=== PATIENT | male | born 1955 | race Caucasian/White ===

== ENCOUNTER → 2016-10-31 | Outpatient (CLI) | payer MEDICARE | END | disposition home or self-care (01) | LOC: PMGWOUND 13:35 | PROVIDERS: ATTEND Emergency Medicine Undersea and Hyperbaric Medicine | DX: T87.89 Other complications of amputation stump (principal); L97.524 Non-pressure chronic ulcer of other part of left foot with necrosis of bone; L97.514 Non-pressure chronic ulcer of other part of right foot with necrosis of bone; L97.421 Non-pressure chronic ulcer of left heel and midfoot limited to breakdown of skin; E11.621 Type 2 diabetes mellitus with foot ulcer; F17.200 Nicotine dependence, unspecified, uncomplicated; Z86.73 Personal history of transient ischemic attack (TIA), and cerebral infarction without residual deficits; Z89.021 Acquired absence of right finger(s); Z89.421 Acquired absence of other right toe(s); Y83.5 Amputation of limb(s) as the cause of abnormal reaction of the patient, or of later complication, without mention of misadventure at the time of the procedure | CPT/HCPCS: 99215 ==

== ENCOUNTER 2016-11-01 09:07 | Inpatient (IN) | payer MEDICARE, OTHER ==
[~2016-11-01] VITALS: Ht 172.7 cm; Wt 58.1 kg
[2016-11-01] MEDS ORDERED: IV NORMAL SALINE 1000ML BAG 1,000 ML IV ONE (10:30)
[2016-11-01 11:00] LABS: BASO # 0.1 x10^3/uL (0.0-0.2); BASO % 1 % (0-3); EOS % 4 % (0-3); HEMATOCRIT 28.3 % (39.0-53.0); HEMOGLOBIN 9.3 g/dL (13.0-17.5); LYMPH % 10 % (24-48); MEAN CORPUSCULAR HEMOGLOBIN 29 pg (25-35); MEAN CORPUSCULAR HGB CONC 33 g/dL (31-37); MEAN CORPUSCULAR VOLUME 89 fL (79-100); MONO % 6 % (0-9); NEUT % 79 % (31-73); PLATELET COUNT 284 x10^3/uL (140-400); RED BLOOD COUNT 3.19 x10^6/uL (4.30-5.70); RED CELL DISTRIBUTION WIDTH 15.8 % (11.5-14.5); WHITE BLOOD COUNT 10.1 x10^3/uL (4.0-11.0)
[2016-11-01 11:13] LABS: CALCIUM 8.8 mg/dL (8.5-10.1); GFR 11.9; POTASSIUM 4.6 mmol/L (3.5-5.1)
[2016-11-01] MEDS ORDERED: fentaNYL PF VIAL 100 MCG/2 ML VIAL IV ONE ×2 (11:15→13:30)
[2016-11-01 11:28] LABS: ALBUMIN 2.9 g/dL (3.4-5.0); ALBUMIN/GLOBULIN RATIO 0.7 (1.0-1.7); TOTAL BILIRUBIN 0.2 mg/dL (0.2-1.0); TOTAL PROTEIN 7.2 g/dL (6.4-8.2)
--- NOTE | 2016-11-01 13:15 | PHYS DOC ---
Past Medical History Past Medical History: Diabetes-Type II, Hypertension, Renal Failure, Stroke, Other Additional Past Medical Histor: CREST SYNDROME Past Surgical History: Other Additional Past Surgical Histo: LEFT FOOT, RIGHT HAND-FINGER AMP Alcohol Use: Rarely Drug Use: Marijuana Adult General Chief Complaint Chief Complaint: WOUND CHECK HPI HPI Patient is a 61 year old M who presents with wound dehiscence to the right foot after having his toes amputated. Patient was sent in by the water treatment specialist for further evaluation and management and possible infection further wound dehiscence. The water treatment specialist Dr. Ely would like the patient admitted and possible hyperbarics to help with the care to the wound on the left foot. Patient states he had his toes amputated at and was recently discharged however did not appreciate the care that was provided at the facility therefore does not want go back to . Patient denies any fevers. Patient denies any chest pain or shortness of breath. Patient denies any abdominal pain nausea/vomiting/diarrhea. Patient has no other complaints. Review of Systems Review of Systems GEN: Denies fevers, chills, sweats HEENT: Denies blurred vision, sore throat CV: Denies chest pain RESP: Denies shortness of air, cough GI: Denies n/v/d NEURO: Denies confusion, dizziness MSK: Left foot pain Current Medications Current Medications Current Medications Medications (Trade) Dose Ordered Sig/Zoila Start Time Stop Time Status Last Admin Dose Admin Fentanyl Citrate (Fentanyl 2ml Vial) 50 mcg 1X ONCE 11/01/16 13:30 11/01/16 13:31 DC Sodium Chloride 1,000 ml @ 1,000 mls/hr 1X ONCE 11/01/16 10:30 11/01/16 11:38 DC 11/01/16 11:06 1,000 MLS/HR Vancomycin HCl (Vanco Per Pharmacy) 1 each PRN DAILY PRN 11/01/16 13:15 UNV Vancomycin HCl 1.5 gm/Sodium Chloride 500 ml @ 250 mls/hr 1X ONCE 11/01/16 13:30 11/01/16 15:29 11/01/16 13:37 250 MLS/HR Allergies Allergies Allergies Coded Allergies Type Severity Reaction Last Updated Verified morphine Allergy Mild itch 11/01/16 Yes Physical Exam Physical Exam GEN.: No apparent distress. Alert and oriented. HEENT: Head is normocephalic, atraumatic NECK: Supple. LUNGS: CTAB. HEART: RRR, S1, S2 present. Peripheral pulses intact ABDOMEN: Soft, nontender. Positive bowel sounds. EXTREMITIES: Without any cyanosis. Left foot has healing incision extending from the first metatarsal to the fifth metatarsal with all toes removed and the over the first metatarsal that has dehisced with purulent discharge NEUROLOGIC: Normal speech, normal tone PSYCHIATRIC: Normal affect, normal mood. SKIN: No ulcerations Current Patient Data Vital Signs Vital Signs Date Time Temp Pulse Resp B/P (MAP) Pulse Ox O2 Delivery O2 Flow Rate FiO2 11/01/16 11:29 76 20 163/78 (106) 97 Room Air 11/01/16 10:22 98.3 98.3 Lab Values Laboratory Tests Test 11/01/16 10:45 11/01/16 11:53 White Blood Count 10.1 x10^3/uL (4.0-11.0) Red Blood Count 3.19 x10^6/uL (4.30-5.70) L Hemoglobin 9.3 g/dL (13.0-17.5) L Hematocrit 28.3 % (39.0-53.0) L Mean Corpuscular Volume 89 fL (79-100) Mean Corpuscular Hemoglobin 29 pg (25-35) Mean Corpuscular Hemoglobin Concent 33 g/dL (31-37) Red Cell Distribution Width 15.8 % (11.5-14.5) H Platelet Count 284 x10^3/uL (140-400) Neutrophils (%) (Auto) 79 % (31-73) H Lymphocytes (%) (Auto) 10 % (24-48) L Monocytes (%) (Auto) 6 % (0-9) Eosinophils (%) (Auto) 4 % (0-3) H Basophils (%) (Auto) 1 % (0-3) Neutrophils # (Auto) 8.0 x10^3uL (1.8-7.7) H Lymphocytes # (Auto) 1.0 x10^3/uL (1.0-4.8) Monocytes # (Auto) 0.6 x10^3/uL (0.0-1.1) Eosinophils # (Auto) 0.4 x10^3/uL (0.0-0.7) Basophils # (Auto) 0.1 x10^3/uL (0.0-0.2) Sodium Level 137 mmol/L (136-145) Potassium Level 4.6 mmol/L (3.5-5.1) Chloride Level 101 mmol/L (98-107) Carbon Dioxide Level 24 mmol/L (21-32) Anion Gap 12 (6-14) Blood Urea Nitrogen 88 mg/dL (8-26) H Creatinine 5.0 mg/dL (0.7-1.3) H Estimated GFR (Cockcroft-Gault) 11.9 BUN/Creatinine Ratio 18 (6-20) Glucose Level 194 mg/dL (70-99) H Lactic Acid Level 0.8 mmol/L (0.4-2.0) 0.8 mmol/L (0.4-2.0) Calcium Level 8.8 mg/dL (8.5-10.1) Total Bilirubin 0.2 mg/dL (0.2-1.0) Aspartate Amino Transferase (AST) 17 U/L (15-37) Alanine Aminotransferase (ALT) 32 U/L (16-63) Alkaline Phosphatase 197 U/L (46-116) H Total Protein 7.2 g/dL (6.4-8.2) Albumin 2.9 g/dL (3.4-5.0) L Albumin/Globulin Ratio 0.7 (1.0-1.7) L Procalcitonin 0.33 ng/mL (0.00-0.10) H Laboratory Tests 11/01/16 10:45 Laboratory Tests 11/01/16 10:45 EKG EKG [] Radiology/Procedures Radiology/Procedures X-ray of the left foot shows no obvious bony involvement to suggest acute ostium myelitis however recommend MRI for further evaluation [] Course & Med Decision Making Course & Med Decision Making Pertinent Labs and Imaging studies reviewed. (See chart for details) ED course: Patient is seen and examined emergency room septic workup was ordered 1315: Updated patient on plan and lab work 1327: Discussed CC/HP/PMH with Dr. Carpenter and recommends admit [] [] Dragon Disclaimer Dragon Disclaimer This electronic medical record was generated, in whole or in part, using a voice recognition dictation system. Departure Departure Impression: Primary Impression: Wound dehiscence Disposition: ADMITTED INPATIENT Admitting Physician: Other (Reusch) Condition: STABLE Referrals: ERIKA GROSSMAN (PCP) PRABHA JACKSON DO Nov 01, 2016 13:15
[2016-11-01] MEDS ORDERED: VANCOMYCIN 1.5 GM in IV NORMAL SALINE 500ML BAG 500 ML IV ONE (13:30)
--- NOTE | 2016-11-01 13:35 | RAD ---
Exam performed: 3 views left foot. History: Possible osteomyelitis. Recent amputation. Date of service: 11/01/16. Comparison: None available 3 views left foot findings: There has been amputation of 1through 5 metatarsalS distal to the tarsometatarsal joint. There is mild soft tissue swelling. No bony erosions or periosteal reaction seen. There is mild soft tissue calcification between first and second metatarsals. Impression: Soft tissue swelling with some calcifications. No convincing evidence of osteomyelitis seen. If there is a strong clinical suspicion for 2 minus, evaluation with MRI of the left foot may be of additional benefit.
[2016-11-01] MEDS ORDERED: ONDANSETRON PF 4 MG/2 ML VIAL. IV PRN (13:45)
[2016-11-01] MEDS: ACETAMINOPHEN 325 MG TABLET. PO PRN ×2 (17:13→23:03)
[2016-11-01] MEDS: fentaNYL PF VIAL 100 MCG/2 ML VIAL IM PRN ×2 (17:16→23:04)
[2016-11-01 19:00] VITALS: BP 167/69
[2016-11-01] MEDS: VANCOMYCIN PER PHARMACY MC PRN (19:28)
[2016-11-01] MEDS ORDERED: DEXTROSE 50% 25 GM / 50ML DISP.SYRIN. IV PRN (19:45)
[2016-11-01] MEDS ORDERED: SENNOSIDES 8.6 MG TABLET PO PRN (20:15)
[2016-11-01] MEDS: HYDROmorphone 4 MG TABLET PO PRN (20:21)
[2016-11-01] MEDS: INSULIN ASPART 300 UNITS/3 ML INSULN.PEN SQ SCH (20:30)
--- NOTE | 2016-11-01 20:34 | HP ---
ADMIT DATE: 11/01/2016 ADDENDUM PHYSICAL EXAMINATION: EXTREMITIES: Show no edema. The right foot is wrapped in gauze. Two fingers on his left hand are missing. LABORATORY DATA: alkaline phosphatase at 197. IMAGING STUDIES: Foot x-ray shows soft tissue swelling with some calcifications. No convincing evidence of osteomyelitis seen. ASSESSMENT AND PLAN: Mr. Baker is a 61-year-old gentleman with CREST syndrome, renal failure, diabetes mellitus, who presents 6+ weeks after distal foot amputation with wound dehiscence. We will obtain ortho consult. He refuses to return to his orthopedic surgeon at . We will obtain MRI to evaluate for further osteomyelitis in his foot. Wound care consult will be obtained as well. For his diabetes, insulin sliding scale will be instituted. There are no medications listed on his home regimen for diabetes. May have to start that here. Hemoglobin A1c in pending. Blood pressure currently is poorly controlled as well. 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 Probably will need further adjustment down the road in his regimen. He does have significant renal insufficiency, known to him, although he cannot recall his most recent creatinine. Electrolytes are normal, giving rise to the suspicion that he is close to his baseline. Will obtain renal consult in AM. He is a current tobacco user, requesting nicotine patch. this has been ordered. Prophylaxis will be obtained with heparin b.i.d. We will hold a.m. dose in case interventions are indicated. ELVIS TOLENTINO MD DR: LEV/nts JOB#: [id number] / [id number]
--- NOTE | 2016-11-01 20:35 | HP ---
ADMIT DATE: 11/01/2016 CHIEF COMPLAINT: Wound dehiscence, left foot. HISTORY OF PRESENT ILLNESS: The patient is a 61-year-old cannabis smoker who presented from home with right foot wound dehiscence. He relates that in early September, he had undergone orthopedic distal foot amputation secondary to osteomyelitis. He had spent 6 weeks in a rehab and had come home about a week ago when suddenly his wound dehisced. He states he was not really ambulating secondary to previous partial foot amputation and has done nothing to prompt this occurrence. He blames it on his orthopedic surgeon at , does not want to go back there and is contemplating suing the physician. He denies any fevers or chills. Denies any other symptoms. He was actually seen by Dr. Ely in the wound clinic and referred to this hospital. PAST MEDICAL HISTORY: CREST syndrome, diabetes, hypertension, renal insufficiency, CVA. PAST SURGICAL HISTORY: He is status post left foot as well as right foot amputation, right hand finger amputation. FAMILY HISTORY: Autoimmune disease known in great aunt and no close relatives. SOCIAL HISTORY: Moved to be closer with his family here. Admits to daily cannabis use, quit smoking tobacco recently. Denies any alcohol. ALLERGIES: MORPHINE. HOME MEDICATIONS: Reconciled with MAR. REVIEW OF SYSTEMS: Positive as per HPI. Rest of organ system review is negative. PHYSICAL EXAMINATION: VITAL SIGNS: From today show a blood pressure of 161/74, heart rate of 79, respiratory rate at 19. GENERAL: This is an ill-kempt, ill appearing 61-year-old gentleman, awake, alert, in no acute distress. HEENT: Shows no scleral icterus. NECK: Supple without any lymphadenopathy. LUNGS: Fairly clear. HEART: Has regular rate and rhythm with a 3/6 systolic murmur. LUNGS: Clear. ABDOMEN: Has positive bowel sounds, soft, nontender. EXTREMITIES: Show no edema. ELVIS TOLENTINO MD DR: LEV/nts JOB#: [id number] / [id number]
[2016-11-01] MEDS ORDERED: ALBUTEROL SULFATE 2.5 MG/3 ML NEBU. NEB PRN (21:30)
[2016-11-01 23:00] VITALS: BP 147/65
[2016-11-01] MEDS: CARISOPRODOL 350 MG TABLET PO PRN (23:00)
[2016-11-01] MEDS: amLODIPine BESYLATE 10 MG TABLET PO SCH (23:01)
[2016-11-01] MEDS: PANTOPRAZOLE 40 MG TABLET.DR. PO SCH (23:02)
[2016-11-01] MEDS: ATORVASTATIN CALCIUM 10 MG TABLET. PO SCH ×2 (23:02→23:06)
[2016-11-01] MEDS: DICLOFENAC SODIUM 1% TOPICAL GEL 100GM TUBE. TP SCH (23:06)
[2016-11-02] MEDS: HYDROmorphone 4 MG TABLET PO PRN ×6 (00:56→20:17)
--- NOTE | 2016-11-02 02:38 | ACF ---
Admission Forms Criteria WOUND COMPLICATIONS Clinical Indications for Inpatient Care (Place 'X' for any and all applicable criteria): Ongoing inpatient care may be indicated for wound complications with ANY ONE of the following (1) (15): [ ]I. Infection with ANY ONE of the following(32)(33): [ ]a) Temperature greater than 38.5 C (101.3 F) [ ]b) Evidence of tissue necrosis [ ]c) Erythema diameter expanding around wound despite treatment [ ]d) Mental status changes [ ]e) Dehydration [ ]f) Bacteremia [ ]g) Hemodynamic instability [ ]h) Suspected necrotizing fasciitis [ ]i) Rapidly spreading lesions [ ]j) High-risk location (eg, perineum, sternum, orbit) [ ]k) High-risk coexisting clinical condition as indicated by ANY ONE of the following: [ ]i) Poorly controlled diabetes [ ]ii) Cirrhosis [ ]iii) Renal failure [ ]iv) Neutropenia [ ] v) Asplenia [ ]vi) Immunosuppression (eg, AIDS, chronic corticosteroid use) [ ]viii) Other high-risk medical comorbidities [X] II. Dehiscence requiring frequent monitoring or immediate treatment [ ] III. Hematoma with ANY ONE of the following: [ ]a) Hemodynamic instability or acute anemia due to rapid development of hematoma [ ]b) Neck hematoma causing airway compression [ ]c) Retroperitoneal hematoma [ ]d) Uncontrolled coagulopathy [ ]IV. Seroma with evidence of secondary infection and requirement for IV antibiotics [D](31) [ ]V. Pain that cannot be managed at lower level of care Extended stay beyond goal length of stay for primary condition may be needed until ALL of the following are present(1)(33)(34): [ ]a) Afebrile or fever resolving [ ]b) Hemodynamic stability [ ]c) Pain resolving [ ]d) Wound closed, continuity adequately restored, or wound manageable at lower level of care [ ]e) No drain needed or drain care manageable at lower level of care [ ]f) Wound hematoma or seroma resolving [ ]g) Antibiotics not needed or regimen manageable at lower level of care(38) [ ]h) Dressing care manageable at lower level of care [ ]i) Coagulopathy absent, resolved, or treatable at lower level of care [ ]j) Medical comorbidities resolved or treatable at lower level of care The original [facility] content created by Maria E Macedo has been revised. The portions of the content which have been revised are identified through the use of italic text or in bold, and Maria E Macedo has neither reviewed nor approved the modified material. All other unmodified content is copyright Maria E Macedo. Please see references footnoted in the original Maria E Macedo edition 2016 Admission Criteria Met?: Yes SAMANTHA PARKINSON Nov 02, 2016 02:38
[2016-11-02 03:00] VITALS: BP 165/66
[2016-11-02 05:13] LABS: BASO # 0.1 x10^3/uL (0.0-0.2); BASO % 1 % (0-3); EOS % 4 % (0-3); HEMATOCRIT 27.7 % (39.0-53.0); LYMPH # 1.2 x10^3/uL (1.0-4.8); LYMPH % 16 % (24-48); MEAN CORPUSCULAR HEMOGLOBIN 29 pg (25-35); MEAN CORPUSCULAR HGB CONC 33 g/dL (31-37); MEAN CORPUSCULAR VOLUME 89 fL (79-100); MONO % 10 % (0-9); NEUT % 70 % (31-73); PLATELET COUNT 257 x10^3/uL (140-400); RED BLOOD COUNT 3.12 x10^6/uL (4.30-5.70); RED CELL DISTRIBUTION WIDTH 16.1 % (11.5-14.5); WHITE BLOOD COUNT 7.3 x10^3/uL (4.0-11.0)
[2016-11-02 05:36] LABS: CALCIUM 8.2 mg/dL (8.5-10.1); CREATININE 5.1 mg/dL (0.7-1.3); GFR 11.6
[2016-11-02 07:00] VITALS: BP 147/66
[2016-11-02] MEDS: ASPIRIN ENTERIC COATED 81 MG TABLET.DR. PO SCH (08:00)
[2016-11-02] MEDS: INSULIN ASPART 300 UNITS/3 ML INSULN.PEN SQ SCH ×3 (08:00→18:09)
[2016-11-02] MEDS: CLOPIDOGREL BISULFATE 75 MG TABLET PO SCH (08:39)
[2016-11-02] MEDS: amLODIPine BESYLATE 10 MG TABLET PO SCH ×2 (08:39→20:16)
[2016-11-02] MEDS: PANTOPRAZOLE 40 MG TABLET.DR. PO SCH ×2 (08:39→16:08)
[2016-11-02] MEDS: SEVELAMER CARBONATE 800 MG TABLET. PO SCH ×3 (08:39→16:08)
[2016-11-02] MEDS: CARVEDILOL 3.125 MG TABLET. PO SCH ×2 (08:40→16:18)
[2016-11-02] MEDS: DICLOFENAC SODIUM 1% TOPICAL GEL 100GM TUBE. TP SCH ×2 (08:40→21:00)
--- NOTE | 2016-11-02 10:16 | HP ---
ADMIT DATE: 11/01/2016 CHIEF COMPLAINT: Wound dehiscence, left foot. HISTORY OF PRESENT ILLNESS: The patient is a 61-year-old cannabis smoker who presented from home with right foot wound dehiscence. He relates that in early September, he had undergone orthopedic distal foot amputation secondary to osteomyelitis. He had spent 6 weeks in a rehab and had come home about a week ago when suddenly his wound dehisced. He states he was not really ambulating secondary to previous partial foot amputation and has done nothing to prompt this occurrence. He blames it on his orthopedic surgeon at , does not want to go back there and is contemplating suing the physician. He denies any fevers or chills. Denies any other symptoms. He was actually seen by Dr. Ely in the wound clinic and referred to this hospital. PAST MEDICAL HISTORY: CREST syndrome, diabetes, hypertension, renal insufficiency, CVA. PAST SURGICAL HISTORY: He is status post left foot as well as right foot amputation, right hand finger amputation. FAMILY HISTORY: Autoimmune disease known in great aunt and no close relatives. SOCIAL HISTORY: Moved to be closer with his family here. Admits to daily cannabis use, quit smoking tobacco recently. Denies any alcohol. ALLERGIES: MORPHINE. HOME MEDICATIONS: Reconciled with MAR. REVIEW OF SYSTEMS: Positive as per HPI. Rest of organ system review is negative. PHYSICAL EXAMINATION: VITAL SIGNS: From today show a blood pressure of 161/74, heart rate of 79, respiratory rate at 19. GENERAL: This is an ill-kempt, ill appearing 61-year-old gentleman, awake, alert, in no acute distress. HEENT: Shows no scleral icterus. NECK: Supple without any lymphadenopathy. LUNGS: Fairly clear. HEART: Has regular rate and rhythm with a 3/6 systolic murmur. LUNGS: Clear. ABDOMEN: Has positive bowel sounds, soft, nontender. EXTREMITIES: Show no edema. ADDENDUM PHYSICAL EXAMINATION: EXTREMITIES: Show no edema. The right foot is wrapped in gauze. Two fingers on his left hand are missing. LABORATORY DATA: alkaline phosphatase at 197. IMAGING STUDIES: Foot x-ray shows soft tissue swelling with some calcifications. No convincing evidence of osteomyelitis seen. ASSESSMENT AND PLAN: Mr. Baker is a 61-year-old gentleman with CREST syndrome, renal failure, diabetes mellitus, who presents 6+ weeks after distal foot amputation with wound dehiscence. We will obtain ortho consult. He refuses to return to his orthopedic surgeon at . We will obtain MRI to evaluate for further osteomyelitis in his foot. Wound care consult will be obtained as well. For his diabetes, insulin sliding scale will be instituted. There are no medications listed on his home regimen for diabetes. May have to start that here. Blood pressure currently is poorly controlled as well. 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 Probably will need further adjustment down the road in his regimen. Prophylaxis will be obtained with heparin b.i.d. We will hold a.m. dose in case interventions are indicated. ELVIS TOLENTINO MD DR: LEV/nts JOB#: [id number] / [id number]
--- NOTE | 2016-11-02 10:19 | HP ---
ADMIT DATE: 11/01/2016 CHIEF COMPLAINT: Wound dehiscence, left foot. HISTORY OF PRESENT ILLNESS: The patient is a 61-year-old cannabis smoker who presented from home with right foot wound dehiscence. He relates that in early September, he had undergone orthopedic distal foot amputation secondary to osteomyelitis. He had spent 6 weeks in a rehab and had come home about a week ago when suddenly his wound dehisced. He states he was not really ambulating secondary to previous partial foot amputation and has done nothing to prompt this occurrence. He blames it on his orthopedic surgeon at , does not want to go back there and is contemplating suing the physician. He denies any fevers or chills. Denies any other symptoms. He was actually seen by Dr. Ely in the wound clinic and referred to this hospital. PAST MEDICAL HISTORY: CREST syndrome, diabetes, hypertension, renal insufficiency, CVA. PAST SURGICAL HISTORY: He is status post left foot as well as right foot amputation, right hand finger amputation. FAMILY HISTORY: Autoimmune disease known in great aunt and no close relatives. SOCIAL HISTORY: Moved to be closer with his family here. Admits to daily cannabis use, quit smoking tobacco recently. Denies any alcohol. ALLERGIES: MORPHINE. HOME MEDICATIONS: Reconciled with MAR. REVIEW OF SYSTEMS: Positive as per HPI. Rest of organ system review is negative. PHYSICAL EXAMINATION: VITAL SIGNS: From today show a blood pressure of 161/74, heart rate of 79, respiratory rate at 19. GENERAL: This is an ill-kempt, ill appearing 61-year-old gentleman, awake, alert, in no acute distress. HEENT: Shows no scleral icterus. NECK: Supple without any lymphadenopathy. LUNGS: Fairly clear. HEART: Has regular rate and rhythm with a 3/6 systolic murmur. LUNGS: Clear. ABDOMEN: Has positive bowel sounds, soft, nontender. EXTREMITIES: Show no edema. PHYSICAL EXAMINATION: EXTREMITIES: Show no edema. The right foot is wrapped in gauze. Two fingers on his left hand are missing. LABORATORY DATA: alkaline phosphatase at 197. IMAGING STUDIES: Foot x-ray shows soft tissue swelling with some calcifications. No convincing evidence of osteomyelitis seen. ASSESSMENT AND PLAN: Mr. Baker is a 61-year-old gentleman with CREST syndrome, renal failure, diabetes mellitus, who presents 6+ weeks after distal foot amputation with wound dehiscence. We will obtain ortho consult. He refuses to return to his orthopedic surgeon at . We will obtain MRI to evaluate for further osteomyelitis in his foot. Wound care consult will be obtained as well. For his diabetes, insulin sliding scale will be instituted. There are no medications listed on his home regimen for diabetes. May have to start that here. Blood pressure currently is poorly controlled as well. 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 Probably will need further adjustment down the road in his regimen. Prophylaxis will be obtained with heparin b.i.d. We will hold a.m. dose in case interventions are indicated. ELVIS TOLENTINO MD DR: LEV/nts JOB#: [id number] / [id number]
--- NOTE | 2016-11-02 10:37 | HP ---
ADMIT DATE: 11/01/2016 CHIEF COMPLAINT: Wound dehiscence, left foot. HISTORY OF PRESENT ILLNESS: The patient is a 61-year-old cannabis smoker who presented from home with right foot wound dehiscence. He relates that in early September, he had undergone orthopedic distal foot amputation secondary to osteomyelitis. He had spent 6 weeks in a rehab and had come home about a week ago when suddenly his wound dehisced. He states he was not really ambulating secondary to previous partial foot amputation and has done nothing to prompt this occurrence. He blames it on his orthopedic surgeon at , does not want to go back there and is contemplating suing the physician. He denies any fevers or chills. Denies any other symptoms. He was actually seen by Dr. Ely in the wound clinic and referred to this hospital. PAST MEDICAL HISTORY: CREST syndrome, diabetes, hypertension, renal insufficiency, CVA. PAST SURGICAL HISTORY: He is status post left foot as well as right foot amputation, right hand finger amputation. FAMILY HISTORY: Autoimmune disease known in great aunt and no close relatives. SOCIAL HISTORY: Moved to be closer with his family here. Admits to daily cannabis use, quit smoking tobacco recently. Denies any alcohol. ALLERGIES: MORPHINE. HOME MEDICATIONS: Reconciled with MAR. REVIEW OF SYSTEMS: Positive as per HPI. Rest of organ system review is negative. PHYSICAL EXAMINATION: VITAL SIGNS: From today show a blood pressure of 161/74, heart rate of 79, respiratory rate at 19. GENERAL: This is an ill-kempt, ill appearing 61-year-old gentleman, awake, alert, in no acute distress. HEENT: Shows no scleral icterus. NECK: Supple without any lymphadenopathy. LUNGS: Fairly clear. HEART: Has regular rate and rhythm with a 3/6 systolic murmur. LUNGS: Clear. ABDOMEN: Has positive bowel sounds, soft, nontender. EXTREMITIES: Show no edema. The right foot is wrapped in gauze. Two fingers on his left hand are missing. LABORATORY DATA: alkaline phosphatase at 197. IMAGING STUDIES: Foot x-ray shows soft tissue swelling with some calcifications. No convincing evidence of osteomyelitis seen. ASSESSMENT AND PLAN: Mr. Baker is a 61-year-old gentleman with CREST syndrome, renal failure, diabetes mellitus, who presents 6+ weeks after distal foot amputation with wound dehiscence. We will obtain ortho consult. He refuses to return to his orthopedic surgeon at . We will obtain MRI to evaluate for further osteomyelitis in his foot. Wound care consult will be obtained as well. For his diabetes, insulin sliding scale will be instituted. There are no medications listed on his home regimen for diabetes. May have to start that here. Blood pressure currently is poorly controlled as well. 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 Probably will need further adjustment down the road in his regimen. Prophylaxis will be obtained with heparin b.i.d. We will hold a.m. dose in case interventions are indicated. ELVIS TOLENTINO MD DR: UR/nts JOB#: [id number] / [id number]
[2016-11-02] MEDS: CARISOPRODOL 350 MG TABLET PO PRN ×2 (10:53→18:07)
[2016-11-02 11:00] VITALS: BP 158/77
--- NOTE | 2016-11-02 12:39 | PDOC ---
PROGRESS NOTES Chief Complaint Chief Complaint foot wound, s/p toe amputation w. wound dehiscence DM prior tobacco use CKD 5 anemia of CKD CREST syndrome, poor wound healing of extremities History of Present Illness History of Present Illness feels well, pain OK he multiple times referred to Dr. Davidson, and that he plans to initiate a lawsuit , that the sutures from surgery were removed too early. I discussed with him that 6 weeks is an inordinately long period of time to wait to remove suture. tobacco cessation was recent, and recidivism discussed. 'will consult renal for CKD 5 wound care following ID consult for wound, Ortho following, may need wound vac for a length of time. Risk of amputation remains high, and that had been discussed initially at [facility] Vitals Vitals Vital Signs Date Time Temp Pulse Resp B/P (MAP) Pulse Ox O2 Delivery O2 Flow Rate FiO2 11/02/16 11:00 98.1 83 18 158/77 (104) 95 Room Air 98.1 Physical Exam General: Alert, Oriented X3, Cooperative, No acute distress Heart: Regular rate, No murmurs Lungs: Clear, Wheezing Abdomen: Normal bowel sounds, Soft Extremities: No clubbing, No cyanosis Skin: No rashes, No breakdown Labs LABS Laboratory Tests Test 11/01/16 16:48 11/01/16 21:11 11/02/16 04:15 11/02/16 07:47 Glucose (Fingerstick) 83 mg/dL (70-99) 99 mg/dL (70-99) 96 mg/dL (70-99) White Blood Count 7.3 x10^3/uL (4.0-11.0) Red Blood Count 3.12 x10^6/uL (4.30-5.70) Hemoglobin 9.0 g/dL (13.0-17.5) Hematocrit 27.7 % (39.0-53.0) Mean Corpuscular Volume 89 fL (79-100) Mean Corpuscular Hemoglobin 29 pg (25-35) Mean Corpuscular Hemoglobin Concent 33 g/dL (31-37) Red Cell Distribution Width 16.1 % (11.5-14.5) Platelet Count 257 x10^3/uL (140-400) Neutrophils (%) (Auto) 70 % (31-73) Lymphocytes (%) (Auto) 16 % (24-48) Monocytes (%) (Auto) 10 % (0-9) Eosinophils (%) (Auto) 4 % (0-3) Basophils (%) (Auto) 1 % (0-3) Neutrophils # (Auto) 5.1 x10^3uL (1.8-7.7) Lymphocytes # (Auto) 1.2 x10^3/uL (1.0-4.8) Monocytes # (Auto) 0.7 x10^3/uL (0.0-1.1) Eosinophils # (Auto) 0.3 x10^3/uL (0.0-0.7) Basophils # (Auto) 0.1 x10^3/uL (0.0-0.2) Sodium Level 141 mmol/L (136-145) Potassium Level 5.0 mmol/L (3.5-5.1) Chloride Level 107 mmol/L (98-107) Carbon Dioxide Level 25 mmol/L (21-32) Anion Gap 9 (6-14) Blood Urea Nitrogen 78 mg/dL (8-26) Creatinine 5.1 mg/dL (0.7-1.3) Estimated GFR (Cockcroft-Gault) 11.6 Glucose Level 110 mg/dL (70-99) Calcium Level 8.2 mg/dL (8.5-10.1) Test 11/02/16 11:21 Glucose (Fingerstick) 185 mg/dL (70-99) Review of Systems Review of Systems no n.v.d sleeping hard, still having pain Assessment and Plan Assessmemt and Plan Problems Medical Problems: (1) Wound dehiscence Status: Acute Problems: Comment Review of Relevant I have reviewed the following items rula (where applicable) has been applied. Labs Laboratory Tests Test 11/01/16 10:45 11/01/16 11:53 11/01/16 16:48 11/01/16 21:11 White Blood Count 10.1 x10^3/uL (4.0-11.0) Red Blood Count 3.19 x10^6/uL (4.30-5.70) Hemoglobin 9.3 g/dL (13.0-17.5) Hematocrit 28.3 % (39.0-53.0) Mean Corpuscular Volume 89 fL (79-100) Mean Corpuscular Hemoglobin 29 pg (25-35) Mean Corpuscular Hemoglobin Concent 33 g/dL (31-37) Red Cell Distribution Width 15.8 % (11.5-14.5) Platelet Count 284 x10^3/uL (140-400) Neutrophils (%) (Auto) 79 % (31-73) Lymphocytes (%) (Auto) 10 % (24-48) Monocytes (%) (Auto) 6 % (0-9) Eosinophils (%) (Auto) 4 % (0-3) Basophils (%) (Auto) 1 % (0-3) Neutrophils # (Auto) 8.0 x10^3uL (1.8-7.7) Lymphocytes # (Auto) 1.0 x10^3/uL (1.0-4.8) Monocytes # (Auto) 0.6 x10^3/uL (0.0-1.1) Eosinophils # (Auto) 0.4 x10^3/uL (0.0-0.7) Basophils # (Auto) 0.1 x10^3/uL (0.0-0.2) Sodium Level 137 mmol/L (136-145) Potassium Level 4.6 mmol/L (3.5-5.1) Chloride Level 101 mmol/L (98-107) Carbon Dioxide Level 24 mmol/L (21-32) Anion Gap 12 (6-14) Blood Urea Nitrogen 88 mg/dL (8-26) Creatinine 5.0 mg/dL (0.7-1.3) Estimated GFR (Cockcroft-Gault) 11.9 BUN/Creatinine Ratio 18 (6-20) Glucose Level 194 mg/dL (70-99) Lactic Acid Level 0.8 mmol/L (0.4-2.0) 0.8 mmol/L (0.4-2.0) Calcium Level 8.8 mg/dL (8.5-10.1) Total Bilirubin 0.2 mg/dL (0.2-1.0) Aspartate Amino Transf (AST/SGOT) 17 U/L (15-37) Alanine Aminotransferase (ALT/SGPT) 32 U/L (16-63) Alkaline Phosphatase 197 U/L (46-116) Total Protein 7.2 g/dL (6.4-8.2) Albumin 2.9 g/dL (3.4-5.0) Albumin/Globulin Ratio 0.7 (1.0-1.7) Procalcitonin 0.33 ng/mL (0.00-0.10) Glucose (Fingerstick) 83 mg/dL (70-99) 99 mg/dL (70-99) Test 11/02/16 04:15 11/02/16 07:47 11/02/16 11:21 White Blood Count 7.3 x10^3/uL (4.0-11.0) Red Blood Count 3.12 x10^6/uL (4.30-5.70) Hemoglobin 9.0 g/dL (13.0-17.5) Hematocrit 27.7 % (39.0-53.0) Mean Corpuscular Volume 89 fL (79-100) Mean Corpuscular Hemoglobin 29 pg (25-35) Mean Corpuscular Hemoglobin Concent 33 g/dL (31-37) Red Cell Distribution Width 16.1 % (11.5-14.5) Platelet Count 257 x10^3/uL (140-400) Neutrophils (%) (Auto) 70 % (31-73) Lymphocytes (%) (Auto) 16 % (24-48) Monocytes (%) (Auto) 10 % (0-9) Eosinophils (%) (Auto) 4 % (0-3) Basophils (%) (Auto) 1 % (0-3) Neutrophils # (Auto) 5.1 x10^3uL (1.8-7.7) Lymphocytes # (Auto) 1.2 x10^3/uL (1.0-4.8) Monocytes # (Auto) 0.7 x10^3/uL (0.0-1.1) Eosinophils # (Auto) 0.3 x10^3/uL (0.0-0.7) Basophils # (Auto) 0.1 x10^3/uL (0.0-0.2) Sodium Level 141 mmol/L (136-145) Potassium Level 5.0 mmol/L (3.5-5.1) Chloride Level 107 mmol/L (98-107) Carbon Dioxide Level 25 mmol/L (21-32) Anion Gap 9 (6-14) Blood Urea Nitrogen 78 mg/dL (8-26) Creatinine 5.1 mg/dL (0.7-1.3) Estimated GFR (Cockcroft-Gault) 11.6 Glucose Level 110 mg/dL (70-99) Calcium Level 8.2 mg/dL (8.5-10.1) Glucose (Fingerstick) 96 mg/dL (70-99) 185 mg/dL (70-99) Laboratory Tests Test 11/01/16 16:48 11/01/16 21:11 11/02/16 04:15 11/02/16 07:47 Glucose (Fingerstick) 83 mg/dL (70-99) 99 mg/dL (70-99) 96 mg/dL (70-99) White Blood Count 7.3 x10^3/uL (4.0-11.0) Red Blood Count 3.12 x10^6/uL (4.30-5.70) Hemoglobin 9.0 g/dL (13.0-17.5) Hematocrit 27.7 % (39.0-53.0) Mean Corpuscular Volume 89 fL (79-100) Mean Corpuscular Hemoglobin 29 pg (25-35) Mean Corpuscular Hemoglobin Concent 33 g/dL (31-37) Red Cell Distribution Width 16.1 % (11.5-14.5) Platelet Count 257 x10^3/uL (140-400) Neutrophils (%) (Auto) 70 % (31-73) Lymphocytes (%) (Auto) 16 % (24-48) Monocytes (%) (Auto) 10 % (0-9) Eosinophils (%) (Auto) 4 % (0-3) Basophils (%) (Auto) 1 % (0-3) Neutrophils # (Auto) 5.1 x10^3uL (1.8-7.7) Lymphocytes # (Auto) 1.2 x10^3/uL (1.0-4.8) Monocytes # (Auto) 0.7 x10^3/uL (0.0-1.1) Eosinophils # (Auto) 0.3 x10^3/uL (0.0-0.7) Basophils # (Auto) 0.1 x10^3/uL (0.0-0.2) Sodium Level 141 mmol/L (136-145) Potassium Level 5.0 mmol/L (3.5-5.1) Chloride Level 107 mmol/L (98-107) Carbon Dioxide Level 25 mmol/L (21-32) Anion Gap 9 (6-14) Blood Urea Nitrogen 78 mg/dL (8-26) Creatinine 5.1 mg/dL (0.7-1.3) Estimated GFR (Cockcroft-Gault) 11.6 Glucose Level 110 mg/dL (70-99) Calcium Level 8.2 mg/dL (8.5-10.1) Test 11/02/16 11:21 Glucose (Fingerstick) 185 mg/dL (70-99) Microbiology 11/01/16 Blood Culture - Preliminary, Resulted NO GROWTH AFTER 1 DAY Medications Current Medications Sodium Chloride 1,000 ml @ 1,000 mls/hr 1X ONCE IV Last administered on 11:06; Start 11/01/16 at 10:30; Stop 11/01/16 at 11:38; Status DC Fentanyl Citrate (Fentanyl 2ml Vial) 50 mcg 1X ONCE IV Last administered on 11:08; Start 11/01/16 at 11:15; Stop 11/01/16 at 11:16; Status DC Vancomycin HCl (Vanco Per Pharmacy) 1 each PRN DAILY PRN MC SEE COMMENTS Last administered on 11/01/16 19:28; Start 11/01/16 at 13:15 Vancomycin HCl 1.5 gm/Sodium Chloride 500 ml @ 250 mls/hr 1X ONCE IV Last administered on 11/01/16 13:37; Start 11/01/16 at 13:30; Stop 11/01/16 at 15:29 ; Status DC Fentanyl Citrate (Fentanyl 2ml Vial) 50 mcg 1X ONCE IV Last administered on 13:40; Start 11/01/16 at 13:30; Stop 11/01/16 at 13:31; Status DC Ondansetron HCl (Zofran) 4 mg PRN Q8HRS PRN IV NAUSEA/VOMITING; Start 11/01/16 at 13:45; Stop 11/02/16 at 13:44 Acetaminophen (Tylenol) 650 mg PRN Q4HRS PRN PO FEVER Last administered on 11/01 23:03; Start 11/01/16 at 13:45; Stop 11/02/16 at 13:44 Fentanyl Citrate (Fentanyl 2ml Vial) 50 mcg PRN Q4HRS PRN IM PAIN Last administered on 11/01/16 23:04; Start 11/01/16 at 13:45 Vancomycin HCl 1 each 1X ONCE MC ; Start 11/03/16 at 05:00; Stop 11/03/16 at 05 :01 Insulin Aspart (NovoLOG) 0-7 UNITS TIDWMEALS SQ Last administered on 11/02/16 12:13; Start 11/01/16 at 20:30 Dextrose (Dextrose 50%-Water Syringe) 12.5 gm PRN Q15MIN PRN IV SEE COMMENTS; Start 11/01/16 at 19:45 Hydromorphone HCl (Dilaudid) 4 mg PRN Q4HRS PRN PO PAIN Last administered on 12:09; Start 11/01/16 at 20:15 Pantoprazole Sodium (Protonix) 40 mg BIDWMEALS PO Last administered on 08:39; Start 11/01/16 at 21:00 Sennosides (Senna) 8.6 mg PRN QHS PRN PO CONSTIPATION; Start 11/01/16 at 20:15 Sevelamer Carbonate (Renvela) 800 mg TIDWMEALS PO Last administered on 12:09; Start 11/02/16 at 08:00 Albuterol Sulfate (Ventolin Neb Soln) 2.5 mg PRN Q6HRS PRN NEB SHORTNESS OF BREATH; Start 11/01/16 at 21:30 Amlodipine Besylate (Norvasc) 10 mg BID PO Last administered on 11/02/16 08:39 ; Start 11/01/16 at 22:00 Aspirin (Ecotrin) 81 mg DAILYWBKFT PO ; Start 11/02/16 at 08:00 Atorvastatin Calcium (Lipitor) 10 mg Q48H PO ; Start 11/01/16 at 21:00; Stop at 02:25; Status DC Carisoprodol (Soma) 350 mg TID PRN PRN PO MUSCLE SPASMS Last administered on 10:53; Start 11/01/16 at 21:30 Carvedilol (Coreg) 3.125 mg BIDWMEALS PO Last administered on 11/02/16 08:40; Start 11/02/16 at 08:00 Clopidogrel Bisulfate (Plavix) 75 mg DAILYWBKFT PO Last administered on 08:39; Start 11/02/16 at 08:00 Diclofenac Sodium (Voltaren) 1 richard BID TP Last administered on 11/02/16 08:40 ; Start 11/01/16 at 22:00 Atorvastatin Calcium (Lipitor) 10 mg Q48H PO ; Start 11/02/16 at 21:00 Vitals/I & O Vital Sign - Last 24 Hours 11/01/16 11/01/16 11/01/16 11/01/16 13:29 13:40 17:16 19:00 Temp 97.9 97.9 Pulse 79 89 Resp 19 20 20 20 B/P (MAP) 161/74 (103) 167/69 (101) Pulse Ox 98 98 98 O2 Delivery Room Air Room Air Room Air Room Air 11/01/16 11/01/16 11/01/16 11/01/16 20:15 23:00 23:01 23:04 Temp 97.7 97.7 Pulse 78 89 Resp 20 20 B/P (MAP) 147/65 (92) 167/69 Pulse Ox 96 98 O2 Delivery Room Air Room Air Room Air 11/01/16 11/02/16 11/02/16 11/02/16 23:35 03:00 07:00 08:00 Temp 97.5 97.5 97.5 97.5 Pulse 76 80 Resp 20 20 16 B/P (MAP) 165/66 (99) 147/66 (93) Pulse Ox 98 96 95 O2 Delivery Room Air Room Air Room Air Room Air 11/02/16 11/02/16 11/02/16 11/02/16 08:39 08:40 09:15 11:00 Temp 98.1 98.1 Pulse 80 80 83 Resp 18 B/P (MAP) 147/66 147/66 158/77 (104) Pulse Ox 96 95 O2 Delivery Room Air Room Air Intake and Output 11/02/16 11/02/16 11/03/16 15:00 23:00 07:00 Output Total 225 ml Balance -225 ml LES PALMA MD Nov 02, 2016 12:39
[2016-11-02] MEDS: VANCOMYCIN PER PHARMACY MC PRN (13:22)
[2016-11-02 15:00] VITALS: BP 153/69
--- NOTE | 2016-11-02 15:31 | PDOC2 ---
CONSULT Date of Consult Date of Consult DATE: 11/02/16 TIME: 15:26 Reason for Consult Reason for Consult: ^ed Creat/ CKD IV/ V Referring Physician Referring Physician: Dr Carpenter Identification/Chief Complaint Chief Complaint Wound dehiscence Problems: Source Source: Chart review, Patient History of Present Illness Reason for Visit: as dictated Current Problem List Problem List Problems Medical Problems: (1) Wound dehiscence Status: Acute Current Medications Current Medications Current Medications Sodium Chloride 1,000 ml @ 1,000 mls/hr 1X ONCE IV Last administered on 11:06; Start 11/01/16 at 10:30; Stop 11/01/16 at 11:38; Status DC Fentanyl Citrate (Fentanyl 2ml Vial) 50 mcg 1X ONCE IV Last administered on 11:08; Start 11/01/16 at 11:15; Stop 11/01/16 at 11:16; Status DC Vancomycin HCl (Vanco Per Pharmacy) 1 each PRN DAILY PRN MC SEE COMMENTS Last administered on 11/02/16 13:22; Start 11/01/16 at 13:15 Vancomycin HCl 1.5 gm/Sodium Chloride 500 ml @ 250 mls/hr 1X ONCE IV Last administered on 11/01/16 13:37; Start 11/01/16 at 13:30; Stop 11/01/16 at 15:29 ; Status DC Fentanyl Citrate (Fentanyl 2ml Vial) 50 mcg 1X ONCE IV Last administered on 13:40; Start 11/01/16 at 13:30; Stop 11/01/16 at 13:31; Status DC Ondansetron HCl (Zofran) 4 mg PRN Q8HRS PRN IV NAUSEA/VOMITING; Start 11/01/16 at 13:45; Stop 11/02/16 at 13:44; Status DC Acetaminophen (Tylenol) 650 mg PRN Q4HRS PRN PO FEVER Last administered on 11/01 23:03; Start 11/01/16 at 13:45; Stop 11/02/16 at 13:44; Status DC Fentanyl Citrate (Fentanyl 2ml Vial) 50 mcg PRN Q4HRS PRN IM PAIN Last administered on 11/01/16 23:04; Start 11/01/16 at 13:45 Vancomycin HCl 1 each 1X ONCE MC ; Start 11/03/16 at 05:00; Stop 11/03/16 at 05 :01 Insulin Aspart (NovoLOG) 0-7 UNITS TIDWMEALS SQ Last administered on 11/02/16 12:13; Start 11/01/16 at 20:30 Dextrose (Dextrose 50%-Water Syringe) 12.5 gm PRN Q15MIN PRN IV SEE COMMENTS; Start 11/01/16 at 19:45 Hydromorphone HCl (Dilaudid) 4 mg PRN Q4HRS PRN PO PAIN Last administered on 12:09; Start 11/01/16 at 20:15 Pantoprazole Sodium (Protonix) 40 mg BIDWMEALS PO Last administered on 08:39; Start 11/01/16 at 21:00 Sennosides (Senna) 8.6 mg PRN QHS PRN PO CONSTIPATION; Start 11/01/16 at 20:15 Sevelamer Carbonate (Renvela) 800 mg TIDWMEALS PO Last administered on 12:09; Start 11/02/16 at 08:00 Albuterol Sulfate (Ventolin Neb Soln) 2.5 mg PRN Q6HRS PRN NEB SHORTNESS OF BREATH; Start 11/01/16 at 21:30 Amlodipine Besylate (Norvasc) 10 mg BID PO Last administered on 11/02/16 08:39 ; Start 11/01/16 at 22:00 Aspirin (Ecotrin) 81 mg DAILYWBKFT PO ; Start 11/02/16 at 08:00 Atorvastatin Calcium (Lipitor) 10 mg Q48H PO ; Start 11/01/16 at 21:00; Stop at 02:25; Status DC Carisoprodol (Soma) 350 mg TID PRN PRN PO MUSCLE SPASMS Last administered on 10:53; Start 11/01/16 at 21:30 Carvedilol (Coreg) 3.125 mg BIDWMEALS PO Last administered on 11/02/16 08:40; Start 11/02/16 at 08:00 Clopidogrel Bisulfate (Plavix) 75 mg DAILYWBKFT PO Last administered on 08:39; Start 11/02/16 at 08:00 Diclofenac Sodium (Voltaren) 1 richard BID TP Last administered on 11/02/16t 08:40 ; Start 11/01/16 at 22:00 Atorvastatin Calcium (Lipitor) 10 mg Q48H PO ; Start 11/02/16 at 21:00 Multivitamins (Thera M Plus) 1 tab DAILY PO ; Start 11/02/16 at 14:00 Ascorbic Acid (Vitamin C) 500 mg BID PO ; Start 11/02/16 at 14:00 Allergies Allergies: Coded Allergies: morphine (Verified Allergy, Mild, itch, 11/01/16) ROS Review of System GEN: no Fevers no Chills EYES: no new Visual Complaints ENT: no EN Drainage no Hearing deficiets CVS: no Orthopnea no CP RESP: no SOB no DIAZ GI: min Nausea no Vomiting Occ anorexia : no Dysuria no Urgency HEME: no easy bruising no Palp Ly Nodes NEURO no Focal Weakness no Sz PSYCH: no Suicidal Ideation no Depression SKIN: + (facial Telengectasias) no Rashes per se ENDO: no Polyuria or Polydipsia no Hot/Cold Intolerance MU SK: no Arthraigia no Myalgia Physical Exam Physical Exam General Appearance: Awake Alert Oriented x In no Distress Eyes: VIsion Unchanged Conjunctiva Normal EN: No EN Drainage Mucous Memb. moist Neck: no JVD no JVP Supple no Thyromegaly CVS: S1 S2 soft Murmur No Gallop No Rub + Edema left foot area Resp: no Rales no Rhonchi no Acc. Muscle use GI: BAS +ve NO Bruit Non Tender Non Distended : no CVA tenderness; no Suprapubic Tenderness SKIN: +ve facial telengectasias Breast Exam deferred Mu.Sk: Adequate ROM min Muscle Atrophy Heme: Unable to palpate Obvious LAD no palp Splenomegaly NEURO: Good Strength and Tone Cranial Nerves II - XII grossly intact Psych: not Depressed no Active hallucination Vital Signs Vital Signs Date Time Temp Pulse Resp B/P (MAP) Pulse Ox O2 Delivery O2 Flow Rate FiO2 11/02/16 11:00 98.1 83 18 158/77 (104) 95 Room Air 98.1 Assessment & Plan CKD IV/V - Pt claims baseline GFR at [facility] is 13-15cc/min - he follows with Dr Marvin Carrasco and they have an understanding about starting HD if needed. He does not have Uremic s/s that he has described to me currently. Current FLuid and E-lyte status does not necessitate emergent need for Dialysis. Will re- evaluate for Dialysis in am DFU - defer to ID and Ortho Anemia: may need Epogen started; Transfuse as needed. HypoALbuminemia - check for proteinuria - ? CREST affecting it? HTN: Better this am; Current BP meds reviewed. See orders for changes. Discussed Plan of Care and prognosis etc. at length with family. Labs Labs Laboratory Tests Test 11/01/16 10:45 11/01/16 11:53 11/01/16 16:48 11/01/16 21:11 White Blood Count 10.1 x10^3/uL (4.0-11.0) Red Blood Count 3.19 x10^6/uL (4.30-5.70) Hemoglobin 9.3 g/dL (13.0-17.5) Hematocrit 28.3 % (39.0-53.0) Mean Corpuscular Volume 89 fL (79-100) Mean Corpuscular Hemoglobin 29 pg (25-35) Mean Corpuscular Hemoglobin Concent 33 g/dL (31-37) Red Cell Distribution Width 15.8 % (11.5-14.5) Platelet Count 284 x10^3/uL (140-400) Neutrophils (%) (Auto) 79 % (31-73) Lymphocytes (%) (Auto) 10 % (24-48) Monocytes (%) (Auto) 6 % (0-9) Eosinophils (%) (Auto) 4 % (0-3) Basophils (%) (Auto) 1 % (0-3) Neutrophils # (Auto) 8.0 x10^3uL (1.8-7.7) Lymphocytes # (Auto) 1.0 x10^3/uL (1.0-4.8) Monocytes # (Auto) 0.6 x10^3/uL (0.0-1.1) Eosinophils # (Auto) 0.4 x10^3/uL (0.0-0.7) Basophils # (Auto) 0.1 x10^3/uL (0.0-0.2) Sodium Level 137 mmol/L (136-145) Potassium Level 4.6 mmol/L (3.5-5.1) Chloride Level 101 mmol/L (98-107) Carbon Dioxide Level 24 mmol/L (21-32) Anion Gap 12 (6-14) Blood Urea Nitrogen 88 mg/dL (8-26) Creatinine 5.0 mg/dL (0.7-1.3) Estimated GFR (Cockcroft-Gault) 11.9 BUN/Creatinine Ratio 18 (6-20) Glucose Level 194 mg/dL (70-99) Lactic Acid Level 0.8 mmol/L (0.4-2.0) 0.8 mmol/L (0.4-2.0) Calcium Level 8.8 mg/dL (8.5-10.1) Total Bilirubin 0.2 mg/dL (0.2-1.0) Aspartate Amino Transf (AST/SGOT) 17 U/L (15-37) Alanine Aminotransferase (ALT/SGPT) 32 U/L (16-63) Alkaline Phosphatase 197 U/L (46-116) Total Protein 7.2 g/dL (6.4-8.2) Albumin 2.9 g/dL (3.4-5.0) Albumin/Globulin Ratio 0.7 (1.0-1.7) Procalcitonin 0.33 ng/mL (0.00-0.10) Glucose (Fingerstick) 83 mg/dL (70-99) 99 mg/dL (70-99) Test 11/02/16 04:15 11/02/16 07:47 11/02/16 11:21 White Blood Count 7.3 x10^3/uL (4.0-11.0) Red Blood Count 3.12 x10^6/uL (4.30-5.70) Hemoglobin 9.0 g/dL (13.0-17.5) Hematocrit 27.7 % (39.0-53.0) Mean Corpuscular Volume 89 fL (79-100) Mean Corpuscular Hemoglobin 29 pg (25-35) Mean Corpuscular Hemoglobin Concent 33 g/dL (31-37) Red Cell Distribution Width 16.1 % (11.5-14.5) Platelet Count 257 x10^3/uL (140-400) Neutrophils (%) (Auto) 70 % (31-73) Lymphocytes (%) (Auto) 16 % (24-48) Monocytes (%) (Auto) 10 % (0-9) Eosinophils (%) (Auto) 4 % (0-3) Basophils (%) (Auto) 1 % (0-3) Neutrophils # (Auto) 5.1 x10^3uL (1.8-7.7) Lymphocytes # (Auto) 1.2 x10^3/uL (1.0-4.8) Monocytes # (Auto) 0.7 x10^3/uL (0.0-1.1) Eosinophils # (Auto) 0.3 x10^3/uL (0.0-0.7) Basophils # (Auto) 0.1 x10^3/uL (0.0-0.2) Sodium Level 141 mmol/L (136-145) Potassium Level 5.0 mmol/L (3.5-5.1) Chloride Level 107 mmol/L (98-107) Carbon Dioxide Level 25 mmol/L (21-32) Anion Gap 9 (6-14) Blood Urea Nitrogen 78 mg/dL (8-26) Creatinine 5.1 mg/dL (0.7-1.3) Estimated GFR (Cockcroft-Gault) 11.6 Glucose Level 110 mg/dL (70-99) Calcium Level 8.2 mg/dL (8.5-10.1) Glucose (Fingerstick) 96 mg/dL (70-99) 185 mg/dL (70-99) Laboratory Tests Test 11/01/16 16:48 11/01/16 21:11 11/02/16 04:15 11/02/16 07:47 Glucose (Fingerstick) 83 mg/dL (70-99) 99 mg/dL (70-99) 96 mg/dL (70-99) White Blood Count 7.3 x10^3/uL (4.0-11.0) Red Blood Count 3.12 x10^6/uL (4.30-5.70) Hemoglobin 9.0 g/dL (13.0-17.5) Hematocrit 27.7 % (39.0-53.0) Mean Corpuscular Volume 89 fL (79-100) Mean Corpuscular Hemoglobin 29 pg (25-35) Mean Corpuscular Hemoglobin Concent 33 g/dL (31-37) Red Cell Distribution Width 16.1 % (11.5-14.5) Platelet Count 257 x10^3/uL (140-400) Neutrophils (%) (Auto) 70 % (31-73) Lymphocytes (%) (Auto) 16 % (24-48) Monocytes (%) (Auto) 10 % (0-9) Eosinophils (%) (Auto) 4 % (0-3) Basophils (%) (Auto) 1 % (0-3) Neutrophils # (Auto) 5.1 x10^3uL (1.8-7.7) Lymphocytes # (Auto) 1.2 x10^3/uL (1.0-4.8) Monocytes # (Auto) 0.7 x10^3/uL (0.0-1.1) Eosinophils # (Auto) 0.3 x10^3/uL (0.0-0.7) Basophils # (Auto) 0.1 x10^3/uL (0.0-0.2) Sodium Level 141 mmol/L (136-145) Potassium Level 5.0 mmol/L (3.5-5.1) Chloride Level 107 mmol/L (98-107) Carbon Dioxide Level 25 mmol/L (21-32) Anion Gap 9 (6-14) Blood Urea Nitrogen 78 mg/dL (8-26) Creatinine 5.1 mg/dL (0.7-1.3) Estimated GFR (Cockcroft-Gault) 11.6 Glucose Level 110 mg/dL (70-99) Calcium Level 8.2 mg/dL (8.5-10.1) Test 11/02/16 11:21 Glucose (Fingerstick) 185 mg/dL (70-99) JANNET DOW MD Nov 02, 2016 15:31
[2016-11-02 15:39] LABS: BILIRUBIN,URINE NEGATIVE (NEG); GLUCOSE,URINE 100 mg/dL (NEG); NITRITE,URINE NEGATIVE (NEG); PH,URINE 6.5; PROTEIN,URINE 100 mg/dL (NEG-TRACE); UROBILINOGEN,URINE 0.2 mg/dL (0.2 mg/dL)
[2016-11-02 15:50] LABS: BACTERIA,URINE 0 /HPF (0-FEW); RBC,URINE 0 /HPF (0-2); WBC,URINE OCC /HPF (0-4)
[2016-11-02 16:02] LABS: BARBITURATES NEG (NEG); BENZODIAZEPINES NEG (NEG); CANNABINOIDS NEG (NEG); COCAINE NEG (NEG); METHADONE NEG (NEG); OPIATES POS (NEG); PHENCYCLIDINE NEG (NEG)
[2016-11-02] MEDS: ASCORBIC ACID 500 MG TABLET PO SCH ×2 (16:08→20:16)
[2016-11-02] MEDS: MULTIVITAMIN with MINERAL TABLET. PO SCH (16:08)
[2016-11-02 19:00] VITALS: BP 173/75
[2016-11-02] MEDS: ATORVASTATIN CALCIUM 10 MG TABLET. PO SCH (20:16)
--- NOTE | 2016-11-02 22:47 | CONS ---
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 He moved from [place] and has received most of his care at [facility]; however, he was unhappy with the management of his left foot wound and presented here for further evaluation. He follows with Dr. Wong at [facility]. 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 He was seen by Dr. Wong about 2-3 weeks ago and they have opted not to start dialysis until he developed significant signs and symptoms of the same which I agree with. In the setting, he presented here and was noted to have a BUN of 88, creatinine of 5 by CEG method at 12 mL per minute. He is also noted to be hypoalbuminemic. We were asked to see him for renal insufficiency. He did have a sonogram about 6 months ago. He has no difficulty urinating. His appetite is good. Denies any fevers, chills, etc. at this time. PAST MEDICAL AND SURGICAL HISTORY: Significant for: 1. Longstanding diabetes. 2. History of CVA. 3. Hyperlipidemia. 4. Hypertension. 5. Constipation due to narcotic use. 6. CKD, stage 5. 7. History of pneumonia in the past. 8. Cholecystectomy. 9. Recent amputation. 10. CREST syndrome. 11. Tobaccoism as well as chronic marijuana use. 12. Amputation of his right foot and right finger. FAMILY HISTORY: Negative for known kidney problems that he admits to at this time. Autoimmune disease was noted on his great aunt. He does not have much close relatives otherwise. SOCIAL HISTORY: He moved to [place] to be closer to his family. Admits to daily cannabis use. He quit smoking recently. Denies alcohol use. For rest of details, please see electronic records. JANNET DOW MD DR: STAR/may JOB#: [id number] / [id number]
[2016-11-02 23:00] VITALS: BP 148/64
[2016-11-03] MEDS: HYDROmorphone 4 MG TABLET PO PRN ×6 (00:15→23:12)
[2016-11-03] MEDS: CARISOPRODOL 350 MG TABLET PO PRN ×4 (00:17→23:12)
--- NOTE | 2016-11-03 00:35 | CONS ---
DATE OF CONSULTATION: 11/02/2016 CHIEF COMPLAINT: Right foot wound. HISTORY OF PRESENT ILLNESS: The patient is a 61-year-old male with CREST syndrome and has severe Raynaud syndrome symptoms that has resulted in loss of several of his digits, most recently had undergone a transmetatarsal amputation at [facility] with . In early September, he states that he was about 6 weeks in a rehabilitation hospital following that surgery and was home about a week later when his wound came apart. He was protecting the foot as the left foot as instructed and went back to initially and states that they wanted to perform an amputation of his leg. He refused and came here for further evaluation and treatment and was initially referred to the [facility] by Dr. Ely, his family care physician. PAST MEDICAL HISTORY: Significant for CREST syndrome, diabetes that is controlled on a low dose of Glyburide, hypertension, renal insufficiency and a history of previous stroke. PAST SURGICAL HISTORY: Significant for the transmetatarsal amputation on the left, previous amputation of his toes on the right and amputation of his index finger and couple of other fingers on the right hand. FAMILY HISTORY: Significant for autoimmune disease. 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 Denies alcohol use. Does smoke cannabis and was a previous tobacco smoker, but quit fairly recently. ALLERGIES: LISTS AN ALLERGY TO MORPHINE. MEDICATIONS: List is reviewed. REVIEW OF SYSTEMS: Indicates that his symptoms are most severe in terms of the Raynauds and colder weather as expected, diabetes remains well-controlled. He also has some small areas with difficult healing on his right foot. PHYSICAL EXAMINATION: A pleasant, cooperative 61-year-old male, alert and oriented, no acute distress, pleasant, calm and cooperative. Excellent historian. Examination reveals a transmetatarsal amputation of his left foot with wound dehiscence and necrotic tissue present. He has previous amputations that are generally well-healed on the contralateral right foot with some small healing pressure areas has previous finger amputations as well. Good range of motion, alignment and stability of bilateral ankles, wrists, elbows, knees. X-rays of the left foot show soft swelling with some calcifications, no sign of osteomyelitis currently. IMPRESSION: 1. Status post left transmetatarsal amputation of his foot elsewhere with wound dehiscence. 2. Calcinosis, Raynaud phenomenon, esophageal dysmotility, sclerodactyly, and telangiectasia syndrome with severe Raynaud's. TREATMENT PLAN: He had a discussion with him that I am certain his foot is going to need debridement and wound care, possibly a wound VAC. I am concerned with the breakdown of his foot with the otherwise reasonable adherence to the postoperative regimen aside from his smoking history. I told him that I am somewhat concerned by and want some further vascular evaluation and transcutaneous oxygen measurements levels to determine his ability to actually heal the area. While I certainly do not want to constrain him to another level of amputation, I think it would be reasonable to consult Vascular Surgery to see if there are any other interventions that can be undergone to improve his healing capability or at least assess the ability of the wound to heal at its present location if further debridement is undergone. To that end, I have ordered MRI of his foot, transcutaneous oxygen measurement study and vascular consultation currently to direct his further treatment. PREETI PRADHAN MD DR: NAVEEN/may JOB#: [id number] / [id number] ANTOINE Fong MD
[2016-11-03 03:00] VITALS: BP 159/76
[2016-11-03] MEDS ORDERED: VANCOMYCIN RANDOM LEVEL. MC ONE (05:00)
[2016-11-03 06:39] LABS: BASO % 1 % (0-3); EOS % 5 % (0-3); HEMATOCRIT 26.8 % (39.0-53.0); HEMOGLOBIN 9.3 g/dL (13.0-17.5); LYMPH # 1.4 x10^3/uL (1.0-4.8); LYMPH % 16 % (24-48); MEAN CORPUSCULAR HEMOGLOBIN 30 pg (25-35); MEAN CORPUSCULAR HGB CONC 35 g/dL (31-37); MEAN CORPUSCULAR VOLUME 86 fL (79-100); MONO % 8 % (0-9); NEUT % 71 % (31-73); PLATELET COUNT 275 x10^3/uL (140-400); RED BLOOD COUNT 3.12 x10^6/uL (4.30-5.70); RED CELL DISTRIBUTION WIDTH 16.1 % (11.5-14.5); WHITE BLOOD COUNT 8.5 x10^3/uL (4.0-11.0)
[2016-11-03 06:47] LABS: ALBUMIN 2.7 g/dL (3.4-5.0); ALBUMIN/GLOBULIN RATIO 0.7 (1.0-1.7); CALCIUM 8.3 mg/dL (8.5-10.1); CREATININE 5.1 mg/dL (0.7-1.3); GFR 11.6; TOTAL BILIRUBIN 0.2 mg/dL (0.2-1.0); TOTAL PROTEIN 6.4 g/dL (6.4-8.2)
[2016-11-03] MEDS: VANCOMYCIN PER PHARMACY MC PRN (06:59)
[2016-11-03 07:00] VITALS: BP 160/80
[2016-11-03] MEDS: INSULIN ASPART 300 UNITS/3 ML INSULN.PEN SQ SCH ×3 (08:00→17:00)
[2016-11-03] MEDS: CARVEDILOL 3.125 MG TABLET. PO SCH ×2 (08:43→17:35)
[2016-11-03] MEDS: DICLOFENAC SODIUM 1% TOPICAL GEL 100GM TUBE. TP SCH ×2 (08:43→21:34)
[2016-11-03] MEDS: ASCORBIC ACID 500 MG TABLET PO SCH ×2 (08:44→21:32)
[2016-11-03] MEDS: ASPIRIN ENTERIC COATED 81 MG TABLET.DR. PO SCH (08:44)
[2016-11-03] MEDS: CLOPIDOGREL BISULFATE 75 MG TABLET PO SCH (08:44)
[2016-11-03] MEDS: PANTOPRAZOLE 40 MG TABLET.DR. PO SCH ×2 (08:44→17:34)
[2016-11-03] MEDS: SEVELAMER CARBONATE 800 MG TABLET. PO SCH ×3 (08:44→17:34)
[2016-11-03] MEDS: MULTIVITAMIN with MINERAL TABLET. PO SCH (08:44)
[2016-11-03] MEDS: amLODIPine BESYLATE 10 MG TABLET PO SCH ×2 (08:44→21:31)
[2016-11-03] MEDS: fentaNYL PF VIAL 100 MCG/2 ML VIAL IM PRN (08:53)
[2016-11-03] MEDS ORDERED: VANCOMYCIN 1 GM in IV NORMAL SALINE 250ML 250 ML IV SCH (09:00)
--- NOTE | 2016-11-03 09:16 | PDOC2 ---
CONSULT Date of Consult Date of Consult DATE: 11/03/16 TIME: 08:45 Reason for Consult Reason for Consult: Left TMA wound dehiscence, vascular evaluation Referring Physician Referring Physician: Dr. Palmer Identification/Chief Complaint Chief Complaint Left TMA wound dehiscence Source Source: Chart review, Patient History of Present Illness Reason for Visit: This is a pleasant 61 year old male with diabetes, CREST, Raynaud, HTN, renal insufficiency, tobaccoism who presented with left foot transmetatarsal amputation wound dehiscence. A left foot TMA was performed at [facility] [place] in early September. The patient states that the sutures were recently removed and subsequently the wound dehisced. He presented to the wound care center for evaluation and possible HBO and was then admitted to the hospital for further management. Arterial US performed demonstrated monophasic flow throughout the SFA, popliteal, AT and PT. The patient does complain of some "sharp pains and tingling". 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 Past Medical History Cardiovascular: HTN CENTRAL NERVOUS SYSTEM: Other (CREST, Raynaud) Renal/: Chronic renal insuff Endocrine: Diabetes Past Surgical History Past Surgical History multiple finger amputations, bilateral foot amputations Social History Quit Drugs: Marijuana Current Problem List Problem List Problems Medical Problems: (1) Wound dehiscence Status: Acute Current Medications Current Medications Current Medications Sodium Chloride 1,000 ml @ 1,000 mls/hr 1X ONCE IV Last administered on 11:06; Start 11/01/16 at 10:30; Stop 11/01/16 at 11:38; Status DC Fentanyl Citrate (Fentanyl 2ml Vial) 50 mcg 1X ONCE IV Last administered on 11:08; Start 11/01/16 at 11:15; Stop 11/01/16 at 11:16; Status DC Vancomycin HCl (Vanco Per Pharmacy) 1 each PRN DAILY PRN MC SEE COMMENTS Last administered on 11/03/16 06:59; Start 11/01/16 at 13:15 Vancomycin HCl 1.5 gm/Sodium Chloride 500 ml @ 250 mls/hr 1X ONCE IV Last administered on 11/01/16 13:37; Start 11/01/16 at 13:30; Stop 11/01/16 at 15:29 ; Status DC Fentanyl Citrate (Fentanyl 2ml Vial) 50 mcg 1X ONCE IV Last administered on 13:40; Start 11/01/16 at 13:30; Stop 11/01/16 at 13:31; Status DC Ondansetron HCl (Zofran) 4 mg PRN Q8HRS PRN IV NAUSEA/VOMITING; Start 11/01/16 at 13:45; Stop 11/02/16 at 13:44; Status DC Acetaminophen (Tylenol) 650 mg PRN Q4HRS PRN PO FEVER Last administered on 11/01 23:03; Start 11/01/16 at 13:45; Stop 11/02/16 at 13:44; Status DC Fentanyl Citrate (Fentanyl 2ml Vial) 50 mcg PRN Q4HRS PRN IM PAIN Last administered on 11/01/16 23:04; Start 11/01/16 at 13:45 Vancomycin HCl 1 each 1X ONCE MC Last administered on 11/03/16 06:03; Start 11/03/16 at 05:00; Stop 11/03/16 at 05:01; Status DC Insulin Aspart (NovoLOG) 0-7 UNITS TIDWMEALS SQ Last administered on 11/02/16 18:09; Start 11/01/16 at 20:30 Dextrose (Dextrose 50%-Water Syringe) 12.5 gm PRN Q15MIN PRN IV SEE COMMENTS; Start 11/01/16 at 19:45 Hydromorphone HCl (Dilaudid) 4 mg PRN Q4HRS PRN PO PAIN Last administered on 06:03; Start 11/01/16 at 20:15 Pantoprazole Sodium (Protonix) 40 mg BIDWMEALS PO Last administered on 16:08; Start 11/01/16 at 21:00 Sennosides (Senna) 8.6 mg PRN QHS PRN PO CONSTIPATION; Start 11/01/16 at 20:15 Sevelamer Carbonate (Renvela) 800 mg TIDWMEALS PO Last administered on 16:08; Start 11/02/16 at 08:00 Albuterol Sulfate (Ventolin Neb Soln) 2.5 mg PRN Q6HRS PRN NEB SHORTNESS OF BREATH; Start 11/01/16 at 21:30 Amlodipine Besylate (Norvasc) 10 mg BID PO Last administered on 11/02/16 20:16 ; Start 11/01/16 at 22:00 Aspirin (Ecotrin) 81 mg DAILYWBKFT PO ; Start 11/02/16 at 08:00 Atorvastatin Calcium (Lipitor) 10 mg Q48H PO ; Start 11/01/16 at 21:00; Stop at 02:25; Status DC Carisoprodol (Soma) 350 mg TID PRN PRN PO MUSCLE SPASMS Last administered on 00:17; Start 11/01/16 at 21:30 Carvedilol (Coreg) 3.125 mg BIDWMEALS PO Last administered on 11/02/16 16:18; Start 11/02/16 at 08:00 Clopidogrel Bisulfate (Plavix) 75 mg DAILYWBKFT PO Last administered on 08:39; Start 11/02/16 at 08:00 Diclofenac Sodium (Voltaren) 1 richard BID TP Last administered on 11/02/16 08:40 ; Start 11/01/16 at 22:00 Atorvastatin Calcium (Lipitor) 10 mg Q48H PO Last administered on 11/02/16 20: 16; Start 11/02/16 at 21:00 Multivitamins (Thera M Plus) 1 tab DAILY PO Last administered on 11/02/16 16: 08; Start 11/02/16 at 14:00 Ascorbic Acid (Vitamin C) 500 mg BID PO Last administered on 11/02/16 20:16; Start 11/02/16 at 14:00 Vancomycin HCl 1 gm/Sodium Chloride 250 ml @ 250 mls/hr Q48H IV ; Start at 09:00 Vancomycin HCl 1 each 1X ONCE MC ; Start 11/05/16 at 08:30; Stop 11/05/16 at 08: 31 Allergies Allergies: Coded Allergies: morphine (Verified Allergy, Mild, itch, 11/01/16) ROS Review of System GEN: Denies fever or weight loss HEENT: No visual disturbances CV: Denies chest pain RESP: No shortness of breath or cough GI: No nausea, vomiting : No dysuria or hematuria M/S: No myalgias NEURO: No headache Physical Exam General: Alert, Oriented X3 Heart: Regular rate, Other (murmur, bilateral carotid bruit) Abdomen: Normal bowel sounds, Soft, No tenderness, Other (thin) Extremities: Other (2+ radial, 2+ femoral, palpable left popliteal, unable to appreciate pedal pulses) Skin: Other (mulitple healed amputations fingers, right foot, left foot with amputation site dehiscence with necrosis and malodorous ) Vitals VITALS Vital Signs Date Time Temp Pulse Resp B/P (MAP) Pulse Ox O2 Delivery O2 Flow Rate FiO2 11/03/16 07:00 97.9 80 20 160/80 (106) 100 Room Air 97.9 Labs Labs Laboratory Tests Test 11/01/16 10:45 11/01/16 11:53 11/01/16 16:48 11/01/16 21:11 White Blood Count 10.1 x10^3/uL (4.0-11.0) Red Blood Count 3.19 x10^6/uL (4.30-5.70) Hemoglobin 9.3 g/dL (13.0-17.5) Hematocrit 28.3 % (39.0-53.0) Mean Corpuscular Volume 89 fL (79-100) Mean Corpuscular Hemoglobin 29 pg (25-35) Mean Corpuscular Hemoglobin Concent 33 g/dL (31-37) Red Cell Distribution Width 15.8 % (11.5-14.5) Platelet Count 284 x10^3/uL (140-400) Neutrophils (%) (Auto) 79 % (31-73) Lymphocytes (%) (Auto) 10 % (24-48) Monocytes (%) (Auto) 6 % (0-9) Eosinophils (%) (Auto) 4 % (0-3) Basophils (%) (Auto) 1 % (0-3) Neutrophils # (Auto) 8.0 x10^3uL (1.8-7.7) Lymphocytes # (Auto) 1.0 x10^3/uL (1.0-4.8) Monocytes # (Auto) 0.6 x10^3/uL (0.0-1.1) Eosinophils # (Auto) 0.4 x10^3/uL (0.0-0.7) Basophils # (Auto) 0.1 x10^3/uL (0.0-0.2) Sodium Level 137 mmol/L (136-145) Potassium Level 4.6 mmol/L (3.5-5.1) Chloride Level 101 mmol/L (98-107) Carbon Dioxide Level 24 mmol/L (21-32) Anion Gap 12 (6-14) Blood Urea Nitrogen 88 mg/dL (8-26) Creatinine 5.0 mg/dL (0.7-1.3) Estimated GFR (Cockcroft-Gault) 11.9 BUN/Creatinine Ratio 18 (6-20) Glucose Level 194 mg/dL (70-99) Lactic Acid Level 0.8 mmol/L (0.4-2.0) 0.8 mmol/L (0.4-2.0) Calcium Level 8.8 mg/dL (8.5-10.1) Total Bilirubin 0.2 mg/dL (0.2-1.0) Aspartate Amino Transf (AST/SGOT) 17 U/L (15-37) Alanine Aminotransferase (ALT/SGPT) 32 U/L (16-63) Alkaline Phosphatase 197 U/L (46-116) Total Protein 7.2 g/dL (6.4-8.2) Albumin 2.9 g/dL (3.4-5.0) Albumin/Globulin Ratio 0.7 (1.0-1.7) Procalcitonin 0.33 ng/mL (0.00-0.10) Glucose (Fingerstick) 83 mg/dL (70-99) 99 mg/dL (70-99) Test 11/02/16 04:15 11/02/16 07:47 11/02/16 11:21 11/02/16 15:05 White Blood Count 7.3 x10^3/uL (4.0-11.0) Red Blood Count 3.12 x10^6/uL (4.30-5.70) Hemoglobin 9.0 g/dL (13.0-17.5) Hematocrit 27.7 % (39.0-53.0) Mean Corpuscular Volume 89 fL (79-100) Mean Corpuscular Hemoglobin 29 pg (25-35) Mean Corpuscular Hemoglobin Concent 33 g/dL (31-37) Red Cell Distribution Width 16.1 % (11.5-14.5) Platelet Count 257 x10^3/uL (140-400) Neutrophils (%) (Auto) 70 % (31-73) Lymphocytes (%) (Auto) 16 % (24-48) Monocytes (%) (Auto) 10 % (0-9) Eosinophils (%) (Auto) 4 % (0-3) Basophils (%) (Auto) 1 % (0-3) Neutrophils # (Auto) 5.1 x10^3uL (1.8-7.7) Lymphocytes # (Auto) 1.2 x10^3/uL (1.0-4.8) Monocytes # (Auto) 0.7 x10^3/uL (0.0-1.1) Eosinophils # (Auto) 0.3 x10^3/uL (0.0-0.7) Basophils # (Auto) 0.1 x10^3/uL (0.0-0.2) Sodium Level 141 mmol/L (136-145) Potassium Level 5.0 mmol/L (3.5-5.1) Chloride Level 107 mmol/L (98-107) Carbon Dioxide Level 25 mmol/L (21-32) Anion Gap 9 (6-14) Blood Urea Nitrogen 78 mg/dL (8-26) Creatinine 5.1 mg/dL (0.7-1.3) Estimated GFR (Cockcroft-Gault) 11.6 Glucose Level 110 mg/dL (70-99) Calcium Level 8.2 mg/dL (8.5-10.1) Glucose (Fingerstick) 96 mg/dL (70-99) 185 mg/dL (70-99) Urine Collection Type Unknown Urine Color Yellow Urine Clarity Clear Urine pH 6.5 Urine Specific [place] 1.015 Urine Protein 100 mg/dL (NEG-TRACE) Urine Glucose (UA) 100 mg/dL (NEG) Urine Ketones (Stick) Negative mg/dL (NEG) Urine Blood Negative (NEG) Urine Nitrite Negative (NEG) Urine Bilirubin Negative (NEG) Urine Urobilinogen Dipstick 0.2 mg/dL (0.2 mg/dL) Urine Leukocyte Esterase Negative (NEG) Urine RBC 0 /HPF (0-2) Urine WBC Occ /HPF (0-4) Urine Bacteria 0 /HPF (0-FEW) Urine Opiates Screen Pos (NEG) Urine Methadone Screen Neg (NEG) Urine Barbiturates Neg (NEG) Urine Phencyclidine Screen Neg (NEG) Urine Amphetamine/Methamphetamine Neg (NEG) Urine Benzodiazepines Screen Neg (NEG) Urine Cocaine Screen Neg (NEG) Urine Cannabinoids Screen Neg (NEG) Urine Ethyl Alcohol Neg (NEG) Test 11/02/16 16:29 11/02/16 21:05 11/03/16 05:54 11/03/16 07:39 Glucose (Fingerstick) 162 mg/dL (70-99) 136 mg/dL (70-99) 126 mg/dL (70-99) White Blood Count 8.5 x10^3/uL (4.0-11.0) Red Blood Count 3.12 x10^6/uL (4.30-5.70) Hemoglobin 9.3 g/dL (13.0-17.5) Hematocrit 26.8 % (39.0-53.0) Mean Corpuscular Volume 86 fL (79-100) Mean Corpuscular Hemoglobin 30 pg (25-35) Mean Corpuscular Hemoglobin Concent 35 g/dL (31-37) Red Cell Distribution Width 16.1 % (11.5-14.5) Platelet Count 275 x10^3/uL (140-400) Neutrophils (%) (Auto) 71 % (31-73) Lymphocytes (%) (Auto) 16 % (24-48) Monocytes (%) (Auto) 8 % (0-9) Eosinophils (%) (Auto) 5 % (0-3) Basophils (%) (Auto) 1 % (0-3) Neutrophils # (Auto) 6.1 x10^3uL (1.8-7.7) Lymphocytes # (Auto) 1.4 x10^3/uL (1.0-4.8) Monocytes # (Auto) 0.7 x10^3/uL (0.0-1.1) Eosinophils # (Auto) 0.4 x10^3/uL (0.0-0.7) Basophils # (Auto) 0.0 x10^3/uL (0.0-0.2) Sodium Level 141 mmol/L (136-145) Potassium Level 5.0 mmol/L (3.5-5.1) Chloride Level 105 mmol/L (98-107) Carbon Dioxide Level 23 mmol/L (21-32) Anion Gap 13 (6-14) Blood Urea Nitrogen 76 mg/dL (8-26) Creatinine 5.1 mg/dL (0.7-1.3) Estimated GFR (Cockcroft-Gault) 11.6 BUN/Creatinine Ratio 15 (6-20) Glucose Level 156 mg/dL (70-99) Calcium Level 8.3 mg/dL (8.5-10.1) Total Bilirubin 0.2 mg/dL (0.2-1.0) Aspartate Amino Transf (AST/SGOT) 24 U/L (15-37) Alanine Aminotransferase (ALT/SGPT) 44 U/L (16-63) Alkaline Phosphatase 174 U/L (46-116) Total Protein 6.4 g/dL (6.4-8.2) Albumin 2.7 g/dL (3.4-5.0) Albumin/Globulin Ratio 0.7 (1.0-1.7) Random Vancomycin Level 14.6 mcg/mL Laboratory Tests Test 11/02/16 11:21 11/02/16 15:05 11/02/16 16:29 11/02/16 21:05 Glucose (Fingerstick) 185 mg/dL (70-99) 162 mg/dL (70-99) 136 mg/dL (70-99) Urine Collection Type Unknown Urine Color Yellow Urine Clarity Clear Urine pH 6.5 Urine Specific [place] 1.015 Urine Protein 100 mg/dL (NEG-TRACE) Urine Glucose (UA) 100 mg/dL (NEG) Urine Ketones (Stick) Negative mg/dL (NEG) Urine Blood Negative (NEG) Urine Nitrite Negative (NEG) Urine Bilirubin Negative (NEG) Urine Urobilinogen Dipstick 0.2 mg/dL (0.2 mg/dL) Urine Leukocyte Esterase Negative (NEG) Urine RBC 0 /HPF (0-2) Urine WBC Occ /HPF (0-4) Urine Bacteria 0 /HPF (0-FEW) Urine Opiates Screen Pos (NEG) Urine Methadone Screen Neg (NEG) Urine Barbiturates Neg (NEG) Urine Phencyclidine Screen Neg (NEG) Urine Amphetamine/Methamphetamine Neg (NEG) Urine Benzodiazepines Screen Neg (NEG) Urine Cocaine Screen Neg (NEG) Urine Cannabinoids Screen Neg (NEG) Urine Ethyl Alcohol Neg (NEG) Test 11/03/16 05:54 11/03/16 07:39 White Blood Count 8.5 x10^3/uL (4.0-11.0) Red Blood Count 3.12 x10^6/uL (4.30-5.70) Hemoglobin 9.3 g/dL (13.0-17.5) Hematocrit 26.8 % (39.0-53.0) Mean Corpuscular Volume 86 fL (79-100) Mean Corpuscular Hemoglobin 30 pg (25-35) Mean Corpuscular Hemoglobin Concent 35 g/dL (31-37) Red Cell Distribution Width 16.1 % (11.5-14.5) Platelet Count 275 x10^3/uL (140-400) Neutrophils (%) (Auto) 71 % (31-73) Lymphocytes (%) (Auto) 16 % (24-48) Monocytes (%) (Auto) 8 % (0-9) Eosinophils (%) (Auto) 5 % (0-3) Basophils (%) (Auto) 1 % (0-3) Neutrophils # (Auto) 6.1 x10^3uL (1.8-7.7) Lymphocytes # (Auto) 1.4 x10^3/uL (1.0-4.8) Monocytes # (Auto) 0.7 x10^3/uL (0.0-1.1) Eosinophils # (Auto) 0.4 x10^3/uL (0.0-0.7) Basophils # (Auto) 0.0 x10^3/uL (0.0-0.2) Sodium Level 141 mmol/L (136-145) Potassium Level 5.0 mmol/L (3.5-5.1) Chloride Level 105 mmol/L (98-107) Carbon Dioxide Level 23 mmol/L (21-32) Anion Gap 13 (6-14) Blood Urea Nitrogen 76 mg/dL (8-26) Creatinine 5.1 mg/dL (0.7-1.3) Estimated GFR (Cockcroft-Gault) 11.6 BUN/Creatinine Ratio 15 (6-20) Glucose Level 156 mg/dL (70-99) Calcium Level 8.3 mg/dL (8.5-10.1) Total Bilirubin 0.2 mg/dL (0.2-1.0) Aspartate Amino Transf (AST/SGOT) 24 U/L (15-37) Alanine Aminotransferase (ALT/SGPT) 44 U/L (16-63) Alkaline Phosphatase 174 U/L (46-116) Total Protein 6.4 g/dL (6.4-8.2) Albumin 2.7 g/dL (3.4-5.0) Albumin/Globulin Ratio 0.7 (1.0-1.7) Random Vancomycin Level 14.6 mcg/mL Glucose (Fingerstick) 126 mg/dL (70-99) Assessment/Plan Assessment/Plan Impression: Left TMA wound dehiscence, non-healing Diabetes Renal Insufficiency HTN Recommendations: Arterial US as well as physical exam suggests decreased arterial flow to left foot. Recommend further evaluation with Arteriogram prior to additional debridement or amputation. This is complicated by his renal insufficiency. Discussed with Dr. Araujo will contact IR and Renal regarding CO2 angio with limited dye. Continue local wound care. Continue Abx, ID has been consulted, wound cultures ordered AELX BRAND APRN Nov 03, 2016 09:16
--- NOTE | 2016-11-03 09:48 | PDOC ---
SUBJECTIVE ROS CKD V Doing OK Overall CVS: no Orthopnea, no CP RESP: no SOB, no DIAZ GI: no Nausea, no Vomiting : n Dysuria, loi Urgency OBJECTIVE Vital Signs Vital Signs Date Time Temp Pulse Resp B/P (MAP) Pulse Ox O2 Delivery O2 Flow Rate FiO2 11/03/16 08:53 20 100 Room Air 11/03/16 08:44 80 160/80 11/03/16 07:00 97.9 97.9 I & 0 noted PHYSICAL EXAM Physical Exam General Appearance: Awake Alert Oriented x In no Distress Eyes: VIsion Unchanged Conjunctiva Normal EN: No EN Drainage Mucous Memb. moist Neck: no JVD no JVP Supple no Thyromegaly CVS: S1 S2 soft Murmur No Gallop No Rub + Edema left foot area Resp: no Rales no Rhonchi no Acc. Muscle use GI: BAS +ve NO Bruit Non Tender Non Distended : no CVA tenderness; no Suprapubic Tenderness SKIN: +ve facial telengectasias Breast Exam deferred Mu.Sk: Adequate ROM min Muscle Atrophy Heme: Unable to palpate Obvious LAD no palp Splenomegaly NEURO: Good Strength and Tone Cranial Nerves II - XII grossly intact Psych: not Depressed no Active hallucination Assessment & Plan CKD IV/V - Pt claims baseline GFR at [facility] is 10-15cc/min - he follows with Dr Marvin Carrasco 3m and they have an understanding about starting HD if needed. He does not have Uremic s/s that he has described to me currently. Current FLuid and E-lyte status does not necessitate emergent need for Dialysis. Will re- evaluate for Dialysis in am DFU - defer to ID and Ortho - now needs ANGio as D/w Vasc Surgery. Plans are for CO2 angio with min IVC but he may need some IVC so IVF and NAC will be ordered. I had an long dw pt re his advancd CKD and Proximity to HD (which he does not want). He understands risk of MENDEZ. I explained that I cannot 100% assure him that the above measures will prevent any Mendez but CAN is often transient. He may need to do HD only if Uremic s/s ensue. He would like "plenty of IVF" and so I have used 100cc/hr insted of ~ 60 cc/hr based on 1cc/kg/hr Anemia: may need Epogen started; Transfuse as needed. Hypoalbuminemia - check for proteinuria - ? CREST affecting it? Proteinuria on UA - Ratio Pending HTN + CKD : Current BP meds reviewed. See orders for changes. Presumed poorly controlled DM - await A1c Discussed Plan of Care and prognosis etc. at length with pt, Dr Zaragoza and [facility] NURSE GENERAL DUTY COMMENT/RELEVANT DATA Meds Current Medications Medications (Trade) Dose Ordered Sig/Zoila Start Time Stop Time Status Last Admin Dose Admin Acetaminophen (Tylenol) 650 mg PRN Q4HRS PRN 11/01/16 13:45 11/02/16 13:44 DC 11/01/16 23:03 650 MG Albuterol Sulfate (Ventolin Neb Soln) 2.5 mg PRN Q6HRS PRN 11/01/16 21:30 Amlodipine Besylate (Norvasc) 10 mg BID 11/01/16 22:00 11/03/16 08:44 10 MG Ascorbic Acid (Vitamin C) 500 mg BID 11/02/16 14:00 11/03/16 08:44 500 MG Aspirin (Ecotrin) 81 mg DAILYWBKFT 11/02/16 08:00 11/03/16 08:44 81 MG Atorvastatin Calcium (Lipitor) 10 mg Q48H 11/02/16 21:00 11/02/16 20:16 10 MG Carisoprodol (Soma) 350 mg TID PRN PRN 11/01/16 21:30 11/03/16 08:44 350 MG Carvedilol (Coreg) 3.125 mg BIDWMEALS 11/02/16 08:00 11/03/16 08:43 3.125 MG Clopidogrel Bisulfate (Plavix) 75 mg DAILYWBKFT 11/02/16 08:00 11/03/16 08:44 75 MG Dextrose (Dextrose 50%-Water Syringe) 12.5 gm PRN Q15MIN PRN 11/01/16 19:45 Diclofenac Sodium (Voltaren) 1 richard BID 11/01/16 22:00 11/03/16 08:43 1 RICHARD Fentanyl Citrate (Fentanyl 2ml Vial) 50 mcg PRN Q4HRS PRN 11/01/16 13:45 11/03/16 08:53 50 MCG Hydromorphone HCl (Dilaudid) 4 mg PRN Q4HRS PRN 11/01/16 20:15 11/03/16 06:03 4 MG Insulin Aspart (NovoLOG) 0-7 UNITS TIDWMEALS 11/01/16 20:30 11/02/16 18:09 3 UNITS Multivitamins (Thera M Plus) 1 tab DAILY 11/02/16 14:00 11/03/16 08:44 1 TAB Ondansetron HCl (Zofran) 4 mg PRN Q8HRS PRN 11/01/16 13:45 11/02/16 13:44 DC Pantoprazole Sodium (Protonix) 40 mg BIDWMEALS 11/01/16 21:00 11/03/16 08:44 40 MG Sennosides (Senna) 8.6 mg PRN QHS PRN 11/01/16 20:15 Sevelamer Carbonate (Renvela) 800 mg TIDWMEALS 11/02/16 08:00 11/03/16 08:44 800 MG Sodium Chloride 1,000 ml @ 1,000 mls/hr 1X ONCE 11/01/16 10:30 11/01/16 11:38 DC 11/01/16 11:06 1,000 MLS/HR Vancomycin HCl 1 each 1X ONCE 11/05/16 08:30 11/05/16 08:31 Vancomycin HCl (Vanco Per Pharmacy) 1 each PRN DAILY PRN 11/01/16 13:15 11/03/16 06:59 1 EACH Vancomycin HCl 1.5 gm/Sodium Chloride 500 ml @ 250 mls/hr 1X ONCE 11/01/16 13:30 11/01/16 15:29 DC 11/01/16 13:37 250 MLS/HR Vancomycin HCl 1 gm/Sodium Chloride 250 ml @ 250 mls/hr Q48H 11/03/16 09:00 Lab Laboratory Tests Test 11/02/16 11:21 11/02/16 15:05 11/02/16 16:29 11/02/16 21:05 Glucose (Fingerstick) 185 mg/dL (70-99) 162 mg/dL (70-99) 136 mg/dL (70-99) Urine Collection Type Unknown Urine Color Yellow Urine Clarity Clear Urine pH 6.5 Urine Specific Corona 1.015 Urine Protein 100 mg/dL (NEG-TRACE) Urine Glucose (UA) 100 mg/dL (NEG) Urine Ketones (Stick) Negative mg/dL (NEG) Urine Blood Negative (NEG) Urine Nitrite Negative (NEG) Urine Bilirubin Negative (NEG) Urine Urobilinogen Dipstick 0.2 mg/dL (0.2 mg/dL) Urine Leukocyte Esterase Negative (NEG) Urine RBC 0 /HPF (0-2) Urine WBC Occ /HPF (0-4) Urine Bacteria 0 /HPF (0-FEW) Urine Opiates Screen Pos (NEG) Urine Methadone Screen Neg (NEG) Urine Barbiturates Neg (NEG) Urine Phencyclidine Screen Neg (NEG) Urine Amphetamine/Methamphetamine Neg (NEG) Urine Benzodiazepines Screen Neg (NEG) Urine Cocaine Screen Neg (NEG) Urine Cannabinoids Screen Neg (NEG) Urine Ethyl Alcohol Neg (NEG) Test 11/03/16 05:54 11/03/16 07:39 White Blood Count 8.5 x10^3/uL (4.0-11.0) Red Blood Count 3.12 x10^6/uL (4.30-5.70) Hemoglobin 9.3 g/dL (13.0-17.5) Hematocrit 26.8 % (39.0-53.0) Mean Corpuscular Volume 86 fL (79-100) Mean Corpuscular Hemoglobin 30 pg (25-35) Mean Corpuscular Hemoglobin Concent 35 g/dL (31-37) Red Cell Distribution Width 16.1 % (11.5-14.5) Platelet Count 275 x10^3/uL (140-400) Neutrophils (%) (Auto) 71 % (31-73) Lymphocytes (%) (Auto) 16 % (24-48) Monocytes (%) (Auto) 8 % (0-9) Eosinophils (%) (Auto) 5 % (0-3) Basophils (%) (Auto) 1 % (0-3) Neutrophils # (Auto) 6.1 x10^3uL (1.8-7.7) Lymphocytes # (Auto) 1.4 x10^3/uL (1.0-4.8) Monocytes # (Auto) 0.7 x10^3/uL (0.0-1.1) Eosinophils # (Auto) 0.4 x10^3/uL (0.0-0.7) Basophils # (Auto) 0.0 x10^3/uL (0.0-0.2) Sodium Level 141 mmol/L (136-145) Potassium Level 5.0 mmol/L (3.5-5.1) Chloride Level 105 mmol/L (98-107) Carbon Dioxide Level 23 mmol/L (21-32) Anion Gap 13 (6-14) Blood Urea Nitrogen 76 mg/dL (8-26) Creatinine 5.1 mg/dL (0.7-1.3) Estimated GFR (Cockcroft-Gault) 11.6 BUN/Creatinine Ratio 15 (6-20) Glucose Level 156 mg/dL (70-99) Calcium Level 8.3 mg/dL (8.5-10.1) Total Bilirubin 0.2 mg/dL (0.2-1.0) Aspartate Amino Transf (AST/SGOT) 24 U/L (15-37) Alanine Aminotransferase (ALT/SGPT) 44 U/L (16-63) Alkaline Phosphatase 174 U/L (46-116) Total Protein 6.4 g/dL (6.4-8.2) Albumin 2.7 g/dL (3.4-5.0) Albumin/Globulin Ratio 0.7 (1.0-1.7) Random Vancomycin Level 14.6 mcg/mL Glucose (Fingerstick) 126 mg/dL (70-99) JANNET DOW MD Nov 03, 2016 09:48
--- NOTE | 2016-11-03 10:17 | PDOC ---
Infectious Disease Note ROS ROS Vital Sign Vital Signs Vital Signs Date Time Temp Pulse Resp B/P (MAP) Pulse Ox O2 Delivery O2 Flow Rate FiO2 11/03/16 08:53 20 100 Room Air 11/03/16 08:44 80 160/80 11/03/16 07:00 97.9 97.9 Labs Lab Laboratory Tests Test 11/02/16 11:21 11/02/16 15:05 11/02/16 16:29 11/02/16 21:05 Glucose (Fingerstick) 185 mg/dL (70-99) 162 mg/dL (70-99) 136 mg/dL (70-99) Urine Collection Type Unknown Urine Color Yellow Urine Clarity Clear Urine pH 6.5 Urine Specific Crenshaw 1.015 Urine Protein 100 mg/dL (NEG-TRACE) Urine Glucose (UA) 100 mg/dL (NEG) Urine Ketones (Stick) Negative mg/dL (NEG) Urine Blood Negative (NEG) Urine Nitrite Negative (NEG) Urine Bilirubin Negative (NEG) Urine Urobilinogen Dipstick 0.2 mg/dL (0.2 mg/dL) Urine Leukocyte Esterase Negative (NEG) Urine RBC 0 /HPF (0-2) Urine WBC Occ /HPF (0-4) Urine Bacteria 0 /HPF (0-FEW) Urine Opiates Screen Pos (NEG) Urine Methadone Screen Neg (NEG) Urine Barbiturates Neg (NEG) Urine Phencyclidine Screen Neg (NEG) Urine Amphetamine/Methamphetamine Neg (NEG) Urine Benzodiazepines Screen Neg (NEG) Urine Cocaine Screen Neg (NEG) Urine Cannabinoids Screen Neg (NEG) Urine Ethyl Alcohol Neg (NEG) Test 11/03/16 05:54 11/03/16 07:39 White Blood Count 8.5 x10^3/uL (4.0-11.0) Red Blood Count 3.12 x10^6/uL (4.30-5.70) Hemoglobin 9.3 g/dL (13.0-17.5) Hematocrit 26.8 % (39.0-53.0) Mean Corpuscular Volume 86 fL (79-100) Mean Corpuscular Hemoglobin 30 pg (25-35) Mean Corpuscular Hemoglobin Concent 35 g/dL (31-37) Red Cell Distribution Width 16.1 % (11.5-14.5) Platelet Count 275 x10^3/uL (140-400) Neutrophils (%) (Auto) 71 % (31-73) Lymphocytes (%) (Auto) 16 % (24-48) Monocytes (%) (Auto) 8 % (0-9) Eosinophils (%) (Auto) 5 % (0-3) Basophils (%) (Auto) 1 % (0-3) Neutrophils # (Auto) 6.1 x10^3uL (1.8-7.7) Lymphocytes # (Auto) 1.4 x10^3/uL (1.0-4.8) Monocytes # (Auto) 0.7 x10^3/uL (0.0-1.1) Eosinophils # (Auto) 0.4 x10^3/uL (0.0-0.7) Basophils # (Auto) 0.0 x10^3/uL (0.0-0.2) Sodium Level 141 mmol/L (136-145) Potassium Level 5.0 mmol/L (3.5-5.1) Chloride Level 105 mmol/L (98-107) Carbon Dioxide Level 23 mmol/L (21-32) Anion Gap 13 (6-14) Blood Urea Nitrogen 76 mg/dL (8-26) Creatinine 5.1 mg/dL (0.7-1.3) Estimated GFR (Cockcroft-Gault) 11.6 BUN/Creatinine Ratio 15 (6-20) Glucose Level 156 mg/dL (70-99) Calcium Level 8.3 mg/dL (8.5-10.1) Total Bilirubin 0.2 mg/dL (0.2-1.0) Aspartate Amino Transf (AST/SGOT) 24 U/L (15-37) Alanine Aminotransferase (ALT/SGPT) 44 U/L (16-63) Alkaline Phosphatase 174 U/L (46-116) Total Protein 6.4 g/dL (6.4-8.2) Albumin 2.7 g/dL (3.4-5.0) Albumin/Globulin Ratio 0.7 (1.0-1.7) Random Vancomycin Level 14.6 mcg/mL Glucose (Fingerstick) 126 mg/dL (70-99) Objective Assessment LEFT TMA wound dehiscence MENDEZ on CKD PAD DM Plan Plan of Care Has been on Augmentin for about 6 weeks and just finished it recently puts at risk for resistance. D/w [facility] micro has h/o Enterococcus/Peptostrep and Fusobacter 08/30. D/c Vanc with potential renal toxicity Dose Meropenem/Zyvox/Fluconazole Await further vascular studies and imaging F/u labs and cults D/w Dr. Person Thank you # [phone] ROMANA GARLAND MD Nov 03, 2016 10:17
--- NOTE | 2016-11-03 10:24 | RAD ---
Exam performed: Left lower maturity arterial Doppler History: Amputation of left toes, with wound dehiscence. Patient has iliac stents Date of service: 11/02/16. Comparison: None available Technique: Real-time grayscale, color-flow, duplex Doppler and spectral analysis of the left lower trinities arterial system is performed and images are obtained. Findings: There is diffuse atheromatous plaquing involving the left lower extremity. Doppler interrogation reveals biphasic and monophasic waveforms throughout the left lower extremity. Peak systolic velocity within the left common fem, mid superficial femoral artery oral artery measures 131.0 cm/s., Proximal superficial femoral artery 198.0 cm/s, proximal to mid superficial femoral artery 396.0 cm/s, distal superficial femoral artery 115.0 cm/s, popliteal artery 134.0 cm/s, proximal posterior tibial artery 132.0 cm/s, distal posterior tibial artery 89.0 cm/s, peroneal artery 17.0 cm/s, anterior tibial artery 22.0 cm/s. The dorsalis pedis artery could not be imaged due to presence of bandages. Incidental note is made of mildly prominent left groin lymph nodes Impression: Diffuse atheromatous plaquing involving the left lower extremity arteries. There is focally elevated peak systolic velocity in the mid superficial femoral artery with peak systolic velocity of 396 cm/s consistent with high-grade stenosis.
[2016-11-03 11:00] VITALS: BP 160/63
--- NOTE | 2016-11-03 12:27 | CONS ---
DATE OF CONSULTATION: 11/03/2016 PATIENT LOCATION: Room #440. REQUESTING PHYSICIAN: Dr. Corona. REASON FOR CONSULTATION: Wound dehiscence. HISTORY OF PRESENT ILLNESS: The patient is a 61-year-old gentleman with history of CREST syndrome and Raynaud's who moved from [place] to [place]. He has undergone a left transmetatarsal amputation by Dr. Davidson in early September. He states he was in rehabilitation and went home and had been taking Augmentin, which he just recently finished. He states that he took the Augmentin for approximately 6 weeks, but despite this, his wound began to open and drain. He has had increased pain in the area. He has had no fevers or chills. He has no shortness of air, cough or chest pain. No nausea, vomiting or diarrhea. No dysuria, frequency or urgency. He presented to wound care for evaluation for wound dehiscence and possible HBO, but then was admitted to [facility]. He was placed on vancomycin. I have been consulted. Currently, he is sitting in bed and is fairly comfortable. He has been placed on vancomycin. PAST MEDICAL HISTORY: Positive for longstanding diabetes, chronic kidney disease stage V, hyperlipidemia, hypertension, history of previous CVA, history of pneumonia and CREST syndrome. PAST SURGICAL HISTORY: Positive for the above-mentioned left TMA, cholecystectomy, amputation of part of his right foot right finger REVIEW OF SYSTEMS: Otherwise negative except for as mentioned above. ALLERGIES: Listed as MORPHINE. 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 Denies any alcohol, but he does smoke marijuana, has a previous history of tobacco abuse. FAMILY HISTORY: Positive for autoimmune disease as well. CURRENT MEDICATIONS: Include vancomycin, Norvasc, Ecotrin, Lipitor, Soma, Coreg, Plavix, Dilaudid, ____. Other meds are available and reviewed in the chart. PHYSICAL EXAMINATION: VITAL SIGNS: He is afebrile since his admission, temperature now is 97.9, pulse 80, respirations 20, blood pressure 160/80, satting 100% on room air. CONSTITUTIONAL: He is lying in bed. He is cooperative. He is in no acute distress. HEENT: Pupils are equal and reactive. Oral cavity and pharynx was clear. NECK: Supple, without JVD. LUNGS: Clear to auscultation bilaterally. HEART: S1, S2. ABDOMEN: Soft, nontender, nondistended with positive bowel sounds. EXTREMITIES: Without clubbing, cyanosis. His left foot is well bandaged, in reviewing the pictures, for which I did not un-bandage his foot as ortho and vascular are seen and pictures are available. He is in somewhat mild discomfort. The pictures do show that he has a wound dehiscence with some necrotic tissue along the area and there was a documented odor associated with it. SKIN: Otherwise, warm to touch without signs of rash. NEUROLOGIC: He is nonfocal, moves all extremities. PSYCHIATRIC: Affect is appropriate. LABORATORY DATA: White count 8.5, hemoglobin 9.3, platelets of 275 with differentials, neutrophils 71, lymphs are 16. Creatinine is 5.1, glucose 156. Normal liver function study tests. Urinalysis not consistent with urinary tract infection. Urine screen is positive for opiates. Cultures are pending. Foot x-ray, soft tissue swelling, calcifications, no evidence of osteomyelitis. IMPRESSION: 1. Left TMA wound dehiscence. 2. Acute kidney injury on chronic kidney disease. 3. Peripheral arterial disease. 4. Diabetes. RECOMMENDATIONS: He has been on Augmentin for 6 weeks, just finished recently, so it will put him at risk for potential resistant organisms. I did discuss with ____ microbiology this morning, he did have cultures on 08/30 that grew out a sensitive enterococcus as well as some peptostreptococcus and fusobacterium. Because of his renal failure, we will discontinue his vancomycin. Because of the resistance concern, we will dose of meropenem and Zyvox also add fluconazole given his diabetic status and being on antibiotics puts him at risk for yeast infections. Await further vascular studies as well as imaging. Followup on labs and cultures. This was discussed with Dr. Person. Thank you for allowing me to see and participate in the patient's care. If you have any questions, please do not hesitate to contact me. ROMANA GARLAND MD DR: CAMPOS/may JOB#: [id number] / [id number]
[2016-11-03] MEDS: LINEZOLID 600 MG TABLET PO SCH ×2 (12:43→21:32)
[2016-11-03] MEDS: MEROPENEM 1 GM in IV NORMAL SALINE 100ML 100 ML IV SCH (12:43)
[2016-11-03] MEDS: LACTOBACILLUS ACIDOPH & BULGAR 1 TABLET. PO SCH ×2 (12:43→17:35)
[2016-11-03] MEDS: FLUCONAZOLE 100 MG TABLET. PO SCH (12:43)
[2016-11-03] MEDS: IV NORMAL SALINE 1000ML BAG 1,000 ML IV SCH ×2 (12:44→23:15)
--- NOTE | 2016-11-03 13:03 | PDOC ---
PROGRESS NOTES Chief Complaint Chief Complaint foot wound, s/p toe amputation w. wound dehiscence DM tobacco use disorder CKD 5 anemia of CKD CREST syndrome, poor wound healing of extremities History of Present Illness History of Present Illness complained of pain all night, I increased his diluadid to his outpatient dose start neurontin, he reports taking that outpatient, cant remember the dose "1 pill 3 times a day, whatever it is" ID, vascular, wound, renal, ortho following Vitals Vitals Vital Signs Date Time Temp Pulse Resp B/P (MAP) Pulse Ox O2 Delivery O2 Flow Rate FiO2 11/03/16 11:00 97.8 83 18 160/63 (95) 99 Room Air 97.8 Physical Exam General: Alert, Oriented X3, No acute distress Heart: Regular rate, Other (murmur, bilateral carotid bruit) Lungs: Clear, Wheezing Abdomen: Normal bowel sounds, Soft, No tenderness, Other (thin) Extremities: Other (2+ radial, 2+ femoral, palpable left popliteal, unable to appreciate pedal pulses) Skin: Other (mulitple healed amputations fingers, right foot, left foot with amputation site dehiscence with necrosis and malodorous ) Labs LABS Laboratory Tests Test 11/02/16 15:05 11/02/16 16:29 11/02/16 21:05 11/03/16 05:54 Urine Collection Type Unknown Urine Color Yellow Urine Clarity Clear Urine pH 6.5 Urine Specific [place] 1.015 Urine Protein 100 mg/dL (NEG-TRACE) Urine Glucose (UA) 100 mg/dL (NEG) Urine Ketones (Stick) Negative mg/dL (NEG) Urine Blood Negative (NEG) Urine Nitrite Negative (NEG) Urine Bilirubin Negative (NEG) Urine Urobilinogen Dipstick 0.2 mg/dL (0.2 mg/dL) Urine Leukocyte Esterase Negative (NEG) Urine RBC 0 /HPF (0-2) Urine WBC Occ /HPF (0-4) Urine Bacteria 0 /HPF (0-FEW) Urine Opiates Screen Pos (NEG) Urine Methadone Screen Neg (NEG) Urine Barbiturates Neg (NEG) Urine Phencyclidine Screen Neg (NEG) Urine Amphetamine/Methamphetamine Neg (NEG) Urine Benzodiazepines Screen Neg (NEG) Urine Cocaine Screen Neg (NEG) Urine Cannabinoids Screen Neg (NEG) Urine Ethyl Alcohol Neg (NEG) Glucose (Fingerstick) 162 mg/dL (70-99) 136 mg/dL (70-99) White Blood Count 8.5 x10^3/uL (4.0-11.0) Red Blood Count 3.12 x10^6/uL (4.30-5.70) Hemoglobin 9.3 g/dL (13.0-17.5) Hematocrit 26.8 % (39.0-53.0) Mean Corpuscular Volume 86 fL (79-100) Mean Corpuscular Hemoglobin 30 pg (25-35) Mean Corpuscular Hemoglobin Concent 35 g/dL (31-37) Red Cell Distribution Width 16.1 % (11.5-14.5) Platelet Count 275 x10^3/uL (140-400) Neutrophils (%) (Auto) 71 % (31-73) Lymphocytes (%) (Auto) 16 % (24-48) Monocytes (%) (Auto) 8 % (0-9) Eosinophils (%) (Auto) 5 % (0-3) Basophils (%) (Auto) 1 % (0-3) Neutrophils # (Auto) 6.1 x10^3uL (1.8-7.7) Lymphocytes # (Auto) 1.4 x10^3/uL (1.0-4.8) Monocytes # (Auto) 0.7 x10^3/uL (0.0-1.1) Eosinophils # (Auto) 0.4 x10^3/uL (0.0-0.7) Basophils # (Auto) 0.0 x10^3/uL (0.0-0.2) Sodium Level 141 mmol/L (136-145) Potassium Level 5.0 mmol/L (3.5-5.1) Chloride Level 105 mmol/L (98-107) Carbon Dioxide Level 23 mmol/L (21-32) Anion Gap 13 (6-14) Blood Urea Nitrogen 76 mg/dL (8-26) Creatinine 5.1 mg/dL (0.7-1.3) Estimated GFR (Cockcroft-Gault) 11.6 BUN/Creatinine Ratio 15 (6-20) Glucose Level 156 mg/dL (70-99) Calcium Level 8.3 mg/dL (8.5-10.1) Total Bilirubin 0.2 mg/dL (0.2-1.0) Aspartate Amino Transf (AST/SGOT) 24 U/L (15-37) Alanine Aminotransferase (ALT/SGPT) 44 U/L (16-63) Alkaline Phosphatase 174 U/L (46-116) Total Protein 6.4 g/dL (6.4-8.2) Albumin 2.7 g/dL (3.4-5.0) Albumin/Globulin Ratio 0.7 (1.0-1.7) Random Vancomycin Level 14.6 mcg/mL Test 11/03/16 07:39 11/03/16 11:13 Glucose (Fingerstick) 126 mg/dL (70-99) 206 mg/dL (70-99) Review of Systems Review of Systems no n.vd. + pain Assessment and Plan Assessmemt and Plan Problems Medical Problems: (1) Wound dehiscence Status: Acute Problems: Comment Review of Relevant I have reviewed the following items rula (where applicable) has been applied. Labs Laboratory Tests Test 11/01/16 16:48 11/01/16 21:11 11/02/16 04:15 11/02/16 07:47 Glucose (Fingerstick) 83 mg/dL (70-99) 99 mg/dL (70-99) 96 mg/dL (70-99) White Blood Count 7.3 x10^3/uL (4.0-11.0) Red Blood Count 3.12 x10^6/uL (4.30-5.70) Hemoglobin 9.0 g/dL (13.0-17.5) Hematocrit 27.7 % (39.0-53.0) Mean Corpuscular Volume 89 fL (79-100) Mean Corpuscular Hemoglobin 29 pg (25-35) Mean Corpuscular Hemoglobin Concent 33 g/dL (31-37) Red Cell Distribution Width 16.1 % (11.5-14.5) Platelet Count 257 x10^3/uL (140-400) Neutrophils (%) (Auto) 70 % (31-73) Lymphocytes (%) (Auto) 16 % (24-48) Monocytes (%) (Auto) 10 % (0-9) Eosinophils (%) (Auto) 4 % (0-3) Basophils (%) (Auto) 1 % (0-3) Neutrophils # (Auto) 5.1 x10^3uL (1.8-7.7) Lymphocytes # (Auto) 1.2 x10^3/uL (1.0-4.8) Monocytes # (Auto) 0.7 x10^3/uL (0.0-1.1) Eosinophils # (Auto) 0.3 x10^3/uL (0.0-0.7) Basophils # (Auto) 0.1 x10^3/uL (0.0-0.2) Sodium Level 141 mmol/L (136-145) Potassium Level 5.0 mmol/L (3.5-5.1) Chloride Level 107 mmol/L (98-107) Carbon Dioxide Level 25 mmol/L (21-32) Anion Gap 9 (6-14) Blood Urea Nitrogen 78 mg/dL (8-26) Creatinine 5.1 mg/dL (0.7-1.3) Estimated GFR (Cockcroft-Gault) 11.6 Glucose Level 110 mg/dL (70-99) Calcium Level 8.2 mg/dL (8.5-10.1) Test 11/02/16 11:21 11/02/16 15:05 11/02/16 16:29 11/02/16 21:05 Glucose (Fingerstick) 185 mg/dL (70-99) 162 mg/dL (70-99) 136 mg/dL (70-99) Urine Collection Type Unknown Urine Color Yellow Urine Clarity Clear Urine pH 6.5 Urine Specific [place] 1.015 Urine Protein 100 mg/dL (NEG-TRACE) Urine Glucose (UA) 100 mg/dL (NEG) Urine Ketones (Stick) Negative mg/dL (NEG) Urine Blood Negative (NEG) Urine Nitrite Negative (NEG) Urine Bilirubin Negative (NEG) Urine Urobilinogen Dipstick 0.2 mg/dL (0.2 mg/dL) Urine Leukocyte Esterase Negative (NEG) Urine RBC 0 /HPF (0-2) Urine WBC Occ /HPF (0-4) Urine Bacteria 0 /HPF (0-FEW) Urine Opiates Screen Pos (NEG) Urine Methadone Screen Neg (NEG) Urine Barbiturates Neg (NEG) Urine Phencyclidine Screen Neg (NEG) Urine Amphetamine/Methamphetamine Neg (NEG) Urine Benzodiazepines Screen Neg (NEG) Urine Cocaine Screen Neg (NEG) Urine Cannabinoids Screen Neg (NEG) Urine Ethyl Alcohol Neg (NEG) Test 11/03/16 05:54 11/03/16 07:39 11/03/16 11:13 White Blood Count 8.5 x10^3/uL (4.0-11.0) Red Blood Count 3.12 x10^6/uL (4.30-5.70) Hemoglobin 9.3 g/dL (13.0-17.5) Hematocrit 26.8 % (39.0-53.0) Mean Corpuscular Volume 86 fL (79-100) Mean Corpuscular Hemoglobin 30 pg (25-35) Mean Corpuscular Hemoglobin Concent 35 g/dL (31-37) Red Cell Distribution Width 16.1 % (11.5-14.5) Platelet Count 275 x10^3/uL (140-400) Neutrophils (%) (Auto) 71 % (31-73) Lymphocytes (%) (Auto) 16 % (24-48) Monocytes (%) (Auto) 8 % (0-9) Eosinophils (%) (Auto) 5 % (0-3) Basophils (%) (Auto) 1 % (0-3) Neutrophils # (Auto) 6.1 x10^3uL (1.8-7.7) Lymphocytes # (Auto) 1.4 x10^3/uL (1.0-4.8) Monocytes # (Auto) 0.7 x10^3/uL (0.0-1.1) Eosinophils # (Auto) 0.4 x10^3/uL (0.0-0.7) Basophils # (Auto) 0.0 x10^3/uL (0.0-0.2) Sodium Level 141 mmol/L (136-145) Potassium Level 5.0 mmol/L (3.5-5.1) Chloride Level 105 mmol/L (98-107) Carbon Dioxide Level 23 mmol/L (21-32) Anion Gap 13 (6-14) Blood Urea Nitrogen 76 mg/dL (8-26) Creatinine 5.1 mg/dL (0.7-1.3) Estimated GFR (Cockcroft-Gault) 11.6 BUN/Creatinine Ratio 15 (6-20) Glucose Level 156 mg/dL (70-99) Calcium Level 8.3 mg/dL (8.5-10.1) Total Bilirubin 0.2 mg/dL (0.2-1.0) Aspartate Amino Transf (AST/SGOT) 24 U/L (15-37) Alanine Aminotransferase (ALT/SGPT) 44 U/L (16-63) Alkaline Phosphatase 174 U/L (46-116) Total Protein 6.4 g/dL (6.4-8.2) Albumin 2.7 g/dL (3.4-5.0) Albumin/Globulin Ratio 0.7 (1.0-1.7) Random Vancomycin Level 14.6 mcg/mL Glucose (Fingerstick) 126 mg/dL (70-99) 206 mg/dL (70-99) Laboratory Tests Test 11/02/16 15:05 11/02/16 16:29 11/02/16 21:05 11/03/16 05:54 Urine Collection Type Unknown Urine Color Yellow Urine Clarity Clear Urine pH 6.5 Urine Specific [place] 1.015 Urine Protein 100 mg/dL (NEG-TRACE) Urine Glucose (UA) 100 mg/dL (NEG) Urine Ketones (Stick) Negative mg/dL (NEG) Urine Blood Negative (NEG) Urine Nitrite Negative (NEG) Urine Bilirubin Negative (NEG) Urine Urobilinogen Dipstick 0.2 mg/dL (0.2 mg/dL) Urine Leukocyte Esterase Negative (NEG) Urine RBC 0 /HPF (0-2) Urine WBC Occ /HPF (0-4) Urine Bacteria 0 /HPF (0-FEW) Urine Opiates Screen Pos (NEG) Urine Methadone Screen Neg (NEG) Urine Barbiturates Neg (NEG) Urine Phencyclidine Screen Neg (NEG) Urine Amphetamine/Methamphetamine Neg (NEG) Urine Benzodiazepines Screen Neg (NEG) Urine Cocaine Screen Neg (NEG) Urine Cannabinoids Screen Neg (NEG) Urine Ethyl Alcohol Neg (NEG) Glucose (Fingerstick) 162 mg/dL (70-99) 136 mg/dL (70-99) White Blood Count 8.5 x10^3/uL (4.0-11.0) Red Blood Count 3.12 x10^6/uL (4.30-5.70) Hemoglobin 9.3 g/dL (13.0-17.5) Hematocrit 26.8 % (39.0-53.0) Mean Corpuscular Volume 86 fL (79-100) Mean Corpuscular Hemoglobin 30 pg (25-35) Mean Corpuscular Hemoglobin Concent 35 g/dL (31-37) Red Cell Distribution Width 16.1 % (11.5-14.5) Platelet Count 275 x10^3/uL (140-400) Neutrophils (%) (Auto) 71 % (31-73) Lymphocytes (%) (Auto) 16 % (24-48) Monocytes (%) (Auto) 8 % (0-9) Eosinophils (%) (Auto) 5 % (0-3) Basophils (%) (Auto) 1 % (0-3) Neutrophils # (Auto) 6.1 x10^3uL (1.8-7.7) Lymphocytes # (Auto) 1.4 x10^3/uL (1.0-4.8) Monocytes # (Auto) 0.7 x10^3/uL (0.0-1.1) Eosinophils # (Auto) 0.4 x10^3/uL (0.0-0.7) Basophils # (Auto) 0.0 x10^3/uL (0.0-0.2) Sodium Level 141 mmol/L (136-145) Potassium Level 5.0 mmol/L (3.5-5.1) Chloride Level 105 mmol/L (98-107) Carbon Dioxide Level 23 mmol/L (21-32) Anion Gap 13 (6-14) Blood Urea Nitrogen 76 mg/dL (8-26) Creatinine 5.1 mg/dL (0.7-1.3) Estimated GFR (Cockcroft-Gault) 11.6 BUN/Creatinine Ratio 15 (6-20) Glucose Level 156 mg/dL (70-99) Calcium Level 8.3 mg/dL (8.5-10.1) Total Bilirubin 0.2 mg/dL (0.2-1.0) Aspartate Amino Transf (AST/SGOT) 24 U/L (15-37) Alanine Aminotransferase (ALT/SGPT) 44 U/L (16-63) Alkaline Phosphatase 174 U/L (46-116) Total Protein 6.4 g/dL (6.4-8.2) Albumin 2.7 g/dL (3.4-5.0) Albumin/Globulin Ratio 0.7 (1.0-1.7) Random Vancomycin Level 14.6 mcg/mL Test 11/03/16 07:39 11/03/16 11:13 Glucose (Fingerstick) 126 mg/dL (70-99) 206 mg/dL (70-99) Microbiology 11/01/16 Blood Culture - Preliminary, Resulted NO GROWTH AFTER 2 DAYS Medications Current Medications Sodium Chloride 1,000 ml @ 1,000 mls/hr 1X ONCE IV Last administered on 11:06; Start 11/01/16 at 10:30; Stop 11/01/16 at 11:38; Status DC Fentanyl Citrate (Fentanyl 2ml Vial) 50 mcg 1X ONCE IV Last administered on 11:08; Start 11/01/16 at 11:15; Stop 11/01/16 at 11:16; Status DC Vancomycin HCl (Vanco Per Pharmacy) 1 each PRN DAILY PRN MC SEE COMMENTS Last administered on 11/03/16 06:59; Start 11/01/16 at 13:15; Stop 11/03/16 at 10:10 ; Status DC Vancomycin HCl 1.5 gm/Sodium Chloride 500 ml @ 250 mls/hr 1X ONCE IV Last administered on 11/01/16 13:37; Start 11/01/16 at 13:30; Stop 11/01/16 at 15:29 ; Status DC Fentanyl Citrate (Fentanyl 2ml Vial) 50 mcg 1X ONCE IV Last administered on 13:40; Start 11/01/16 at 13:30; Stop 11/01/16 at 13:31; Status DC Ondansetron HCl (Zofran) 4 mg PRN Q8HRS PRN IV NAUSEA/VOMITING; Start 11/01/16 at 13:45; Stop 11/02/16 at 13:44; Status DC Acetaminophen (Tylenol) 650 mg PRN Q4HRS PRN PO FEVER Last administered on 11/01 23:03; Start 11/01/16 at 13:45; Stop 11/02/16 at 13:44; Status DC Fentanyl Citrate (Fentanyl 2ml Vial) 50 mcg PRN Q4HRS PRN IM PAIN Last administered on 11/03/16 08:53; Start 11/01/16 at 13:45 Vancomycin HCl 1 each 1X ONCE MC Last administered on 11/03/16 06:03; Start 11/03/16 at 05:00; Stop 11/03/16 at 10:10; Status DC Insulin Aspart (NovoLOG) 0-7 UNITS TIDWMEALS SQ Last administered on 11/03/16 12:49; Start 11/01/16 at 20:30 Dextrose (Dextrose 50%-Water Syringe) 12.5 gm PRN Q15MIN PRN IV SEE COMMENTS; Start 11/01/16 at 19:45 Hydromorphone HCl (Dilaudid) 4 mg PRN Q4HRS PRN PO PAIN Last administered on 10:11; Start 11/01/16 at 20:15; Stop 11/03/16 at 11:17; Status DC Pantoprazole Sodium (Protonix) 40 mg BIDWMEALS PO Last administered on 08:44; Start 11/01/16 at 21:00 Sennosides (Senna) 8.6 mg PRN QHS PRN PO CONSTIPATION; Start 11/01/16 at 20:15 Sevelamer Carbonate (Renvela) 800 mg TIDWMEALS PO Last administered on 12:43; Start 11/02/16 at 08:00 Albuterol Sulfate (Ventolin Neb Soln) 2.5 mg PRN Q6HRS PRN NEB SHORTNESS OF BREATH; Start 11/01/16 at 21:30 Amlodipine Besylate (Norvasc) 10 mg BID PO Last administered on 11/03/16 08:44 ; Start 11/01/16 at 22:00 Aspirin (Ecotrin) 81 mg DAILYWBKFT PO Last administered on 11/03/16 08:44; Start 11/02/16 at 08:00 Atorvastatin Calcium (Lipitor) 10 mg Q48H PO ; Start 11/01/16 at 21:00; Stop at 02:25; Status DC Carisoprodol (Soma) 350 mg TID PRN PRN PO MUSCLE SPASMS Last administered on 08:44; Start 11/01/16 at 21:30 Carvedilol (Coreg) 3.125 mg BIDWMEALS PO Last administered on 11/03/16 08:43; Start 11/02/16 at 08:00; Stop 11/03/16 at 10:22; Status DC Clopidogrel Bisulfate (Plavix) 75 mg DAILYWBKFT PO Last administered on 08:44; Start 11/02/16 at 08:00 Diclofenac Sodium (Voltaren) 1 richard BID TP Last administered on 11/03/16 08:43 ; Start 11/01/16 at 22:00 Atorvastatin Calcium (Lipitor) 10 mg Q48H PO Last administered on 11/02/16 20: 16; Start 11/02/16 at 21:00 Multivitamins (Thera M Plus) 1 tab DAILY PO Last administered on 11/03/16 08: 44; Start 11/02/16 at 14:00 Ascorbic Acid (Vitamin C) 500 mg BID PO Last administered on 11/03/16 08:44; Start 11/02/16 at 14:00 Vancomycin HCl 1 gm/Sodium Chloride 250 ml @ 250 mls/hr Q48H IV ; Start at 09:00; Stop 11/03/16 at 10:10; Status DC Vancomycin HCl 1 each 1X ONCE MC ; Start 11/05/16 at 08:30; Stop 11/05/16 at 08: 31 Linezolid (Zyvox) 600 mg BID PO Last administered on 11/03/16 12:43; Start at 10:00 Meropenem 1 gm/ Sodium Chloride 100 ml @ 200 mls/hr DAILY IV Last administered on 11/03/16 12:43; Start 11/03/16 at 10:00 Fluconazole (Diflucan) 100 mg DAILY PO Last administered on 11/03/16 12:43; Start 11/03/16 at 10:00 Lactobacillus Acidophilus (Bacid, Brittney-Bid) 1 tab TIDWMEALS PO Last administered on 11/03/16 12:43; Start 11/03/16 at 12:00 Carvedilol (Coreg) 6.25 mg BIDWMEALS PO ; Start 11/03/16 at 17:00 Sodium Chloride 1,000 ml @ 100 mls/hr Q10H IV Last administered on 11/03/16 12:44; Start 11/03/16 at 10:30 Acetylcysteine (Mucomyst 20% Oral Solution) 1,200 mg BID PO ; Start 11/03/16 at 21:00; Stop 11/05/16 at 20:59 Darbepoetin Rich (Aranesp) 60 mcg WEEKLYHS SQ ; Start 11/03/16 at 21:00 Hydromorphone HCl (Dilaudid) 8 mg PRN Q4HRS PRN PO PAIN; Start 11/03/16 at 11: 15 Gabapentin (Neurontin) 300 mg QHS PO ; Start 11/03/16 at 14:00 Vitals/I & O Vital Sign - Last 24 Hours 11/02/16 11/02/16 11/02/16 11/02/16 15:00 16:18 19:00 20:00 Temp 97.7 98.1 97.7 98.1 Pulse 68 68 77 Resp 18 20 B/P (MAP) 153/69 (97) 153/69 173/75 (107) Pulse Ox 97 97 O2 Delivery Room Air Room Air Room Air 11/02/16 11/02/16 11/03/16 11/03/16 20:16 23:00 03:00 07:00 Temp 97.5 97.9 97.9 97.5 97.9 97.9 Pulse 68 67 73 80 Resp 18 18 20 B/P (MAP) 174/75 148/64 (92) 159/76 (103) 160/80 (106) Pulse Ox 94 98 100 O2 Delivery Room Air Room Air Room Air 11/03/16 11/03/16 11/03/16 11/03/16 08:43 08:44 08:53 11:00 Temp 97.8 97.8 Pulse 80 80 83 Resp 20 18 B/P (MAP) 160/80 160/80 160/63 (95) Pulse Ox 100 99 O2 Delivery Room Air Room Air LES PALMA MD Nov 03, 2016 13:03
[2016-11-03] MEDS: GABAPENTIN 300 MG CAPSULE. PO SCH ×2 (14:00→21:31)
--- NOTE | 2016-11-03 14:00 | PDOC ---
ORTHO PROGRESS NOTES Subjective Patient doing okay today. Vascular visited with him today and awaiting new studies. Hold off on debridement for now. He has some kidney insufficiency, may prove difficult with needed testing. Vitals Vital Signs Date Time Temp Pulse Resp B/P (MAP) Pulse Ox O2 Delivery O2 Flow Rate FiO2 11/03/16 11:00 97.8 83 18 160/63 (95) 99 Room Air 97.8 Labs Laboratory Tests Test 11/01/16 16:48 11/01/16 21:11 11/02/16 04:15 11/02/16 07:47 Glucose (Fingerstick) 83 mg/dL (70-99) 99 mg/dL (70-99) 96 mg/dL (70-99) White Blood Count 7.3 x10^3/uL (4.0-11.0) Red Blood Count 3.12 x10^6/uL (4.30-5.70) Hemoglobin 9.0 g/dL (13.0-17.5) Hematocrit 27.7 % (39.0-53.0) Mean Corpuscular Volume 89 fL (79-100) Mean Corpuscular Hemoglobin 29 pg (25-35) Mean Corpuscular Hemoglobin Concent 33 g/dL (31-37) Red Cell Distribution Width 16.1 % (11.5-14.5) Platelet Count 257 x10^3/uL (140-400) Neutrophils (%) (Auto) 70 % (31-73) Lymphocytes (%) (Auto) 16 % (24-48) Monocytes (%) (Auto) 10 % (0-9) Eosinophils (%) (Auto) 4 % (0-3) Basophils (%) (Auto) 1 % (0-3) Neutrophils # (Auto) 5.1 x10^3uL (1.8-7.7) Lymphocytes # (Auto) 1.2 x10^3/uL (1.0-4.8) Monocytes # (Auto) 0.7 x10^3/uL (0.0-1.1) Eosinophils # (Auto) 0.3 x10^3/uL (0.0-0.7) Basophils # (Auto) 0.1 x10^3/uL (0.0-0.2) Sodium Level 141 mmol/L (136-145) Potassium Level 5.0 mmol/L (3.5-5.1) Chloride Level 107 mmol/L (98-107) Carbon Dioxide Level 25 mmol/L (21-32) Anion Gap 9 (6-14) Blood Urea Nitrogen 78 mg/dL (8-26) Creatinine 5.1 mg/dL (0.7-1.3) Estimated GFR (Cockcroft-Gault) 11.6 Glucose Level 110 mg/dL (70-99) Calcium Level 8.2 mg/dL (8.5-10.1) Test 11/02/16 11:21 11/02/16 15:05 11/02/16 16:29 11/02/16 21:05 Glucose (Fingerstick) 185 mg/dL (70-99) 162 mg/dL (70-99) 136 mg/dL (70-99) Urine Collection Type Unknown Urine Color Yellow Urine Clarity Clear Urine pH 6.5 Urine Specific [place] 1.015 Urine Protein 100 mg/dL (NEG-TRACE) Urine Glucose (UA) 100 mg/dL (NEG) Urine Ketones (Stick) Negative mg/dL (NEG) Urine Blood Negative (NEG) Urine Nitrite Negative (NEG) Urine Bilirubin Negative (NEG) Urine Urobilinogen Dipstick 0.2 mg/dL (0.2 mg/dL) Urine Leukocyte Esterase Negative (NEG) Urine RBC 0 /HPF (0-2) Urine WBC Occ /HPF (0-4) Urine Bacteria 0 /HPF (0-FEW) Urine Opiates Screen Pos (NEG) Urine Methadone Screen Neg (NEG) Urine Barbiturates Neg (NEG) Urine Phencyclidine Screen Neg (NEG) Urine Amphetamine/Methamphetamine Neg (NEG) Urine Benzodiazepines Screen Neg (NEG) Urine Cocaine Screen Neg (NEG) Urine Cannabinoids Screen Neg (NEG) Urine Ethyl Alcohol Neg (NEG) Test 11/03/16 05:54 11/03/16 07:39 11/03/16 11:13 White Blood Count 8.5 x10^3/uL (4.0-11.0) Red Blood Count 3.12 x10^6/uL (4.30-5.70) Hemoglobin 9.3 g/dL (13.0-17.5) Hematocrit 26.8 % (39.0-53.0) Mean Corpuscular Volume 86 fL (79-100) Mean Corpuscular Hemoglobin 30 pg (25-35) Mean Corpuscular Hemoglobin Concent 35 g/dL (31-37) Red Cell Distribution Width 16.1 % (11.5-14.5) Platelet Count 275 x10^3/uL (140-400) Neutrophils (%) (Auto) 71 % (31-73) Lymphocytes (%) (Auto) 16 % (24-48) Monocytes (%) (Auto) 8 % (0-9) Eosinophils (%) (Auto) 5 % (0-3) Basophils (%) (Auto) 1 % (0-3) Neutrophils # (Auto) 6.1 x10^3uL (1.8-7.7) Lymphocytes # (Auto) 1.4 x10^3/uL (1.0-4.8) Monocytes # (Auto) 0.7 x10^3/uL (0.0-1.1) Eosinophils # (Auto) 0.4 x10^3/uL (0.0-0.7) Basophils # (Auto) 0.0 x10^3/uL (0.0-0.2) Sodium Level 141 mmol/L (136-145) Potassium Level 5.0 mmol/L (3.5-5.1) Chloride Level 105 mmol/L (98-107) Carbon Dioxide Level 23 mmol/L (21-32) Anion Gap 13 (6-14) Blood Urea Nitrogen 76 mg/dL (8-26) Creatinine 5.1 mg/dL (0.7-1.3) Estimated GFR (Cockcroft-Gault) 11.6 BUN/Creatinine Ratio 15 (6-20) Glucose Level 156 mg/dL (70-99) Calcium Level 8.3 mg/dL (8.5-10.1) Total Bilirubin 0.2 mg/dL (0.2-1.0) Aspartate Amino Transf (AST/SGOT) 24 U/L (15-37) Alanine Aminotransferase (ALT/SGPT) 44 U/L (16-63) Alkaline Phosphatase 174 U/L (46-116) Total Protein 6.4 g/dL (6.4-8.2) Albumin 2.7 g/dL (3.4-5.0) Albumin/Globulin Ratio 0.7 (1.0-1.7) Random Vancomycin Level 14.6 mcg/mL Glucose (Fingerstick) 126 mg/dL (70-99) 206 mg/dL (70-99) Laboratory Tests Test 11/02/16 15:05 11/02/16 16:29 11/02/16 21:05 11/03/16 05:54 Urine Collection Type Unknown Urine Color Yellow Urine Clarity Clear Urine pH 6.5 Urine Specific [place] 1.015 Urine Protein 100 mg/dL (NEG-TRACE) Urine Glucose (UA) 100 mg/dL (NEG) Urine Ketones (Stick) Negative mg/dL (NEG) Urine Blood Negative (NEG) Urine Nitrite Negative (NEG) Urine Bilirubin Negative (NEG) Urine Urobilinogen Dipstick 0.2 mg/dL (0.2 mg/dL) Urine Leukocyte Esterase Negative (NEG) Urine RBC 0 /HPF (0-2) Urine WBC Occ /HPF (0-4) Urine Bacteria 0 /HPF (0-FEW) Urine Opiates Screen Pos (NEG) Urine Methadone Screen Neg (NEG) Urine Barbiturates Neg (NEG) Urine Phencyclidine Screen Neg (NEG) Urine Amphetamine/Methamphetamine Neg (NEG) Urine Benzodiazepines Screen Neg (NEG) Urine Cocaine Screen Neg (NEG) Urine Cannabinoids Screen Neg (NEG) Urine Ethyl Alcohol Neg (NEG) Glucose (Fingerstick) 162 mg/dL (70-99) 136 mg/dL (70-99) White Blood Count 8.5 x10^3/uL (4.0-11.0) Red Blood Count 3.12 x10^6/uL (4.30-5.70) Hemoglobin 9.3 g/dL (13.0-17.5) Hematocrit 26.8 % (39.0-53.0) Mean Corpuscular Volume 86 fL (79-100) Mean Corpuscular Hemoglobin 30 pg (25-35) Mean Corpuscular Hemoglobin Concent 35 g/dL (31-37) Red Cell Distribution Width 16.1 % (11.5-14.5) Platelet Count 275 x10^3/uL (140-400) Neutrophils (%) (Auto) 71 % (31-73) Lymphocytes (%) (Auto) 16 % (24-48) Monocytes (%) (Auto) 8 % (0-9) Eosinophils (%) (Auto) 5 % (0-3) Basophils (%) (Auto) 1 % (0-3) Neutrophils # (Auto) 6.1 x10^3uL (1.8-7.7) Lymphocytes # (Auto) 1.4 x10^3/uL (1.0-4.8) Monocytes # (Auto) 0.7 x10^3/uL (0.0-1.1) Eosinophils # (Auto) 0.4 x10^3/uL (0.0-0.7) Basophils # (Auto) 0.0 x10^3/uL (0.0-0.2) Sodium Level 141 mmol/L (136-145) Potassium Level 5.0 mmol/L (3.5-5.1) Chloride Level 105 mmol/L (98-107) Carbon Dioxide Level 23 mmol/L (21-32) Anion Gap 13 (6-14) Blood Urea Nitrogen 76 mg/dL (8-26) Creatinine 5.1 mg/dL (0.7-1.3) Estimated GFR (Cockcroft-Gault) 11.6 BUN/Creatinine Ratio 15 (6-20) Glucose Level 156 mg/dL (70-99) Calcium Level 8.3 mg/dL (8.5-10.1) Total Bilirubin 0.2 mg/dL (0.2-1.0) Aspartate Amino Transf (AST/SGOT) 24 U/L (15-37) Alanine Aminotransferase (ALT/SGPT) 44 U/L (16-63) Alkaline Phosphatase 174 U/L (46-116) Total Protein 6.4 g/dL (6.4-8.2) Albumin 2.7 g/dL (3.4-5.0) Albumin/Globulin Ratio 0.7 (1.0-1.7) Random Vancomycin Level 14.6 mcg/mL Test 11/03/16 07:39 11/03/16 11:13 Glucose (Fingerstick) 126 mg/dL (70-99) 206 mg/dL (70-99) Notes Patient is awake and alert sitting in the bed. Breathing unlabored, no acute distress. Wound covered with dressing. Diminished sensation. Skin warm and pink. Problems: (1) Wound dehiscence Assessment and Plan Await vascular recommendations after testing YVONNE CROCKETT APRN Nov 03, 2016 14:00
--- NOTE | 2016-11-03 14:24 | CARD ---
APPROVED REPORT EXAM: Two-dimensional and M-mode echocardiogram with Doppler and color Doppler. Other Information Quality : GoodHR: 85bpm Rhythm : NSR INDICATION Murmur RISK FACTORS Hypertension 2D DIMENSIONS RVDd2.6 (2.9-3.5cm)Left Atrium(2D)4.0 (1.6-4.0cm) IVSd1.6 (0.7-1.1cm)Aortic Root(2D)2.7 (2.0-3.7cm) LVDd4.4 (3.9-5.9cm)PWd1.4 (0.7-1.1cm) LVDs2.8 (2.5-4.0cm)FS (%) 37.8 % SV61.1 mlLVEF(%)68.0 (>50%) Aortic Valve AoV Peak Rome.328.2cm/sAoV VTI62.9cm AO Peak GR.43.1mmHgLVOT VTI 21.43cm AO Mean GR.22mmHg Mitral Valve MV E Fftooxvt597.9cm/sMV DECEL CHKV136ja MV A Qhlybdti289.6cm/sE/A Ratio0.8 MV A [id number] TDI Lateral E' P. V6.44cm/sMedial E' P. V6.24cm/s E/Lateral E'21.4E/Medial E'22.1 Pulmonary Vein S1 Kdhqwhhq09.9cm/sS2 Wotyivmr56.14cm/s D2 Wnbwpdtj59.1cm/sPVa [id number] LEFT VENTRICLE The left ventricle is normal size. There is moderate concentric left ventricular hypertrophy. In some view it seems to be asymetrical septal hypertrophy, cannot rule out subvalvular HOCM The left ventri cular systolic function is normal and the ejection fraction is within normal range. The Ejection Frac tion is 68%. There is normal LV segmental wall motion. Transmitral Doppler flow pattern is Grade I-ab normal relaxation pattern. RIGHT VENTRICLE The right ventricle is normal size. There is normal right ventricular wall thickness. The right ventr icular systolic function is normal. ATRIA The left atrium is mildly dilated. The right atrium size is normal. The interatrial septum is intact with no evidence for an atrial septal defect or patent foramen ovale as noted on 2-D or Doppler imagi ng. AORTIC VALVE The aortic valve is severely sclerotic. The aortic valve may be bicuspid There is moderate valvular a ortic stenosis. Calculated aortic valve area is 1.5 cm2 with maximum pressure gradient of 43 mmHg and mean pressure gradient of 22 mmHg. The dimensionless index is .34 consistent with moderate aortic va lve stenosis. MITRAL VALVE Mitral annular calcification is moderate. The mitral valve leaflets are mildly thickened. There is no evidence of mitral valve prolapse. There is no mitral valve stenosis. Doppler and Color Flow reveale d mild mitral regurgitation. TRICUSPID VALVE Doppler and Color Flow revealed no tricuspid valve regurgitation noted. Unable to determine pulmonary artery pressure at exam time. PULMONIC VALVE The pulmonary valve is not well visualized but appears to open adequately. Doppler and Color Flow rev ealed mild pulmonic valvular regurgitation. There is no pulmonic valvular stenosis by spectral Dopple r. GREAT VESSELS The aortic root is normal in size. The ascending aorta is normal in size. The pulmonary artery is nor mal. The IVC is normal in size and collapses >50% with inspiration. PERICARDIAL EFFUSION There is no evidence of significant pericardial effusion. Critical Notification Critical Value: No <Conclusion> There is moderate concentric left ventricular hypertrophy. In some view it seems to be asymetrical se ptal hypertrophy, cannot rule out subvalvular HOCM The left ventricular systolic function is normal and the ejection fraction is within normal range. The Ejection Fraction is 68%. Transmitral Doppler flow pattern is Grade I-abnormal relaxation pattern. The left atrium is mildly dilated. The right atrium size is normal. The aortic valve is severely sclerotic. The aortic valve may be bicuspid There is moderate valvular aortic stenosis. Calculated aortic valve area is 1.5 cm2 with maximum pressure gradient of 43 mmHg and mean pressure g radient of 22 mmHg. The dimensionless index is .34 consistent with moderate aortic valve stenosis. Mitral annular calcification is moderate. The mitral valve leaflets are mildly thickened. Doppler and Color Flow revealed mild mitral regurgitation. Doppler and Color Flow revealed no tricuspid valve regurgitation noted. Unable to determine pulmonary artery pressure at exam time. The pulmonary valve is not well visualized but appears to open adequately. Doppler and Color Flow revealed mild pulmonic valvular regurgitation. There is no pulmonic valvular stenosis by spectral Doppler. There is no evidence of significant pericardial effusion.
--- NOTE | 2016-11-03 14:41 | RAD ---
Examination: MRI of the left forefoot without contrast HISTORY: History of necrotic wound at the recent amputation site COMPARISON: None available TECHNIQUE: Multiplanar, multisequence MR imaging of the left forefoot was performed without contrast FINDINGS: The alignment of the tarsal bones grossly appears unremarkable. Transmetatarsal amputation of the distal metatarsals identified. There is intermediate T1 with corresponding high T2 signal identified in the soft tissue at the fracture site and in mid and distal portions of the first and second metatarsal and in the distal portion of the third, fourth, fifth metatarsals. No obvious cortical destructive changes identified. The distal attachment of the peroneus longus tendon grossly appears intact. The visualized Ligament is intact Mild increased T2 signal identified in the muscles of the mid foot. No focal fluid collection to suggest an abscess. There is mild increased T2 signal identified in the soft tissue of the amputation site IMPRESSION: 1. Transmetatarsal amputation of the first to the fifth distal metatarsals. There is mild T2 signal with corresponding intermediate T1 signal identified in the mid and distal portions of the first and second metatarsal and in the distal portion of the third, fourth, fifth metatarsals without cortical disruption most likely bone marrow reactive changes less likely osteomyelitis given no evidence of cortical disruption. If clinical suspicion for osteomyelitis persists, recommend triphasic bone scan. 2. Mild increased T2 signal identified in the soft tissue at the amputation site likely edema or soft tissue infection without abscess formation. 3. Mild increased T2 signal identified in the muscles of the midfoot and forefoot, edema or myositis. Electronically signed by: Basim Christine MD (11/03/2016 2:38 PM) [id number]
--- NOTE | 2016-11-03 14:50 | RAD ---
Exam performed: Carotid Doppler. Clinical indication: Bilateral carotid bruit Date of Service: 11/03/16. Comparison :None available. Technique: Real-time grayscale and Doppler evaluation of the carotid system was performed and images are obtained. Color flow and spectral analysis was observed. Findings: There is intimal thickening and diffuse calcified plaquing throughout both distal common carotid arteries and carotid bulbs extending into the internal carotid artery bilaterally. Doppler interrogation reveals normal waveforms and velocities as follows . Peak systolic velocity within the right common carotid artery measures 70.0 cm/sec whereas on the left measures 75.0 cm/sec . The peak systolic velocity within the right ICA measures 155.0 cm/sec whereas on the left measures 112.0 cm/sec. The ICA to CCA ratio on the right measures 2.2 whereas on the left measures 1.49. There is antegrade flow in both vertebral arteries. Impression: 1.Intimal thickening and diffuse calcified plaquing involving both carotid systems without any flow-limiting stenosis. The degree of stenosis on the right is estimated between 50 and 69%. Note: Stenosis calculations for CT, MR and conventional angiography are based upon determination of the distal ICA diameter in accordance with the NASCET methodology. Stenosis calculations for doppler studies are derived from validated velocity criteria which are known to correlate with NASCET methodology of determining stenosis.
[2016-11-03 16:20] LABS: UR PROTEIN RD 188.7 mg/dL (Not Estab.)
[2016-11-03 19:15] VITALS: BP 172/76
[2016-11-03] MEDS ORDERED: DARBEPOETIN ALFA 60 MCG/0.3 ML DISP.SYRIN. SQ SCH (21:00)
[2016-11-03] MEDS: ACETYLCYSTEINE 20% ORAL SOLN 600 MG/3 ML SYRINGE. PO SCH (21:29)
[2016-11-03 22:47] VITALS: BP 168/69
[2016-11-04] VITALS (13 sets, daily range): BP systolic 139–181; BP diastolic 64–81
[2016-11-04] MEDS: fentaNYL PF VIAL 100 MCG/2 ML VIAL IM PRN (01:38)
[2016-11-04] MEDS: HYDROmorphone 4 MG TABLET PO PRN ×4 (03:17→19:58)
[2016-11-04] MEDS: IV NORMAL SALINE 1000ML BAG 1,000 ML IV SCH ×2 (07:37→16:04)
[2016-11-04] MEDS: SEVELAMER CARBONATE 800 MG TABLET. PO SCH ×3 (07:39→15:57)
[2016-11-04] MEDS: LACTOBACILLUS ACIDOPH & BULGAR 1 TABLET. PO SCH ×3 (07:39→15:57)
--- NOTE | 2016-11-04 07:42 | PDOC ---
Provider Note Provider Note Tm 97.7, BP 169/70, HR 71, 95% on room air awake and alert bilateral palpable femoral pulses, no left foot pedal pulse left TMA wound is open with gangrenous tissue of the skin and subcutaneous tissue, small left heel ulcer Duplex of the left leg shows left SFA stenosis A/P 61 year old male with left leg peripheral artery disease and nonhealing left transmetatarsal amputation wound - recommend an angiogram with intervention if amenable to improve circulation to the left foot and help heal upcoming surgery - nephrology following for chronic renal insufficiency - medicating for limited contrast angiogram - ortho managing the left TMA wound - antibiotics per BÁRBARA DENG MD Nov 04, 2016 07:42
[2016-11-04] MEDS: PANTOPRAZOLE 40 MG TABLET.DR. PO SCH ×2 (08:00→15:58)
[2016-11-04] MEDS: INSULIN ASPART 300 UNITS/3 ML INSULN.PEN SQ SCH ×3 (08:00→17:00)
[2016-11-04] MEDS: ASCORBIC ACID 500 MG TABLET PO SCH ×2 (08:09→21:00)
[2016-11-04] MEDS: MULTIVITAMIN with MINERAL TABLET. PO SCH (08:09)
[2016-11-04] MEDS ORDERED: LIDOCAINE 1% / SOD BICARB 8.4% 20 ML VIAL. IJ ONE ×3 (08:16→11:00)
[2016-11-04] MEDS ORDERED: HEPARIN for ARTERIAL LINE 0 ML ONE (08:17)
[2016-11-04] MEDS ORDERED: IODIXANOL 320 MG/ML 100 ML VIAL. ONE (08:17)
[2016-11-04] MEDS: LINEZOLID 600 MG TABLET PO SCH ×2 (08:22→21:00)
[2016-11-04] MEDS: CLOPIDOGREL BISULFATE 75 MG TABLET PO SCH (08:23)
[2016-11-04] MEDS: amLODIPine BESYLATE 10 MG TABLET PO SCH ×2 (08:23→21:00)
[2016-11-04] MEDS: ASPIRIN ENTERIC COATED 81 MG TABLET.DR. PO SCH (08:23)
[2016-11-04] MEDS: CARVEDILOL 3.125 MG TABLET. PO SCH ×2 (08:23→15:58)
[2016-11-04] MEDS: CARISOPRODOL 350 MG TABLET PO PRN ×2 (08:23→17:35)
[2016-11-04] MEDS: FLUCONAZOLE 100 MG TABLET. PO SCH (08:24)
[2016-11-04] MEDS: ACETYLCYSTEINE 20% ORAL SOLN 600 MG/3 ML SYRINGE. PO SCH ×2 (08:28→21:00)
[2016-11-04] MEDS: MEROPENEM 1 GM in IV NORMAL SALINE 100ML 100 ML IV SCH (08:32)
[2016-11-04] MEDS: DICLOFENAC SODIUM 1% TOPICAL GEL 100GM TUBE. TP SCH ×2 (08:38→21:00)
[2016-11-04 09:10] LABS: PROTHROMBIN TIME PATIENT 12.9 SEC (11.7-14.0)
[2016-11-04] MEDS ORDERED: IODIXANOL 320MG/ML 50ML VIAL. ONE (09:57)
[2016-11-04] MEDS ORDERED: HEPARIN for ARTERIAL LINE 1,500 ML ONE (09:58)
[2016-11-04] MEDS ORDERED: MIDAZOLAM HCL/PF 2 MG/2 ML VIAL. ONE (10:29)
[2016-11-04] MEDS ORDERED: HEPARIN for IV BOLUS 10,000 UNIT/10 ML VIAL. ONE (10:29)
[2016-11-04] MEDS ORDERED: fentaNYL PF VIAL 100 MCG/2 ML VIAL IV ONE (11:00)
[2016-11-04] MEDS ORDERED: MIDAZOLAM HCL/PF 2 MG/2 ML VIAL. IV ONE (11:00)
[2016-11-04] MEDS ORDERED: CONTRAST GIVEN MC PRN (11:00)
[2016-11-04] MEDS ORDERED: IODIXANOL 320MG/ML 50ML VIAL. IART ONE (11:00)
--- NOTE | 2016-11-04 11:38 | PDOC ---
RENNY MCNALLY DO Nov 04, 2016 11:38
--- NOTE | 2016-11-04 11:44 | PDOC ---
PROGRESS NOTES Chief Complaint Chief Complaint Wound dehiscence - left foot s/p left TMA 6+ weeks ago PMH: CREST syndrome DM htn hld CKD stage V Anemia of chronic disease Recently quit tobacco use Hx CVA Hx right hand finger amputation Cholecystectomy hx pneumonia History of Present Illness History of Present Illness Pt laying in bed, waiting for arteriogram this am. ID, vascular, wound, renal, ortho following Vitals Vitals Vital Signs Date Time Temp Pulse Resp B/P (MAP) Pulse Ox O2 Delivery O2 Flow Rate FiO2 11/04/16 08:23 77 181/69 11/04/16 07:00 97.7 18 98 Room Air 97.7 Physical Exam General: Alert, Oriented X3, No acute distress Heart: Regular rate, Other (murmur, bilateral carotid bruit) Lungs: Clear, Wheezing Abdomen: Normal bowel sounds, Soft, No tenderness, Other (thin) Extremities: Other (2+ radial, 2+ femoral, palpable left popliteal, unable to appreciate pedal pulses) Skin: Other (mulitple healed amputations fingers, right foot, left foot with amputation site dehiscence with necrosis and malodorous ) Labs LABS Laboratory Tests Test 11/03/16 15:57 11/03/16 19:44 11/04/16 07:27 11/04/16 08:50 Glucose (Fingerstick) 148 mg/dL (70-99) 179 mg/dL (70-99) 105 mg/dL (70-99) Prothrombin Time 12.9 SEC (11.7-14.0) Prothromb Time International Ratio 1.0 (0.8-1.1) Review of Systems Review of Systems no fever + pain Assessment and Plan Assessmemt and Plan Problems Medical Problems: (1) Wound dehiscence Status: Acute Wound dehiscence - left foot, s/p left TMA 1. Continue pain management 2. recheck labs am 3. Arteriogram pending 4. Renal following patient, evaluating for need of HD 5. Ortho following, holding debridement for vascular studies 6. ID waiting for vascular and imaging results 7. Continue wound care 8. Appreciate subspecialty input Problems: Comment Review of Relevant I have reviewed the following items rula (where applicable) has been applied. Labs Laboratory Tests Test 11/02/16 15:05 11/02/16 16:29 11/02/16 21:05 11/03/16 05:54 Urine Collection Type Unknown Urine Color Yellow Urine Clarity Clear Urine pH 6.5 Urine Specific Violet 1.015 Urine Protein 188.7 mg/dL (Not Estab.) Urine Glucose (UA) 100 mg/dL (NEG) Urine Ketones (Stick) Negative mg/dL (NEG) Urine Blood Negative (NEG) Urine Nitrite Negative (NEG) Urine Bilirubin Negative (NEG) Urine Urobilinogen Dipstick 0.2 mg/dL (0.2 mg/dL) Urine Leukocyte Esterase Negative (NEG) Urine RBC 0 /HPF (0-2) Urine WBC Occ /HPF (0-4) Urine Bacteria 0 /HPF (0-FEW) Urine Creatinine 34.2 mg/dL (Not Estab.) Urine Protein/Creatinine Ratio 5518 mg/g creat (0-200) Urine Opiates Screen Pos (NEG) Urine Methadone Screen Neg (NEG) Urine Barbiturates Neg (NEG) Urine Phencyclidine Screen Neg (NEG) Urine Amphetamine/Methamphetamine Neg (NEG) Urine Benzodiazepines Screen Neg (NEG) Urine Cocaine Screen Neg (NEG) Urine Cannabinoids Screen Neg (NEG) Urine Ethyl Alcohol Neg (NEG) Glucose (Fingerstick) 162 mg/dL (70-99) 136 mg/dL (70-99) White Blood Count 8.5 x10^3/uL (4.0-11.0) Red Blood Count 3.12 x10^6/uL (4.30-5.70) Hemoglobin 9.3 g/dL (13.0-17.5) Hematocrit 26.8 % (39.0-53.0) Mean Corpuscular Volume 86 fL (79-100) Mean Corpuscular Hemoglobin 30 pg (25-35) Mean Corpuscular Hemoglobin Concent 35 g/dL (31-37) Red Cell Distribution Width 16.1 % (11.5-14.5) Platelet Count 275 x10^3/uL (140-400) Neutrophils (%) (Auto) 71 % (31-73) Lymphocytes (%) (Auto) 16 % (24-48) Monocytes (%) (Auto) 8 % (0-9) Eosinophils (%) (Auto) 5 % (0-3) Basophils (%) (Auto) 1 % (0-3) Neutrophils # (Auto) 6.1 x10^3uL (1.8-7.7) Lymphocytes # (Auto) 1.4 x10^3/uL (1.0-4.8) Monocytes # (Auto) 0.7 x10^3/uL (0.0-1.1) Eosinophils # (Auto) 0.4 x10^3/uL (0.0-0.7) Basophils # (Auto) 0.0 x10^3/uL (0.0-0.2) Sodium Level 141 mmol/L (136-145) Potassium Level 5.0 mmol/L (3.5-5.1) Chloride Level 105 mmol/L (98-107) Carbon Dioxide Level 23 mmol/L (21-32) Anion Gap 13 (6-14) Blood Urea Nitrogen 76 mg/dL (8-26) Creatinine 5.1 mg/dL (0.7-1.3) Estimated GFR (Cockcroft-Gault) 11.6 BUN/Creatinine Ratio 15 (6-20) Glucose Level 156 mg/dL (70-99) Hemoglobin A1c 4.7 % (4.8-5.6) Calcium Level 8.3 mg/dL (8.5-10.1) Total Bilirubin 0.2 mg/dL (0.2-1.0) Aspartate Amino Transf (AST/SGOT) 24 U/L (15-37) Alanine Aminotransferase (ALT/SGPT) 44 U/L (16-63) Alkaline Phosphatase 174 U/L (46-116) Total Protein 6.4 g/dL (6.4-8.2) Albumin 2.7 g/dL (3.4-5.0) Albumin/Globulin Ratio 0.7 (1.0-1.7) Random Vancomycin Level 14.6 mcg/mL Test 11/03/16 07:39 11/03/16 11:13 11/03/16 15:57 11/03/16 19:44 Glucose (Fingerstick) 126 mg/dL (70-99) 206 mg/dL (70-99) 148 mg/dL (70-99) 179 mg/dL (70-99) Test 11/04/16 07:27 11/04/16 08:50 Glucose (Fingerstick) 105 mg/dL (70-99) Prothrombin Time 12.9 SEC (11.7-14.0) Prothromb Time International Ratio 1.0 (0.8-1.1) Laboratory Tests Test 11/03/16 15:57 11/03/16 19:44 11/04/16 07:27 11/04/16 08:50 Glucose (Fingerstick) 148 mg/dL (70-99) 179 mg/dL (70-99) 105 mg/dL (70-99) Prothrombin Time 12.9 SEC (11.7-14.0) Prothromb Time International Ratio 1.0 (0.8-1.1) Microbiology 11/01/16 Blood Culture - Preliminary, Resulted NO GROWTH AFTER 2 DAYS Medications Current Medications Sodium Chloride 1,000 ml @ 1,000 mls/hr 1X ONCE IV Last administered on 11:06; Start 11/01/16 at 10:30; Stop 11/01/16 at 11:38; Status DC Fentanyl Citrate (Fentanyl 2ml Vial) 50 mcg 1X ONCE IV Last administered on 11:08; Start 11/01/16 at 11:15; Stop 11/01/16 at 11:16; Status DC Vancomycin HCl (Vanco Per Pharmacy) 1 each PRN DAILY PRN MC SEE COMMENTS Last administered on 11/03/16 06:59; Start 11/01/16 at 13:15; Stop 11/03/16 at 10:10 ; Status DC Vancomycin HCl 1.5 gm/Sodium Chloride 500 ml @ 250 mls/hr 1X ONCE IV Last administered on 11/01/16 13:37; Start 11/01/16 at 13:30; Stop 11/01/16 at 15:29 ; Status DC Fentanyl Citrate (Fentanyl 2ml Vial) 50 mcg 1X ONCE IV Last administered on 13:40; Start 11/01/16 at 13:30; Stop 11/01/16 at 13:31; Status DC Ondansetron HCl (Zofran) 4 mg PRN Q8HRS PRN IV NAUSEA/VOMITING; Start 11/01/16 at 13:45; Stop 11/02/16 at 13:44; Status DC Acetaminophen (Tylenol) 650 mg PRN Q4HRS PRN PO FEVER Last administered on 11/01 23:03; Start 11/01/16 at 13:45; Stop 11/02/16 at 13:44; Status DC Fentanyl Citrate (Fentanyl 2ml Vial) 50 mcg PRN Q4HRS PRN IM PAIN Last administered on 11/04/16 01:38; Start 11/01/16 at 13:45 Vancomycin HCl 1 each 1X ONCE MC Last administered on 11/03/16 06:03; Start 11/03/16 at 05:00; Stop 11/03/16 at 10:10; Status DC Insulin Aspart (NovoLOG) 0-7 UNITS TIDWMEALS SQ Last administered on 11/03/16 12:49; Start 11/01/16 at 20:30 Dextrose (Dextrose 50%-Water Syringe) 12.5 gm PRN Q15MIN PRN IV SEE COMMENTS; Start 11/01/16 at 19:45 Hydromorphone HCl (Dilaudid) 4 mg PRN Q4HRS PRN PO PAIN Last administered on 10:11; Start 11/01/16 at 20:15; Stop 11/03/16 at 11:17; Status DC Pantoprazole Sodium (Protonix) 40 mg BIDWMEALS PO Last administered on 17:34; Start 11/01/16 at 21:00 Sennosides (Senna) 8.6 mg PRN QHS PRN PO CONSTIPATION; Start 11/01/16 at 20:15 Sevelamer Carbonate (Renvela) 800 mg TIDWMEALS PO Last administered on 17:34; Start 11/02/16 at 08:00 Albuterol Sulfate (Ventolin Neb Soln) 2.5 mg PRN Q6HRS PRN NEB SHORTNESS OF BREATH; Start 11/01/16 at 21:30 Amlodipine Besylate (Norvasc) 10 mg BID PO Last administered on 11/04/16 08:23 ; Start 11/01/16 at 22:00 Aspirin (Ecotrin) 81 mg DAILYWBKFT PO Last administered on 11/04/16 08:23; Start 11/02/16 at 08:00 Atorvastatin Calcium (Lipitor) 10 mg Q48H PO ; Start 11/01/16 at 21:00; Stop at 02:25; Status DC Carisoprodol (Soma) 350 mg TID PRN PRN PO MUSCLE SPASMS Last administered on 08:23; Start 11/01/16 at 21:30 Carvedilol (Coreg) 3.125 mg BIDWMEALS PO Last administered on 11/03/16 08:43; Start 11/02/16 at 08:00; Stop 11/03/16 at 10:22; Status DC Clopidogrel Bisulfate (Plavix) 75 mg DAILYWBKFT PO Last administered on 08:23; Start 11/02/16 at 08:00 Diclofenac Sodium (Voltaren) 1 richard BID TP Last administered on 11/03/16 21:34 ; Start 11/01/16 at 22:00 Atorvastatin Calcium (Lipitor) 10 mg Q48H PO Last administered on 11/02/16 20: 16; Start 11/02/16 at 21:00 Multivitamins (Thera M Plus) 1 tab DAILY PO Last administered on 11/03/16 08: 44; Start 11/02/16 at 14:00 Ascorbic Acid (Vitamin C) 500 mg BID PO Last administered on 11/03/16 21:32; Start 11/02/16 at 14:00 Vancomycin HCl 1 gm/Sodium Chloride 250 ml @ 250 mls/hr Q48H IV ; Start at 09:00; Stop 11/03/16 at 10:10; Status DC Vancomycin HCl 1 each 1X ONCE MC ; Start 11/05/16 at 08:30; Stop 11/05/16 at 08: 30; Status DC Linezolid (Zyvox) 600 mg BID PO Last administered on 11/04/16 08:22; Start at 10:00 Meropenem 1 gm/ Sodium Chloride 100 ml @ 200 mls/hr DAILY IV Last administered on 11/04/16 08:32; Start 11/03/16 at 10:00 Fluconazole (Diflucan) 100 mg DAILY PO Last administered on 11/04/16 08:24; Start 11/03/16 at 10:00 Lactobacillus Acidophilus (Bacid, Brittney-Bid) 1 tab TIDWMEALS PO Last administered on 11/03/16 17:35; Start 11/03/16 at 12:00 Carvedilol (Coreg) 6.25 mg BIDWMEALS PO Last administered on 11/04/16 08:23; Start 11/03/16 at 17:00 Sodium Chloride 1,000 ml @ 100 mls/hr Q10H IV Last administered on 11/04/16 07 :37; Start 11/03/16 at 10:30 Acetylcysteine (Mucomyst 20% Oral Solution) 1,200 mg BID PO Last administered on 11/04/16 08:28; Start 11/03/16 at 21:00; Stop 11/05/16 at 20:59 Darbepoetin Rich (Aranesp) 60 mcg WEEKLYHS SQ Last administered on 11/03/16 21 :36; Start 11/03/16 at 21:00 Hydromorphone HCl (Dilaudid) 8 mg PRN Q4HRS PRN PO PAIN Last administered on 07:37; Start 11/03/16 at 11:15 Gabapentin (Neurontin) 300 mg QHS PO Last administered on 11/03/16 21:31; Start 11/03/16 at 14:00 Lidocaine/Sodium Bicarbonate (Buffered Lidocaine 1%) 20 ml STK-MED ONCE IJ ; Start 11/04/16 at 08:16; Stop 11/04/16 at 08:17; Status DC Heparin Sodium/ Sodium Chloride 0 ml @ As Directed STK-MED ONCE .ROUTE ; Start 11/04/16 at 08:17; Stop 11/04/16 at 08:18; Status DC Iodixanol (Visipaque 320) 100 ml STK-MED ONCE .ROUTE ; Start 11/04/16 at 08:17; Stop 11/04/16 at 08:18; Status DC Iodixanol (Visipaque 320) 50 ml STK-MED ONCE .ROUTE ; Start 11/04/16 at 09:57; Stop 11/04/16 at 09:58; Status DC Lidocaine/Sodium Bicarbonate (Buffered Lidocaine 1%) 20 ml STK-MED ONCE IJ ; Start 11/04/16 at 09:58; Stop 11/04/16 at 09:59; Status DC Heparin Sodium/ Sodium Chloride 1,500 ml @ As Directed STK-MED ONCE .ROUTE ; Start 11/04/16 at 09:58; Stop 11/04/16 at 09:59; Status DC Heparin Sodium (Porcine) (Heparin Sodium) 10,000 unit STK-MED ONCE .ROUTE ; Start 11/04/16 at 10:29; Stop 11/04/16 at 10:30; Status DC Midazolam HCl (Versed) 2 mg STK-MED ONCE .ROUTE ; Start 11/04/16 at 10:29; Stop 11/04/16 at 10:30; Status DC Heparin Sodium/ Sodium Chloride 1,000 unit 1X ONCE IART ; Start 11/04/16 at 11: 00; Stop 11/04/16 at 11:01; Status DC Lidocaine/Sodium Bicarbonate (Buffered Lidocaine 1%) 20 ml 1X ONCE IJ ; Start 11/04/16 at 11:00; Stop 11/04/16 at 11:01; Status DC Midazolam HCl (Versed) 2 mg 1X ONCE IV ; Start 11/04/16 at 11:00; Stop 11/04/16 at 11:01; Status DC Fentanyl Citrate (Fentanyl 2ml Vial) 100 mcg 1X ONCE IV ; Start 11/04/16 at 11: 00; Stop 11/04/16 at 11:01; Status DC Iodixanol (Visipaque 320) 50 ml 1X ONCE IART ; Start 11/04/16 at 11:00; Stop 11/04/16 at 11:01; Status DC Info (Do NOT chart on this entry -- for MONITORING) 1 each PRN DAILY PRN MC SEE COMMENTS; Start 11/04/16 at 11:00; Stop 11/06/16 at 10:59 Vitals/I & O Vital Sign - Last 24 Hours 11/03/16 11/03/16 11/03/16 11/03/16 17:35 19:15 20:00 21:31 Temp 97.9 97.9 Pulse 83 77 77 Resp 16 B/P (MAP) 160/63 172/76 (108) 172/76 Pulse Ox 97 O2 Delivery Room Air Room Air 11/03/16 11/04/16 11/04/16 11/04/16 22:47 01:38 02:08 03:00 Temp 98.0 97.7 98.0 97.7 Pulse 84 71 Resp 16 20 20 16 B/P (MAP) 168/69 (102) 169/77 (107) Pulse Ox 99 95 O2 Delivery Room Air Room Air Room Air Room Air 11/04/16 11/04/16 11/04/16 07:00 08:23 08:23 Temp 97.7 97.7 Pulse 77 77 77 Resp 18 B/P (MAP) 181/69 (106) 181/69 181/69 Pulse Ox 98 O2 Delivery Room Air TIM WEIR III, DO Nov 04, 2016 11:44
[2016-11-04] MEDS ORDERED: HEPARIN for IV BOLUS 10,000 UNIT/10 ML VIAL. IV ONE (12:15)
--- NOTE | 2016-11-04 13:21 | RAD ---
Procedure: Aortogram, left lower extremity diagnostic arteriogram, left common iliac artery stent placement. Clinical Indication: 61-year-old male with nonhealing left foot status post transmetatarsal amputation Sedation: Conscious sedation was administered for 118 minutes. The patient was monitored by a qualified independent observer throughout the time of sedation. Please refer to the medical record for exact doses of medications utilized to achieve moderate sedation. Antibiotics: None Exposure: Kerma-Area Product: 241 Gycm2 Contrast: Dilute Visipaque 320 contrast media was administered for small vessel angiography in conjunction with CO2 for large vessel angiography. Total volume of Visipaque is 19 cc. Sterility: All elements of maximal sterile barrier technique including the use of a cap, mask, sterile gown, sterile gloves, large sterile sheet, appropriate hand hygiene, and 2% chlorhexidine for cutaneous antisepsis (or acceptable alternative antiseptic per current guidelines) were followed for this procedure. Consent: The procedure was explained in its entirety to the patient or the patients designated players club representative by a member of the treatment team, including a discussion of the risks, benefits and commonly accepted alternatives to the procedure, as well as the expected consequences of no therapy whatsoever. Discussion of the risks included, but was not limited to, those that are most frequent and those that are rare but possibly severe or life-threatening, as well as the possibility of unforeseen complications. Technique: Following informed consent, the patient was prepped and draped in usual sterile fashion. Ultrasound interrogation of the right groin revealed patency of the right common femoral artery. 1% lidocaine was used to achieve local anesthesia. Under ultrasound guidance, a 21-gauge micropuncture needle was used to gain access to this vessel. A Hardcopy ultrasound image was recorded. A 5 Afghan flush catheter was then advanced into the aorta and CO2 aortography was performed. The catheter was then retracted to just above the aortic bifurcation and CO2 angiography of the pelvis was performed in multiple obliquities. The catheter was then advanced over a wire to the contralateral left external iliac artery and CO2 angiography of the left common femoral and high superficial femoral artery was performed. Dilute contrast angiography of the superficial femoral, popliteal, and runoff arteries was then performed from this location. Images of the runoff vessels were inadequate. Consequently, the catheter was advanced to the popliteal artery and dilute contrast angiography of the runoff vessels was performed. Results were then discussed with Dr. Araujo. The catheter was then removed and the 5 Afghan sheath was exchanged for a long 6 Afghan Ansell sheath which was advanced over the wire into the left common iliac artery. Dilute contrast angiography of the common iliac artery was performed confirming high-grade stenosis. An 8 mm x 40 mm self-expanding SMART stent was then deployed across the area of stenosis within the left common iliac artery, and this was postdilated with a 7 mm x 40 mm drug coated balloon, which was inflated to greater than full profile. The balloon was then removed and dilute contrast angiography was again performed demonstrating wide patency of the stent with no residual stenosis and brisk arterial flow. A final dilute contrast angiogram of the right groin was performed to assess for suitability of a closure device. The sheath was then exchanged for a minx closure device which was successfully utilized to obtain hemostasis. Findings: There is moderate diffuse atherosclerosis throughout the aorta with no significant stenoses. Celiac and superior mesenteric arteries appear symmetrically patent. There is a stent in the left renal artery, which appears to have significant recurrent in-stent stenosis. There is also increased moderate ostial stenosis of the right renal artery. There is also a stent in the right common iliac artery which appears widely patent. Within the left common iliac artery, there is suspicion on CO2 angiography of at least a moderate focal stenosis. This is confirmed to be a high-grade shelflike atherosclerotic stenosis with contrast angiography, and was subsequently resolved following 8 millimeter stent placement and drug coated balloon angioplasty. There is a stent in the left external iliac artery which is widely patent. Left common femoral artery is patent, with mild atherosclerotic disease. The profunda femoral artery is patent, with multiple areas of atherosclerotic stenosis. The left superficial femoral artery is also patent at its origin, though this artery demonstrates extensive multifocal atherosclerotic narrowing, with a high-grade en face stenosis approximately 1 cm from the vessel's origin, a second high-grade focal stenosis approximately 10 cm distal to the origin, and a third high-grade stenosis near Abel's canal. The entire left superficial femoral artery is notable for a diminutive overall diameter with multiple areas of atherosclerotic irregularity. No occlusions are identified however. There is in-line flow to the popliteal artery which also demonstrates moderate atherosclerotic disease with at least 2 areas of greater than 80% focal stenosis, the most severe of which is in the distal popliteal artery just above the origin of the anterior tibial artery. The anterior tibial artery occludes abruptly after its origin. The tibioperoneal trunk is notable for a high-grade proximal stenosis, and then provides flow into a patent posterior tibial artery which serves as a sole runoff vessel to the foot. This artery also demonstrates several areas of severe narrowing, however these areas of focal narrowing are generally long and smooth rather than focal and irregular as was noted in the larger vessels. The peroneal artery is seen sparingly, with subtotal proximal occlusion and distal occlusion as well. There is no discernible perfusion to the dorsalis pedis artery of the foot. Plantar arch is intact, perfused via the posterior tibial artery. There is also moderate multifocal atherosclerotic disease involving the right external iliac and common femoral arteries. Complications: No immediate Impression: 1. Patent but moderately diseased aorta. 2. High-grade recurrent left renal artery in-stent stenosis. 3. Moderate right renal ostial stenosis. 4. Patent pre-existing right common iliac artery stent. 5. High-grade left common iliac artery stenosis successfully treated with drug coated balloon angioplasty and stent placement. 6. Widely patent pre-existing left external iliac artery stent. 7. Patent left common femoral artery. 8. Extensive multifocal atherosclerotic disease involving the left superficial femoral and popliteal arteries, with at least 5 segments of high-grade stenoses. The SFA is diminutive throughout. 9. Distal tibial peroneal trunk short segment high-grade stenosis. 10. Single vessel runoff to the foot via the posterior tibial artery, with multiple areas of severe stenosis involving this vessel as well. Anterior tibial and peroneal arteries are occluded. 11. Healthy posterior tibial artery of the foot. 12. Absent dorsalis pedis artery of the foot.
--- NOTE | 2016-11-04 13:37 | PDOC ---
MODERATE SEDATION ASSESSMENT RISKS/ALTERNATIVES Risks/Alternatives Risks and alternatives of this type of sedation and procedure discussed with: RISK/ALTERNATIVES: Patient H & P ON CHART H & P H & P on chart and reviewed for co-morbid conditions and appropriate labs. H&P ON CHART: Yes STATUS PREG STATUS ASSESSED: Yes MEDS/ALLERGIES REVIEWED Meds/Allergies Reviewed Medications and Allergies including time and route of recently administered narcotics and sedatives. MEDS/ALLERGIES REVIEWED: Yes ASA RATING ASA RATING: II AIRWAY ASSESSMENT Airway Assessment Airway patency, oral function limitations, presence of caps, crowns, dentures, partials, and ability to extend neck assessed. AIRWAY ASSESSMENT: Yes MALLAMPATI SCORE MALLAMPATI SCORE: II PRE-SEDATION ASSESSMENT PRE-SEDATION ASSESSMENT: Yes ENA VALDEZ MD Nov 04, 2016 13:36
--- NOTE | 2016-11-04 13:38 | PDOC ---
BRIEF OPERATIVE NOTE Pre-Op Diagnosis PAD, critical limb ischemia Post-Op Diagnosis same Procedure Performed LLE arteriogram with CO2 and dilute visipaque Surgeon Delvis Anesthesia Type: Conscious Sedation Findings Extensive multifocal atherosclerosis. See dictation for specifics. Severe inflow stenosis of the left common iliac vein was successfully treated with stent and DCB angioplasty. Complications No immediate ENA VALDEZ MD Nov 04, 2016 13:38
--- NOTE | 2016-11-04 14:26 | PDOC ---
SUBJECTIVE ROS CKD V Just back from Angio today CVS: no Orthopnea, no CP RESP: no SOB, no DIAZ GI: no Nausea, no Vomiting : no Dysuria, no Urgency OBJECTIVE Vital Signs Vital Signs Date Time Temp Pulse Resp B/P (MAP) Pulse Ox O2 Delivery O2 Flow Rate FiO2 11/04/16 12:41 67 9 100 Nasal Cannula 2.0 11/04/16 08:23 181/69 11/04/16 07:00 97.7 97.7 PHYSICAL EXAM Physical Exam General Appearance: Awake Alert Oriented x In no Distress Eyes: VIsion Unchanged Conjunctiva Normal EN: No EN Drainage Mucous Memb. moist Neck: no JVD no JVP Supple no Thyromegaly CVS: S1 S2 soft Murmur No Gallop No Rub + Edema left foot area Resp: no Rales no Rhonchi no Acc. Muscle use GI: BAS +ve NO Bruit Non Tender Non Distended : no CVA tenderness; no Suprapubic Tenderness SKIN: +ve facial telengectasias Breast Exam deferred Mu.Sk: Adequate ROM min Muscle Atrophy Heme: Unable to palpate Obvious LAD no palp Splenomegaly NEURO: Good Strength and Tone Cranial Nerves II - XII grossly intact Psych: not Depressed no Active hallucination Assessment & Plan CKD IV/V - Pt claims baseline GFR at [facility] is 10-15cc/min - he follows with Dr Marvin Carrasco 3m and they have an understanding about starting HD if needed. He does not have Uremic s/s that he has described to me currently. Current FLuid and E-lyte status does not necessitate emergent need for Dialysis. Will re- evaluate for Dialysis in am DFU - now s/p ANGio with CO2 angio with min (20cc) IVC. ct IVF and NAC as ordered. Eliseo LINDSAY - as noted on Angio " High-grade recurrent left renal artery in-stent stenosis. Moderate right renal ostial stenosis" - long D/w Pt re role of Angioplasty/ PCI -- will D/w Dr Edmondson if Intervention is feasible Anemia: may need Epogen started; Transfuse as needed. Hypoalbuminemia - check for proteinuria - ? CREST affecting it? Proteinuria on UA - Ratio Pending HTN + CKD : Current BP meds reviewed. See orders for changes. Presumed poorly controlled DM - await A1c Discussed Plan of Care and prognosis etc. at length with pt, COMMENT/RELEVANT DATA Meds Current Medications Medications (Trade) Dose Ordered Sig/Zoila Start Time Stop Time Status Last Admin Dose Admin Acetaminophen (Tylenol) 650 mg PRN Q4HRS PRN 11/01/16 13:45 11/02/16 13:44 DC 11/01/16 23:03 650 MG Acetylcysteine (Mucomyst 20% Oral Solution) 1,200 mg BID 11/03/16 21:00 11/05/16 20:59 11/04/16 08:28 1,200 MG Albuterol Sulfate (Ventolin Neb Soln) 2.5 mg PRN Q6HRS PRN 11/01/16 21:30 Amlodipine Besylate (Norvasc) 10 mg BID 11/01/16 22:00 11/04/16 08:23 10 MG Ascorbic Acid (Vitamin C) 500 mg BID 11/02/16 14:00 11/03/16 21:32 500 MG Aspirin (Ecotrin) 81 mg DAILYWBKFT 11/02/16 08:00 11/04/16 08:23 81 MG Atorvastatin Calcium (Lipitor) 10 mg Q48H 11/02/16 21:00 11/02/16 20:16 10 MG Carisoprodol (Soma) 350 mg TID PRN PRN 11/01/16 21:30 11/04/16 08:23 350 MG Carvedilol (Coreg) 6.25 mg BIDWMEALS 11/03/16 17:00 11/04/16 08:23 6.25 MG Clopidogrel Bisulfate (Plavix) 75 mg DAILYWBKFT 11/02/16 08:00 11/04/16 08:23 75 MG Darbepoetin Rich (Aranesp) 60 mcg WEEKLYHS 11/03/16 21:00 11/03/16 21:36 60 MCG Dextrose (Dextrose 50%-Water Syringe) 12.5 gm PRN Q15MIN PRN 11/01/16 19:45 Diclofenac Sodium (Voltaren) 1 richard BID 11/01/16 22:00 11/03/16 21:34 1 RICHARD Fentanyl Citrate (Fentanyl 2ml Vial) 100 mcg 1X ONCE 11/04/16 11:00 11/04/16 11:01 DC 11/04/16 12:27 200 MCG Fluconazole (Diflucan) 100 mg DAILY 11/03/16 10:00 11/04/16 08:24 100 MG Gabapentin (Neurontin) 300 mg QHS 11/03/16 14:00 11/03/16 21:31 300 MG Heparin Sodium (Porcine) (Heparin Sodium) 5,000 unit 1X ONCE 11/04/16 12:15 11/04/16 12:21 DC 11/04/16 12:27 5,000 UNIT Heparin Sodium/ Sodium Chloride 1,000 unit 1X ONCE 11/04/16 11:00 11/04/16 11:01 DC 11/04/16 12:25 1,000 UNIT Hydromorphone HCl (Dilaudid) 8 mg PRN Q4HRS PRN 11/03/16 11:15 11/04/16 07:37 8 MG Info (Do NOT chart on this entry -- for MONITORING) 1 each PRN DAILY PRN 11/04/16 11:00 11/06/16 10:59 Insulin Aspart (NovoLOG) 0-7 UNITS TIDWMEALS 11/01/16 20:30 11/03/16 12:49 4 UNITS Iodixanol (Visipaque 320) 50 ml 1X ONCE 11/04/16 11:00 11/04/16 11:01 DC 11/04/16 12:24 19 ML Lactobacillus Acidophilus (Bacid, Brittney-Bid) 1 tab TIDWMEALS 11/03/16 12:00 11/03/16 17:35 1 TAB Lidocaine/Sodium Bicarbonate (Buffered Lidocaine 1%) 20 ml 1X ONCE 11/04/16 11:00 11/04/16 11:01 DC 11/04/16 12:25 3 ML Linezolid (Zyvox) 600 mg BID 11/03/16 10:00 11/04/16 08:22 600 MG Meropenem 1 gm/ Sodium Chloride 100 ml @ 200 mls/hr DAILY 11/03/16 10:00 11/04/16 08:32 200 MLS/HR Midazolam HCl (Versed) 2 mg 1X ONCE 11/04/16 11:00 11/04/16 11:01 DC 11/04/16 12:26 3.5 MG Multivitamins (Thera M Plus) 1 tab DAILY 11/02/16 14:00 11/03/16 08:44 1 TAB Ondansetron HCl (Zofran) 4 mg PRN Q8HRS PRN 11/01/16 13:45 11/02/16 13:44 DC Pantoprazole Sodium (Protonix) 40 mg BIDWMEALS 11/01/16 21:00 11/03/16 17:34 40 MG Sennosides (Senna) 8.6 mg PRN QHS PRN 11/01/16 20:15 Sevelamer Carbonate (Renvela) 800 mg TIDWMEALS 11/02/16 08:00 11/03/16 17:34 800 MG Sodium Chloride 1,000 ml @ 100 mls/hr Q10H 11/03/16 10:30 11/04/16 07:37 100 MLS/HR Vancomycin HCl 1 each 1X ONCE 11/05/16 08:30 11/05/16 08:30 DC Vancomycin HCl (Vanco Per Pharmacy) 1 each PRN DAILY PRN 11/01/16 13:15 11/03/16 10:10 DC 11/03/16 06:59 1 EACH Vancomycin HCl 1.5 gm/Sodium Chloride 500 ml @ 250 mls/hr 1X ONCE 11/01/16 13:30 11/01/16 15:29 DC 11/01/16 13:37 250 MLS/HR Vancomycin HCl 1 gm/Sodium Chloride 250 ml @ 250 mls/hr Q48H 11/03/16 09:00 11/03/16 10:10 DC Lab Laboratory Tests Test 11/03/16 15:57 11/03/16 19:44 11/04/16 07:27 11/04/16 08:50 Glucose (Fingerstick) 148 mg/dL (70-99) 179 mg/dL (70-99) 105 mg/dL (70-99) Prothrombin Time 12.9 SEC (11.7-14.0) Prothromb Time International Ratio 1.0 (0.8-1.1) Test 11/04/16 13:38 Glucose (Fingerstick) 109 mg/dL (70-99) Other There is a stent in the left renal artery, which appears to have significant recurrent in-stent stenosis. There is also increased moderate ostial stenosis of the right renal artery JANNET DOW MD Nov 04, 2016 14:26
--- NOTE | 2016-11-04 15:11 | PDOC ---
Infectious Disease Note Subjective Subjective pt is feeling good ROS ROS GEN: Denies fevers, chills, sweats HEENT: Denies blurred vision, sore throat CV: Denies chest pain RESP: Denies shortness of air, cough GI: Denies n/v/d NEURO: Denies confusion, dizziness MSK: Denies weakness, joint pain/swelling Vital Sign Vital Signs Vital Signs Date Time Temp Pulse Resp B/P (MAP) Pulse Ox O2 Delivery O2 Flow Rate FiO2 11/04/16 12:41 67 9 100 Nasal Cannula 2.0 11/04/16 08:23 181/69 11/04/16 07:00 97.7 97.7 Physical Exam PHYSICAL EXAM GENERAL: NAD, Alert HEENT: PERRL, OC/OP NECK: Supple, no JVD, no LN LUNGS: Clear HEART: S1S2, no gallop, no murmur ABD: Soft, NT, no organomegaly, no rebound EXT: No edema, no cyanosis,, TMA dressing not opened HARNESS BRUSHER: Alert, oriented x 3, no focal neurologic deficit SKIN: No rash IV: ok Labs Lab Laboratory Tests Test 11/03/16 15:57 11/03/16 19:44 11/04/16 07:27 11/04/16 08:50 Glucose (Fingerstick) 148 mg/dL (70-99) 179 mg/dL (70-99) 105 mg/dL (70-99) Prothrombin Time 12.9 SEC (11.7-14.0) Prothromb Time International Ratio 1.0 (0.8-1.1) Test 11/04/16 13:38 Glucose (Fingerstick) 109 mg/dL (70-99) Objective Assessment 1. Left TMA wound dehiscence. 2. Acute kidney injury on chronic kidney disease. 3. Peripheral arterial disease. 4. Diabetes. Plan Plan of Care cont Meropenem/Zyvox/Fluconazole bypass in works BREANNA DOW MD Nov 04, 2016 15:11
[2016-11-04] MEDS: ATORVASTATIN CALCIUM 10 MG TABLET. PO SCH (21:00)
[2016-11-04] MEDS: GABAPENTIN 300 MG CAPSULE. PO SCH (21:00)
[2016-11-05] MEDS: HYDROmorphone 4 MG TABLET PO PRN ×5 (00:08→19:54)
[2016-11-05] MEDS: CARISOPRODOL 350 MG TABLET PO PRN ×3 (00:55→23:17)
[2016-11-05] MEDS: IV NORMAL SALINE 1000ML BAG 1,000 ML IV SCH ×3 (02:30→15:56)
[2016-11-05 04:10] LABS: BASO # 0.1 x10^3/uL (0.0-0.2); BASO % 1 % (0-3); EOS % 5 % (0-3); HEMATOCRIT 29.6 % (39.0-53.0); LYMPH # 1.5 x10^3/uL (1.0-4.8); LYMPH % 16 % (24-48); MEAN CORPUSCULAR HEMOGLOBIN 29 pg (25-35); MEAN CORPUSCULAR HGB CONC 34 g/dL (31-37); MEAN CORPUSCULAR VOLUME 86 fL (79-100); MONO % 8 % (0-9); NEUT % 71 % (31-73); PLATELET COUNT 265 x10^3/uL (140-400); RED BLOOD COUNT 3.43 x10^6/uL (4.30-5.70); RED CELL DISTRIBUTION WIDTH 15.8 % (11.5-14.5); WHITE BLOOD COUNT 9.6 x10^3/uL (4.0-11.0)
[2016-11-05 04:26] LABS: CALCIUM 8.7 mg/dL (8.5-10.1); CREATININE 4.9 mg/dL (0.7-1.3); GFR 12.2; POTASSIUM 5.2 mmol/L (3.5-5.1)
[2016-11-05 07:00] VITALS: BP 178/79
[2016-11-05] MEDS: INSULIN ASPART 300 UNITS/3 ML INSULN.PEN SQ SCH ×3 (08:00→16:25)
--- NOTE | 2016-11-05 08:00 | RAD ---
Examination: Ultrasound bilateral lower extremity superficial vein mapping History: History of preop bypass vein mapping Comparison: None available Findings: Right lower extremity: Greater saphenous vein in the proximal thigh measures 3 mm, in the mid thigh measures 2 mm, distal thigh measures 1.7 mm, in the proximal calf 1.7 mm ,mid calf 1 mm and in the distal calf the greater saphenous vein measures 1.4 mm. The lesser saphenous vein proximally and the right measures 1.6 mm in the mid and distal calf the lesser saphenous vein cannot be identified. Left lower extremity: Greater saphenous vein in the proximal thigh measures 3.2 mm. Mid thigh 1.8 mm. Distal thigh 2.0 mm. In the proximal calf 1.9 mm. Mid calf 2.9 mm. Distal calf 1.6 mm. The lesser saphenous vein in the proximal mid calf measures 3 mm. Mid calf measures 1.6 mm. The distal calf measures 2.6 mm. Impression: Diameters of the greater and lesser saphenous veins as described above.
[2016-11-05] MEDS: LACTOBACILLUS ACIDOPH & BULGAR 1 TABLET. PO SCH ×3 (08:38→16:54)
[2016-11-05] MEDS: MULTIVITAMIN with MINERAL TABLET. PO SCH (08:39)
[2016-11-05] MEDS: LINEZOLID 600 MG TABLET PO SCH ×2 (08:39→19:56)
[2016-11-05] MEDS: CARVEDILOL 3.125 MG TABLET. PO SCH ×2 (08:39→16:54)
[2016-11-05] MEDS: SEVELAMER CARBONATE 800 MG TABLET. PO SCH ×3 (08:39→16:54)
[2016-11-05] MEDS: ASCORBIC ACID 500 MG TABLET PO SCH ×2 (08:39→19:56)
[2016-11-05] MEDS: CLOPIDOGREL BISULFATE 75 MG TABLET PO SCH (08:40)
[2016-11-05] MEDS: PANTOPRAZOLE 40 MG TABLET.DR. PO SCH ×2 (08:40→16:54)
[2016-11-05] MEDS: FLUCONAZOLE 100 MG TABLET. PO SCH (08:40)
[2016-11-05] MEDS: ASPIRIN ENTERIC COATED 81 MG TABLET.DR. PO SCH (08:40)
[2016-11-05] MEDS: amLODIPine BESYLATE 10 MG TABLET PO SCH ×2 (08:41→19:55)
[2016-11-05] MEDS: MEROPENEM 1 GM in IV NORMAL SALINE 100ML 100 ML IV SCH (08:41)
[2016-11-05] MEDS: DICLOFENAC SODIUM 1% TOPICAL GEL 100GM TUBE. TP SCH ×2 (08:42→19:56)
--- NOTE | 2016-11-05 09:21 | PDOC ---
PROGRESS NOTES Subjective Subjective Problems overnight: No change in terms of foot pain, tired from multiple tests yesterday Objective Vital Signs Vital Signs Date Time Temp Pulse Resp B/P (MAP) Pulse Ox O2 Delivery O2 Flow Rate FiO2 11/05/16 08:41 80 178/79 11/05/16 07:00 97.8 18 96 Room Air 97.8 11/04/16 12:41 2.0 Physical Exam Left foot with dehiscence of transmetatarsal amputation wound, absent distal pulses Labs Laboratory Tests Test 11/03/16 11:13 11/03/16 15:57 11/03/16 19:44 11/04/16 07:27 Glucose (Fingerstick) 206 mg/dL (70-99) 148 mg/dL (70-99) 179 mg/dL (70-99) 105 mg/dL (70-99) Test 11/04/16 08:50 11/04/16 13:38 11/04/16 17:37 11/04/16 20:20 Prothrombin Time 12.9 SEC (11.7-14.0) Prothromb Time International Ratio 1.0 (0.8-1.1) Glucose (Fingerstick) 109 mg/dL (70-99) 137 mg/dL (70-99) 158 mg/dL (70-99) Test 11/05/16 03:20 11/05/16 07:18 White Blood Count 9.6 x10^3/uL (4.0-11.0) Red Blood Count 3.43 x10^6/uL (4.30-5.70) Hemoglobin 10.0 g/dL (13.0-17.5) Hematocrit 29.6 % (39.0-53.0) Mean Corpuscular Volume 86 fL (79-100) Mean Corpuscular Hemoglobin 29 pg (25-35) Mean Corpuscular Hemoglobin Concent 34 g/dL (31-37) Red Cell Distribution Width 15.8 % (11.5-14.5) Platelet Count 265 x10^3/uL (140-400) Neutrophils (%) (Auto) 71 % (31-73) Lymphocytes (%) (Auto) 16 % (24-48) Monocytes (%) (Auto) 8 % (0-9) Eosinophils (%) (Auto) 5 % (0-3) Basophils (%) (Auto) 1 % (0-3) Neutrophils # (Auto) 6.8 x10^3uL (1.8-7.7) Lymphocytes # (Auto) 1.5 x10^3/uL (1.0-4.8) Monocytes # (Auto) 0.7 x10^3/uL (0.0-1.1) Eosinophils # (Auto) 0.5 x10^3/uL (0.0-0.7) Basophils # (Auto) 0.1 x10^3/uL (0.0-0.2) Sodium Level 142 mmol/L (136-145) Potassium Level 5.2 mmol/L (3.5-5.1) Chloride Level 108 mmol/L (98-107) Carbon Dioxide Level 22 mmol/L (21-32) Anion Gap 12 (6-14) Blood Urea Nitrogen 65 mg/dL (8-26) Creatinine 4.9 mg/dL (0.7-1.3) Estimated GFR (Cockcroft-Gault) 12.2 Glucose Level 130 mg/dL (70-99) Calcium Level 8.7 mg/dL (8.5-10.1) Glucose (Fingerstick) 127 mg/dL (70-99) Laboratory Tests Test 11/04/16 13:38 11/04/16 17:37 11/04/16 20:20 11/05/16 03:20 Glucose (Fingerstick) 109 mg/dL (70-99) 137 mg/dL (70-99) 158 mg/dL (70-99) White Blood Count 9.6 x10^3/uL (4.0-11.0) Red Blood Count 3.43 x10^6/uL (4.30-5.70) Hemoglobin 10.0 g/dL (13.0-17.5) Hematocrit 29.6 % (39.0-53.0) Mean Corpuscular Volume 86 fL (79-100) Mean Corpuscular Hemoglobin 29 pg (25-35) Mean Corpuscular Hemoglobin Concent 34 g/dL (31-37) Red Cell Distribution Width 15.8 % (11.5-14.5) Platelet Count 265 x10^3/uL (140-400) Neutrophils (%) (Auto) 71 % (31-73) Lymphocytes (%) (Auto) 16 % (24-48) Monocytes (%) (Auto) 8 % (0-9) Eosinophils (%) (Auto) 5 % (0-3) Basophils (%) (Auto) 1 % (0-3) Neutrophils # (Auto) 6.8 x10^3uL (1.8-7.7) Lymphocytes # (Auto) 1.5 x10^3/uL (1.0-4.8) Monocytes # (Auto) 0.7 x10^3/uL (0.0-1.1) Eosinophils # (Auto) 0.5 x10^3/uL (0.0-0.7) Basophils # (Auto) 0.1 x10^3/uL (0.0-0.2) Sodium Level 142 mmol/L (136-145) Potassium Level 5.2 mmol/L (3.5-5.1) Chloride Level 108 mmol/L (98-107) Carbon Dioxide Level 22 mmol/L (21-32) Anion Gap 12 (6-14) Blood Urea Nitrogen 65 mg/dL (8-26) Creatinine 4.9 mg/dL (0.7-1.3) Estimated GFR (Cockcroft-Gault) 12.2 Glucose Level 130 mg/dL (70-99) Calcium Level 8.7 mg/dL (8.5-10.1) Test 11/05/16 07:18 Glucose (Fingerstick) 127 mg/dL (70-99) Assessment Assessment POD# [], S/P [] Problems: Plan Plan of Care Vascular surgery plan for a bypass of superficial femoral artery and debridement of right foot to follow that procedure I discussed the plans with the patient who thinks that rationale make sense he is on antibiotics in the interim medical supportive care Apparently vascular surgery with bypass is planned for Monday Patient's questions were answered currently PREETI PRADHAN MD Nov 05, 2016 09:21
[2016-11-05] MEDS: ACETYLCYSTEINE 20% ORAL SOLN 600 MG/3 ML SYRINGE. PO SCH (09:25)
--- NOTE | 2016-11-05 10:01 | PDOC ---
PROGRESS NOTES Chief Complaint Chief Complaint Wound dehiscence - left foot s/p left TMA 6+ weeks ago PMH: CREST syndrome DM htn hld CKD stage V Anemia of chronic disease Recently quit tobacco use Hx CVA Hx right hand finger amputation Cholecystectomy hx pneumonia History of Present Illness History of Present Illness Pt sitting on side of bed, not in acute distress. Pt aware of his arteriogram results and that he will need a left femoral to posterior tibial artery bypass before moving forward with debridement. ID, vascular, wound, renal, ortho following Vitals Vitals Vital Signs Date Time Temp Pulse Resp B/P (MAP) Pulse Ox O2 Delivery O2 Flow Rate FiO2 11/05/16 08:41 80 178/79 11/05/16 07:00 97.8 18 96 Room Air 97.8 11/04/16 12:41 2.0 Physical Exam General: Alert, Oriented X3, No acute distress Heart: Regular rate, Other (murmur, bilateral carotid bruit) Lungs: Clear, Wheezing Abdomen: Normal bowel sounds, Soft, No tenderness, Other (thin) Extremities: Other (2+ radial, 2+ femoral, palpable left popliteal, unable to appreciate pedal pulses) Skin: Other (mulitple healed amputations fingers, right foot, left foot with amputation site dehiscence with necrosis and malodorous ) Labs LABS Laboratory Tests Test 11/04/16 13:38 11/04/16 17:37 11/04/16 20:20 11/05/16 03:20 Glucose (Fingerstick) 109 mg/dL (70-99) 137 mg/dL (70-99) 158 mg/dL (70-99) White Blood Count 9.6 x10^3/uL (4.0-11.0) Red Blood Count 3.43 x10^6/uL (4.30-5.70) Hemoglobin 10.0 g/dL (13.0-17.5) Hematocrit 29.6 % (39.0-53.0) Mean Corpuscular Volume 86 fL (79-100) Mean Corpuscular Hemoglobin 29 pg (25-35) Mean Corpuscular Hemoglobin Concent 34 g/dL (31-37) Red Cell Distribution Width 15.8 % (11.5-14.5) Platelet Count 265 x10^3/uL (140-400) Neutrophils (%) (Auto) 71 % (31-73) Lymphocytes (%) (Auto) 16 % (24-48) Monocytes (%) (Auto) 8 % (0-9) Eosinophils (%) (Auto) 5 % (0-3) Basophils (%) (Auto) 1 % (0-3) Neutrophils # (Auto) 6.8 x10^3uL (1.8-7.7) Lymphocytes # (Auto) 1.5 x10^3/uL (1.0-4.8) Monocytes # (Auto) 0.7 x10^3/uL (0.0-1.1) Eosinophils # (Auto) 0.5 x10^3/uL (0.0-0.7) Basophils # (Auto) 0.1 x10^3/uL (0.0-0.2) Sodium Level 142 mmol/L (136-145) Potassium Level 5.2 mmol/L (3.5-5.1) Chloride Level 108 mmol/L (98-107) Carbon Dioxide Level 22 mmol/L (21-32) Anion Gap 12 (6-14) Blood Urea Nitrogen 65 mg/dL (8-26) Creatinine 4.9 mg/dL (0.7-1.3) Estimated GFR (Cockcroft-Gault) 12.2 Glucose Level 130 mg/dL (70-99) Calcium Level 8.7 mg/dL (8.5-10.1) Test 11/05/16 07:18 Glucose (Fingerstick) 127 mg/dL (70-99) Review of Systems Review of Systems no fever no complaints of pain Assessment and Plan Assessmemt and Plan Problems Medical Problems: (1) Wound dehiscence Status: Acute Wound dehiscence - left foot, s/p left TMA 1. Continue pain management 2. recheck labs am 3. Arteriogram shows extensive SFA/tibial disease - candidate for left femoral to posterior tibial artery bypass 4. Dr. Araujo ordering vein mapping 5. Renal following patient, evaluating for need of HD 6. Ortho following, holding debridement for vascular studies 7. ID following: continue meropenem/zyvox/fluconazole, probiotic 8. Continue wound care 9. Appreciate subspecialty input Problems: Comment Review of Relevant I have reviewed the following items rula (where applicable) has been applied. Labs Laboratory Tests Test 11/03/16 11:13 11/03/16 15:57 8/31/17 19:44 11/04/16 07:27 Glucose (Fingerstick) 206 mg/dL (70-99) 148 mg/dL (70-99) 179 mg/dL (70-99) 105 mg/dL (70-99) Test 11/04/16 08:50 11/04/16 13:38 11/04/16 17:37 11/04/16 20:20 Prothrombin Time 12.9 SEC (11.7-14.0) Prothromb Time International Ratio 1.0 (0.8-1.1) Glucose (Fingerstick) 109 mg/dL (70-99) 137 mg/dL (70-99) 158 mg/dL (70-99) Test 11/05/16 03:20 11/05/16 07:18 White Blood Count 9.6 x10^3/uL (4.0-11.0) Red Blood Count 3.43 x10^6/uL (4.30-5.70) Hemoglobin 10.0 g/dL (13.0-17.5) Hematocrit 29.6 % (39.0-53.0) Mean Corpuscular Volume 86 fL (79-100) Mean Corpuscular Hemoglobin 29 pg (25-35) Mean Corpuscular Hemoglobin Concent 34 g/dL (31-37) Red Cell Distribution Width 15.8 % (11.5-14.5) Platelet Count 265 x10^3/uL (140-400) Neutrophils (%) (Auto) 71 % (31-73) Lymphocytes (%) (Auto) 16 % (24-48) Monocytes (%) (Auto) 8 % (0-9) Eosinophils (%) (Auto) 5 % (0-3) Basophils (%) (Auto) 1 % (0-3) Neutrophils # (Auto) 6.8 x10^3uL (1.8-7.7) Lymphocytes # (Auto) 1.5 x10^3/uL (1.0-4.8) Monocytes # (Auto) 0.7 x10^3/uL (0.0-1.1) Eosinophils # (Auto) 0.5 x10^3/uL (0.0-0.7) Basophils # (Auto) 0.1 x10^3/uL (0.0-0.2) Sodium Level 142 mmol/L (136-145) Potassium Level 5.2 mmol/L (3.5-5.1) Chloride Level 108 mmol/L (98-107) Carbon Dioxide Level 22 mmol/L (21-32) Anion Gap 12 (6-14) Blood Urea Nitrogen 65 mg/dL (8-26) Creatinine 4.9 mg/dL (0.7-1.3) Estimated GFR (Cockcroft-Gault) 12.2 Glucose Level 130 mg/dL (70-99) Calcium Level 8.7 mg/dL (8.5-10.1) Glucose (Fingerstick) 127 mg/dL (70-99) Laboratory Tests Test 11/04/16 13:38 11/04/16 17:37 11/04/16 20:20 11/05/16 03:20 Glucose (Fingerstick) 109 mg/dL (70-99) 137 mg/dL (70-99) 158 mg/dL (70-99) White Blood Count 9.6 x10^3/uL (4.0-11.0) Red Blood Count 3.43 x10^6/uL (4.30-5.70) Hemoglobin 10.0 g/dL (13.0-17.5) Hematocrit 29.6 % (39.0-53.0) Mean Corpuscular Volume 86 fL (79-100) Mean Corpuscular Hemoglobin 29 pg (25-35) Mean Corpuscular Hemoglobin Concent 34 g/dL (31-37) Red Cell Distribution Width 15.8 % (11.5-14.5) Platelet Count 265 x10^3/uL (140-400) Neutrophils (%) (Auto) 71 % (31-73) Lymphocytes (%) (Auto) 16 % (24-48) Monocytes (%) (Auto) 8 % (0-9) Eosinophils (%) (Auto) 5 % (0-3) Basophils (%) (Auto) 1 % (0-3) Neutrophils # (Auto) 6.8 x10^3uL (1.8-7.7) Lymphocytes # (Auto) 1.5 x10^3/uL (1.0-4.8) Monocytes # (Auto) 0.7 x10^3/uL (0.0-1.1) Eosinophils # (Auto) 0.5 x10^3/uL (0.0-0.7) Basophils # (Auto) 0.1 x10^3/uL (0.0-0.2) Sodium Level 142 mmol/L (136-145) Potassium Level 5.2 mmol/L (3.5-5.1) Chloride Level 108 mmol/L (98-107) Carbon Dioxide Level 22 mmol/L (21-32) Anion Gap 12 (6-14) Blood Urea Nitrogen 65 mg/dL (8-26) Creatinine 4.9 mg/dL (0.7-1.3) Estimated GFR (Cockcroft-Gault) 12.2 Glucose Level 130 mg/dL (70-99) Calcium Level 8.7 mg/dL (8.5-10.1) Test 11/05/16 07:18 Glucose (Fingerstick) 127 mg/dL (70-99) Microbiology 11/01/16 Blood Culture - Preliminary, Resulted NO GROWTH AFTER 3 DAYS 11/03/16 Gram Stain - Final, Complete Medications Current Medications Sodium Chloride 1,000 ml @ 1,000 mls/hr 1X ONCE IV Last administered on 11:06; Start 11/01/16 at 10:30; Stop 11/01/16 at 11:38; Status DC Fentanyl Citrate (Fentanyl 2ml Vial) 50 mcg 1X ONCE IV Last administered on 11:08; Start 11/01/16 at 11:15; Stop 11/01/16 at 11:16; Status DC Vancomycin HCl (Vanco Per Pharmacy) 1 each PRN DAILY PRN MC SEE COMMENTS Last administered on 11/03/16 06:59; Start 11/01/16 at 13:15; Stop 11/03/16 at 10:10 ; Status DC Vancomycin HCl 1.5 gm/Sodium Chloride 500 ml @ 250 mls/hr 1X ONCE IV Last administered on 11/01/16 13:37; Start 11/01/16 at 13:30; Stop 11/01/16 at 15:29 ; Status DC Fentanyl Citrate (Fentanyl 2ml Vial) 50 mcg 1X ONCE IV Last administered on 13:40; Start 11/01/16 at 13:30; Stop 11/01/16 at 13:31; Status DC Ondansetron HCl (Zofran) 4 mg PRN Q8HRS PRN IV NAUSEA/VOMITING; Start 11/01/16 at 13:45; Stop 11/02/16 at 13:44; Status DC Acetaminophen (Tylenol) 650 mg PRN Q4HRS PRN PO FEVER Last administered on 11/01 23:03; Start 11/01/16 at 13:45; Stop 11/02/16 at 13:44; Status DC Fentanyl Citrate (Fentanyl 2ml Vial) 50 mcg PRN Q4HRS PRN IM PAIN Last administered on 11/04/16 01:38; Start 11/01/16 at 13:45 Vancomycin HCl 1 each 1X ONCE MC Last administered on 11/03/16 06:03; Start 11/03/16 at 05:00; Stop 11/03/16 at 10:10; Status DC Insulin Aspart (NovoLOG) 0-7 UNITS TIDWMEALS SQ Last administered on 11/03/16 12:49; Start 11/01/16 at 20:30 Dextrose (Dextrose 50%-Water Syringe) 12.5 gm PRN Q15MIN PRN IV SEE COMMENTS; Start 11/01/16 at 19:45 Hydromorphone HCl (Dilaudid) 4 mg PRN Q4HRS PRN PO PAIN Last administered on 10:11; Start 11/01/16 at 20:15; Stop 11/03/16 at 11:17; Status DC Pantoprazole Sodium (Protonix) 40 mg BIDWMEALS PO Last administered on 08:40; Start 11/01/16 at 21:00 Sennosides (Senna) 8.6 mg PRN QHS PRN PO CONSTIPATION; Start 11/01/16 at 20:15 Sevelamer Carbonate (Renvela) 800 mg TIDWMEALS PO Last administered on 08:39; Start 11/02/16 at 08:00 Albuterol Sulfate (Ventolin Neb Soln) 2.5 mg PRN Q6HRS PRN NEB SHORTNESS OF BREATH; Start 11/01/16 at 21:30 Amlodipine Besylate (Norvasc) 10 mg BID PO Last administered on 11/05/16 08:41 ; Start 11/01/16 at 22:00 Aspirin (Ecotrin) 81 mg DAILYWBKFT PO Last administered on 11/05/16 08:40; Start 11/02/16 at 08:00 Atorvastatin Calcium (Lipitor) 10 mg Q48H PO ; Start 11/01/16 at 21:00; Stop at 02:25; Status DC Carisoprodol (Soma) 350 mg TID PRN PRN PO MUSCLE SPASMS Last administered on 00:55; Start 11/01/16 at 21:30 Carvedilol (Coreg) 3.125 mg BIDWMEALS PO Last administered on 11/03/16 08:43; Start 11/02/16 at 08:00; Stop 11/03/16 at 10:22; Status DC Clopidogrel Bisulfate (Plavix) 75 mg DAILYWBKFT PO Last administered on 08:40; Start 11/02/16 at 08:00 Diclofenac Sodium (Voltaren) 1 richard BID TP Last administered on 11/05/16 08:42; Start 11/01/16 at 22:00 Atorvastatin Calcium (Lipitor) 10 mg Q48H PO Last administered on 11/04/16 21: 00; Start 11/02/16 at 21:00 Multivitamins (Thera M Plus) 1 tab DAILY PO Last administered on 11/05/16 08:39 ; Start 11/02/16 at 14:00 Ascorbic Acid (Vitamin C) 500 mg BID PO Last administered on 11/05/16 08:39; Start 11/02/16 at 14:00 Vancomycin HCl 1 gm/Sodium Chloride 250 ml @ 250 mls/hr Q48H IV ; Start at 09:00; Stop 11/03/16 at 10:10; Status DC Vancomycin HCl 1 each 1X ONCE MC ; Start 11/05/16 at 08:30; Stop 11/05/16 at 08: 30; Status DC Linezolid (Zyvox) 600 mg BID PO Last administered on 11/05/16 08:39; Start at 10:00 Meropenem 1 gm/ Sodium Chloride 100 ml @ 200 mls/hr DAILY IV Last administered on 11/05/16 08:41; Start 11/03/16 at 10:00 Fluconazole (Diflucan) 100 mg DAILY PO Last administered on 11/05/16 08:40; Start 11/03/16 at 10:00 Lactobacillus Acidophilus (Bacid, Brittney-Bid) 1 tab TIDWMEALS PO Last administered on 11/05/16 08:38; Start 11/03/16 at 12:00 Carvedilol (Coreg) 6.25 mg BIDWMEALS PO Last administered on 11/05/16 08:39; Start 11/03/16 at 17:00 Sodium Chloride 1,000 ml @ 100 mls/hr Q10H IV Last administered on 11/04/16 16 :04; Start 11/03/16 at 10:30 Acetylcysteine (Mucomyst 20% Oral Solution) 1,200 mg BID PO Last administered on 11/05/16 09:25; Start 11/03/16 at 21:00; Stop 11/05/16 at 20:59 Darbepoetin Rich (Aranesp) 60 mcg WEEKLYHS SQ Last administered on 11/03/16 21 :36; Start 11/03/16 at 21:00 Hydromorphone HCl (Dilaudid) 8 mg PRN Q4HRS PRN PO PAIN Last administered on 05:45; Start 11/03/16 at 11:15 Gabapentin (Neurontin) 300 mg QHS PO Last administered on 11/04/16 21:00; Start 11/03/16 at 14:00 Lidocaine/Sodium Bicarbonate (Buffered Lidocaine 1%) 20 ml STK-MED ONCE IJ ; Start 11/04/16 at 08:16; Stop 11/04/16 at 08:17; Status DC Heparin Sodium/ Sodium Chloride 0 ml @ As Directed STK-MED ONCE .ROUTE ; Start 11/04/16 at 08:17; Stop 11/04/16 at 08:18; Status DC Iodixanol (Visipaque 320) 100 ml STK-MED ONCE .ROUTE ; Start 11/04/16 at 08:17; Stop 11/04/16 at 08:18; Status DC Iodixanol (Visipaque 320) 50 ml STK-MED ONCE .ROUTE ; Start 11/04/16 at 09:57; Stop 11/04/16 at 09:58; Status DC Lidocaine/Sodium Bicarbonate (Buffered Lidocaine 1%) 20 ml STK-MED ONCE IJ ; Start 11/04/16 at 09:58; Stop 11/04/16 at 09:59; Status DC Heparin Sodium/ Sodium Chloride 1,500 ml @ As Directed STK-MED ONCE .ROUTE ; Start 11/04/16 at 09:58; Stop 11/04/16 at 09:59; Status DC Heparin Sodium (Porcine) (Heparin Sodium) 10,000 unit STK-MED ONCE .ROUTE ; Start 11/04/16 at 10:29; Stop 11/04/16 at 10:30; Status DC Midazolam HCl (Versed) 2 mg STK-MED ONCE .ROUTE ; Start 11/04/16 at 10:29; Stop 11/04/16 at 10:30; Status DC Heparin Sodium/ Sodium Chloride 1,000 unit 1X ONCE IART Last administered on 12:25; Start 11/04/16 at 11:00; Stop 11/04/16 at 11:01; Status DC Lidocaine/Sodium Bicarbonate (Buffered Lidocaine 1%) 20 ml 1X ONCE IJ Last administered on 11/04/16 12:25; Start 11/04/16 at 11:00; Stop 11/04/16 at 11:01; Status DC Midazolam HCl (Versed) 2 mg 1X ONCE IV Last administered on 11/04/16 12:26; Start 11/04/16 at 11:00; Stop 11/04/16 at 11:01; Status DC Fentanyl Citrate (Fentanyl 2ml Vial) 100 mcg 1X ONCE IV Last administered on 12:27; Start 11/04/16 at 11:00; Stop 11/04/16 at 11:01; Status DC Iodixanol (Visipaque 320) 50 ml 1X ONCE IART Last administered on 11/04/16 12: 24; Start 11/04/16 at 11:00; Stop 11/04/16 at 11:01; Status DC Info (Do NOT chart on this entry -- for MONITORING) 1 each PRN DAILY PRN MC SEE COMMENTS; Start 11/04/16 at 11:00; Stop 11/06/16 at 10:59 Heparin Sodium (Porcine) (Heparin Sodium) 5,000 unit 1X ONCE IV Last administered on 11/04/16 12:27; Start 11/04/16 at 12:15; Stop 11/04/16 at 12:21; Status DC Vitals/I & O Vital Sign - Last 24 Hours 11/04/16 11/04/16 11/04/16 11/04/16 12:27 12:41 13:00 13:15 Temp 98.1 98.1 Pulse 67 70 59 Resp 14 9 18 18 B/P (MAP) 146/69 (94) 139/67 (91) Pulse Ox 100 100 95 99 O2 Delivery Nasal Cannula Nasal Cannula Room Air Room Air O2 Flow Rate 2.0 2.0 11/04/16 11/04/16 11/04/16 11/04/16 13:30 13:45 14:00 14:30 Pulse 59 64 98 78 Resp 18 18 18 18 B/P (MAP) 146/67 (93) 151/67 (95) 143/71 (95) 145/71 (95) Pulse Ox 98 97 98 98 O2 Delivery Room Air Room Air Room Air Room Air 11/04/16 11/04/16 11/04/16 11/04/16 15:00 15:58 16:00 19:00 Temp 97.9 96.6 97.9 96.6 Pulse 67 77 70 75 Resp 18 18 20 B/P (MAP) 157/70 (99) 157/70 168/64 (98) 165/78 (107) Pulse Ox 99 99 100 O2 Delivery Room Air Room Air Room Air 11/04/16 11/04/16 11/04/16 11/05/16 20:00 21:00 23:00 07:00 Temp 97.9 97.8 97.9 97.8 Pulse 75 76 80 Resp 20 18 B/P (MAP) 165/78 162/81 (108) 178/79 (112) Pulse Ox 100 96 O2 Delivery Room Air Room Air Room Air 11/05/16 11/05/16 08:39 08:41 Pulse 80 80 B/P (MAP) 178/79 178/79 TIM WEIR III, DO Nov 05, 2016 10:01
[2016-11-05 11:00] VITALS: BP 154/80
--- NOTE | 2016-11-05 11:46 | PDOC ---
Infectious Disease Note Subjective Subjective Feeling well No further difficulty voiding. pain controlled at the moment ROS ROS GEN: Denies fevers, chills, sweats CV: Denies chest pain RESP: Denies shortness of air, cough GI: Denies n/v/d Vital Sign Vital Signs Vital Signs Date Time Temp Pulse Resp B/P (MAP) Pulse Ox O2 Delivery O2 Flow Rate FiO2 11/05/16 08:41 80 178/79 11/05/16 07:00 97.8 18 96 Room Air 97.8 11/04/16 12:41 2.0 Physical Exam PHYSICAL EXAM GENERAL: Thin, relaxed appearance, NAD LUNGS: Clear HEART: S1 and S2 ABD: Soft, NT EXT: No edema, no cyanosis. 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 SKIN: No rash IV: ok Labs Lab Laboratory Tests Test 11/04/16 13:38 11/04/16 17:37 11/04/16 20:20 11/05/16 03:20 Glucose (Fingerstick) 109 mg/dL (70-99) 137 mg/dL (70-99) 158 mg/dL (70-99) White Blood Count 9.6 x10^3/uL (4.0-11.0) Red Blood Count 3.43 x10^6/uL (4.30-5.70) Hemoglobin 10.0 g/dL (13.0-17.5) Hematocrit 29.6 % (39.0-53.0) Mean Corpuscular Volume 86 fL (79-100) Mean Corpuscular Hemoglobin 29 pg (25-35) Mean Corpuscular Hemoglobin Concent 34 g/dL (31-37) Red Cell Distribution Width 15.8 % (11.5-14.5) Platelet Count 265 x10^3/uL (140-400) Neutrophils (%) (Auto) 71 % (31-73) Lymphocytes (%) (Auto) 16 % (24-48) Monocytes (%) (Auto) 8 % (0-9) Eosinophils (%) (Auto) 5 % (0-3) Basophils (%) (Auto) 1 % (0-3) Neutrophils # (Auto) 6.8 x10^3uL (1.8-7.7) Lymphocytes # (Auto) 1.5 x10^3/uL (1.0-4.8) Monocytes # (Auto) 0.7 x10^3/uL (0.0-1.1) Eosinophils # (Auto) 0.5 x10^3/uL (0.0-0.7) Basophils # (Auto) 0.1 x10^3/uL (0.0-0.2) Sodium Level 142 mmol/L (136-145) Potassium Level 5.2 mmol/L (3.5-5.1) Chloride Level 108 mmol/L (98-107) Carbon Dioxide Level 22 mmol/L (21-32) Anion Gap 12 (6-14) Blood Urea Nitrogen 65 mg/dL (8-26) Creatinine 4.9 mg/dL (0.7-1.3) Estimated GFR (Cockcroft-Gault) 12.2 Glucose Level 130 mg/dL (70-99) Calcium Level 8.7 mg/dL (8.5-10.1) Test 11/05/16 07:18 11/05/16 11:27 Glucose (Fingerstick) 127 mg/dL (70-99) 195 mg/dL (70-99) Micro Left foot GRAM STAIN Final WBCS NONE SEEN ORGANISMS NONE SEEN Blood cultures NGTD Objective Assessment Left TMA wound dehiscence. Acute kidney injury on chronic kidney disease. Peripheral arterial disease. Diabetes. Plan Plan of Care Zyxox, Meropenem and Fluconazole Probiotics vascular surgery with bypass planned for Monday Attending Co-Sign The patient was seen and interviewed as well as examined at the bedside. The chart was reviewed. The case was discussed. Agree with the plan of care. ELLA MA APRN Nov 05, 2016 11:46 BREANNA DOW MD Nov 05, 2016 13:41
[2016-11-05] MEDS: fentaNYL PF VIAL 100 MCG/2 ML VIAL IM PRN ×2 (14:20→21:27)
[2016-11-05 15:00] VITALS: BP 155/81
--- NOTE | 2016-11-05 15:31 | PDOC ---
Renal-Progress Notes Subjective Notes Notes NO NEW COMPLAINTS OTHER THAN LEFT FOOT PAIN History of Present Illness Hx of present illness NO CHANGES Vitals Vitals Vital Signs Date Time Temp Pulse Resp B/P (MAP) Pulse Ox O2 Delivery O2 Flow Rate FiO2 11/05/16 15:00 98.8 89 18 155/81 (105) 98 Room Air 98.8 11/04/16 12:41 2.0 Weight Weight [ ] I.O. Intake and Output Intake and Output 11/06/16 07:00 Output Total 600 ml Balance -600 ml Output Urine Total 600 ml Labs Labs Laboratory Tests Test 11/04/16 17:37 11/04/16 20:20 11/05/16 03:20 11/05/16 07:18 Glucose (Fingerstick) 137 mg/dL (70-99) 158 mg/dL (70-99) 127 mg/dL (70-99) White Blood Count 9.6 x10^3/uL (4.0-11.0) Red Blood Count 3.43 x10^6/uL (4.30-5.70) Hemoglobin 10.0 g/dL (13.0-17.5) Hematocrit 29.6 % (39.0-53.0) Mean Corpuscular Volume 86 fL (79-100) Mean Corpuscular Hemoglobin 29 pg (25-35) Mean Corpuscular Hemoglobin Concent 34 g/dL (31-37) Red Cell Distribution Width 15.8 % (11.5-14.5) Platelet Count 265 x10^3/uL (140-400) Neutrophils (%) (Auto) 71 % (31-73) Lymphocytes (%) (Auto) 16 % (24-48) Monocytes (%) (Auto) 8 % (0-9) Eosinophils (%) (Auto) 5 % (0-3) Basophils (%) (Auto) 1 % (0-3) Neutrophils # (Auto) 6.8 x10^3uL (1.8-7.7) Lymphocytes # (Auto) 1.5 x10^3/uL (1.0-4.8) Monocytes # (Auto) 0.7 x10^3/uL (0.0-1.1) Eosinophils # (Auto) 0.5 x10^3/uL (0.0-0.7) Basophils # (Auto) 0.1 x10^3/uL (0.0-0.2) Sodium Level 142 mmol/L (136-145) Potassium Level 5.2 mmol/L (3.5-5.1) Chloride Level 108 mmol/L (98-107) Carbon Dioxide Level 22 mmol/L (21-32) Anion Gap 12 (6-14) Blood Urea Nitrogen 65 mg/dL (8-26) Creatinine 4.9 mg/dL (0.7-1.3) Estimated GFR (Cockcroft-Gault) 12.2 Glucose Level 130 mg/dL (70-99) Calcium Level 8.7 mg/dL (8.5-10.1) Test 11/05/16 11:27 Glucose (Fingerstick) 195 mg/dL (70-99) Micro Micro Microbiology 11/01/16 Blood Culture - Preliminary, Resulted NO GROWTH AFTER 4 DAYS 11/03/16 Gram Stain - Final, Complete Review of Systems Constitutional: yes: malaise, weakness, alert, oriented Ears/Nose/Throat: Yes: no symptom reported Eyes: Yes: no symptom reported Pulmonary: Yes no symptom reported Cardiovascular: Yes no symptom reported Gastrointestional: Yes: constipation Genitourinary: Yes: no symptom reported Musculoskeletal: Yes: foot pain, joint pain, muscle pain, muscle stiffness Skin: Yes lesions Psychiatric/Neurological: Yes: no symptom reported Endocrine: Yes: no symptom reported Hematologic/Lymphatic: Yes: no symptom reported Physical Exam General Appearance: no apparent distress Skin: warm, dry, no edema Respiratory: bilateral CTA Heart: S1S2, RRR Abdomen: soft, bowel sounds present, no rebound, no hernias Genitourinary: bladder flat, no mass Extremities: pulses present, atrophy Neurology: alert, oriented, follow commands Assessment Assessment IMP PAD LEFT TMA WOUND BILATERAL LINDSAY WITH LEFT INTRA STENT STENOSIS HTN ANEMIA ESRD DM II MALNUTRITION PLAN OR FOR LEFT LE REVASCULARIZATION WILL ALSO CHECK WITH IR ABOUT CONSIDERING RA STENTS HAVE EXPLAINED TO PT THAT IT MOST LIKELY WOULD NOT IMPROVE HIS RENAL FUNCTION ALSO EXPLAINED THAT HE WOULD BE EXPOSED TO CONTRAST IN ANY CASE I EXPECT HE WILL NEED TO START DIALYSIS SOON WOULD NOT BE UNREASONABLE TO INITIATE DIALYSIS NOW BUT HE WANTS TO WAIT CONT WITH ARANESP AND ANTIBIOTICS START LOW FLOW IVF'S TO IMPROVE HIS LYTES AND CLEARANCE BEFORE THE PLANNED SURGERY CAITLIN CARRIZALES MD Nov 05, 2016 15:31
--- NOTE | 2016-11-05 17:23 | PDOC ---
SURGICAL PROGRESS NOTE Vital Signs Vital Signs Date Time Temp Pulse Resp B/P (MAP) Pulse Ox O2 Delivery O2 Flow Rate FiO2 11/05/16 16:54 89 155/81 11/05/16 15:00 98.8 18 98 Room Air 98.8 11/04/16 12:41 2.0 I&O Intake and Output 11/06/16 07:00 Intake Total 100 ml Output Total 600 ml Balance -500 ml IV Total 100 ml Output Urine Total 600 ml Labs Laboratory Tests Test 11/03/16 19:44 11/04/16 07:27 11/04/16 08:50 11/04/16 13:38 Glucose (Fingerstick) 179 mg/dL (70-99) 105 mg/dL (70-99) 109 mg/dL (70-99) Prothrombin Time 12.9 SEC (11.7-14.0) Prothromb Time International Ratio 1.0 (0.8-1.1) Test 11/04/16 17:37 11/04/16 20:20 11/05/16 03:20 11/05/16 07:18 Glucose (Fingerstick) 137 mg/dL (70-99) 158 mg/dL (70-99) 127 mg/dL (70-99) White Blood Count 9.6 x10^3/uL (4.0-11.0) Red Blood Count 3.43 x10^6/uL (4.30-5.70) Hemoglobin 10.0 g/dL (13.0-17.5) Hematocrit 29.6 % (39.0-53.0) Mean Corpuscular Volume 86 fL (79-100) Mean Corpuscular Hemoglobin 29 pg (25-35) Mean Corpuscular Hemoglobin Concent 34 g/dL (31-37) Red Cell Distribution Width 15.8 % (11.5-14.5) Platelet Count 265 x10^3/uL (140-400) Neutrophils (%) (Auto) 71 % (31-73) Lymphocytes (%) (Auto) 16 % (24-48) Monocytes (%) (Auto) 8 % (0-9) Eosinophils (%) (Auto) 5 % (0-3) Basophils (%) (Auto) 1 % (0-3) Neutrophils # (Auto) 6.8 x10^3uL (1.8-7.7) Lymphocytes # (Auto) 1.5 x10^3/uL (1.0-4.8) Monocytes # (Auto) 0.7 x10^3/uL (0.0-1.1) Eosinophils # (Auto) 0.5 x10^3/uL (0.0-0.7) Basophils # (Auto) 0.1 x10^3/uL (0.0-0.2) Sodium Level 142 mmol/L (136-145) Potassium Level 5.2 mmol/L (3.5-5.1) Chloride Level 108 mmol/L (98-107) Carbon Dioxide Level 22 mmol/L (21-32) Anion Gap 12 (6-14) Blood Urea Nitrogen 65 mg/dL (8-26) Creatinine 4.9 mg/dL (0.7-1.3) Estimated GFR (Cockcroft-Gault) 12.2 Glucose Level 130 mg/dL (70-99) Calcium Level 8.7 mg/dL (8.5-10.1) Test 11/05/16 11:27 11/05/16 16:14 Glucose (Fingerstick) 195 mg/dL (70-99) 91 mg/dL (70-99) Laboratory Tests Test 11/04/16 17:37 11/04/16 20:20 11/05/16 03:20 11/05/16 07:18 Glucose (Fingerstick) 137 mg/dL (70-99) 158 mg/dL (70-99) 127 mg/dL (70-99) White Blood Count 9.6 x10^3/uL (4.0-11.0) Red Blood Count 3.43 x10^6/uL (4.30-5.70) Hemoglobin 10.0 g/dL (13.0-17.5) Hematocrit 29.6 % (39.0-53.0) Mean Corpuscular Volume 86 fL (79-100) Mean Corpuscular Hemoglobin 29 pg (25-35) Mean Corpuscular Hemoglobin Concent 34 g/dL (31-37) Red Cell Distribution Width 15.8 % (11.5-14.5) Platelet Count 265 x10^3/uL (140-400) Neutrophils (%) (Auto) 71 % (31-73) Lymphocytes (%) (Auto) 16 % (24-48) Monocytes (%) (Auto) 8 % (0-9) Eosinophils (%) (Auto) 5 % (0-3) Basophils (%) (Auto) 1 % (0-3) Neutrophils # (Auto) 6.8 x10^3uL (1.8-7.7) Lymphocytes # (Auto) 1.5 x10^3/uL (1.0-4.8) Monocytes # (Auto) 0.7 x10^3/uL (0.0-1.1) Eosinophils # (Auto) 0.5 x10^3/uL (0.0-0.7) Basophils # (Auto) 0.1 x10^3/uL (0.0-0.2) Sodium Level 142 mmol/L (136-145) Potassium Level 5.2 mmol/L (3.5-5.1) Chloride Level 108 mmol/L (98-107) Carbon Dioxide Level 22 mmol/L (21-32) Anion Gap 12 (6-14) Blood Urea Nitrogen 65 mg/dL (8-26) Creatinine 4.9 mg/dL (0.7-1.3) Estimated GFR (Cockcroft-Gault) 12.2 Glucose Level 130 mg/dL (70-99) Calcium Level 8.7 mg/dL (8.5-10.1) Test 11/05/16 11:27 11/05/16 16:14 Glucose (Fingerstick) 195 mg/dL (70-99) 91 mg/dL (70-99) Problem List Problems Medical Problems: (1) Wound dehiscence Status: Acute Assessment/Plan pt had vein mapping done which suggests inadequate vein. On exam the great saphenous vein is easily visible below the knee and looks adequate. will attempt to bedside ultrasound exam on Monday and will also map the arm veins. He is scheduled for left fem-post tib bypass Tues with staged debridement of forefoot. Problems: TANGELA MERIDA II, MD Nov 05, 2016 17:23
[2016-11-05] MEDS: GABAPENTIN 300 MG CAPSULE. PO SCH (19:54)
[2016-11-05 19:59] VITALS: BP 160/69
[2016-11-05 23:24] VITALS: BP 164/93
[2016-11-06] MEDS: HYDROmorphone 4 MG TABLET PO PRN ×6 (00:03→20:34)
[2016-11-06 03:59] VITALS: BP 151/72
[2016-11-06] MEDS: IV NORMAL SALINE 1000ML BAG 1,000 ML IV SCH ×3 (04:13→20:38)
[2016-11-06 06:36] LABS: BASO # 0.1 x10^3/uL (0.0-0.2); BASO % 1 % (0-3); EOS % 6 % (0-3); HEMATOCRIT 28.3 % (39.0-53.0); HEMOGLOBIN 9.1 g/dL (13.0-17.5); LYMPH # 1.7 x10^3/uL (1.0-4.8); LYMPH % 15 % (24-48); MEAN CORPUSCULAR HEMOGLOBIN 29 pg (25-35); MEAN CORPUSCULAR HGB CONC 32 g/dL (31-37); MEAN CORPUSCULAR VOLUME 89 fL (79-100); MONO % 9 % (0-9); NEUT % 69 % (31-73); PLATELET COUNT 252 x10^3/uL (140-400); RED BLOOD COUNT 3.19 x10^6/uL (4.30-5.70); RED CELL DISTRIBUTION WIDTH 16.4 % (11.5-14.5)
[2016-11-06 06:52] LABS: CALCIUM 9.1 mg/dL (8.5-10.1); CREATININE 4.8 mg/dL (0.7-1.3); GFR 12.5
[2016-11-06 06:55] LABS: POTASSIUM 5.8 mmol/L (3.5-5.1)
[2016-11-06 07:00] VITALS: BP 167/78
[2016-11-06] MEDS: LACTOBACILLUS ACIDOPH & BULGAR 1 TABLET. PO SCH ×3 (08:00→16:40)
[2016-11-06] MEDS: INSULIN ASPART 300 UNITS/3 ML INSULN.PEN SQ SCH ×3 (08:00→16:32)
[2016-11-06] MEDS: PANTOPRAZOLE 40 MG TABLET.DR. PO SCH ×2 (08:24→16:37)
[2016-11-06] MEDS: LINEZOLID 600 MG TABLET PO SCH ×2 (08:24→20:32)
[2016-11-06] MEDS: MEROPENEM 1 GM in IV NORMAL SALINE 100ML 100 ML IV SCH (08:24)
[2016-11-06] MEDS: CARISOPRODOL 350 MG TABLET PO PRN ×2 (08:24→16:38)
[2016-11-06] MEDS: MULTIVITAMIN with MINERAL TABLET. PO SCH (08:24)
[2016-11-06] MEDS: CARVEDILOL 3.125 MG TABLET. PO SCH ×2 (08:25→16:39)
[2016-11-06] MEDS: ASPIRIN ENTERIC COATED 81 MG TABLET.DR. PO SCH (08:26)
[2016-11-06] MEDS: CLOPIDOGREL BISULFATE 75 MG TABLET PO SCH (08:26)
[2016-11-06] MEDS: FLUCONAZOLE 100 MG TABLET. PO SCH (08:26)
[2016-11-06] MEDS: SEVELAMER CARBONATE 800 MG TABLET. PO SCH ×3 (08:26→16:38)
[2016-11-06] MEDS: amLODIPine BESYLATE 10 MG TABLET PO SCH ×2 (08:26→20:33)
[2016-11-06] MEDS: ASCORBIC ACID 500 MG TABLET PO SCH ×2 (08:27→20:32)
[2016-11-06] MEDS: DICLOFENAC SODIUM 1% TOPICAL GEL 100GM TUBE. TP SCH ×2 (08:29→20:33)
--- NOTE | 2016-11-06 09:52 | RAD ---
Examination: Ultrasound bilateral upper extremity superficial venous system History: Preop bypass Comparison: None available Findings: Right upper extremity: Right cephalic vein in the , proximal upper arm measures 2.3 mm in diameter. Mid upper arm measures 2.4 mm in diameter, Distal upper arm measures 2.3 mm in diameter, proximal forearm 1.6 mm, mid forearm 2.2 mm, distal forearm 1.9 mm. The basilic vein, in the proximal upper arm measures 4.7 mm, mid upper arm measures 3.6 mm, distal upper arm measures 4.3 mm, proximal forearm measures 2.6 mm, mid forearm measures 1.3 mm. The basilic vein in the distal forearm is not identified. Left upper extremity: The cephalic vein in the proximal left upper arm measures 2 mm, mid upper arm 1.3 mm, distal upper arm 1.4 mm, proximal forearm 2.7 mm. The basilic vein in the proximal left upper arm measures 4.9 mm, mid upper arm measures 4.2 mm, distal upper arm measures 4.5 mm, proximal forearm measures 1.9 mm. The veins in the mid and distal forearm on the left could not be identified due to bandages. Impression: Cephalic and basilic vein measurements as described above.
--- NOTE | 2016-11-06 10:02 | PDOC ---
Infectious Disease Note Subjective Subjective Feeling well pain controlled at the moment + BM, little loose ROS ROS GEN: Denies fevers, chills, sweats CV: Denies chest pain RESP: Denies shortness of air, cough GI: Denies n/v/d Vital Sign Vital Signs Vital Signs Date Time Temp Pulse Resp B/P (MAP) Pulse Ox O2 Delivery O2 Flow Rate FiO2 11/06/16 08:26 78 167/78 11/06/16 07:00 98.1 18 96 Room Air 98.1 Physical Exam PHYSICAL EXAM GENERAL: Thin, relaxed appearance, NAD LUNGS: Clear HEART: S1 and S2 ABD: Soft, NT EXT: No edema, no cyanosis. Left foot bandaged [employer] WORK[employer]: Alert, oriented x 3 SKIN: No rash IV: ok Labs Lab Laboratory Tests Test 11/05/16 11:27 11/05/16 16:14 11/05/16 21:20 11/06/16 05:40 Glucose (Fingerstick) 195 mg/dL (70-99) 91 mg/dL (70-99) 128 mg/dL (70-99) White Blood Count 11.0 x10^3/uL (4.0-11.0) Red Blood Count 3.19 x10^6/uL (4.30-5.70) Hemoglobin 9.1 g/dL (13.0-17.5) Hematocrit 28.3 % (39.0-53.0) Mean Corpuscular Volume 89 fL (79-100) Mean Corpuscular Hemoglobin 29 pg (25-35) Mean Corpuscular Hemoglobin Concent 32 g/dL (31-37) Red Cell Distribution Width 16.4 % (11.5-14.5) Platelet Count 252 x10^3/uL (140-400) Neutrophils (%) (Auto) 69 % (31-73) Lymphocytes (%) (Auto) 15 % (24-48) Monocytes (%) (Auto) 9 % (0-9) Eosinophils (%) (Auto) 6 % (0-3) Basophils (%) (Auto) 1 % (0-3) Neutrophils # (Auto) 7.6 x10^3uL (1.8-7.7) Lymphocytes # (Auto) 1.7 x10^3/uL (1.0-4.8) Monocytes # (Auto) 1.0 x10^3/uL (0.0-1.1) Eosinophils # (Auto) 0.6 x10^3/uL (0.0-0.7) Basophils # (Auto) 0.1 x10^3/uL (0.0-0.2) Sodium Level 141 mmol/L (136-145) Potassium Level 5.8 mmol/L (3.5-5.1) Chloride Level 108 mmol/L (98-107) Carbon Dioxide Level 22 mmol/L (21-32) Anion Gap 11 (6-14) Blood Urea Nitrogen 68 mg/dL (8-26) Creatinine 4.8 mg/dL (0.7-1.3) Estimated GFR (Cockcroft-Gault) 12.5 Glucose Level 113 mg/dL (70-99) Calcium Level 9.1 mg/dL (8.5-10.1) Test 11/06/16 07:51 Glucose (Fingerstick) 113 mg/dL (70-99) Micro Left foot ANAEROBIC RES 1 PENDING AEROBIC RES 1 Preliminary Gram negative rods Heavy growth AEROBIC RES 2 Preliminary Gram negative rods Blood cultures NGTD Objective Assessment Left TMA wound dehiscence with GNR so far Acute kidney injury on chronic kidney disease. Peripheral arterial disease. Diabetes. Plan Plan of Care Zyxox, Meropenem and Fluconazole Probiotics vascular surgery with bypass and debridement of forefoot planned for Monday Attending Co-Sign The patient was seen and interviewed as well as examined at the bedside. The chart was reviewed. The case was discussed. Agree with the plan of care. ELLA MA APRN Nov 06, 2016 10:02 BREANNA DOW MD Nov 06, 2016 13:32
[2016-11-06 11:00] VITALS: BP 152/71
--- NOTE | 2016-11-06 14:18 | PDOC ---
PROGRESS NOTES Chief Complaint Chief Complaint Wound dehiscence - left foot s/p left TMA 6+ weeks ago PMH: CREST syndrome DM htn hld CKD stage V Anemia of chronic disease Recently quit tobacco use Hx CVA Hx right hand finger amputation Cholecystectomy hx pneumonia History of Present Illness History of Present Illness Pt laying in bed comfortably watching tv. BUN 68, Cr 4.8 today. Pt would like to hold off on starting HD as long as possible. ID, vascular, wound, renal, ortho following Vitals Vitals Vital Signs Date Time Temp Pulse Resp B/P (MAP) Pulse Ox O2 Delivery O2 Flow Rate FiO2 11/06/16 11:00 98.0 84 18 152/71 (98) 93 Room Air 98.0 Physical Exam General: Alert, Oriented X3, No acute distress Heart: Regular rate, Other (murmur, bilateral carotid bruit) Lungs: Clear, Wheezing Abdomen: Normal bowel sounds, Soft, No tenderness, Other (thin) Extremities: Other (2+ radial, 2+ femoral, palpable left popliteal, unable to appreciate pedal pulses) Skin: Other (mulitple healed amputations fingers, right foot, left foot with amputation site dehiscence with necrosis and malodorous ) Labs LABS Laboratory Tests Test 11/05/16 16:14 11/05/16 21:20 11/06/16 05:40 11/06/16 07:51 Glucose (Fingerstick) 91 mg/dL (70-99) 128 mg/dL (70-99) 113 mg/dL (70-99) White Blood Count 11.0 x10^3/uL (4.0-11.0) Red Blood Count 3.19 x10^6/uL (4.30-5.70) Hemoglobin 9.1 g/dL (13.0-17.5) Hematocrit 28.3 % (39.0-53.0) Mean Corpuscular Volume 89 fL (79-100) Mean Corpuscular Hemoglobin 29 pg (25-35) Mean Corpuscular Hemoglobin Concent 32 g/dL (31-37) Red Cell Distribution Width 16.4 % (11.5-14.5) Platelet Count 252 x10^3/uL (140-400) Neutrophils (%) (Auto) 69 % (31-73) Lymphocytes (%) (Auto) 15 % (24-48) Monocytes (%) (Auto) 9 % (0-9) Eosinophils (%) (Auto) 6 % (0-3) Basophils (%) (Auto) 1 % (0-3) Neutrophils # (Auto) 7.6 x10^3uL (1.8-7.7) Lymphocytes # (Auto) 1.7 x10^3/uL (1.0-4.8) Monocytes # (Auto) 1.0 x10^3/uL (0.0-1.1) Eosinophils # (Auto) 0.6 x10^3/uL (0.0-0.7) Basophils # (Auto) 0.1 x10^3/uL (0.0-0.2) Sodium Level 141 mmol/L (136-145) Potassium Level 5.8 mmol/L (3.5-5.1) Chloride Level 108 mmol/L (98-107) Carbon Dioxide Level 22 mmol/L (21-32) Anion Gap 11 (6-14) Blood Urea Nitrogen 68 mg/dL (8-26) Creatinine 4.8 mg/dL (0.7-1.3) Estimated GFR (Cockcroft-Gault) 12.5 Glucose Level 113 mg/dL (70-99) Calcium Level 9.1 mg/dL (8.5-10.1) Test 11/06/16 10:51 Glucose (Fingerstick) 177 mg/dL (70-99) Review of Systems Review of Systems weakness foot pain Assessment and Plan Assessmemt and Plan Problems Medical Problems: (1) Wound dehiscence Status: Acute Wound dehiscence with GNR- left foot, s/p TMA 1. Continue pain management 2. recheck labs am 3. Scheduled for left fem-post tib bypass Monday with staged debridement of forefoot 4. Per Dr. Gould: bedside u/s on Monday to evaluate great saphenous vein and arm veins, as vein mapping done suggested inadequate vein. 5. Renal following patient: continue aranesp and abx, low flow IVFs to improve electrolytes and clearance 6. Ortho following 7. ID following: continue meropenem/zyvox/fluconazole, probiotic 8. Continue wound care 9. Appreciate subspecialty input Problems: Comment Review of Relevant I have reviewed the following items rula (where applicable) has been applied. Labs Laboratory Tests Test 11/04/16 17:37 9/1/17 20:20 11/05/16 03:20 11/05/16 07:18 Glucose (Fingerstick) 137 mg/dL (70-99) 158 mg/dL (70-99) 127 mg/dL (70-99) White Blood Count 9.6 x10^3/uL (4.0-11.0) Red Blood Count 3.43 x10^6/uL (4.30-5.70) Hemoglobin 10.0 g/dL (13.0-17.5) Hematocrit 29.6 % (39.0-53.0) Mean Corpuscular Volume 86 fL (79-100) Mean Corpuscular Hemoglobin 29 pg (25-35) Mean Corpuscular Hemoglobin Concent 34 g/dL (31-37) Red Cell Distribution Width 15.8 % (11.5-14.5) Platelet Count 265 x10^3/uL (140-400) Neutrophils (%) (Auto) 71 % (31-73) Lymphocytes (%) (Auto) 16 % (24-48) Monocytes (%) (Auto) 8 % (0-9) Eosinophils (%) (Auto) 5 % (0-3) Basophils (%) (Auto) 1 % (0-3) Neutrophils # (Auto) 6.8 x10^3uL (1.8-7.7) Lymphocytes # (Auto) 1.5 x10^3/uL (1.0-4.8) Monocytes # (Auto) 0.7 x10^3/uL (0.0-1.1) Eosinophils # (Auto) 0.5 x10^3/uL (0.0-0.7) Basophils # (Auto) 0.1 x10^3/uL (0.0-0.2) Sodium Level 142 mmol/L (136-145) Potassium Level 5.2 mmol/L (3.5-5.1) Chloride Level 108 mmol/L (98-107) Carbon Dioxide Level 22 mmol/L (21-32) Anion Gap 12 (6-14) Blood Urea Nitrogen 65 mg/dL (8-26) Creatinine 4.9 mg/dL (0.7-1.3) Estimated GFR (Cockcroft-Gault) 12.2 Glucose Level 130 mg/dL (70-99) Calcium Level 8.7 mg/dL (8.5-10.1) Test 11/05/16 11:27 11/05/16 16:14 11/05/16 21:20 11/06/16 05:40 Glucose (Fingerstick) 195 mg/dL (70-99) 91 mg/dL (70-99) 128 mg/dL (70-99) White Blood Count 11.0 x10^3/uL (4.0-11.0) Red Blood Count 3.19 x10^6/uL (4.30-5.70) Hemoglobin 9.1 g/dL (13.0-17.5) Hematocrit 28.3 % (39.0-53.0) Mean Corpuscular Volume 89 fL (79-100) Mean Corpuscular Hemoglobin 29 pg (25-35) Mean Corpuscular Hemoglobin Concent 32 g/dL (31-37) Red Cell Distribution Width 16.4 % (11.5-14.5) Platelet Count 252 x10^3/uL (140-400) Neutrophils (%) (Auto) 69 % (31-73) Lymphocytes (%) (Auto) 15 % (24-48) Monocytes (%) (Auto) 9 % (0-9) Eosinophils (%) (Auto) 6 % (0-3) Basophils (%) (Auto) 1 % (0-3) Neutrophils # (Auto) 7.6 x10^3uL (1.8-7.7) Lymphocytes # (Auto) 1.7 x10^3/uL (1.0-4.8) Monocytes # (Auto) 1.0 x10^3/uL (0.0-1.1) Eosinophils # (Auto) 0.6 x10^3/uL (0.0-0.7) Basophils # (Auto) 0.1 x10^3/uL (0.0-0.2) Sodium Level 141 mmol/L (136-145) Potassium Level 5.8 mmol/L (3.5-5.1) Chloride Level 108 mmol/L (98-107) Carbon Dioxide Level 22 mmol/L (21-32) Anion Gap 11 (6-14) Blood Urea Nitrogen 68 mg/dL (8-26) Creatinine 4.8 mg/dL (0.7-1.3) Estimated GFR (Cockcroft-Gault) 12.5 Glucose Level 113 mg/dL (70-99) Calcium Level 9.1 mg/dL (8.5-10.1) Test 11/06/16 07:51 11/06/16 10:51 Glucose (Fingerstick) 113 mg/dL (70-99) 177 mg/dL (70-99) Laboratory Tests Test 11/05/16 16:14 11/05/16 21:20 11/06/16 05:40 11/06/16 07:51 Glucose (Fingerstick) 91 mg/dL (70-99) 128 mg/dL (70-99) 113 mg/dL (70-99) White Blood Count 11.0 x10^3/uL (4.0-11.0) Red Blood Count 3.19 x10^6/uL (4.30-5.70) Hemoglobin 9.1 g/dL (13.0-17.5) Hematocrit 28.3 % (39.0-53.0) Mean Corpuscular Volume 89 fL (79-100) Mean Corpuscular Hemoglobin 29 pg (25-35) Mean Corpuscular Hemoglobin Concent 32 g/dL (31-37) Red Cell Distribution Width 16.4 % (11.5-14.5) Platelet Count 252 x10^3/uL (140-400) Neutrophils (%) (Auto) 69 % (31-73) Lymphocytes (%) (Auto) 15 % (24-48) Monocytes (%) (Auto) 9 % (0-9) Eosinophils (%) (Auto) 6 % (0-3) Basophils (%) (Auto) 1 % (0-3) Neutrophils # (Auto) 7.6 x10^3uL (1.8-7.7) Lymphocytes # (Auto) 1.7 x10^3/uL (1.0-4.8) Monocytes # (Auto) 1.0 x10^3/uL (0.0-1.1) Eosinophils # (Auto) 0.6 x10^3/uL (0.0-0.7) Basophils # (Auto) 0.1 x10^3/uL (0.0-0.2) Sodium Level 141 mmol/L (136-145) Potassium Level 5.8 mmol/L (3.5-5.1) Chloride Level 108 mmol/L (98-107) Carbon Dioxide Level 22 mmol/L (21-32) Anion Gap 11 (6-14) Blood Urea Nitrogen 68 mg/dL (8-26) Creatinine 4.8 mg/dL (0.7-1.3) Estimated GFR (Cockcroft-Gault) 12.5 Glucose Level 113 mg/dL (70-99) Calcium Level 9.1 mg/dL (8.5-10.1) Test 11/06/16 10:51 Glucose (Fingerstick) 177 mg/dL (70-99) Microbiology 11/01/16 Blood Culture - Final, Complete NO GROWTH AFTER 5 DAYS 11/03/16 Gram Stain - Final, Complete Medications Current Medications Sodium Chloride 1,000 ml @ 1,000 mls/hr 1X ONCE IV Last administered on 11:06; Start 11/01/16 at 10:30; Stop 11/01/16 at 11:38; Status DC Fentanyl Citrate (Fentanyl 2ml Vial) 50 mcg 1X ONCE IV Last administered on 11:08; Start 11/01/16 at 11:15; Stop 11/01/16 at 11:16; Status DC Vancomycin HCl (Vanco Per Pharmacy) 1 each PRN DAILY PRN MC SEE COMMENTS Last administered on 11/03/16 06:59; Start 11/01/16 at 13:15; Stop 11/03/16 at 10:10 ; Status DC Vancomycin HCl 1.5 gm/Sodium Chloride 500 ml @ 250 mls/hr 1X ONCE IV Last administered on 11/01/16 13:37; Start 11/01/16 at 13:30; Stop 11/01/16 at 15:29 ; Status DC Fentanyl Citrate (Fentanyl 2ml Vial) 50 mcg 1X ONCE IV Last administered on 13:40; Start 11/01/16 at 13:30; Stop 11/01/16 at 13:31; Status DC Ondansetron HCl (Zofran) 4 mg PRN Q8HRS PRN IV NAUSEA/VOMITING; Start 11/01/16 at 13:45; Stop 11/02/16 at 13:44; Status DC Acetaminophen (Tylenol) 650 mg PRN Q4HRS PRN PO FEVER Last administered on 11/01 23:03; Start 11/01/16 at 13:45; Stop 11/02/16 at 13:44; Status DC Fentanyl Citrate (Fentanyl 2ml Vial) 50 mcg PRN Q4HRS PRN IM PAIN Last administered on 11/05/16 21:27; Start 11/01/16 at 13:45 Vancomycin HCl 1 each 1X ONCE MC Last administered on 11/03/16 06:03; Start 11/03/16 at 05:00; Stop 11/03/16 at 10:10; Status DC Insulin Aspart (NovoLOG) 0-7 UNITS TIDWMEALS SQ Last administered on 11/06/16 11:55; Start 11/01/16 at 20:30 Dextrose (Dextrose 50%-Water Syringe) 12.5 gm PRN Q15MIN PRN IV SEE COMMENTS; Start 11/01/16 at 19:45 Hydromorphone HCl (Dilaudid) 4 mg PRN Q4HRS PRN PO PAIN Last administered on 10:11; Start 11/01/16 at 20:15; Stop 11/03/16 at 11:17; Status DC Pantoprazole Sodium (Protonix) 40 mg BIDWMEALS PO Last administered on 08:24; Start 11/01/16 at 21:00 Sennosides (Senna) 8.6 mg PRN QHS PRN PO CONSTIPATION Last administered on 19:55; Start 11/01/16 at 20:15 Sevelamer Carbonate (Renvela) 800 mg TIDWMEALS PO Last administered on 11:48; Start 11/02/16 at 08:00 Albuterol Sulfate (Ventolin Neb Soln) 2.5 mg PRN Q6HRS PRN NEB SHORTNESS OF BREATH; Start 11/01/16 at 21:30 Amlodipine Besylate (Norvasc) 10 mg BID PO Last administered on 11/06/16 08:26 ; Start 11/01/16 at 22:00 Aspirin (Ecotrin) 81 mg DAILYWBKFT PO Last administered on 11/06/16 08:26; Start 11/02/16 at 08:00 Atorvastatin Calcium (Lipitor) 10 mg Q48H PO ; Start 11/01/16 at 21:00; Stop at 02:25; Status DC Carisoprodol (Soma) 350 mg TID PRN PRN PO MUSCLE SPASMS Last administered on 08:24; Start 11/01/16 at 21:30 Carvedilol (Coreg) 3.125 mg BIDWMEALS PO Last administered on 11/03/16 08:43; Start 11/02/16 at 08:00; Stop 11/03/16 at 10:22; Status DC Clopidogrel Bisulfate (Plavix) 75 mg DAILYWBKFT PO Last administered on 08:26; Start 11/02/16 at 08:00 Diclofenac Sodium (Voltaren) 1 richard BID TP Last administered on 11/06/16 08:29; Start 11/01/16 at 22:00 Atorvastatin Calcium (Lipitor) 10 mg Q48H PO Last administered on 11/04/16 21: 00; Start 11/02/16 at 21:00 Multivitamins (Thera M Plus) 1 tab DAILY PO Last administered on 11/06/16 08:24 ; Start 11/02/16 at 14:00 Ascorbic Acid (Vitamin C) 500 mg BID PO Last administered on 11/06/16 08:27; Start 11/02/16 at 14:00 Vancomycin HCl 1 gm/Sodium Chloride 250 ml @ 250 mls/hr Q48H IV ; Start at 09:00; Stop 11/03/16 at 10:10; Status DC Vancomycin HCl 1 each 1X ONCE MC ; Start 11/05/16 at 08:30; Stop 11/05/16 at 08: 30; Status DC Linezolid (Zyvox) 600 mg BID PO Last administered on 11/06/16 08:24; Start at 10:00 Meropenem 1 gm/ Sodium Chloride 100 ml @ 200 mls/hr DAILY IV Last administered on 11/06/16 08:24; Start 11/03/16 at 10:00 Fluconazole (Diflucan) 100 mg DAILY PO Last administered on 11/06/16 08:26; Start 11/03/16 at 10:00 Lactobacillus Acidophilus (Bacid, Brittney-Bid) 1 tab TIDWMEALS PO Last administered on 11/06/16 11:48; Start 11/03/16 at 12:00 Carvedilol (Coreg) 6.25 mg BIDWMEALS PO Last administered on 11/06/16 08:25; Start 11/03/16 at 17:00 Sodium Chloride 1,000 ml @ 100 mls/hr Q10H IV Last administered on 11/04/16 16 :04; Start 11/03/16 at 10:30; Stop 11/05/16 at 13:19; Status DC Acetylcysteine (Mucomyst 20% Oral Solution) 1,200 mg BID PO Last administered on 11/05/16 09:25; Start 11/03/16 at 21:00; Stop 11/05/16 at 20:59; Status DC Darbepoetin Rich (Aranesp) 60 mcg WEEKLYHS SQ Last administered on 11/03/16 21 :36; Start 11/03/16 at 21:00 Hydromorphone HCl (Dilaudid) 8 mg PRN Q4HRS PRN PO PAIN Last administered on 11:48; Start 11/03/16 at 11:15 Gabapentin (Neurontin) 300 mg QHS PO Last administered on 11/05/16 19:54; Start 11/03/16 at 14:00 Lidocaine/Sodium Bicarbonate (Buffered Lidocaine 1%) 20 ml STK-MED ONCE IJ ; Start 11/04/16 at 08:16; Stop 11/04/16 at 08:17; Status DC Heparin Sodium/ Sodium Chloride 0 ml @ As Directed STK-MED ONCE .ROUTE ; Start 11/04/16 at 08:17; Stop 11/04/16 at 08:18; Status DC Iodixanol (Visipaque 320) 100 ml STK-MED ONCE .ROUTE ; Start 11/04/16 at 08:17; Stop 11/04/16 at 08:18; Status DC Iodixanol (Visipaque 320) 50 ml STK-MED ONCE .ROUTE ; Start 11/04/16 at 09:57; Stop 11/04/16 at 09:58; Status DC Lidocaine/Sodium Bicarbonate (Buffered Lidocaine 1%) 20 ml STK-MED ONCE IJ ; Start 11/04/16 at 09:58; Stop 11/04/16 at 09:59; Status DC Heparin Sodium/ Sodium Chloride 1,500 ml @ As Directed STK-MED ONCE .ROUTE ; Start 11/04/16 at 09:58; Stop 11/04/16 at 09:59; Status DC Heparin Sodium (Porcine) (Heparin Sodium) 10,000 unit STK-MED ONCE .ROUTE ; Start 11/04/16 at 10:29; Stop 11/04/16 at 10:30; Status DC Midazolam HCl (Versed) 2 mg STK-MED ONCE .ROUTE ; Start 11/04/16 at 10:29; Stop 11/04/16 at 10:30; Status DC Heparin Sodium/ Sodium Chloride 1,000 unit 1X ONCE IART Last administered on 12:25; Start 11/04/16 at 11:00; Stop 11/04/16 at 11:01; Status DC Lidocaine/Sodium Bicarbonate (Buffered Lidocaine 1%) 20 ml 1X ONCE IJ Last administered on 11/04/16 12:25; Start 11/04/16 at 11:00; Stop 11/04/16 at 11:01; Status DC Midazolam HCl (Versed) 2 mg 1X ONCE IV Last administered on 11/04/16 12:26; Start 11/04/16 at 11:00; Stop 11/04/16 at 11:01; Status DC Fentanyl Citrate (Fentanyl 2ml Vial) 100 mcg 1X ONCE IV Last administered on 12:27; Start 11/04/16 at 11:00; Stop 11/04/16 at 11:01; Status DC Iodixanol (Visipaque 320) 50 ml 1X ONCE IART Last administered on 11/04/16 12: 24; Start 11/04/16 at 11:00; Stop 11/04/16 at 11:01; Status DC Info (Do NOT chart on this entry -- for MONITORING) 1 each PRN DAILY PRN MC SEE COMMENTS; Start 11/04/16 at 11:00; Stop 11/06/16 at 10:59; Status DC Heparin Sodium (Porcine) (Heparin Sodium) 5,000 unit 1X ONCE IV Last administered on 11/04/16 12:27; Start 11/04/16 at 12:15; Stop 11/04/16 at 12:21; Status DC Sodium Chloride 1,000 ml @ 75 mls/hr [id number] IV Last administered on 11/06/16t 04:13; Start 11/05/16 at 15:45 Vitals/I & O Vital Sign - Last 24 Hours 11/05/16 11/05/16 11/05/16 11/05/16 15:00 16:54 19:24 19:55 Temp 98.8 98.8 Pulse 89 89 81 Resp 18 B/P (MAP) 155/81 (105) 155/81 160/69 Pulse Ox 98 96 O2 Delivery Room Air Room Air 11/05/16 11/05/16 11/05/16 11/05/16 19:59 20:00 21:27 22:00 Temp 98.8 98.8 Pulse 81 Resp 20 16 16 B/P (MAP) 160/69 (99) Pulse Ox 95 O2 Delivery Room Air Room Air Room Air Room Air 11/05/16 11/06/16 11/06/16 11/06/16 23:24 03:59 07:00 08:25 Temp 99.5 97.1 98.1 99.5 97.1 98.1 Pulse 87 76 78 78 Resp 20 18 18 B/P (MAP) 164/93 (116) 151/72 (98) 167/78 (107) 167/78 Pulse Ox 95 96 96 O2 Delivery Room Air Room Air Room Air 11/06/16 11/06/16 08:26 11:00 Temp 98.0 98.0 Pulse 78 84 Resp 18 B/P (MAP) 167/78 152/71 (98) Pulse Ox 93 O2 Delivery Room Air TIM WEIR III DO Nov 06, 2016 14:18
--- NOTE | 2016-11-06 14:35 | PDOC ---
Renal-Progress Notes Subjective Notes Notes NO NEW COMPLAINTS History of Present Illness Hx of present illness STABLE Vitals Vitals Vital Signs Date Time Temp Pulse Resp B/P (MAP) Pulse Ox O2 Delivery O2 Flow Rate FiO2 11/06/16 11:00 98.0 84 18 152/71 (98) 93 Room Air 98.0 Weight Weight [ ] Labs Labs Laboratory Tests Test 11/05/16 16:14 11/05/16 21:20 11/06/16 05:40 11/06/16 07:51 Glucose (Fingerstick) 91 mg/dL (70-99) 128 mg/dL (70-99) 113 mg/dL (70-99) White Blood Count 11.0 x10^3/uL (4.0-11.0) Red Blood Count 3.19 x10^6/uL (4.30-5.70) Hemoglobin 9.1 g/dL (13.0-17.5) Hematocrit 28.3 % (39.0-53.0) Mean Corpuscular Volume 89 fL (79-100) Mean Corpuscular Hemoglobin 29 pg (25-35) Mean Corpuscular Hemoglobin Concent 32 g/dL (31-37) Red Cell Distribution Width 16.4 % (11.5-14.5) Platelet Count 252 x10^3/uL (140-400) Neutrophils (%) (Auto) 69 % (31-73) Lymphocytes (%) (Auto) 15 % (24-48) Monocytes (%) (Auto) 9 % (0-9) Eosinophils (%) (Auto) 6 % (0-3) Basophils (%) (Auto) 1 % (0-3) Neutrophils # (Auto) 7.6 x10^3uL (1.8-7.7) Lymphocytes # (Auto) 1.7 x10^3/uL (1.0-4.8) Monocytes # (Auto) 1.0 x10^3/uL (0.0-1.1) Eosinophils # (Auto) 0.6 x10^3/uL (0.0-0.7) Basophils # (Auto) 0.1 x10^3/uL (0.0-0.2) Sodium Level 141 mmol/L (136-145) Potassium Level 5.8 mmol/L (3.5-5.1) Chloride Level 108 mmol/L (98-107) Carbon Dioxide Level 22 mmol/L (21-32) Anion Gap 11 (6-14) Blood Urea Nitrogen 68 mg/dL (8-26) Creatinine 4.8 mg/dL (0.7-1.3) Estimated GFR (Cockcroft-Gault) 12.5 Glucose Level 113 mg/dL (70-99) Calcium Level 9.1 mg/dL (8.5-10.1) Test 11/06/16 10:51 Glucose (Fingerstick) 177 mg/dL (70-99) Micro Micro Microbiology 11/01/16 Blood Culture - Final, Complete NO GROWTH AFTER 5 DAYS 11/03/16 Gram Stain - Final, Complete Review of Systems Constitutional: yes: malaise, weakness, alert, oriented Ears/Nose/Throat: Yes: no symptom reported Eyes: Yes: no symptom reported Pulmonary: Yes no symptom reported Cardiovascular: Yes no symptom reported Gastrointestional: Yes: constipation Genitourinary: Yes: no symptom reported Musculoskeletal: Yes: foot pain, joint pain, muscle pain, muscle stiffness Skin: Yes lesions Psychiatric/Neurological: Yes: no symptom reported Endocrine: Yes: no symptom reported Hematologic/Lymphatic: Yes: no symptom reported Physical Exam General Appearance: no apparent distress Skin: warm, dry, no edema Respiratory: bilateral CTA Heart: S1S2, RRR Abdomen: soft, bowel sounds present, no rebound, no hernias Genitourinary: bladder flat, no mass Extremities: pulses present, atrophy Neurology: alert, oriented, follow commands Assessment Assessment IMP PAD LEFT TMA WOUND BILATERAL LINDSAY WITH LEFT INTRA STENT STENOSIS HTN ANEMIA ESRD DM II MALNUTRITION HYPERKALEMIA PLAN OR FOR LEFT LE REVASCULARIZATION WILL ALSO CHECK WITH IR ABOUT CONSIDERING RA STENTS HAVE EXPLAINED TO PT THAT IT MOST LIKELY WOULD NOT IMPROVE HIS RENAL FUNCTION ALSO EXPLAINED THAT HE WOULD BE EXPOSED TO CONTRAST IN ANY CASE I EXPECT HE WILL NEED TO START DIALYSIS SOON WOULD NOT BE UNREASONABLE TO INITIATE DIALYSIS NOW BUT HE WANTS TO WAIT CONT WITH ARANESP AND ANTIBIOTICS CONT IVF'S TO IMPROVE HIS LYTES AND CLEARANCE BEFORE THE PLANNED SURGERY TUMine ORAL KAYEXALATE CAITLIN RESTREPO MD Nov 06, 2016 14:35
[2016-11-06] MEDS ORDERED: SODIUM POLYSTYRENE SULFONATE 15 GM/60 ML ORAL.SUSP. PO ONE (14:45)
[2016-11-06 15:00] VITALS: BP 168/91
[2016-11-06 19:00] VITALS: BP 170/73
[2016-11-06] MEDS: fentaNYL PF VIAL 100 MCG/2 ML VIAL IM PRN ×2 (19:45→23:51)
[2016-11-06] MEDS: ATORVASTATIN CALCIUM 10 MG TABLET. PO SCH (20:32)
[2016-11-06] MEDS: GABAPENTIN 300 MG CAPSULE. PO SCH (20:32)
[2016-11-06 23:00] VITALS: BP 178/93
[2016-11-07] MEDS: CARISOPRODOL 350 MG TABLET PO PRN ×3 (00:30→17:50)
[2016-11-07] MEDS: HYDROmorphone 4 MG TABLET PO PRN ×7 (00:31→23:54)
[2016-11-07 03:10] VITALS: BP 161/70
[2016-11-07] MEDS: fentaNYL PF VIAL 100 MCG/2 ML VIAL IM PRN (06:37)
[2016-11-07 07:00] VITALS: BP 163/74
[2016-11-07] MEDS: INSULIN ASPART 300 UNITS/3 ML INSULN.PEN SQ SCH ×3 (08:00→18:00)
[2016-11-07] MEDS: MEROPENEM 1 GM in IV NORMAL SALINE 100ML 100 ML IV SCH (08:58)
[2016-11-07] MEDS: DICLOFENAC SODIUM 1% TOPICAL GEL 100GM TUBE. TP SCH ×2 (08:59→21:22)
[2016-11-07] MEDS: CARVEDILOL 3.125 MG TABLET. PO SCH ×2 (09:00→17:50)
[2016-11-07] MEDS: FLUCONAZOLE 100 MG TABLET. PO SCH (09:00)
[2016-11-07] MEDS: SEVELAMER CARBONATE 800 MG TABLET. PO SCH ×3 (09:00→17:49)
[2016-11-07] MEDS: LACTOBACILLUS ACIDOPH & BULGAR 1 TABLET. PO SCH ×3 (09:00→17:49)
[2016-11-07] MEDS: MULTIVITAMIN with MINERAL TABLET. PO SCH (09:00)
[2016-11-07] MEDS: ASPIRIN ENTERIC COATED 81 MG TABLET.DR. PO SCH (09:01)
[2016-11-07] MEDS: PANTOPRAZOLE 40 MG TABLET.DR. PO SCH ×2 (09:01→17:54)
[2016-11-07] MEDS: ASCORBIC ACID 500 MG TABLET PO SCH ×2 (09:01→21:19)
[2016-11-07] MEDS: amLODIPine BESYLATE 10 MG TABLET PO SCH ×2 (09:01→21:19)
[2016-11-07] MEDS: LINEZOLID 600 MG TABLET PO SCH ×2 (09:01→21:19)
[2016-11-07] MEDS: CLOPIDOGREL BISULFATE 75 MG TABLET PO SCH (09:01)
[2016-11-07 09:06] LABS: CALCIUM 8.7 mg/dL (8.5-10.1); GFR 11.9; POTASSIUM 5.1 mmol/L (3.5-5.1)
[2016-11-07 09:20] LABS: BASO # 0.1 x10^3/uL (0.0-0.2); BASO % 1 % (0-3); EOS % 6 % (0-3); HEMATOCRIT 27.6 % (39.0-53.0); LYMPH # 1.5 x10^3/uL (1.0-4.8); LYMPH % 14 % (24-48); MEAN CORPUSCULAR HEMOGLOBIN 29 pg (25-35); MEAN CORPUSCULAR HGB CONC 33 g/dL (31-37); MEAN CORPUSCULAR VOLUME 89 fL (79-100); MONO % 6 % (0-9); NEUT % 74 % (31-73); PLATELET COUNT 249 x10^3/uL (140-400); RED BLOOD COUNT 3.09 x10^6/uL (4.30-5.70); WHITE BLOOD COUNT 10.6 x10^3/uL (4.0-11.0)
--- NOTE | 2016-11-07 10:45 | PDOC ---
Infectious Disease Note Subjective Subjective Feeling well pain controlled at the moment + BM, little loose ROS ROS GEN: Denies fevers, chills, sweats HEENT: Denies blurred vision, sore throat CV: Denies chest pain RESP: Denies shortness of air, cough GI: Denies n/v/d NEURO: Denies confusion, dizziness MSK: Denies weakness, joint pain/swelling Vital Sign Vital Signs Vital Signs Date Time Temp Pulse Resp B/P (MAP) Pulse Ox O2 Delivery O2 Flow Rate FiO2 11/07/16 09:01 88 163/74 11/07/16 07:20 97 Room Air 11/07/16 07:00 98.9 18 98.9 Physical Exam PHYSICAL EXAM GENERAL: NAD, Alert HEENT: PERRL, OC/OP NECK: Supple, no JVD, no LN LUNGS: Clear HEART: S1S2, no gallop, no murmur ABD: Soft, NT, no organomegaly, no rebound EXT: No edema, no cyanosis [employer]: Alert, oriented x 3, no focal neurologic deficit SKIN: No rash IV: ok Labs Lab Laboratory Tests Test 11/06/16 10:51 11/06/16 16:00 11/06/16 20:36 11/07/16 07:38 Glucose (Fingerstick) 177 mg/dL (70-99) 149 mg/dL (70-99) 131 mg/dL (70-99) 118 mg/dL (70-99) Test 11/07/16 08:19 White Blood Count 10.6 x10^3/uL (4.0-11.0) Red Blood Count 3.09 x10^6/uL (4.30-5.70) Hemoglobin 9.0 g/dL (13.0-17.5) Hematocrit 27.6 % (39.0-53.0) Mean Corpuscular Volume 89 fL (79-100) Mean Corpuscular Hemoglobin 29 pg (25-35) Mean Corpuscular Hemoglobin Concent 33 g/dL (31-37) Red Cell Distribution Width 16.0 % (11.5-14.5) Platelet Count 249 x10^3/uL (140-400) Neutrophils (%) (Auto) 74 % (31-73) Lymphocytes (%) (Auto) 14 % (24-48) Monocytes (%) (Auto) 6 % (0-9) Eosinophils (%) (Auto) 6 % (0-3) Basophils (%) (Auto) 1 % (0-3) Neutrophils # (Auto) 7.8 x10^3uL (1.8-7.7) Lymphocytes # (Auto) 1.5 x10^3/uL (1.0-4.8) Monocytes # (Auto) 0.6 x10^3/uL (0.0-1.1) Eosinophils # (Auto) 0.6 x10^3/uL (0.0-0.7) Basophils # (Auto) 0.1 x10^3/uL (0.0-0.2) Sodium Level 143 mmol/L (136-145) Potassium Level 5.1 mmol/L (3.5-5.1) Chloride Level 108 mmol/L (98-107) Carbon Dioxide Level 22 mmol/L (21-32) Anion Gap 13 (6-14) Blood Urea Nitrogen 68 mg/dL (8-26) Creatinine 5.0 mg/dL (0.7-1.3) Estimated GFR (Cockcroft-Gault) 11.9 Glucose Level 122 mg/dL (70-99) Calcium Level 8.7 mg/dL (8.5-10.1) Objective Assessment 1. Left TMA wound dehiscence. 2. Acute kidney injury on chronic kidney disease. 3. Peripheral arterial disease. 4. Diabetes. Plan Plan of Care Zyxox, Meropenem and Fluconazole Probiotics vascular surgery with bypass and debridement of forefoot planned for BREANNA Leblanc MD Nov 07, 2016 10:45
[2016-11-07 11:00] VITALS: BP 151/79
--- NOTE | 2016-11-07 11:08 | PDOC ---
Renal-Progress Notes Vitals Vitals Vital Signs Date Time Temp Pulse Resp B/P (MAP) Pulse Ox O2 Delivery O2 Flow Rate FiO2 11/07/16 09:01 88 163/74 11/07/16 07:20 97 Room Air 11/07/16 07:00 98.9 18 98.9 Weight Weight [ ] Labs Labs Laboratory Tests Test 11/06/16 16:00 11/06/16 20:36 11/07/16 07:38 11/07/16 08:19 Glucose (Fingerstick) 149 mg/dL (70-99) 131 mg/dL (70-99) 118 mg/dL (70-99) White Blood Count 10.6 x10^3/uL (4.0-11.0) Red Blood Count 3.09 x10^6/uL (4.30-5.70) Hemoglobin 9.0 g/dL (13.0-17.5) Hematocrit 27.6 % (39.0-53.0) Mean Corpuscular Volume 89 fL (79-100) Mean Corpuscular Hemoglobin 29 pg (25-35) Mean Corpuscular Hemoglobin Concent 33 g/dL (31-37) Red Cell Distribution Width 16.0 % (11.5-14.5) Platelet Count 249 x10^3/uL (140-400) Neutrophils (%) (Auto) 74 % (31-73) Lymphocytes (%) (Auto) 14 % (24-48) Monocytes (%) (Auto) 6 % (0-9) Eosinophils (%) (Auto) 6 % (0-3) Basophils (%) (Auto) 1 % (0-3) Neutrophils # (Auto) 7.8 x10^3uL (1.8-7.7) Lymphocytes # (Auto) 1.5 x10^3/uL (1.0-4.8) Monocytes # (Auto) 0.6 x10^3/uL (0.0-1.1) Eosinophils # (Auto) 0.6 x10^3/uL (0.0-0.7) Basophils # (Auto) 0.1 x10^3/uL (0.0-0.2) Sodium Level 143 mmol/L (136-145) Potassium Level 5.1 mmol/L (3.5-5.1) Chloride Level 108 mmol/L (98-107) Carbon Dioxide Level 22 mmol/L (21-32) Anion Gap 13 (6-14) Blood Urea Nitrogen 68 mg/dL (8-26) Creatinine 5.0 mg/dL (0.7-1.3) Estimated GFR (Cockcroft-Gault) 11.9 Glucose Level 122 mg/dL (70-99) Calcium Level 8.7 mg/dL (8.5-10.1) Micro Micro Microbiology 11/01/16 Blood Culture - Final, Complete NO GROWTH AFTER 5 DAYS 11/03/16 Gram Stain - Final, Complete Review of Systems Constitutional: yes: malaise, weakness, alert, oriented Ears/Nose/Throat: Yes: no symptom reported Eyes: Yes: no symptom reported Pulmonary: Yes no symptom reported Cardiovascular: Yes no symptom reported Gastrointestional: Yes: constipation Genitourinary: Yes: no symptom reported Musculoskeletal: Yes: foot pain, joint pain, muscle pain, muscle stiffness Skin: Yes lesions Psychiatric/Neurological: Yes: no symptom reported Endocrine: Yes: no symptom reported Hematologic/Lymphatic: Yes: no symptom reported Physical Exam General Appearance: no apparent distress Skin: warm, dry, no edema Respiratory: bilateral CTA Heart: S1S2, RRR Abdomen: soft, bowel sounds present, no rebound, no hernias Genitourinary: bladder flat, no mass Extremities: pulses present, atrophy Neurology: alert, oriented, follow commands Assessment Assessment IMP PAD LEFT TMA WOUND BILATERAL LINDSAY WITH LEFT INTRA STENT STENOSIS HTN ANEMIA ESRD DM II MALNUTRITION HYPERKALEMIA-IMPROVED PLAN OR FOR LEFT LE REVASCULARIZATION WILL ALSO CHECK WITH IR ABOUT CONSIDERING RA STENTS HAVE EXPLAINED TO PT THAT IT MOST LIKELY WOULD NOT IMPROVE HIS RENAL FUNCTION ALSO EXPLAINED THAT HE WOULD BE EXPOSED TO CONTRAST IN ANY CASE I EXPECT HE WILL NEED TO START DIALYSIS SOON WOULD NOT BE UNREASONABLE TO INITIATE DIALYSIS NOW BUT HE WANTS TO WAIT CONT WITH ARANESP AND ANTIBIOTICS CONT IVF'S TO IMPROVE HIS LYTES AND CLEARANCE BEFORE THE PLANNED SURGERY TOMORROW CAITLIN RESTREPO MD Nov 07, 2016 11:08
--- NOTE | 2016-11-07 11:47 | PDOC ---
PROGRESS NOTES Chief Complaint Chief Complaint Wound dehiscence - left foot s/p left TMA 6+ weeks ago ASSESSMENT AND PLAN: 1. PVD: scheduled for left fem-post tib bypass Monday with staged debridement of forefoot. vein mapping done suggested inadequate vein; Dr Gould planning US today to evaluate greater saphenous vein and arm veins. 2. wound dehiscence/ infection: continue meropenem/zyvox/fluconazole, probiotic. wound care 3. Pain control: adequate on home PO dilaudid and IV/IM meds 4. CKD%: nephrology following. pt trying to hold off HD 5. Anemia: of ESRD. on EPO 6. 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 s/p R hand finger amputations 7. DM2: fairly well controlled; cont ISS 8. HTN, HLD: well controlled. cont home meds 9. Prophylaxis: ASA/plavix/SCDs History of Present Illness History of Present Illness had lg BM. no other c/o Vitals Vitals Vital Signs Date Time Temp Pulse Resp B/P (MAP) Pulse Ox O2 Delivery O2 Flow Rate FiO2 11/07/16 09:01 88 163/74 11/07/16 07:20 97 Room Air 11/07/16 07:00 98.9 18 98.9 Physical Exam General: Alert, Oriented X3, No acute distress Heart: Regular rate, Other (murmur, bilateral carotid bruit) Lungs: Clear, Wheezing Abdomen: Normal bowel sounds, Soft, No tenderness, Other (thin) Extremities: Other (bilat distal foot amputations, wrapped in gauze. Finger amput R) Skin: Other (left foot with amputation site dehiscence with necrosis and malodorous ) Labs LABS Laboratory Tests Test 11/06/16 16:00 11/06/16 20:36 11/07/16 07:38 11/07/16 08:19 Glucose (Fingerstick) 149 mg/dL (70-99) 131 mg/dL (70-99) 118 mg/dL (70-99) White Blood Count 10.6 x10^3/uL (4.0-11.0) Red Blood Count 3.09 x10^6/uL (4.30-5.70) Hemoglobin 9.0 g/dL (13.0-17.5) Hematocrit 27.6 % (39.0-53.0) Mean Corpuscular Volume 89 fL (79-100) Mean Corpuscular Hemoglobin 29 pg (25-35) Mean Corpuscular Hemoglobin Concent 33 g/dL (31-37) Red Cell Distribution Width 16.0 % (11.5-14.5) Platelet Count 249 x10^3/uL (140-400) Neutrophils (%) (Auto) 74 % (31-73) Lymphocytes (%) (Auto) 14 % (24-48) Monocytes (%) (Auto) 6 % (0-9) Eosinophils (%) (Auto) 6 % (0-3) Basophils (%) (Auto) 1 % (0-3) Neutrophils # (Auto) 7.8 x10^3uL (1.8-7.7) Lymphocytes # (Auto) 1.5 x10^3/uL (1.0-4.8) Monocytes # (Auto) 0.6 x10^3/uL (0.0-1.1) Eosinophils # (Auto) 0.6 x10^3/uL (0.0-0.7) Basophils # (Auto) 0.1 x10^3/uL (0.0-0.2) Sodium Level 143 mmol/L (136-145) Potassium Level 5.1 mmol/L (3.5-5.1) Chloride Level 108 mmol/L (98-107) Carbon Dioxide Level 22 mmol/L (21-32) Anion Gap 13 (6-14) Blood Urea Nitrogen 68 mg/dL (8-26) Creatinine 5.0 mg/dL (0.7-1.3) Estimated GFR (Cockcroft-Gault) 11.9 Glucose Level 122 mg/dL (70-99) Calcium Level 8.7 mg/dL (8.5-10.1) Test 11/07/16 11:03 Glucose (Fingerstick) 168 mg/dL (70-99) ELVIS TOLENTINO MD Nov 07, 2016 11:47
--- NOTE | 2016-11-07 14:56 | PDOC ---
SURGICAL PROGRESS NOTE Subjective pt complains of pain left foot Vital Signs Vital Signs Date Time Temp Pulse Resp B/P (MAP) Pulse Ox O2 Delivery O2 Flow Rate FiO2 11/07/16 11:00 98.3 85 18 151/79 (103) 99 Room Air 98.3 Labs Laboratory Tests Test 11/05/16 16:14 11/05/16 21:20 11/06/16 05:40 11/06/16 07:51 Glucose (Fingerstick) 91 mg/dL (70-99) 128 mg/dL (70-99) 113 mg/dL (70-99) White Blood Count 11.0 x10^3/uL (4.0-11.0) Red Blood Count 3.19 x10^6/uL (4.30-5.70) Hemoglobin 9.1 g/dL (13.0-17.5) Hematocrit 28.3 % (39.0-53.0) Mean Corpuscular Volume 89 fL (79-100) Mean Corpuscular Hemoglobin 29 pg (25-35) Mean Corpuscular Hemoglobin Concent 32 g/dL (31-37) Red Cell Distribution Width 16.4 % (11.5-14.5) Platelet Count 252 x10^3/uL (140-400) Neutrophils (%) (Auto) 69 % (31-73) Lymphocytes (%) (Auto) 15 % (24-48) Monocytes (%) (Auto) 9 % (0-9) Eosinophils (%) (Auto) 6 % (0-3) Basophils (%) (Auto) 1 % (0-3) Neutrophils # (Auto) 7.6 x10^3uL (1.8-7.7) Lymphocytes # (Auto) 1.7 x10^3/uL (1.0-4.8) Monocytes # (Auto) 1.0 x10^3/uL (0.0-1.1) Eosinophils # (Auto) 0.6 x10^3/uL (0.0-0.7) Basophils # (Auto) 0.1 x10^3/uL (0.0-0.2) Sodium Level 141 mmol/L (136-145) Potassium Level 5.8 mmol/L (3.5-5.1) Chloride Level 108 mmol/L (98-107) Carbon Dioxide Level 22 mmol/L (21-32) Anion Gap 11 (6-14) Blood Urea Nitrogen 68 mg/dL (8-26) Creatinine 4.8 mg/dL (0.7-1.3) Estimated GFR (Cockcroft-Gault) 12.5 Glucose Level 113 mg/dL (70-99) Calcium Level 9.1 mg/dL (8.5-10.1) Test 11/06/16 10:51 11/06/16 16:00 11/06/16 20:36 11/07/16 07:38 Glucose (Fingerstick) 177 mg/dL (70-99) 149 mg/dL (70-99) 131 mg/dL (70-99) 118 mg/dL (70-99) Test 11/07/16 08:19 11/07/16 11:03 White Blood Count 10.6 x10^3/uL (4.0-11.0) Red Blood Count 3.09 x10^6/uL (4.30-5.70) Hemoglobin 9.0 g/dL (13.0-17.5) Hematocrit 27.6 % (39.0-53.0) Mean Corpuscular Volume 89 fL (79-100) Mean Corpuscular Hemoglobin 29 pg (25-35) Mean Corpuscular Hemoglobin Concent 33 g/dL (31-37) Red Cell Distribution Width 16.0 % (11.5-14.5) Platelet Count 249 x10^3/uL (140-400) Neutrophils (%) (Auto) 74 % (31-73) Lymphocytes (%) (Auto) 14 % (24-48) Monocytes (%) (Auto) 6 % (0-9) Eosinophils (%) (Auto) 6 % (0-3) Basophils (%) (Auto) 1 % (0-3) Neutrophils # (Auto) 7.8 x10^3uL (1.8-7.7) Lymphocytes # (Auto) 1.5 x10^3/uL (1.0-4.8) Monocytes # (Auto) 0.6 x10^3/uL (0.0-1.1) Eosinophils # (Auto) 0.6 x10^3/uL (0.0-0.7) Basophils # (Auto) 0.1 x10^3/uL (0.0-0.2) Sodium Level 143 mmol/L (136-145) Potassium Level 5.1 mmol/L (3.5-5.1) Chloride Level 108 mmol/L (98-107) Carbon Dioxide Level 22 mmol/L (21-32) Anion Gap 13 (6-14) Blood Urea Nitrogen 68 mg/dL (8-26) Creatinine 5.0 mg/dL (0.7-1.3) Estimated GFR (Cockcroft-Gault) 11.9 Glucose Level 122 mg/dL (70-99) Calcium Level 8.7 mg/dL (8.5-10.1) Glucose (Fingerstick) 168 mg/dL (70-99) Laboratory Tests Test 11/06/16 16:00 11/06/16 20:36 11/07/16 07:38 11/07/16 08:19 Glucose (Fingerstick) 149 mg/dL (70-99) 131 mg/dL (70-99) 118 mg/dL (70-99) White Blood Count 10.6 x10^3/uL (4.0-11.0) Red Blood Count 3.09 x10^6/uL (4.30-5.70) Hemoglobin 9.0 g/dL (13.0-17.5) Hematocrit 27.6 % (39.0-53.0) Mean Corpuscular Volume 89 fL (79-100) Mean Corpuscular Hemoglobin 29 pg (25-35) Mean Corpuscular Hemoglobin Concent 33 g/dL (31-37) Red Cell Distribution Width 16.0 % (11.5-14.5) Platelet Count 249 x10^3/uL (140-400) Neutrophils (%) (Auto) 74 % (31-73) Lymphocytes (%) (Auto) 14 % (24-48) Monocytes (%) (Auto) 6 % (0-9) Eosinophils (%) (Auto) 6 % (0-3) Basophils (%) (Auto) 1 % (0-3) Neutrophils # (Auto) 7.8 x10^3uL (1.8-7.7) Lymphocytes # (Auto) 1.5 x10^3/uL (1.0-4.8) Monocytes # (Auto) 0.6 x10^3/uL (0.0-1.1) Eosinophils # (Auto) 0.6 x10^3/uL (0.0-0.7) Basophils # (Auto) 0.1 x10^3/uL (0.0-0.2) Sodium Level 143 mmol/L (136-145) Potassium Level 5.1 mmol/L (3.5-5.1) Chloride Level 108 mmol/L (98-107) Carbon Dioxide Level 22 mmol/L (21-32) Anion Gap 13 (6-14) Blood Urea Nitrogen 68 mg/dL (8-26) Creatinine 5.0 mg/dL (0.7-1.3) Estimated GFR (Cockcroft-Gault) 11.9 Glucose Level 122 mg/dL (70-99) Calcium Level 8.7 mg/dL (8.5-10.1) Test 11/07/16 11:03 Glucose (Fingerstick) 168 mg/dL (70-99) I have reviewed the following bilateral arm vein mapping completed. There is usable basilic vein in both arms. Problem List Problems Medical Problems: (1) Wound dehiscence Status: Acute Assessment/Plan Imp: 1. diffuse arterial insufficiency left leg with poor healing forefoot 2. inadequate saphenous vein by ultrasound 3. adequate bilateral basilic vein Plan: left fem-tib bypass tomorrow with likely composite graft vs cadaver vein. Will discuss with Dr Araujo. Problems: TANGELA MERIDA II, MD Nov 07, 2016 14:56
[2016-11-07 15:00] VITALS: BP 164/80
[2016-11-07 19:00] VITALS: BP 172/78
[2016-11-07] MEDS: GABAPENTIN 300 MG CAPSULE. PO SCH (21:19)
[2016-11-07] MEDS: IV NORMAL SALINE 1000ML BAG 1,000 ML IV SCH (21:23)
[2016-11-07 23:00] VITALS: BP 139/57
[2016-11-08] VITALS (10 sets, daily range): BP systolic 109–200; BP diastolic 71–120
[2016-11-08] MEDS: CARISOPRODOL 350 MG TABLET PO PRN ×2 (04:15→20:37)
[2016-11-08] MEDS: HYDROmorphone 4 MG TABLET PO PRN (04:15)
[2016-11-08 04:37] LABS: BASO # 0.1 x10^3/uL (0.0-0.2); BASO % 1 % (0-3); EOS % 6 % (0-3); HEMATOCRIT 27.3 % (39.0-53.0); HEMOGLOBIN 9.2 g/dL (13.0-17.5); LYMPH # 1.5 x10^3/uL (1.0-4.8); LYMPH % 17 % (24-48); MEAN CORPUSCULAR HEMOGLOBIN 29 pg (25-35); MEAN CORPUSCULAR HGB CONC 34 g/dL (31-37); MEAN CORPUSCULAR VOLUME 87 fL (79-100); MONO % 6 % (0-9); NEUT % 71 % (31-73); PLATELET COUNT 252 x10^3/uL (140-400); RED BLOOD COUNT 3.13 x10^6/uL (4.30-5.70); RED CELL DISTRIBUTION WIDTH 16.6 % (11.5-14.5); WHITE BLOOD COUNT 9.1 x10^3/uL (4.0-11.0)
[2016-11-08 04:50] LABS: CALCIUM 8.5 mg/dL (8.5-10.1); CREATININE 4.7 mg/dL (0.7-1.3); GFR 12.8; POTASSIUM 5.4 mmol/L (3.5-5.1)
[2016-11-08] MEDS ORDERED: HEPARIN SODIUM 5,000 UNIT in IV NORMAL SALINE 500ML BAG 500 ML IRR ONE ×2 (06:00→11:07)
[2016-11-08] MEDS ORDERED: IV RINGERS,LACTATED 1000ML 1,000 ML IV SCH (07:00)
[2016-11-08] MEDS ORDERED: HYDROmorphone 2 MG/ML VIAL IV PRN (07:00)
[2016-11-08] MEDS ORDERED: LIDOCAINE 1% 1 ML SYRINGE. ID PRN (07:00)
[2016-11-08] MEDS ORDERED: MORPHINE SULFATE 2 MG/ML DISP.SYRIN. IV PRN (07:00)
[2016-11-08] MEDS ORDERED: ONDANSETRON PF 4 MG/2 ML VIAL. IV PRN (07:00)
[2016-11-08] MEDS ORDERED: PROCHLORPERAZINE 10 MG/2 ML VIAL. IV PRN (07:00)
[2016-11-08] MEDS ORDERED: SURGICEL FIBRILLAR 1X2 EACH. ONE (07:01)
[2016-11-08] MEDS ORDERED: GELATIN MUCOSAL POWDER. ONE (07:02)
[2016-11-08] MEDS ORDERED: PAPAVERINE 60 MG/2 ML VIAL FOR OR ONLY. ONE (07:02)
[2016-11-08] MEDS ORDERED: THROMBIN TOPICAL 20,000 UNIT SPRAY.SYRN KIT TP ONE (07:02)
[2016-11-08] MEDS ORDERED: IOHEXOL 300 MG/ML 50 ML VIAL. ONE (07:02)
[2016-11-08] MEDS ORDERED: GELATIN SPONGE SIZE 100. ONE (07:03)
[2016-11-08] MEDS ORDERED: PROPOFOL 20 ML IV ONE (07:09)
[2016-11-08] MEDS ORDERED: FAMOTIDINE 20 MG/2 ML VIAL ONE (07:09)
[2016-11-08] MEDS ORDERED: DEXAMETHASONE SOD PHOS 20 MG/5 ML VIAL. ONE (07:10)
[2016-11-08] MEDS ORDERED: ONDANSETRON PF 4 MG/2 ML VIAL. ONE (07:10)
[2016-11-08] MEDS ORDERED: LIDOCAINE 2% PF Vial for OR 5 ML VIAL. ONE (07:10)
[2016-11-08] MEDS ORDERED: ROCURONIUM 100 MG/10 ML VIAL. ONE (07:11)
[2016-11-08] MEDS ORDERED: MIDAZOLAM HCL/PF 2 MG/2 ML VIAL. ONE (07:11)
[2016-11-08] MEDS ORDERED: fentaNYL PF VIAL 100 MCG/2 ML VIAL ONE ×3 (07:11→10:47)
--- NOTE | 2016-11-08 07:19 | PDOC ---
Provider Note Provider Note AF VSS awake and alert left leg severe PVD, left foot nonhealing recent transmetatarsal amputation with dehiscence of the incision and necrotic tissue vein mapping shows small left leg great saphenous vein, bilateral basilic veins are adequate in the upper arm K5.4, Cr 4.8, Hgb 9.2 A/P 61 year old male with left leg severe peripheral artery disease and nonhealing recent TMA - plan left femoral to posterior tibial artery bypass with possible great saphenous vein vs bilateral arm vein - ortho to revise the left TMA in the next few days when circulation improved - aspirin and plavix - chronic renal failure not yet on dialysis but likely to need it in the near future per nephrology BÁRBARA MCCAULEY MD Nov 08, 2016 07:19
[2016-11-08] MEDS ORDERED: ePHEDrine PF IN SALINE 50 MG/5 ML DISP.SYRIN IV ONE (07:44)
[2016-11-08] MEDS: LACTOBACILLUS ACIDOPH & BULGAR 1 TABLET. PO SCH ×3 (08:00→17:00)
[2016-11-08] MEDS: INSULIN ASPART 300 UNITS/3 ML INSULN.PEN SQ SCH ×3 (08:00→18:31)
[2016-11-08] MEDS: ASPIRIN ENTERIC COATED 81 MG TABLET.DR. PO SCH (08:00)
[2016-11-08] MEDS: CARVEDILOL 3.125 MG TABLET. PO SCH ×2 (08:00→18:47)
[2016-11-08] MEDS: CLOPIDOGREL BISULFATE 75 MG TABLET PO SCH (08:00)
[2016-11-08] MEDS: SEVELAMER CARBONATE 800 MG TABLET. PO SCH ×3 (08:00→17:00)
[2016-11-08] MEDS: PANTOPRAZOLE 40 MG TABLET.DR. PO SCH ×2 (08:00→18:48)
[2016-11-08] MEDS: MEROPENEM 1 GM in IV NORMAL SALINE 100ML 100 ML IV SCH (08:48)
[2016-11-08] MEDS: DICLOFENAC SODIUM 1% TOPICAL GEL 100GM TUBE. TP SCH ×2 (09:00→21:00)
[2016-11-08] MEDS: amLODIPine BESYLATE 10 MG TABLET PO SCH ×2 (09:00→20:38)
[2016-11-08] MEDS: ASCORBIC ACID 500 MG TABLET PO SCH ×2 (09:00→20:37)
[2016-11-08] MEDS: MULTIVITAMIN with MINERAL TABLET. PO SCH (09:00)
[2016-11-08] MEDS: LINEZOLID 600 MG TABLET PO SCH ×2 (09:00→20:37)
[2016-11-08] MEDS ORDERED: HEPARIN for IV BOLUS 10,000 UNIT/10 ML VIAL. ONE ×2 (10:26→19:02)
--- NOTE | 2016-11-08 11:46 | PDOC ---
PROGRESS NOTES Chief Complaint Chief Complaint Wound dehiscence - left foot s/p left TMA 6+ weeks ago ASSESSMENT AND PLAN: 1. PVD: L common femoral artery and profunda artery endarterectomy, L common femoral artery to posterior tibial artery bypass graft today 2. wound dehiscence/ infection: continue meropenem/zyvox/fluconazole, probiotic. wound care 3. Pain control: on home PO dilaudid and IV/IM meds; prob high tolerance for narcotics given chronic high use. 4. CKD5: nephrology following. pt trying to hold off HD, but unavoidable 5. Hyperkalemia: periop. eval for urgent HD ongoing. as per Dr Person 5. Anemia: of ESRD. on EPO 6. 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 s/p R hand finger amputations 7. DM2: fairly well controlled; cont ISS 8. HTN, HLD: well controlled. cont home meds 9. Prophylaxis: ASA/plavix/SCDs History of Present Illness History of Present Illness in pain in all extremities: UE harvest sites, LE bypasses. Vitals Vitals Vital Signs Date Time Temp Pulse Resp B/P (MAP) Pulse Ox O2 Delivery O2 Flow Rate FiO2 11/08/16 07:00 97.7 85 15 155/76 100 Room Air 2.0 97.7 Physical Exam General: Alert, Oriented X3, No acute distress Heart: Regular rate, Other (murmur, bilateral carotid bruit) Lungs: Clear, Wheezing Abdomen: Normal bowel sounds, Soft, No tenderness, Other (thin) Extremities: Other (bilat distal foot amputations, wrapped in gauze. Finger amput R) Skin: Other (left foot with amputation site dehiscence with necrosis and malodorous ) Labs LABS Laboratory Tests Test 11/07/16 16:14 11/07/16 21:04 11/08/16 03:57 Glucose (Fingerstick) 158 mg/dL (70-99) 175 mg/dL (70-99) White Blood Count 9.1 x10^3/uL (4.0-11.0) Red Blood Count 3.13 x10^6/uL (4.30-5.70) Hemoglobin 9.2 g/dL (13.0-17.5) Hematocrit 27.3 % (39.0-53.0) Mean Corpuscular Volume 87 fL (79-100) Mean Corpuscular Hemoglobin 29 pg (25-35) Mean Corpuscular Hemoglobin Concent 34 g/dL (31-37) Red Cell Distribution Width 16.6 % (11.5-14.5) Platelet Count 252 x10^3/uL (140-400) Neutrophils (%) (Auto) 71 % (31-73) Lymphocytes (%) (Auto) 17 % (24-48) Monocytes (%) (Auto) 6 % (0-9) Eosinophils (%) (Auto) 6 % (0-3) Basophils (%) (Auto) 1 % (0-3) Neutrophils # (Auto) 6.4 x10^3uL (1.8-7.7) Lymphocytes # (Auto) 1.5 x10^3/uL (1.0-4.8) Monocytes # (Auto) 0.5 x10^3/uL (0.0-1.1) Eosinophils # (Auto) 0.5 x10^3/uL (0.0-0.7) Basophils # (Auto) 0.1 x10^3/uL (0.0-0.2) Sodium Level 145 mmol/L (136-145) Potassium Level 5.4 mmol/L (3.5-5.1) Chloride Level 110 mmol/L (98-107) Carbon Dioxide Level 22 mmol/L (21-32) Anion Gap 13 (6-14) Blood Urea Nitrogen 70 mg/dL (8-26) Creatinine 4.7 mg/dL (0.7-1.3) Estimated GFR (Cockcroft-Gault) 12.8 Glucose Level 128 mg/dL (70-99) Calcium Level 8.5 mg/dL (8.5-10.1) ELVIS TOLENTINO MD Nov 08, 2016 11:46
[2016-11-08] MEDS ORDERED: SEVOFLURANE > 120 MINUTES. IH ONE (11:47)
[2016-11-08] MEDS ORDERED: NEOSTIGMINE METHYLSULFATE 5 MG/5 ML SYRINGE. ONE (11:52)
[2016-11-08] MEDS ORDERED: GLYCOPYRROLATE 1 MG/5 ML VIAL. ONE (11:52)
--- NOTE | 2016-11-08 12:34 | PDOC4 ---
OPERATIVE NOTE: OP NOTE dictated Pre-op: left leg severe peripheral artery disease with nonhealing recent transmetatarsal amputation with gangrene Post-op: same Operation: left common femoral and profunda artery endarterectomy, left common femoral to posterior tibial artery bypass with spliced vein (great saphenous vein + right arm basilic vein + left arm basilic vein) Surgeon: Dr. Araujo and Dr. Carlton Anesthesia: general Blood loss: 150ml Complications: none BÁRBARA ARAUJO MD Nov 08, 2016 12:34
--- NOTE | 2016-11-08 12:47 | PDOC ---
Infectious Disease Note Subjective Subjective post surgery in recovery ROS ROS no n/v/d/sob Vital Sign Vital Signs Vital Signs Date Time Temp Pulse Resp B/P (MAP) Pulse Ox O2 Delivery O2 Flow Rate FiO2 11/08/16 07:00 97.7 85 15 155/76 100 Room Air 2.0 97.7 Physical Exam PHYSICAL EXAM GENERAL: NAD, Alert HEENT: PERRL, OC/OP NECK: Supple, no JVD, no LN LUNGS: Clear HEART: S1S2, no gallop, no murmur ABD: Soft, NT, no organomegaly, no rebound EXT: No edema, no cyanosis,, post op dressing not opened STEWARD/STEWARDESS THIRD: Alert, oriented x 3, no focal neurologic deficit SKIN: No rash IV: ok Labs Lab Laboratory Tests Test 11/07/16 16:14 11/07/16 21:04 11/08/16 03:57 Glucose (Fingerstick) 158 mg/dL (70-99) 175 mg/dL (70-99) White Blood Count 9.1 x10^3/uL (4.0-11.0) Red Blood Count 3.13 x10^6/uL (4.30-5.70) Hemoglobin 9.2 g/dL (13.0-17.5) Hematocrit 27.3 % (39.0-53.0) Mean Corpuscular Volume 87 fL (79-100) Mean Corpuscular Hemoglobin 29 pg (25-35) Mean Corpuscular Hemoglobin Concent 34 g/dL (31-37) Red Cell Distribution Width 16.6 % (11.5-14.5) Platelet Count 252 x10^3/uL (140-400) Neutrophils (%) (Auto) 71 % (31-73) Lymphocytes (%) (Auto) 17 % (24-48) Monocytes (%) (Auto) 6 % (0-9) Eosinophils (%) (Auto) 6 % (0-3) Basophils (%) (Auto) 1 % (0-3) Neutrophils # (Auto) 6.4 x10^3uL (1.8-7.7) Lymphocytes # (Auto) 1.5 x10^3/uL (1.0-4.8) Monocytes # (Auto) 0.5 x10^3/uL (0.0-1.1) Eosinophils # (Auto) 0.5 x10^3/uL (0.0-0.7) Basophils # (Auto) 0.1 x10^3/uL (0.0-0.2) Sodium Level 145 mmol/L (136-145) Potassium Level 5.4 mmol/L (3.5-5.1) Chloride Level 110 mmol/L (98-107) Carbon Dioxide Level 22 mmol/L (21-32) Anion Gap 13 (6-14) Blood Urea Nitrogen 70 mg/dL (8-26) Creatinine 4.7 mg/dL (0.7-1.3) Estimated GFR (Cockcroft-Gault) 12.8 Glucose Level 128 mg/dL (70-99) Calcium Level 8.5 mg/dL (8.5-10.1) Objective Assessment 1. Left TMA wound dehiscence. 2. Acute kidney injury on chronic kidney disease. 3. Peripheral arterial disease. s/p leg bypass 4. Diabetes. Plan Plan of Care Zyxox, Meropenem and Fluconazole Probiotics BREANNA DOW MD Nov 08, 2016 12:47
[2016-11-08] MEDS: fentaNYL PF VIAL 100 MCG/2 ML VIAL IV PRN ×6 (13:09→19:35)
[2016-11-08 13:25] LABS: HEMOGLOBIN 8.3 g/dL (13.0-17.5); RED BLOOD COUNT 2.88 x10^6/uL (4.30-5.70); RED CELL DISTRIBUTION WIDTH 16.6 % (11.5-14.5)
[2016-11-08 13:30] LABS: CALCIUM 8.4 mg/dL (8.5-10.1); CREATININE 4.7 mg/dL (0.7-1.3); GFR 12.8
--- NOTE | 2016-11-08 13:33 | RAD ---
Portable chest, 11/08/2016: History: Check central line placement No previous chest radiographs are available at this time for comparison purposes. A right jugular central venous catheter extends to the level of the atriocaval junction. The heart size is normal. There is calcific plaquing of the aorta. Pulmonary markings are mildly prominent, probably due to fibrosis. There is mild pleural thickening over the apices compatible with scarring. No pulmonary consolidation is seen. There is no evidence of pleural fluid or pneumothorax. Surgical clips overlie the right axillary region. IMPRESSION: 1. The right jugular central venous catheter is in satisfactory position. 2. Mild pleural-parenchymal scarring.
[2016-11-08 13:40] LABS: POTASSIUM 6.3 mmol/L (3.5-5.1)
[2016-11-08] MEDS ORDERED: FUROSEMIDE 40 MG/4 ML VIAL. IVP PRN (14:30)
[2016-11-08] MEDS ORDERED: SODIUM BICARB ADULT 8.4% 50 MEQ/50 ML DISP.SYRIN. IV PRN (14:30)
[2016-11-08] MEDS ORDERED: SODIUM BICARB ADULT 8.4% 50 MEQ/50 ML DISP.SYRIN. ONE (14:32)
[2016-11-08] MEDS ORDERED: FUROSEMIDE 40 MG/4 ML VIAL. ONE (14:32)
--- NOTE | 2016-11-08 15:52 | OP ---
DATE OF SURGERY: 11/08/2016 SURGEON: Alexandra Araujo MD. BIOMEDICAL ENGINEERING TECHNICIAN: Denis Carlton MD. PREOPERATIVE DIAGNOSES: Left lower extremity severe peripheral arterial disease with nonhealing left transmetatarsal amputation and gangrene. POSTOPERATIVE DIAGNOSES: Left lower extremity severe peripheral arterial disease with nonhealing left transmetatarsal amputation and gangrene. OPERATIONS PERFORMED: 1. Left common femoral artery and profunda artery endarterectomy. 2. Left common femoral artery to posterior tibial artery bypass graft, with spliced vein using 1 piece of great saphenous vein, 1 piece of the right arm basilic vein and 1 piece of left arm basilic vein. 3. Right arm basilic vein harvest. 4. Left arm basilic vein harvest. ANESTHESIA USED: General anesthesia. BLOOD LOSS: 150 mL. INDICATIONS: Mr. Baker is a 61-year-old male with a recent left transmetatarsal amputation done at [facility], approximately a month ago. The incision has dehisced and there is gangrene of the wound. Orthopedic surgery here at [place] is evaluating this and consulted us because of nonpalpable pulses in his foot. An arteriogram of the left leg was performed, which showed severe stenosis, all throughout the superficial femoral artery, popliteal artery and trifurcation. He has one single vessel runoff to his foot, with a patent posterior tibial artery at the ankle level. With the significant wound in his foot, I recommended optimizing his circulation with a left common femoral to posterior tibial artery bypass graft. He also underwent iliac artery stenting during his arteriogram. Informed consent was obtained from the patient, including the risk of bleeding, infection, bypass graft failure, need for revision in the future, possible worsening of his foot wound, and need for surgical revision of this by Orthopedic Surgery in the near future. He has great saphenous vein in the leg, which is of small size vein mapping shows sufficient basilic veins in the upper arms, in his right and left arm. Therefore, vein harvest will likely need to be performed from both arms. DETAILS OF THE OPERATION: The patient was brought into the operating room and placed on table in supine position. He received general anesthesia and monitored throughout the case by the anesthesiologist. The left leg and groin were prepped and draped by normal sterile fashion circumferentially. Both the left and right arm were prepped and draped from the axilla down to the wrist by normal sterile fashion. Prior to starting the case, I used the ultrasound. I marked the basilic vein. They were widely patent in the upper arm. They became smaller in the forearm. I also marked the left great saphenous vein in the leg. I began by making a longitudinal incision through the left groin; dissected down to subcutaneous tissue with electrocautery. Crossing venous and lymphatic branches were clipped and divided and I continued dissection down to the common femoral artery. The common femoral artery was dissected up to the inguinal ligament. It was heavily calcified and firm, but did have a strong palpable pulse just under the inguinal ligament. The inguinal ligament was retracted superior with a retractor, and I dissected the common femoral artery out underneath the inguinal ligament until it was nice and soft. A vessel loop was placed around it. Medial and lateral branches were encircled with vessel loops. I continued dissection down to the profunda artery. The femoral artery was very calcified at this location. The profunda artery was dissected out and a vessel loop placed around it. It was soft, and the superficial femoral artery was dissected out, and it was very heavily calcified, and a vessel loop placed around it as well. We then explored the medial area of the wounds, dissected out the great saphenous vein at this location. The great saphenous vein was adequate size, approximately 4 mm in diameter at this location; therefore, it was dissected up to the saphenofemoral junction and down distally into the incision. A second incision along the medial thigh was made, and the subcutaneous tissue was dissected down with electrocautery, down to the great saphenous vein. It was dissected out throughout the medial thigh, down to just above the knee. It continued to be at least 3 mm throughout the thigh. I made a second incision on the medial upper calf; dissected down through subcutaneous tissue, this great saphenous vein, and it was very small at this location, only approximately 1-2 mm in diameter. I did not feel that this area would be sufficient great saphenous vein for bypass conduit for patency. Therefore, we opted to use the great saphenous vein from the groin, down to just above the knee. All venous side branches were ligated with 3-0 silk sutures, clips, and divided until it was fully mobilized. The distal end of the great saphenous vein at the knee was double clipped and the proximal end was clamped at the saphenofemoral junction. It was transected. The stump was oversewed with two layers of 5-0 Prolene suture. There was no bleeding after this was performed. The vein was irrigated with heparinized saline. We definitely needed more length of vein and therefore we started with the left arm basilic vein. A longitudinal incision was made on the medial arm over the marked basilic vein. The subcutaneous tissue was dissected down with electrocautery and crossing venous branches were clipped and divided. The basilic vein was dissected out. It was of very good size, approximately 5-6 mm in diameter. We dissected out proximally up to the axilla and then distally down to the antecubital location. It branched to the medial and lateral branch. The lateral branch was larger; therefore, was followed to the forearm; however, became very small in the mid forearm location. We felt that this would not be adequate, distal to this location. All side branches were ligated with silk sutures, clips, and divided. We had the basilic vein mobilized from the proximal location in the axilla region where it entered the deep vein. It was clamped at this location to preserve the deep vein patency, and divided. This stump was oversewed with two layers of 5-0 Prolene suture. The distal end of the basilic vein was double clipped and divided and we removed the vein. We still needed further length of vein for the bypass. Therefore, the right arm basilic vein was dissected out. A longitudinal incision was made along the medial length of the arm, over the marked vein. The subcutaneous tissue was dissected down with electrocautery and the basilic vein identified. The basilic vein was dissected from the proximal arm, down to the antecubital location. It did enter the deep vein at the mid upper arm, a little bit lower than the left arm. The basilic vein was dissected into the forearm and it continued to be good length until approximately the mid forearm, where it became very small. All side branches were ligated with 3-0 silk sutures, clips, and divided, and we fully mobilized the basilic vein from the deep connection. We clamped the basilic vein proximally, transected it, oversewed the stump with two layers of 5-0 Prolene suture, and double-clipped the distal end and removed the vein. The open wounds were packed with antibiotic-soaked sponges. The veins were soaked in heparinized saline. A medial ankle incision was made. The subcutaneous tissue was dissected down to the fascia, which was divided with electrocautery, and the posterior tibial vessels were exposed. The posterior tibial artery was very calcified at the mid incision; therefore, I continued my incision slightly more distal, and the posterior tibial artery really at the distal ankle was soft and patent. I dissected it out for a good length for a bypass and it was soft along the length of its course at this location. We then prepared the veins by irrigating them in the nonreversed fashion. They dilated up nicely. We then used the valvulotome, and for each segment of veins, we the cut the valves along the length of the veins, so that the veins could be used in the nonreversed fashion. We chose the largest vein, which was the basilic vein from the right arm to use at our proximal anastomosis. All three veins were kept in an antibiotic-soaked sponge. The patient was heparinized with 6000 units of heparin. After 3 minutes, the proximal common femoral artery, profunda artery and superficial femoral arteries were clamped. A longitudinal incision on the anterior surface of the common femoral artery was made, just at the profunda artery, extending into the superficial femoral and into the common femoral artery, slightly more proximally. We then performed an endarterectomy of the heavy calcified dense plaque within the femoral vessel. The plaque was elevated and transected, and then endarterectomy of the plaque, up to the proximal femoral clamp was performed, removing a dense cord of calcified plaque. I visualized the internal lumen and removed all pieces of calcification and plaque, until the vessel was widely patent with no further plaque within the artery. We then performed an endarterectomy of the profunda artery, removing a dense cord of plaque; however, distally it was very soft and there was very strong backbleeding. In the superficial femoral artery, there was plaque, but there was patency of this vessel. Therefore, we tacked down the posterior plaque with interrupted 7-0 Prolene sutures. The proximal end of the basilic vein in the nonreversed fashion was used. We spatulated the end of the basilic vein and an end-to-side anastomosis was created between the basilic vein and the open femoral artery with running 6-0 Prolene suture. After finishing this anastomosis, we restored blood flow. There was pulsatile blood flow to the end of the vein graft and it was clamped at the end. We explored the vein conduit. There were a few side branches which were clamped with a hemostat and 3-0 silk sutures were tied to ensure good hemostasis. The second piece of the great saphenous vein was used. The end was spatulated, so that there was spatulation of both the two ends to perform the anastomosis. An end-to-end anastomosis between the spatulated 2 veins was performed with running 7-0 Prolene suture. After finishing this anastomosis, blood flow was restored, and there was wide patency of the vein conduit, pulsatile blood flow through the end. There was a small amount of bleeding on one area which was oversewed with 7-0 Prolene suture. We explored the second segment of vein, oversewed any branches to ensure good hemostasis. The third piece of vein was then measured. We removed a small area of this vein that was smaller in diameter, and then in a nonreversed fashion, we spatulated each end, and end-to-end anastomosis between the two vein segments was performed with running 7-0 Prolene suture. After finishing this anastomosis, we removed the clamp. There was good pulsatile blood flow through the end of the graft and there was good hemostasis on the anastomosis. We explored the last segment of vein and made sure all side branches were ligated. We then used a Heriberto tunneler and tunneled from the medial calf incision up to the groin, pulled the vein through, ensuring that there was no twisting of the vein and it was widely patent with a good pulse. We then used a Heriberto tunneler, up the ankle, to pull the vein through the calf incision down to the ankle. There was good pulsatile blood flow through the end of the conduit. The posterior tibial artery was clamped proximally and distally and a longitudinal arteriotomy was made. The distal end was widely patent. The end of the vein conduit was spatulated and end-to-side anastomosis created between the vein and the open arteriotomy on the posterior tibial artery with running 7-0 Prolene suture. Prior to finishing, we backbled the vessel. There was good backbleeding and there was pulsatile inflow. We finished the anastomosis and restored blood flow. There was dopplerable signal in the distal posterior tibial artery, which was graft dependent. There was good hemostasis. All incision sites were irrigated with copious amounts of antibiotic solution. The arm incisions were closed with running 2-0 Vicryl suture and eli in the skin. The groin incision was closed with two layers of 2-0 Vicryl suture and eli in the skin level. The thigh and calf incisions were closed with running 2-0 Vicryl sutures and eli in the skin. The ankle incision was closed with running 2-0 Vicryl subcuticular suture and 3-0 nylon suture in the skin level. Sterile dressings were placed on all incision sites. The patient had a strong dopplerable signal in the distal posterior tibial location at the foot, at the end of the case. ALEXANDRA ARAUJO MD DR: BRENTON/may JOB#: [id number] / [id number]
[2016-11-08] MEDS: HYDROmorphone 2 MG/ML VIAL IV PRN ×2 (16:25→18:41)
[2016-11-08] MEDS: oxyCODONE/APAP 5/325 1 TAB TABLET PO PRN (17:18)
--- NOTE | 2016-11-08 17:55 | PDOC ---
SUBJECTIVE ROS MENDEZ/ CKD IV Pt went to OR for Michael Lower ext bypass and now in ICU for ^ed K CVS: no Orthopnea, no CP RESP: no SOB, no DIAZ GI: no Nausea, no Vomiting : no Dysuria, no Urgency OBJECTIVE Vital Signs Vital Signs Date Time Temp Pulse Resp B/P (MAP) Pulse Ox O2 Delivery O2 Flow Rate FiO2 11/08/16 16:57 94 Room Air 11/08/16 16:25 19 11/08/16 15:10 84 164/59 11/08/16 13:21 10.0 11/08/16 12:36 97.6 97.6 I & 0 Intake and Output 11/09/16 07:00 Intake Total 50 ml Output Total 900 ml Balance -850 ml IV Total 50 ml Output Urine Total 750 ml Estimated Blood Loss 150 ml PHYSICAL EXAM Physical Exam General Appearance: Awake Alert Oriented x 3 In min Distress - Pain Eyes: VIsion Unchanged Conjunctiva Normal EN: No EN Drainage Mucous Memb. moist Neck: no JVD no JVP Supple no Thyromegaly CVS: S1 S2 soft Murmur No Gallop No Rub + Edema left foot area Resp: no Rales no Rhonchi no Acc. Muscle use GI: BS +ve NO Bruit Non Tender Non Distended : no CVA tenderness; no Suprapubic Tenderness SKIN: +ve facial telangiectasias Breast Exam deferred Mu.Sk: Adequate ROM min Muscle Atrophy Heme: Unable to palpate Obvious LAD no palp Splenomegaly NEURO: Good Strength and Tone Cranial Nerves II - XII grossly intact Psych: not Depressed no Active hallucination Assessment & Plan CKD IV/V - SUspect progressed to ESRD ^ed K - (check CK) Failed temporizing measures - HD tonite: as below F 180 NR 2 Hrs 2 K 2.5 Ca 140 Na 35 HC03 Qb 350 + Qd 500+ Heparin 0 Units Uf 0 Kgs or to dry weight as tolerated May give 25-50 gms of 25% Albumin if needed to maintain Hemodynamic stability Treatment plan reviewed and discussed with pattern ruler DFU - now s/p michale Bypass for PVD Michael LINDSAY - as noted on Angio " High-grade recurrent left renal artery in-stent stenosis. Moderate right renal ostial stenosis" - long D/w Pt re role of Angioplasty/ PCI -- will D/w IR for possible intervention Anemia: (now some post-op) may need Epogen started; Transfuse as needed. Hypoalbuminemia - Nephrotic SYnd Proteinuria on UA - Ratio --> 5.5gms HTN + CKD : Current BP meds reviewed. See orders for changes. Discussed Plan of Care and prognosis etc. at length with pt, COMMENT/RELEVANT DATA Meds Current Medications Medications (Trade) Dose Ordered Sig/Zoila Start Time Stop Time Status Last Admin Dose Admin Acetaminophen (Tylenol) 650 mg PRN Q4HRS PRN 11/01/16 13:45 11/02/16 13:44 DC 11/01/16 23:03 650 MG Acetylcysteine (Mucomyst 20% Oral Solution) 1,200 mg BID 11/03/16 21:00 11/05/16 20:59 DC 11/05/16 09:25 1,200 MG Albuterol Sulfate (Ventolin Neb Soln) 2.5 mg PRN Q6HRS PRN 11/01/16 21:30 Amlodipine Besylate (Norvasc) 10 mg BID 11/01/16 22:00 11/07/16 21:19 10 MG Ascorbic Acid (Vitamin C) 500 mg BID 11/02/16 14:00 11/07/16 21:19 500 MG Aspirin (Ecotrin) 81 mg DAILYWBKFT 11/02/16 08:00 11/07/16 09:01 81 MG Atorvastatin Calcium (Lipitor) 10 mg Q48H 11/02/16 21:00 11/06/16 20:32 10 MG Carisoprodol (Soma) 350 mg TID PRN PRN 11/01/16 21:30 11/08/16 04:15 350 MG Carvedilol (Coreg) 6.25 mg BIDWMEALS 11/03/16 17:00 11/07/16 17:50 6.25 MG Cefazolin Sodium 1 gm/Sodium Chloride 500 ml @ 500 mls/hr 1X PERIOP ONCE 11/08/16 06:00 11/08/16 07:10 DC 11/08/16 09:00 Cefazolin Sodium/ Dextrose 50 ml @ 100 mls/hr 1X PREOP PRN 11/08/16 06:00 11/09/16 05:59 11/08/16 07:44 100 MLS/HR Cellulose 1 each STK-MED ONCE 11/08/16 07:01 11/08/16 07:02 DC 11/08/16 11:30 1 EACH Clopidogrel Bisulfate (Plavix) 75 mg DAILYWBKFT 11/02/16 08:00 11/07/16 09:01 75 MG Darbepoetin Rich (Aranesp) 60 mcg WEEKLYHS 11/03/16 21:00 11/03/16 21:36 60 MCG Dexamethasone Sodium Phosphate (Decadron) 20 mg STK-MED ONCE 11/08/16 07:10 11/08/16 07:11 DC Dextrose (Dextrose 50%-Water Syringe) 12.5 gm PRN Q15MIN PRN 11/01/16 19:45 Diclofenac Sodium (Voltaren) 1 richard BID 11/01/16 22:00 11/07/16 21:22 1 RICHARD Ephedrine Sulfate 50 mg STK-MED ONCE 11/08/16 07:44 11/08/16 07:45 DC Famotidine (Pepcid) 20 mg STK-MED ONCE 11/08/16 07:09 11/08/16 07:10 DC Fentanyl Citrate (Fentanyl 2ml Vial) 100 mcg STK-MED ONCE 11/08/16 10:47 11/08/16 10:48 DC Fluconazole (Diflucan) 100 mg DAILY 11/03/16 10:00 11/07/16 09:00 100 MG Furosemide (Lasix) 40 mg 1X PACU PRN 11/08/16 14:30 11/08/16 14:40 40 MG Gabapentin (Neurontin) 300 mg QHS 11/03/16 14:00 11/07/16 21:19 300 MG Gelatin (Gelfoam Size 100) 1 each STK-MED ONCE 11/08/16 07:03 11/08/16 07:04 DC Gelatin (Gelfoam Powder) 1 gm STK-MED ONCE 11/08/16 07:02 11/08/16 07:03 DC Glycopyrrolate (Robinul) 1 mg STK-MED ONCE 11/08/16 11:52 11/08/16 11:53 DC Heparin Sodium (Porcine) (Heparin Sodium) 10,000 unit STK-MED ONCE 11/08/16 10:26 11/08/16 10:27 DC Heparin Sodium (Porcine) 5000 unit/Sodium Chloride 505 ml @ 505 mls/hr 1X PERIOP ONCE 11/08/16 11:07 11/08/16 12:06 DC Heparin Sodium/ Sodium Chloride 1,000 unit 1X ONCE 11/04/16 11:00 11/04/16 11:01 DC 11/04/16 12:25 1,000 UNIT Hydromorphone HCl (Dilaudid) 1 mg Q1HR PRN 11/08/16 12:30 11/08/16 16:25 1 MG Info (Do NOT chart on this entry -- for MONITORING) 1 each PRN DAILY PRN 11/04/16 11:00 11/06/16 10:59 DC Insulin Aspart (NovoLOG) 0-7 UNITS TIDWMEALS 11/01/16 20:30 11/07/16 18:00 3 UNITS Iodixanol (Visipaque 320) 50 ml 1X ONCE 11/04/16 11:00 11/04/16 11:01 DC 11/04/16 12:24 19 ML Iohexol (Omnipaque 300 Mg/ml) 50 ml STK-MED ONCE 11/08/16 07:02 11/08/16 07:03 DC Lactobacillus Acidophilus (Bacid, Brittney-Bid) 1 tab TIDWMEALS 11/03/16 12:00 11/07/16 17:49 1 TAB Lidocaine HCl (Lidocaine Pf 2% Vial) 5 ml STK-MED ONCE 11/08/16 07:10 11/08/16 07:11 DC Lidocaine/Sodium Bicarbonate (Buffered Lidocaine 1%) 20 ml 1X ONCE 11/04/16 11:00 11/04/16 11:01 DC 11/04/16 12:25 3 ML Linezolid (Zyvox) 600 mg BID 11/03/16 10:00 11/07/16 21:19 600 MG Meropenem 1 gm/ Sodium Chloride 100 ml @ 200 mls/hr DAILY 11/03/16 10:00 11/08/16 08:48 200 MLS/HR Midazolam HCl (Versed) 2 mg STK-MED ONCE 11/08/16 07:11 11/08/16 07:12 DC Morphine Sulfate 1 mg PRN Q10MIN PRN 11/08/16 07:00 11/09/16 06:59 UNV Multivitamins (Thera M Plus) 1 tab DAILY 11/02/16 14:00 11/07/16 09:00 1 TAB Neostigmine Methylsulfate 5 mg STK-MED ONCE 11/08/16 11:52 11/08/16 11:53 DC Ondansetron HCl (Zofran) 4 mg STK-MED ONCE 11/08/16 07:10 11/08/16 07:11 DC Oxycodone/ Acetaminophen (Percocet 5/325) 2 tab PRN Q4HRS PRN 11/08/16 12:30 11/08/16 17:18 2 TAB Pantoprazole Sodium (Protonix) 40 mg BIDWMEALS 11/01/16 21:00 11/07/16 17:54 40 MG Papaverine HCl 60 mg STK-MED ONCE 11/08/16 07:02 11/08/16 07:03 DC Prochlorperazine Edisylate (Compazine) 5 mg PACU PRN PRN 11/08/16 07:00 11/09/16 06:59 Propofol 20 ml @ As Directed STK-MED ONCE 11/08/16 07:09 11/08/16 07:10 DC Ringer's Solution 1,000 ml @ 0 mls/hr Q0M 11/08/16 07:00 11/08/16 18:59 11/08/16 07:03 30 MLS/HR Rocuronium [place] (Zemuron) 100 mg STK-MED ONCE 11/08/16 07:11 11/08/16 07:12 DC Sennosides (Senna) 8.6 mg PRN QHS PRN 11/01/16 20:15 11/05/16 19:55 8.6 MG Sevelamer Carbonate (Renvela) 800 mg TIDWMEALS 11/02/16 08:00 11/07/16 17:49 800 MG Sevoflurane (Ultane) 90 ml STK-MED ONCE 11/08/16 11:47 11/08/16 11:48 DC Sodium Polystyrene Sulfonate (Kayexalate) 15 gm 1X ONCE 11/06/16 14:45 11/06/16 14:46 DC 11/06/16 16:30 15 GM Sodium Bicarbonate 100 meq 1X PACU PRN 11/08/16 14:30 11/08/16 14:50 100 MEQ Sodium Chloride 1,000 ml @ 100 mls/hr Q10H 11/08/16 12:30 Thrombin 20,000 unit STK-MED ONCE 11/08/16 07:02 11/08/16 07:03 DC Vancomycin HCl 1 each 1X ONCE 11/05/16 08:30 11/05/16 08:30 DC Vancomycin HCl (Vanco Per Pharmacy) 1 each PRN DAILY PRN 11/01/16 13:15 11/03/16 10:10 DC 11/03/16 06:59 1 EACH Vancomycin HCl 1.5 gm/Sodium Chloride 500 ml @ 250 mls/hr 1X ONCE 11/01/16 13:30 11/01/16 15:29 DC 11/01/16 13:37 250 MLS/HR Vancomycin HCl 1 gm/Sodium Chloride 250 ml @ 250 mls/hr Q48H 11/03/16 09:00 11/03/16 10:10 DC Lab Laboratory Tests Test 11/07/16 21:04 11/08/16 03:57 11/08/16 12:45 11/08/16 12:55 Glucose (Fingerstick) 175 mg/dL (70-99) 192 mg/dL (70-99) White Blood Count 9.1 x10^3/uL (4.0-11.0) 8.0 x10^3/uL (4.0-11.0) Red Blood Count 3.13 x10^6/uL (4.30-5.70) 2.88 x10^6/uL (4.30-5.70) Hemoglobin 9.2 g/dL (13.0-17.5) 8.3 g/dL (13.0-17.5) Hematocrit 27.3 % (39.0-53.0) 26.0 % (39.0-53.0) Mean Corpuscular Volume 87 fL (79-100) 90 fL (79-100) Mean Corpuscular Hemoglobin 29 pg (25-35) 29 pg (25-35) Mean Corpuscular Hemoglobin Concent 34 g/dL (31-37) 32 g/dL (31-37) Red Cell Distribution Width 16.6 % (11.5-14.5) 16.6 % (11.5-14.5) Platelet Count 252 x10^3/uL (140-400) 231 x10^3/uL (140-400) Neutrophils (%) (Auto) 71 % (31-73) Lymphocytes (%) (Auto) 17 % (24-48) Monocytes (%) (Auto) 6 % (0-9) Eosinophils (%) (Auto) 6 % (0-3) Basophils (%) (Auto) 1 % (0-3) Neutrophils # (Auto) 6.4 x10^3uL (1.8-7.7) Lymphocytes # (Auto) 1.5 x10^3/uL (1.0-4.8) Monocytes # (Auto) 0.5 x10^3/uL (0.0-1.1) Eosinophils # (Auto) 0.5 x10^3/uL (0.0-0.7) Basophils # (Auto) 0.1 x10^3/uL (0.0-0.2) Sodium Level 145 mmol/L (136-145) 143 mmol/L (136-145) Potassium Level 5.4 mmol/L (3.5-5.1) 6.3 mmol/L (3.5-5.1) Chloride Level 110 mmol/L (98-107) 111 mmol/L (98-107) Carbon Dioxide Level 22 mmol/L (21-32) 19 mmol/L (21-32) Anion Gap 13 (6-14) 13 (6-14) Blood Urea Nitrogen 70 mg/dL (8-26) 69 mg/dL (8-26) Creatinine 4.7 mg/dL (0.7-1.3) 4.7 mg/dL (0.7-1.3) Estimated GFR (Cockcroft-Gault) 12.8 12.8 Glucose Level 128 mg/dL (70-99) 199 mg/dL (70-99) Calcium Level 8.5 mg/dL (8.5-10.1) 8.4 mg/dL (8.5-10.1) Test 11/08/16 16:30 11/08/16 17:37 Sodium Level 145 mmol/L (136-145) Potassium Level 6.0 mmol/L (3.5-5.1) Chloride Level 110 mmol/L (98-107) Carbon Dioxide Level 22 mmol/L (21-32) Anion Gap 13 (6-14) Glucose (Fingerstick) 168 mg/dL (70-99) JANNET DOW MD Nov 08, 2016 17:55
[2016-11-08] MEDS ORDERED: NALOXONE 0.4 MG/ML VIAL. IV PRN (18:45)
[2016-11-08] MEDS: FLUCONAZOLE 100 MG TABLET. PO SCH (18:49)
[2016-11-08] MEDS: IV NORMAL SALINE 1000ML BAG 1,000 ML IV SCH ×2 (18:50→20:41)
[2016-11-08] MEDS ORDERED: LIDOCAINE 1% / SOD BICARB 8.4% 20 ML VIAL. IJ ONE ×2 (19:02→19:15)
[2016-11-08] MEDS: ATORVASTATIN CALCIUM 10 MG TABLET. PO SCH (20:37)
[2016-11-08] MEDS: GABAPENTIN 300 MG CAPSULE. PO SCH (20:37)
[2016-11-09] VITALS (30 sets, daily range): BP systolic 103–163; BP diastolic 53–96
[2016-11-09] MEDS: IV NORMAL SALINE 1000ML BAG 1,000 ML IV SCH ×2 (01:00→19:48)
[2016-11-09] MEDS: HYDROmorphone 2 MG/ML VIAL IV PRN (04:22)
[2016-11-09] MEDS: CARISOPRODOL 350 MG TABLET PO PRN ×2 (04:58→17:03)
[2016-11-09 05:48] LABS: BASO % 0 % (0-3); EOS % 2 % (0-3); LYMPH # 1.5 x10^3/uL (1.0-4.8); LYMPH % 16 % (24-48); MEAN CORPUSCULAR HEMOGLOBIN 30 pg (25-35); MEAN CORPUSCULAR HGB CONC 34 g/dL (31-37); MEAN CORPUSCULAR VOLUME 87 fL (79-100); MONO % 9 % (0-9); NEUT % 73 % (31-73); PLATELET COUNT 214 x10^3/uL (140-400); RED BLOOD COUNT 2.13 x10^6/uL (4.30-5.70); RED CELL DISTRIBUTION WIDTH 16.3 % (11.5-14.5); WHITE BLOOD COUNT 9.5 x10^3/uL (4.0-11.0)
[2016-11-09 05:53] LABS: CALCIUM 7.4 mg/dL (8.5-10.1); CREATININE 2.8 mg/dL (0.7-1.3); GFR 23.2; POTASSIUM 4.3 mmol/L (3.5-5.1)
[2016-11-09 06:00] LABS: HEMATOCRIT 18.5 % (39.0-53.0); HEMOGLOBIN 6.3 g/dL (13.0-17.5)
--- NOTE | 2016-11-09 06:48 | PDOC ---
Provider Note Provider Note AF BP 122/66, P 93, 100% on room air awake and alert left groin and thigh dressing dry with no hematoma, left calf dressing with bleeding on the gauze which was removed, the calf is soft with no hematoma under incision and no visual bleeding, ankle dressing dry, palpable graft and PT pulse in the foot arm dressings in place with TERRA wraps Hgb 6.3 (decreased from 8.3) A/P POD#1 left femoral to posterior tibial artery bypass with bilateral basilic veins and saphenous vein for nonhealing left TMA - aspirin and plavix daily - acute blood loss anemia - transfuse 2 units PRBC - keep on bedrest today until no further incisional bleeding - chronic renal failure - was given dialysis yesterday evening for hyperkalemia - ortho will proceed with the TMA revision when he is medically stable - post-op pain - 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
[2016-11-09] MEDS: INSULIN ASPART 300 UNITS/3 ML INSULN.PEN SQ SCH ×3 (08:00→17:00)
[2016-11-09] MEDS: LACTOBACILLUS ACIDOPH & BULGAR 1 TABLET. PO SCH ×3 (08:20→17:03)
[2016-11-09] MEDS: PANTOPRAZOLE 40 MG TABLET.DR. PO SCH ×2 (08:20→17:03)
[2016-11-09] MEDS: LINEZOLID 600 MG TABLET PO SCH (08:20)
[2016-11-09] MEDS: CLOPIDOGREL BISULFATE 75 MG TABLET PO SCH (08:20)
[2016-11-09] MEDS: SEVELAMER CARBONATE 800 MG TABLET. PO SCH ×3 (08:20→17:03)
[2016-11-09] MEDS: CARVEDILOL 3.125 MG TABLET. PO SCH ×2 (08:20→17:03)
[2016-11-09] MEDS: amLODIPine BESYLATE 10 MG TABLET PO SCH ×2 (08:20→20:34)
[2016-11-09] MEDS: MULTIVITAMIN with MINERAL TABLET. PO SCH (08:20)
[2016-11-09] MEDS: ASCORBIC ACID 500 MG TABLET PO SCH ×2 (08:21→20:34)
[2016-11-09] MEDS: ASPIRIN ENTERIC COATED 81 MG TABLET.DR. PO SCH (08:21)
[2016-11-09] MEDS: FLUCONAZOLE 100 MG TABLET. PO SCH (08:21)
[2016-11-09] MEDS: DICLOFENAC SODIUM 1% TOPICAL GEL 100GM TUBE. TP SCH ×2 (08:22→20:33)
[2016-11-09] MEDS: MEROPENEM 1 GM in IV NORMAL SALINE 100ML 100 ML IV SCH (08:22)
--- NOTE | 2016-11-09 08:22 | PDOC ---
Infectious Disease Note Subjective Subjective feeling good, has spasms in leg ROS ROS GEN: Denies fevers, chills, sweats HEENT: Denies blurred vision, sore throat CV: Denies chest pain RESP: Denies shortness of air, cough GI: Denies n/v/d NEURO: Denies confusion, dizziness Vital Sign Vital Signs Vital Signs Date Time Temp Pulse Resp B/P (MAP) Pulse Ox O2 Delivery O2 Flow Rate FiO2 11/09/16 07:22 Room Air 11/09/16 05:00 93 20 122/66 (84) 100 11/09/16 04:00 98.3 98.3 11/08/16 13:21 10.0 Physical Exam PHYSICAL EXAM GENERAL: NAD, Alert HEENT: PERRL, OC/OP NECK: Supple, no JVD, no LN LUNGS: Clear HEART: S1S2, no gallop, no murmur ABD: Soft, NT, no organomegaly, no rebound EXT: No edema, no cyanosis, leg dressing not opened HYDROTHERAPIST: Alert, oriented x 3, no focal neurologic deficit SKIN: No rash IV: ok Labs Lab Laboratory Tests Test 11/08/16 12:45 11/08/16 12:55 11/08/16 16:30 11/08/16 17:37 Glucose (Fingerstick) 192 mg/dL (70-99) 168 mg/dL (70-99) White Blood Count 8.0 x10^3/uL (4.0-11.0) Red Blood Count 2.88 x10^6/uL (4.30-5.70) Hemoglobin 8.3 g/dL (13.0-17.5) Hematocrit 26.0 % (39.0-53.0) Mean Corpuscular Volume 90 fL (79-100) Mean Corpuscular Hemoglobin 29 pg (25-35) Mean Corpuscular Hemoglobin Concent 32 g/dL (31-37) Red Cell Distribution Width 16.6 % (11.5-14.5) Platelet Count 231 x10^3/uL (140-400) Sodium Level 143 mmol/L (136-145) 145 mmol/L (136-145) Potassium Level 6.3 mmol/L (3.5-5.1) 6.0 mmol/L (3.5-5.1) Chloride Level 111 mmol/L (98-107) 110 mmol/L (98-107) Carbon Dioxide Level 19 mmol/L (21-32) 22 mmol/L (21-32) Anion Gap 13 (6-14) 13 (6-14) Blood Urea Nitrogen 69 mg/dL (8-26) Creatinine 4.7 mg/dL (0.7-1.3) Estimated GFR (Cockcroft-Gault) 12.8 Glucose Level 199 mg/dL (70-99) Calcium Level 8.4 mg/dL (8.5-10.1) Creatine Kinase 49 U/L (39-308) Test 11/08/16 21:03 11/09/16 05:00 Glucose (Fingerstick) 133 mg/dL (70-99) White Blood Count 9.5 x10^3/uL (4.0-11.0) Red Blood Count 2.13 x10^6/uL (4.30-5.70) Hemoglobin 6.3 g/dL (13.0-17.5) Hematocrit 18.5 % (39.0-53.0) Mean Corpuscular Volume 87 fL (79-100) Mean Corpuscular Hemoglobin 30 pg (25-35) Mean Corpuscular Hemoglobin Concent 34 g/dL (31-37) Red Cell Distribution Width 16.3 % (11.5-14.5) Platelet Count 214 x10^3/uL (140-400) Neutrophils (%) (Auto) 73 % (31-73) Lymphocytes (%) (Auto) 16 % (24-48) Monocytes (%) (Auto) 9 % (0-9) Eosinophils (%) (Auto) 2 % (0-3) Basophils (%) (Auto) 0 % (0-3) Neutrophils # (Auto) 6.9 x10^3uL (1.8-7.7) Lymphocytes # (Auto) 1.5 x10^3/uL (1.0-4.8) Monocytes # (Auto) 0.8 x10^3/uL (0.0-1.1) Eosinophils # (Auto) 0.2 x10^3/uL (0.0-0.7) Basophils # (Auto) 0.0 x10^3/uL (0.0-0.2) Sodium Level 140 mmol/L (136-145) Potassium Level 4.3 mmol/L (3.5-5.1) Chloride Level 105 mmol/L (98-107) Carbon Dioxide Level 25 mmol/L (21-32) Anion Gap 10 (6-14) Blood Urea Nitrogen 32 mg/dL (8-26) Creatinine 2.8 mg/dL (0.7-1.3) Estimated GFR (Cockcroft-Gault) 23.2 Glucose Level 131 mg/dL (70-99) Calcium Level 7.4 mg/dL (8.5-10.1) Objective Assessment 1. Left TMA wound dehiscence. 2. Acute kidney injury on chronic kidney disease. 3. Peripheral arterial disease. s/p leg bypass 4. Diabetes. Plan Plan of Care Meropenem and Fluconazole,, d/c zyvox Probiotics BREANNA DOW MD Nov 09, 2016 08:22
--- NOTE | 2016-11-09 08:22 | RAD ---
Procedure: Ultrasound-guided Temporary hemodialysis catheter placement 11/08/2016 Clinical Indication: Acute on chronic renal failure Sterility: All elements of maximal sterile barrier technique including the use of a cap, mask, sterile gown, sterile gloves, large sterile sheet, appropriate hand hygiene, and 2% chlorhexidine for cutaneous antisepsis (or acceptable alternative antiseptic per current guidelines) were followed for this procedure. Consent: The procedure was explained in its entirety to the patient or the patients designated sales representative womens health by a member of the treatment team, including a discussion of the risks, benefits and commonly accepted alternatives to the procedure, as well as the expected consequences of no therapy whatsoever. Discussion of the risks included, but was not limited to, those that are most frequent and those that are rare but possibly severe or life-threatening, as well as the possibility of unforeseen complications. Technique and Findings: Following informed consent, the patient was prepped and draped in the usual sterile fashion. Ultrasound interrogation of the left neck revealed patency and compressibility of the left internal jugular vein. A 21-gauge micropuncture needle was used to gain access to this vein after 1% Lidocaine was used to achieve local anesthesia. A hardcopy ultrasound image was recorded. The needle was exchanged over a wire for serial dilators followed by a 24 cm temporary hemodialysis catheter which was advanced centrally without resistance. The catheter flow rates were assessed manually and found to be excellent. Follow-up chest radiograph was obtained demonstrating catheter tip in the mid right atrium. The catheter was then flushed, packed with Heparin, capped, and sutured to the skin. No immediate complications were identified. Impression: Successful ultrasound-guided placement of a temporary hemodialysis catheter via a left internal jugular vein
[2016-11-09] MEDS ORDERED: CARISOPRODOL 350 MG TABLET PO PRN (09:00)
--- NOTE | 2016-11-09 09:00 | RAD ---
Indication catheter insertion. Assess for potential complication A single view of the chest was obtained and is compared to a study one day earlier. In the interval a temporary dialysis catheter has been inserted on the left. No complication is seen and specifically there is no evidence of pneumothorax. The heart and pulmonary vessels appear similar. Acute finding in the chest is not seen. Right IJ catheter is again noted. There is deformity involving the left humeral neck likely chronic. Clinical correlation advised. IMPRESSION: Left-sided dialysis catheter. No complication seen. No significant change in the appearance of the chest compared to yesterday's study
--- NOTE | 2016-11-09 09:00 | PDOC ---
PROGRESS NOTES Chief Complaint Chief Complaint Wound dehiscence - left foot s/p left TMA 6+ weeks ago ASSESSMENT AND PLAN: A/P POD#1 left femoral to posterior tibial artery bypass with bilateral basilic veins and saphenous vein for nonhealing left TMA (11/08/16) 1. PVD: L common femoral artery and profunda artery endarterectomy, L common femoral artery to posterior tibial artery bypass graft today 2. wound dehiscence/ infection: continue meropenem/zyvox/fluconazole, probiotic. wound care 3. Pain control: on home PO dilaudid and IV/IM meds; prob high tolerance for narcotics given chronic high use. 4. CKD5: nephrology following. pt trying to hold off HD, but unavoidable 5. Hyperkalemia: periop. eval for urgent HD ongoing. as per Dr Person 5. Anemia: of ESRD. on EPO 6. 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 s/p R hand finger amputations 7. DM2: fairly well controlled; cont ISS 8. HTN, HLD: well controlled. cont home meds 9. Prophylaxis: ASA/plavix/SCDs 10. Aucte post op pain now on [employer]PERATOR History of Present Illness History of Present Illness Seen in ICU POst op site looks good LAbs hgb 6 pus today from baseline 8-9 Complains of pain all over MUltiple calls post op, needed to strat IV FR[employer]CH EDGE OPERATOR dilaudid POD # 1 - opiod tolerant PLAN: ok to start Soma/flexeril prn Cont iV FR[employer] ED[employer] OPERATOR NArcan standby Keep tele while on FRENCH EDGE OPERATOR OK to t/.o ICU Plavix and ASA per vasc sx Abx per ID Transfuse 2 units pRBC (hgb 6 post op) CBC filiberto Dw [employer]AND [employer] OPERATOR FACING SAND Vitals Vitals Vital Signs Date Time Temp Pulse Resp B/P (MAP) Pulse Ox O2 Delivery O2 Flow Rate FiO2 11/09/16 08:20 94 112/61 11/09/16 07:22 Room Air 11/09/16 05:00 20 100 11/09/16 04:00 98.3 98.3 11/08/16 13:21 10.0 Physical Exam General: Alert, Oriented X3, No acute distress Heart: Regular rate, Other (murmur, bilateral carotid bruit) Lungs: Clear, Wheezing Abdomen: Normal bowel sounds, Soft, No tenderness, Other (thin) Extremities: Other (bilat distal foot amputations, wrapped in gauze. Finger amput R) Skin: Other (left foot with amputation site dehiscence with necrosis and malodorous ) Labs LABS Laboratory Tests Test 11/08/16 12:45 11/08/16 12:55 11/08/16 16:30 11/08/16 17:37 Glucose (Fingerstick) 192 mg/dL (70-99) 168 mg/dL (70-99) White Blood Count 8.0 x10^3/uL (4.0-11.0) Red Blood Count 2.88 x10^6/uL (4.30-5.70) Hemoglobin 8.3 g/dL (13.0-17.5) Hematocrit 26.0 % (39.0-53.0) Mean Corpuscular Volume 90 fL (79-100) Mean Corpuscular Hemoglobin 29 pg (25-35) Mean Corpuscular Hemoglobin Concent 32 g/dL (31-37) Red Cell Distribution Width 16.6 % (11.5-14.5) Platelet Count 231 x10^3/uL (140-400) Sodium Level 143 mmol/L (136-145) 145 mmol/L (136-145) Potassium Level 6.3 mmol/L (3.5-5.1) 6.0 mmol/L (3.5-5.1) Chloride Level 111 mmol/L (98-107) 110 mmol/L (98-107) Carbon Dioxide Level 19 mmol/L (21-32) 22 mmol/L (21-32) Anion Gap 13 (6-14) 13 (6-14) Blood Urea Nitrogen 69 mg/dL (8-26) Creatinine 4.7 mg/dL (0.7-1.3) Estimated GFR (Cockcroft-Gault) 12.8 Glucose Level 199 mg/dL (70-99) Calcium Level 8.4 mg/dL (8.5-10.1) Creatine Kinase 49 U/L (39-308) Test 11/08/16 21:03 11/09/16 05:00 Glucose (Fingerstick) 133 mg/dL (70-99) White Blood Count 9.5 x10^3/uL (4.0-11.0) Red Blood Count 2.13 x10^6/uL (4.30-5.70) Hemoglobin 6.3 g/dL (13.0-17.5) Hematocrit 18.5 % (39.0-53.0) Mean Corpuscular Volume 87 fL (79-100) Mean Corpuscular Hemoglobin 30 pg (25-35) Mean Corpuscular Hemoglobin Concent 34 g/dL (31-37) Red Cell Distribution Width 16.3 % (11.5-14.5) Platelet Count 214 x10^3/uL (140-400) Neutrophils (%) (Auto) 73 % (31-73) Lymphocytes (%) (Auto) 16 % (24-48) Monocytes (%) (Auto) 9 % (0-9) Eosinophils (%) (Auto) 2 % (0-3) Basophils (%) (Auto) 0 % (0-3) Neutrophils # (Auto) 6.9 x10^3uL (1.8-7.7) Lymphocytes # (Auto) 1.5 x10^3/uL (1.0-4.8) Monocytes # (Auto) 0.8 x10^3/uL (0.0-1.1) Eosinophils # (Auto) 0.2 x10^3/uL (0.0-0.7) Basophils # (Auto) 0.0 x10^3/uL (0.0-0.2) Sodium Level 140 mmol/L (136-145) Potassium Level 4.3 mmol/L (3.5-5.1) Chloride Level 105 mmol/L (98-107) Carbon Dioxide Level 25 mmol/L (21-32) Anion Gap 10 (6-14) Blood Urea Nitrogen 32 mg/dL (8-26) Creatinine 2.8 mg/dL (0.7-1.3) Estimated GFR (Cockcroft-Gault) 23.2 Glucose Level 131 mg/dL (70-99) Calcium Level 7.4 mg/dL (8.5-10.1) Review of Systems Review of Systems pain all over, over all feels miserable Assessment and Plan Assessmemt and Plan Problems Medical Problems: (1) Wound dehiscence Status: Acute Problems: Comment Review of Relevant I have reviewed the following items rula (where applicable) has been applied. Labs Laboratory Tests Test 11/07/16 11:03 11/07/16 16:14 11/07/16 21:04 11/08/16 03:57 Glucose (Fingerstick) 168 mg/dL (70-99) 158 mg/dL (70-99) 175 mg/dL (70-99) White Blood Count 9.1 x10^3/uL (4.0-11.0) Red Blood Count 3.13 x10^6/uL (4.30-5.70) Hemoglobin 9.2 g/dL (13.0-17.5) Hematocrit 27.3 % (39.0-53.0) Mean Corpuscular Volume 87 fL (79-100) Mean Corpuscular Hemoglobin 29 pg (25-35) Mean Corpuscular Hemoglobin Concent 34 g/dL (31-37) Red Cell Distribution Width 16.6 % (11.5-14.5) Platelet Count 252 x10^3/uL (140-400) Neutrophils (%) (Auto) 71 % (31-73) Lymphocytes (%) (Auto) 17 % (24-48) Monocytes (%) (Auto) 6 % (0-9) Eosinophils (%) (Auto) 6 % (0-3) Basophils (%) (Auto) 1 % (0-3) Neutrophils # (Auto) 6.4 x10^3uL (1.8-7.7) Lymphocytes # (Auto) 1.5 x10^3/uL (1.0-4.8) Monocytes # (Auto) 0.5 x10^3/uL (0.0-1.1) Eosinophils # (Auto) 0.5 x10^3/uL (0.0-0.7) Basophils # (Auto) 0.1 x10^3/uL (0.0-0.2) Sodium Level 145 mmol/L (136-145) Potassium Level 5.4 mmol/L (3.5-5.1) Chloride Level 110 mmol/L (98-107) Carbon Dioxide Level 22 mmol/L (21-32) Anion Gap 13 (6-14) Blood Urea Nitrogen 70 mg/dL (8-26) Creatinine 4.7 mg/dL (0.7-1.3) Estimated GFR (Cockcroft-Gault) 12.8 Glucose Level 128 mg/dL (70-99) Calcium Level 8.5 mg/dL (8.5-10.1) Test 11/08/16 12:45 11/08/16 12:55 11/08/16 16:30 11/08/16 17:37 Glucose (Fingerstick) 192 mg/dL (70-99) 168 mg/dL (70-99) White Blood Count 8.0 x10^3/uL (4.0-11.0) Red Blood Count 2.88 x10^6/uL (4.30-5.70) Hemoglobin 8.3 g/dL (13.0-17.5) Hematocrit 26.0 % (39.0-53.0) Mean Corpuscular Volume 90 fL (79-100) Mean Corpuscular Hemoglobin 29 pg (25-35) Mean Corpuscular Hemoglobin Concent 32 g/dL (31-37) Red Cell Distribution Width 16.6 % (11.5-14.5) Platelet Count 231 x10^3/uL (140-400) Sodium Level 143 mmol/L (136-145) 145 mmol/L (136-145) Potassium Level 6.3 mmol/L (3.5-5.1) 6.0 mmol/L (3.5-5.1) Chloride Level 111 mmol/L (98-107) 110 mmol/L (98-107) Carbon Dioxide Level 19 mmol/L (21-32) 22 mmol/L (21-32) Anion Gap 13 (6-14) 13 (6-14) Blood Urea Nitrogen 69 mg/dL (8-26) Creatinine 4.7 mg/dL (0.7-1.3) Estimated GFR (Cockcroft-Gault) 12.8 Glucose Level 199 mg/dL (70-99) Calcium Level 8.4 mg/dL (8.5-10.1) Creatine Kinase 49 U/L (39-308) Test 11/08/16 21:03 11/09/16 05:00 Glucose (Fingerstick) 133 mg/dL (70-99) White Blood Count 9.5 x10^3/uL (4.0-11.0) Red Blood Count 2.13 x10^6/uL (4.30-5.70) Hemoglobin 6.3 g/dL (13.0-17.5) Hematocrit 18.5 % (39.0-53.0) Mean Corpuscular Volume 87 fL (79-100) Mean Corpuscular Hemoglobin 30 pg (25-35) Mean Corpuscular Hemoglobin Concent 34 g/dL (31-37) Red Cell Distribution Width 16.3 % (11.5-14.5) Platelet Count 214 x10^3/uL (140-400) Neutrophils (%) (Auto) 73 % (31-73) Lymphocytes (%) (Auto) 16 % (24-48) Monocytes (%) (Auto) 9 % (0-9) Eosinophils (%) (Auto) 2 % (0-3) Basophils (%) (Auto) 0 % (0-3) Neutrophils # (Auto) 6.9 x10^3uL (1.8-7.7) Lymphocytes # (Auto) 1.5 x10^3/uL (1.0-4.8) Monocytes # (Auto) 0.8 x10^3/uL (0.0-1.1) Eosinophils # (Auto) 0.2 x10^3/uL (0.0-0.7) Basophils # (Auto) 0.0 x10^3/uL (0.0-0.2) Sodium Level 140 mmol/L (136-145) Potassium Level 4.3 mmol/L (3.5-5.1) Chloride Level 105 mmol/L (98-107) Carbon Dioxide Level 25 mmol/L (21-32) Anion Gap 10 (6-14) Blood Urea Nitrogen 32 mg/dL (8-26) Creatinine 2.8 mg/dL (0.7-1.3) Estimated GFR (Cockcroft-Gault) 23.2 Glucose Level 131 mg/dL (70-99) Calcium Level 7.4 mg/dL (8.5-10.1) Laboratory Tests Test 11/08/16 12:45 11/08/16 12:55 11/08/16 16:30 11/08/16 17:37 Glucose (Fingerstick) 192 mg/dL (70-99) 168 mg/dL (70-99) White Blood Count 8.0 x10^3/uL (4.0-11.0) Red Blood Count 2.88 x10^6/uL (4.30-5.70) Hemoglobin 8.3 g/dL (13.0-17.5) Hematocrit 26.0 % (39.0-53.0) Mean Corpuscular Volume 90 fL (79-100) Mean Corpuscular Hemoglobin 29 pg (25-35) Mean Corpuscular Hemoglobin Concent 32 g/dL (31-37) Red Cell Distribution Width 16.6 % (11.5-14.5) Platelet Count 231 x10^3/uL (140-400) Sodium Level 143 mmol/L (136-145) 145 mmol/L (136-145) Potassium Level 6.3 mmol/L (3.5-5.1) 6.0 mmol/L (3.5-5.1) Chloride Level 111 mmol/L (98-107) 110 mmol/L (98-107) Carbon Dioxide Level 19 mmol/L (21-32) 22 mmol/L (21-32) Anion Gap 13 (6-14) 13 (6-14) Blood Urea Nitrogen 69 mg/dL (8-26) Creatinine 4.7 mg/dL (0.7-1.3) Estimated GFR (Cockcroft-Gault) 12.8 Glucose Level 199 mg/dL (70-99) Calcium Level 8.4 mg/dL (8.5-10.1) Creatine Kinase 49 U/L (39-308) Test 11/08/16 21:03 11/09/16 05:00 Glucose (Fingerstick) 133 mg/dL (70-99) White Blood Count 9.5 x10^3/uL (4.0-11.0) Red Blood Count 2.13 x10^6/uL (4.30-5.70) Hemoglobin 6.3 g/dL (13.0-17.5) Hematocrit 18.5 % (39.0-53.0) Mean Corpuscular Volume 87 fL (79-100) Mean Corpuscular Hemoglobin 30 pg (25-35) Mean Corpuscular Hemoglobin Concent 34 g/dL (31-37) Red Cell Distribution Width 16.3 % (11.5-14.5) Platelet Count 214 x10^3/uL (140-400) Neutrophils (%) (Auto) 73 % (31-73) Lymphocytes (%) (Auto) 16 % (24-48) Monocytes (%) (Auto) 9 % (0-9) Eosinophils (%) (Auto) 2 % (0-3) Basophils (%) (Auto) 0 % (0-3) Neutrophils # (Auto) 6.9 x10^3uL (1.8-7.7) Lymphocytes # (Auto) 1.5 x10^3/uL (1.0-4.8) Monocytes # (Auto) 0.8 x10^3/uL (0.0-1.1) Eosinophils # (Auto) 0.2 x10^3/uL (0.0-0.7) Basophils # (Auto) 0.0 x10^3/uL (0.0-0.2) Sodium Level 140 mmol/L (136-145) Potassium Level 4.3 mmol/L (3.5-5.1) Chloride Level 105 mmol/L (98-107) Carbon Dioxide Level 25 mmol/L (21-32) Anion Gap 10 (6-14) Blood Urea Nitrogen 32 mg/dL (8-26) Creatinine 2.8 mg/dL (0.7-1.3) Estimated GFR (Cockcroft-Gault) 23.2 Glucose Level 131 mg/dL (70-99) Calcium Level 7.4 mg/dL (8.5-10.1) Microbiology 11/01/16 Blood Culture - Final, Complete NO GROWTH AFTER 5 DAYS 11/03/16 Gram Stain - Final, Complete Medications Current Medications Sodium Chloride 1,000 ml @ 1,000 mls/hr 1X ONCE IV Last administered on 11:06; Start 11/01/16 at 10:30; Stop 11/01/16 at 11:38; Status DC Fentanyl Citrate (Fentanyl 2ml Vial) 50 mcg 1X ONCE IV Last administered on 11:08; Start 11/01/16 at 11:15; Stop 11/01/16 at 11:16; Status DC Vancomycin HCl (Vanco Per Pharmacy) 1 each PRN DAILY PRN MC SEE COMMENTS Last administered on 11/03/16 06:59; Start 11/01/16 at 13:15; Stop 11/03/16 at 10:10 ; Status DC Vancomycin HCl 1.5 gm/Sodium Chloride 500 ml @ 250 mls/hr 1X ONCE IV Last administered on 11/01/16 13:37; Start 11/01/16 at 13:30; Stop 11/01/16 at 15:29 ; Status DC Fentanyl Citrate (Fentanyl 2ml Vial) 50 mcg 1X ONCE IV Last administered on 13:40; Start 11/01/16 at 13:30; Stop 11/01/16 at 13:31; Status DC Ondansetron HCl (Zofran) 4 mg PRN Q8HRS PRN IV NAUSEA/VOMITING; Start 11/01/16 at 13:45; Stop 11/02/16 at 13:44; Status DC Acetaminophen (Tylenol) 650 mg PRN Q4HRS PRN PO FEVER Last administered on 11/01 23:03; Start 11/01/16 at 13:45; Stop 11/02/16 at 13:44; Status DC Fentanyl Citrate (Fentanyl 2ml Vial) 50 mcg PRN Q4HRS PRN IM PAIN Last administered on 11/07/16 06:37; Start 11/01/16 at 13:45; Stop 11/07/16 at 14:40; Status DC Vancomycin HCl 1 each 1X ONCE MC Last administered on 11/03/16 06:03; Start 11/03/16 at 05:00; Stop 11/03/16 at 10:10; Status DC Insulin Aspart (NovoLOG) 0-7 UNITS TIDWMEALS SQ Last administered on 11/08/16 18:31; Start 11/01/16 at 20:30 Dextrose (Dextrose 50%-Water Syringe) 12.5 gm PRN Q15MIN PRN IV SEE COMMENTS; Start 11/01/16 at 19:45 Hydromorphone HCl (Dilaudid) 4 mg PRN Q4HRS PRN PO PAIN Last administered on 10:11; Start 11/01/16 at 20:15; Stop 11/03/16 at 11:17; Status DC Pantoprazole Sodium (Protonix) 40 mg BIDWMEALS PO Last administered on 08:20; Start 11/01/16 at 21:00 Sennosides (Senna) 8.6 mg PRN QHS PRN PO CONSTIPATION Last administered on 19:55; Start 11/01/16 at 20:15 Sevelamer Carbonate (Renvela) 800 mg TIDWMEALS PO Last administered on 08:20; Start 11/02/16 at 08:00 Albuterol Sulfate (Ventolin Neb Soln) 2.5 mg PRN Q6HRS PRN NEB SHORTNESS OF BREATH; Start 11/01/16 at 21:30 Amlodipine Besylate (Norvasc) 10 mg BID PO Last administered on 11/09/16 08:20 ; Start 11/01/16 at 22:00 Aspirin (Ecotrin) 81 mg [id number] PO Last administered on 11/09/16 08:21; Start 11/02/16 at 08:00 Atorvastatin Calcium (Lipitor) 10 mg Q48H PO ; Start 11/01/16 at 21:00; Stop at 02:25; Status DC Carisoprodol (Soma) 350 mg TID PRN PRN PO MUSCLE SPASMS Last administered on 04:58; Start 11/01/16 at 21:30 Carvedilol (Coreg) 3.125 mg BIDWMEALS PO Last administered on 11/03/16 08:43; Start 11/02/16 at 08:00; Stop 11/03/16 at 10:22; Status DC Clopidogrel Bisulfate (Plavix) 75 mg DAILYWBKFT PO Last administered on 08:20; Start 11/02/16 at 08:00 Diclofenac Sodium (Voltaren) 1 richard BID TP Last administered on 11/09/16 08:22; Start 11/01/16 at 22:00 Atorvastatin Calcium (Lipitor) 10 mg Q48H PO Last administered on 11/08/16 20: 37; Start 11/02/16 at 21:00 Multivitamins (Thera M Plus) 1 tab DAILY PO Last administered on 11/09/16 08:20 ; Start 11/02/16 at 14:00 Ascorbic Acid (Vitamin C) 500 mg BID PO Last administered on 11/09/16 08:21; Start 11/02/16 at 14:00 Vancomycin HCl 1 gm/Sodium Chloride 250 ml @ 250 mls/hr Q48H IV ; Start at 09:00; Stop 11/03/16 at 10:10; Status DC Vancomycin HCl 1 each 1X ONCE MC ; Start 11/05/16 at 08:30; Stop 11/05/16 at 08: 30; Status DC Linezolid (Zyvox) 600 mg BID PO Last administered on 11/09/16 08:20; Start at 10:00 Meropenem 1 gm/ Sodium Chloride 100 ml @ 200 mls/hr DAILY IV Last administered on 11/09/16 08:22; Start 11/03/16 at 10:00 Fluconazole (Diflucan) 100 mg DAILY PO Last administered on 11/09/16 08:21; Start 11/03/16 at 10:00 Lactobacillus Acidophilus (Bacid, Brittney-Bid) 1 tab TIDWMEALS PO Last administered on 11/09/16 08:20; Start 11/03/16 at 12:00 Carvedilol (Coreg) 6.25 mg BIDWMEALS PO Last administered on 11/09/16 08:20; Start 11/03/16 at 17:00 Sodium Chloride 1,000 ml @ 100 mls/hr Q10H IV Last administered on 11/04/16 16 :04; Start 11/03/16 at 10:30; Stop 11/05/16 at 13:19; Status DC Acetylcysteine (Mucomyst 20% Oral Solution) 1,200 mg BID PO Last administered on 11/05/16 09:25; Start 11/03/16 at 21:00; Stop 11/05/16 at 20:59; Status DC Darbepoetin Rich (Aranesp) 60 mcg WEEKLYHS SQ Last administered on 11/03/16 21 :36; Start 11/03/16 at 21:00 Hydromorphone HCl (Dilaudid) 8 mg PRN Q4HRS PRN PO PAIN Last administered on 12:39; Start 11/03/16 at 11:15; Stop 11/07/16 at 14:40; Status DC Gabapentin (Neurontin) 300 mg QHS PO Last administered on 11/08/16 20:37; Start 11/03/16 at 14:00 Lidocaine/Sodium Bicarbonate (Buffered Lidocaine 1%) 20 ml STK-MED ONCE IJ ; Start 11/04/16 at 08:16; Stop 11/04/16 at 08:17; Status DC Heparin Sodium/ Sodium Chloride 0 ml @ As Directed STK-MED ONCE .ROUTE ; Start 11/04/16 at 08:17; Stop 11/04/16 at 08:18; Status DC Iodixanol (Visipaque 320) 100 ml STK-MED ONCE .ROUTE ; Start 11/04/16 at 08:17; Stop 11/04/16 at 08:18; Status DC Iodixanol (Visipaque 320) 50 ml STK-MED ONCE .ROUTE ; Start 11/04/16 at 09:57; Stop 11/04/16 at 09:58; Status DC Lidocaine/Sodium Bicarbonate (Buffered Lidocaine 1%) 20 ml STK-MED ONCE IJ ; Start 11/04/16 at 09:58; Stop 11/04/16 at 09:59; Status DC Heparin Sodium/ Sodium Chloride 1,500 ml @ As Directed STK-MED ONCE .ROUTE ; Start 11/04/16 at 09:58; Stop 11/04/16 at 09:59; Status DC Heparin Sodium (Porcine) (Heparin Sodium) 10,000 unit STK-MED ONCE .ROUTE ; Start 11/04/16 at 10:29; Stop 11/04/16 at 10:30; Status DC Midazolam HCl (Versed) 2 mg STK-MED ONCE .ROUTE ; Start 11/04/16 at 10:29; Stop 11/04/16 at 10:30; Status DC Heparin Sodium/ Sodium Chloride 1,000 unit 1X ONCE IART Last administered on 12:25; Start 11/04/16 at 11:00; Stop 11/04/16 at 11:01; Status DC Lidocaine/Sodium Bicarbonate (Buffered Lidocaine 1%) 20 ml 1X ONCE IJ Last administered on 11/04/16 12:25; Start 11/04/16 at 11:00; Stop 11/04/16 at 11:01; Status DC Midazolam HCl (Versed) 2 mg 1X ONCE IV Last administered on 11/04/16 12:26; Start 11/04/16 at 11:00; Stop 11/04/16 at 11:01; Status DC Fentanyl Citrate (Fentanyl 2ml Vial) 100 mcg 1X ONCE IV Last administered on 12:27; Start 11/04/16 at 11:00; Stop 11/04/16 at 11:01; Status DC Iodixanol (Visipaque 320) 50 ml 1X ONCE IART Last administered on 11/04/16 12: 24; Start 11/04/16 at 11:00; Stop 11/04/16 at 11:01; Status DC Info (Do NOT chart on this entry -- for MONITORING) 1 each PRN DAILY PRN MC SEE COMMENTS; Start 11/04/16 at 11:00; Stop 11/06/16 at 10:59; Status DC Heparin Sodium (Porcine) (Heparin Sodium) 5,000 unit 1X ONCE IV Last administered on 11/04/16 12:27; Start 11/04/16 at 12:15; Stop 11/04/16 at 12:21; Status DC Sodium Chloride 1,000 ml @ 75 mls/hr [id number] IV Last administered on 11/07/16 21:23; Start 11/05/16 at 15:45; Stop 11/08/16 at 14:14; Status DC Sodium Polystyrene Sulfonate (Kayexalate) 15 gm 1X ONCE PO Last administered on 11/06/16 16:30; Start 11/06/16 at 14:45; Stop 11/06/16 at 14:46; Status DC Ondansetron HCl (Zofran) 4 mg PRN Q6HRS PRN IV NAUSEA/VOMITING; Start 11/08/16 at 07:00; Stop 11/09/16 at 06:59; Status DC Fentanyl Citrate (Fentanyl 2ml Vial) 25 mcg PRN Q5MIN PRN IV MILD PAIN Last administered on 11/08/16 13:25; Start 11/08/16 at 07:00; Stop 11/09/16 at 06:59; Status DC Fentanyl Citrate (Fentanyl 2ml Vial) 50 mcg PRN Q5MIN PRN IV MODERATE PAIN Last administered on 11/08/16 14:55; Start 11/08/16 at 07:00; Stop 11/09/16 at 06: 59; Status DC Morphine Sulfate 1 mg PRN Q10MIN PRN IV SEVERE PAIN; Start 11/08/16 at 07:00; Stop 11/09/16 at 06:59; Status UNV Ringer's Solution 1,000 ml @ 0 mls/hr Q0M IV Last administered on 11/08/16 07: 03; Start 11/08/16 at 07:00; Stop 11/08/16 at 18:59; Status DC Lidocaine HCl 2 ml PRN 1X PRN ID PRIOR TO IV START; Start 11/08/16 at 07:00; Stop 11/09/16 at 06:59; Status DC Hydromorphone HCl (Dilaudid) 0.5 mg PRN Q10MIN PRN IV SEV PAIN, Second choice; Start 11/08/16 at 07:00; Stop 11/09/16 at 06:59; Status DC Prochlorperazine Edisylate (Compazine) 5 mg PACU PRN PRN IV NAUSEA, MRX1; Start 11/08/16 at 07:00; Stop 11/09/16 at 06:59; Status DC Hydromorphone HCl (Dilaudid) 8 mg PRN Q3HRS PRN PO PAIN Last administered on 04:15; Start 11/07/16 at 14:45 Cellulose 1 each STK-MED ONCE .ROUTE Last administered on 11/08/16 11:30; Start 11/08/16 at 07:01; Stop 11/08/16 at 07:02; Status DC Iohexol (Omnipaque 300 Mg/ml) 50 ml STK-MED ONCE .ROUTE ; Start 11/08/16 at 07:02 ; Stop 11/08/16 at 07:03; Status DC Gelatin (Gelfoam Powder) 1 gm STK-MED ONCE .ROUTE ; Start 11/08/16 at 07:02; Stop 11/08/16 at 07:03; Status DC Papaverine HCl 60 mg STK-MED ONCE .ROUTE ; Start 11/08/16 at 07:02; Stop 11/08/16 at 07:03; Status DC Thrombin 20,000 unit STK-MED ONCE TP ; Start 11/08/16 at 07:02; Stop 11/08/16 at 07:03; Status DC Gelatin (Gelfoam Size 100) 1 each STK-MED ONCE .ROUTE ; Start 11/08/16 at 07:03 ; Stop 11/08/16 at 07:04; Status DC Cefazolin Sodium/ Dextrose 50 ml @ As Directed STK-MED ONCE IV ; Start 11/08/16 at 07:07; Stop 11/08/16 at 07:08; Status DC Cefazolin Sodium 1 gm/Sodium Chloride 500 ml @ 500 mls/hr 1X PERIOP ONCE IRR Last administered on 11/08/16 09:00; Start 11/08/16 at 06:00; Stop 11/08/16 at 07: 10; Status DC Heparin Sodium (Porcine) 5000 unit/Sodium Chloride 505 ml @ 505 mls/hr 1X PERIOP ONCE IRR Last administered on 11/08/16 09:01; Start 11/08/16 at 06:00; Stop 11/08/16 at 07:10; Status DC Famotidine (Pepcid) 20 mg STK-MED ONCE .ROUTE ; Start 11/08/16 at 07:09; Stop 11/08/16 at 07:10; Status DC Propofol 20 ml @ As Directed STK-MED ONCE IV ; Start 11/08/16 at 07:09; Stop 11/08 at 07:10; Status DC Ondansetron HCl (Zofran) 4 mg STK-MED ONCE .ROUTE ; Start 11/08/16 at 07:10; Stop 11/08/16 at 07:11; Status DC Dexamethasone Sodium Phosphate (Decadron) 20 mg STK-MED ONCE .ROUTE ; Start 11/08 at 07:10; Stop 11/08/16 at 07:11; Status DC Lidocaine HCl (Lidocaine Pf 2% Vial) 5 ml STK-MED ONCE .ROUTE ; Start 11/08/16 at 07:10; Stop 11/08/16 at 07:11; Status DC Fentanyl Citrate (Fentanyl 2ml Vial) 100 mcg STK-MED ONCE .ROUTE ; Start at 07:11; Stop 11/08/16 at 07:12; Status DC Midazolam HCl (Versed) 2 mg STK-MED ONCE .ROUTE ; Start 11/08/16 at 07:11; Stop 11/08/16 at 07:12; Status DC Rocuronium [place] (Zemuron) 100 mg STK-MED ONCE .ROUTE ; Start 11/08/16 at 07:11 ; Stop 11/08/16 at 07:12; Status DC Cefazolin Sodium/ Dextrose 50 ml @ 100 mls/hr 1X PREOP PRN IV Pre Op Dose Last administered on 11/08/16 07:44; Start 11/08/16 at 06:00; Stop 11/09/16 at 05: 59; Status DC Ephedrine Sulfate 50 mg STK-MED ONCE IV ; Start 11/08/16 at 07:44; Stop 11/08/16 at 07:45; Status DC Fentanyl Citrate (Fentanyl 2ml Vial) 100 mcg STK-MED ONCE .ROUTE ; Start at 08:55; Stop 11/08/16 at 08:56; Status DC Heparin Sodium (Porcine) (Heparin Sodium) 10,000 unit STK-MED ONCE .ROUTE ; Start 11/08/16 at 10:26; Stop 11/08/16 at 10:27; Status DC Fentanyl Citrate (Fentanyl 2ml Vial) 100 mcg STK-MED ONCE .ROUTE ; Start at 10:47; Stop 11/08/16 at 10:48; Status DC Heparin Sodium (Porcine) 5000 unit/Sodium Chloride 505 ml @ 505 mls/hr 1X PERIOP ONCE IRR ; Start 11/08/16 at 11:07; Stop 11/08/16 at 12:06; Status DC Sevoflurane (Ultane) 90 ml STK-MED ONCE IH ; Start 11/08/16 at 11:47; Stop at 11:48; Status DC Glycopyrrolate (Robinul) 1 mg STK-MED ONCE .ROUTE ; Start 11/08/16 at 11:52; Stop 11/08/16 at 11:53; Status DC Neostigmine Methylsulfate 5 mg STK-MED ONCE .ROUTE ; Start 11/08/16 at 11:52; Stop 11/08/16 at 11:53; Status DC Hydromorphone HCl (Dilaudid) 1 mg Q1HR PRN IV SEVERE PAIN Last administered on 11/09/16t 04:22; Start 11/08/16 at 12:30 Oxycodone/ Acetaminophen (Percocet 5/325) 1 tab PRN Q4HRS PRN PO PAIN; Start at 12:30 Oxycodone/ Acetaminophen (Percocet 5/325) 2 tab PRN Q4HRS PRN PO PAIN Last administered on 11/08/16t 17:18; Start 11/08/16 at 12:30 Sodium Chloride 1,000 ml @ 100 mls/hr Q10H IV Last administered on 11/09/16 01 :00; Start 11/08/16 at 12:30 Furosemide (Lasix) 40 mg STK-MED ONCE .ROUTE ; Start 11/08/16 at 14:32; Stop 11/08 at 14:33; Status DC Sodium Bicarbonate 50 meq STK-MED ONCE .ROUTE ; Start 11/08/16 at 14:32; Stop 11/08/16 at 14:33; Status DC Sodium Bicarbonate 100 meq 1X PACU PRN IV SEE COMMENTS Last administered on 11/08 14:50; Start 11/08/16 at 14:30 Furosemide (Lasix) 40 mg 1X PACU PRN IVP SEE COMMENTS Last administered on 14:40; Start 11/08/16 at 14:30 Naloxone HCl (Narcan) 0.4 mg PRN Q2MIN PRN IV SEE INSTRUCTIONS; Start 11/08/16 at 18:45 Sodium Chloride 1,000 ml @ 25 mls/hr Q24H IV Last administered on 11/08/16 20: 41; Start 11/08/16 at 19:00 Hydromorphone HCl 30 ml @ 0 mls/hr CONT PRN PRN IV PROTOCOL Last administered on 11/08/16 19:06; Start 11/08/16 at 18:45 Heparin Sodium (Porcine) (Heparin Sodium) 10,000 unit STK-MED ONCE .ROUTE ; Start 11/08/16 at 19:02; Stop 11/08/16 at 19:03; Status DC Lidocaine/Sodium Bicarbonate (Buffered Lidocaine 1%) 20 ml STK-MED ONCE IJ ; Start 11/08/16 at 19:02; Stop 11/08/16 at 19:03; Status DC Heparin Sodium/ Sodium Chloride 500 ml @ As Directed STK-MED ONCE .ROUTE ; Start 11/08/16 at 19:02; Stop 11/08/16 at 19:03; Status DC Lidocaine/Sodium Bicarbonate (Buffered Lidocaine 1%) 3 ml 1X ONCE IJ Last administered on 11/08/16 19:50; Start 11/08/16 at 19:15; Stop 11/08/16 at 19:16; Status DC Heparin Sodium (Porcine) (Heparin Sodium) 2,500 unit 1X ONCE INT CAT Last administered on 11/08/16 19:49; Start 11/08/16 at 19:15; Stop 11/08/16 at 19:16; Status DC Heparin Sodium/ Sodium Chloride 60 unit 1X ONCE IV Last administered on t 19:15; Start 11/08/16 at 19:15; Stop 11/08/16 at 19:16; Status DC Vitals/I & O Vital Sign - Last 24 Hours 11/08/16 11/08/16 11/08/16 11/08/16 12:36 12:36 12:51 13:06 Temp 97.6 97.6 Pulse 86 80 74 Resp 16 20 B/P (MAP) 152/54 151/62 162/54 Pulse Ox 100 100 100 O2 Delivery Mask Simple Mask Simple Mask Simple Mask O2 Flow Rate 10 10 10 10 11/08/16 11/08/16 11/08/16 11/08/16 13:09 13:21 13:36 13:51 Pulse 78 75 75 Resp 20 B/P (MAP) 152/64 159/53 162/59 Pulse Ox 100 100 95 95 O2 Delivery Simple Mask Simple Mask Room Air Room Air O2 Flow Rate 10.0 10.0 11/08/16 11/08/16 11/08/16 11/08/16 14:06 14:44 14:59 15:10 Pulse 84 78 78 84 Resp 18 18 20 16 B/P (MAP) 156/77 147/82 173/70 164/59 Pulse Ox 96 96 95 96 O2 Delivery Room Air Room Air Room Air Room Air 11/08/16 11/08/16 11/08/16 11/08/16 15:41 15:45 16:00 16:00 Temp 97.0 97.0 Pulse 82 82 Resp 16 16 16 B/P (MAP) 196/81 (119) 200/71 (114) O2 Delivery Room Air Room Air Room Air 11/08/16 11/08/16 11/08/16 11/08/16 16:25 16:57 17:00 18:00 Pulse 88 92 Resp 19 18 16 B/P (MAP) 177/76 (109) 190/76 (114) Pulse Ox 96 94 95 O2 Delivery Room Air Room Air Room Air Room Air 11/08/16 11/08/16 11/08/16 11/08/16 18:47 19:00 19:06 20:00 Temp 97.7 97.7 Pulse 88 88 Resp 16 18 16 B/P (MAP) 193/84 190/95 (126) 169/97 (121) Pulse Ox 100 100 100 O2 Delivery Room Air Room Air Room Air 11/08/16 11/08/16 11/08/16 11/08/16 20:00 20:38 21:00 22:00 Pulse 95 98 100 Resp 17 16 B/P (MAP) 178/98 152/120 (131) 109/75 (86) Pulse Ox 100 100 O2 Delivery Room Air Room Air Room Air 11/08/16 11/09/16 11/09/16 11/09/16 23:00 00:00 00:00 01:00 Temp 98.0 98.0 Pulse 104 88 90 Resp 18 15 16 B/P (MAP) 135/95 (108) 163/85 (111) Pulse Ox 100 100 100 O2 Delivery Room Air Room Air Room Air Room Air 11/09/16 11/09/16 11/09/16 11/09/16 02:00 03:00 04:00 04:00 Temp 98.3 98.3 Pulse 84 90 95 Resp 16 15 19 B/P (MAP) 162/75 (104) 162/70 (100) 126/53 (77) Pulse Ox 100 100 100 O2 Delivery Room Air Room Air Room Air Room Air 11/09/16 11/09/16 11/09/16 11/09/16 04:22 05:00 07:22 08:20 Pulse 93 94 Resp 20 B/P (MAP) 122/66 (84) 112/61 Pulse Ox 100 O2 Delivery Room Air Room Air Room Air 11/09/16 08:20 Pulse 94 B/P (MAP) 112/61 JOSE LEZAMA MD Nov 09, 2016 09:00
--- NOTE | 2016-11-09 10:16 | PDOC ---
SUBJECTIVE ROS MENDEZ/ CKD IV/ V Doing better overall but admits "i'm a mess" CVS: no Orthopnea, no CP RESP: no SOB, no DIAZ GI: no Nausea, no Vomiting : no Dysuria, no Urgency OBJECTIVE Vital Signs Vital Signs Date Time Temp Pulse Resp B/P (MAP) Pulse Ox O2 Delivery O2 Flow Rate FiO2 11/09/16 09:28 98.5 91 18 114/66 98.5 11/09/16 07:22 Room Air 11/09/16 05:00 100 11/08/16 13:21 10.0 I & 0 Intake and Output 11/10/16 07:00 Intake Total 300 ml Balance 300 ml Blood Product IV Normal Saline Flush 300 ml PHYSICAL EXAM Physical Exam General Appearance: Awake Alert Oriented x 3 In min Distress - Pain Eyes: VIsion Unchanged Conjunctiva Normal EN: No EN Drainage Mucous Memb. moist Neck: no JVD no JVP Supple no Thyromegaly CVS: S1 S2 soft Murmur No Gallop No Rub + Edema left foot area Resp: no Rales no Rhonchi no Acc. Muscle use GI: BS +ve NO Bruit Non Tender Non Distended : no CVA tenderness; no Suprapubic Tenderness SKIN: +ve facial telangiectasias Breast Exam deferred Mu.Sk: Adequate ROM min Muscle Atrophy Heme: Unable to palpate Obvious LAD no palp Splenomegaly NEURO: Good Strength and Tone Cranial Nerves II - XII grossly intact Psych: not Depressed no Active hallucination Assessment & Plan CKD IV/V - SUspect progressed to ESRD - UO OK so far. 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 Moderate right renal ostial stenosis" - long D/w Pt re role of Angioplasty/ PCI -- will D/w IR for possible intervention in am - pt willing to consider that as last option prior to contd HD Anemia: (now some post-op) Epogen started; Transfuse as needed. Hypoalbuminemia - Nephrotic SYnd as noted by ratio Proteinuria on UA - Ratio --> 5.5gms HTN + CKD : Current BP meds reviewed. See orders for changes. Discussed Plan of Care and prognosis etc. at length with pt, COMMENT/RELEVANT DATA Meds Current Medications Medications (Trade) Dose Ordered Sig/Zoila Start Time Stop Time Status Last Admin Dose Admin Acetaminophen (Tylenol) 650 mg PRN Q4HRS PRN 11/01/16 13:45 11/02/16 13:44 DC 11/01/16 23:03 650 MG Acetylcysteine (Mucomyst 20% Oral Solution) 1,200 mg BID 11/03/16 21:00 11/05/16 20:59 DC 11/05/16 09:25 1,200 MG Albuterol Sulfate (Ventolin Neb Soln) 2.5 mg PRN Q6HRS PRN 11/01/16 21:30 Amlodipine Besylate (Norvasc) 10 mg BID 11/01/16 22:00 11/09/16 08:20 10 MG Ascorbic Acid (Vitamin C) 500 mg BID 11/02/16 14:00 11/09/16 08:21 500 MG Aspirin (Ecotrin) 81 mg DAILYWBKFT 11/02/16 08:00 11/09/16 08:21 81 MG Atorvastatin Calcium (Lipitor) 10 mg Q48H 11/02/16 21:00 11/08/16 20:37 10 MG Carisoprodol (Soma) 350 mg TID PRN PRN 11/09/16 09:00 Carvedilol (Coreg) 6.25 mg BIDWMEALS 11/03/16 17:00 11/09/16 08:20 6.25 MG Cefazolin Sodium 1 gm/Sodium Chloride 500 ml @ 500 mls/hr 1X PERIOP ONCE 11/08/16 06:00 11/08/16 07:10 DC 11/08/16 09:00 Cefazolin Sodium/ Dextrose 50 ml @ 100 mls/hr 1X PREOP PRN 11/08/16 06:00 11/09/16 05:59 DC 11/08/16 07:44 100 MLS/HR Cellulose 1 each STK-MED ONCE 11/08/16 07:01 11/08/16 07:02 DC 11/08/16 11:30 1 EACH Clopidogrel Bisulfate (Plavix) 75 mg DAILYWBKFT 11/02/16 08:00 11/09/16 08:20 75 MG Cyclobenzaprine HCl (Flexeril) 10 mg PRN Q6HRS PRN 11/09/16 09:00 Darbepoetin Rich (Aranesp) 60 mcg WEEKLYHS 11/03/16 21:00 11/03/16 21:36 60 MCG Dexamethasone Sodium Phosphate (Decadron) 20 mg STK-MED ONCE 11/08/16 07:10 11/08/16 07:11 DC Dextrose (Dextrose 50%-Water Syringe) 12.5 gm PRN Q15MIN PRN 11/01/16 19:45 Diclofenac Sodium (Voltaren) 1 richard BID 11/01/16 22:00 11/09/16 08:22 1 RICHARD Ephedrine Sulfate 50 mg STK-MED ONCE 11/08/16 07:44 11/08/16 07:45 DC Famotidine (Pepcid) 20 mg STK-MED ONCE 11/08/16 07:09 11/08/16 07:10 DC Fentanyl Citrate (Fentanyl 2ml Vial) 100 mcg STK-MED ONCE 11/08/16 10:47 11/08/16 10:48 DC Fluconazole (Diflucan) 100 mg DAILY 11/03/16 10:00 11/09/16 08:21 100 MG Furosemide (Lasix) 40 mg 1X PACU PRN 11/08/16 14:30 11/08/16 14:40 40 MG Gabapentin (Neurontin) 300 mg QHS 11/03/16 14:00 11/08/16 20:37 300 MG Gelatin (Gelfoam Size 100) 1 each STK-MED ONCE 11/08/16 07:03 11/08/16 07:04 DC Gelatin (Gelfoam Powder) 1 gm STK-MED ONCE 11/08/16 07:02 11/08/16 07:03 DC Glycopyrrolate (Robinul) 1 mg STK-MED ONCE 11/08/16 11:52 11/08/16 11:53 DC Heparin Sodium (Porcine) (Heparin Sodium) 2,500 unit 1X ONCE 11/08/16 19:15 11/08/16 19:16 DC 11/08/16 19:49 2,800 UNIT Heparin Sodium (Porcine) 5000 unit/Sodium Chloride 505 ml @ 505 mls/hr 1X PERIOP ONCE 11/08/16 11:07 11/08/16 12:06 DC Heparin Sodium/ Sodium Chloride 60 unit 1X ONCE 11/08/16 19:15 11/08/16 19:16 DC 11/08/16 19:15 60 UNIT Hydromorphone HCl 30 ml @ 0 mls/hr CONT PRN PRN 11/08/16 18:45 11/08/16 19:06 0 MLS/HR Hydromorphone HCl (Dilaudid) 1 mg Q1HR PRN 11/08/16 12:30 11/09/16 04:22 1 MG Info (Do NOT chart on this entry -- for MONITORING) 1 each PRN DAILY PRN 11/04/16 11:00 11/06/16 10:59 DC Insulin Aspart (NovoLOG) 0-7 UNITS TIDWMEALS 11/01/16 20:30 11/08/16 18:31 3 UNITS Iodixanol (Visipaque 320) 50 ml 1X ONCE 11/04/16 11:00 11/04/16 11:01 DC 11/04/16 12:24 19 ML Iohexol (Omnipaque 300 Mg/ml) 50 ml STK-MED ONCE 11/08/16 07:02 11/08/16 07:03 DC Lactobacillus Acidophilus (Bacid, Brittney-Bid) 1 tab TIDWMEALS 11/03/16 12:00 11/09/16 08:20 1 TAB Lidocaine HCl (Lidocaine Pf 2% Vial) 5 ml STK-MED ONCE 11/08/16 07:10 11/08/16 07:11 DC Lidocaine/Sodium Bicarbonate (Buffered Lidocaine 1%) 3 ml 1X ONCE 11/08/16 19:15 11/08/16 19:16 DC 11/08/16 19:50 3 ML Linezolid (Zyvox) 600 mg BID 11/03/16 10:00 11/09/16 08:20 600 MG Meropenem 1 gm/ Sodium Chloride 100 ml @ 200 mls/hr DAILY 11/03/16 10:00 11/09/16 08:22 200 MLS/HR Midazolam HCl (Versed) 2 mg STK-MED ONCE 11/08/16 07:11 11/08/16 07:12 DC Morphine Sulfate 1 mg PRN Q10MIN PRN 11/08/16 07:00 11/09/16 06:59 UNV Multivitamins (Thera M Plus) 1 tab DAILY 11/02/16 14:00 11/09/16 08:20 1 TAB Naloxone HCl (Narcan) 0.4 mg PRN Q2MIN PRN 11/08/16 18:45 Neostigmine Methylsulfate 5 mg STK-MED ONCE 11/08/16 11:52 11/08/16 11:53 DC Ondansetron HCl (Zofran) 4 mg STK-MED ONCE 11/08/16 07:10 11/08/16 07:11 DC Oxycodone/ Acetaminophen (Percocet 5/325) 2 tab PRN Q4HRS PRN 11/08/16 12:30 11/08/16 17:18 2 TAB Pantoprazole Sodium (Protonix) 40 mg BIDWMEALS 11/01/16 21:00 11/09/16 08:20 40 MG Papaverine HCl 60 mg STK-MED ONCE 11/08/16 07:02 11/08/16 07:03 DC Prochlorperazine Edisylate (Compazine) 5 mg PACU PRN PRN 11/08/16 07:00 11/09/16 06:59 DC Propofol 20 ml @ As Directed STK-MED ONCE 11/08/16 07:09 11/08/16 07:10 DC Ringer's Solution 1,000 ml @ 0 mls/hr Q0M 11/08/16 07:00 11/08/16 18:59 DC 11/08/16 07:03 30 MLS/HR Rocuronium [place] (Zemuron) 100 mg STK-MED ONCE 11/08/16 07:11 11/08/16 07:12 DC Sennosides (Senna) 8.6 mg PRN QHS PRN 11/01/16 20:15 11/05/16 19:55 8.6 MG Sevelamer Carbonate (Renvela) 800 mg TIDWMEALS 11/02/16 08:00 11/09/16 08:20 800 MG Sevoflurane (Ultane) 90 ml STK-MED ONCE 11/08/16 11:47 11/08/16 11:48 DC Sodium Polystyrene Sulfonate (Kayexalate) 15 gm 1X ONCE 11/06/16 14:45 11/06/16 14:46 DC 11/06/16 16:30 15 GM Sodium Bicarbonate 100 meq 1X PACU PRN 11/08/16 14:30 11/08/16 14:50 100 MEQ Sodium Chloride 1,000 ml @ 25 mls/hr Q24H 11/08/16 19:00 11/08/16 20:41 25 MLS/HR Thrombin 20,000 unit STK-MED ONCE 11/08/16 07:02 11/08/16 07:03 DC Vancomycin HCl 1 each 1X ONCE 11/05/16 08:30 11/05/16 08:30 DC Vancomycin HCl (Vanco Per Pharmacy) 1 each PRN DAILY PRN 11/01/16 13:15 11/03/16 10:10 DC 11/03/16 06:59 1 EACH Vancomycin HCl 1.5 gm/Sodium Chloride 500 ml @ 250 mls/hr 1X ONCE 11/01/16 13:30 11/01/16 15:29 DC 11/01/16 13:37 250 MLS/HR Vancomycin HCl 1 gm/Sodium Chloride 250 ml @ 250 mls/hr Q48H 11/03/16 09:00 11/03/16 10:10 DC Lab Laboratory Tests Test 11/08/16 12:45 11/08/16 12:55 11/08/16 16:30 11/08/16 17:37 Glucose (Fingerstick) 192 mg/dL (70-99) 168 mg/dL (70-99) White Blood Count 8.0 x10^3/uL (4.0-11.0) Red Blood Count 2.88 x10^6/uL (4.30-5.70) Hemoglobin 8.3 g/dL (13.0-17.5) Hematocrit 26.0 % (39.0-53.0) Mean Corpuscular Volume 90 fL (79-100) Mean Corpuscular Hemoglobin 29 pg (25-35) Mean Corpuscular Hemoglobin Concent 32 g/dL (31-37) Red Cell Distribution Width 16.6 % (11.5-14.5) Platelet Count 231 x10^3/uL (140-400) Sodium Level 143 mmol/L (136-145) 145 mmol/L (136-145) Potassium Level 6.3 mmol/L (3.5-5.1) 6.0 mmol/L (3.5-5.1) Chloride Level 111 mmol/L (98-107) 110 mmol/L (98-107) Carbon Dioxide Level 19 mmol/L (21-32) 22 mmol/L (21-32) Anion Gap 13 (6-14) 13 (6-14) Blood Urea Nitrogen 69 mg/dL (8-26) Creatinine 4.7 mg/dL (0.7-1.3) Estimated GFR (Cockcroft-Gault) 12.8 Glucose Level 199 mg/dL (70-99) Calcium Level 8.4 mg/dL (8.5-10.1) Creatine Kinase 49 U/L (39-308) Test 11/08/16 21:03 11/09/16 05:00 Glucose (Fingerstick) 133 mg/dL (70-99) White Blood Count 9.5 x10^3/uL (4.0-11.0) Red Blood Count 2.13 x10^6/uL (4.30-5.70) Hemoglobin 6.3 g/dL (13.0-17.5) Hematocrit 18.5 % (39.0-53.0) Mean Corpuscular Volume 87 fL (79-100) Mean Corpuscular Hemoglobin 30 pg (25-35) Mean Corpuscular Hemoglobin Concent 34 g/dL (31-37) Red Cell Distribution Width 16.3 % (11.5-14.5) Platelet Count 214 x10^3/uL (140-400) Neutrophils (%) (Auto) 73 % (31-73) Lymphocytes (%) (Auto) 16 % (24-48) Monocytes (%) (Auto) 9 % (0-9) Eosinophils (%) (Auto) 2 % (0-3) Basophils (%) (Auto) 0 % (0-3) Neutrophils # (Auto) 6.9 x10^3uL (1.8-7.7) Lymphocytes # (Auto) 1.5 x10^3/uL (1.0-4.8) Monocytes # (Auto) 0.8 x10^3/uL (0.0-1.1) Eosinophils # (Auto) 0.2 x10^3/uL (0.0-0.7) Basophils # (Auto) 0.0 x10^3/uL (0.0-0.2) Sodium Level 140 mmol/L (136-145) Potassium Level 4.3 mmol/L (3.5-5.1) Chloride Level 105 mmol/L (98-107) Carbon Dioxide Level 25 mmol/L (21-32) Anion Gap 10 (6-14) Blood Urea Nitrogen 32 mg/dL (8-26) Creatinine 2.8 mg/dL (0.7-1.3) Estimated GFR (Cockcroft-Gault) 23.2 Glucose Level 131 mg/dL (70-99) Calcium Level 7.4 mg/dL (8.5-10.1) JANNET DOW MD Nov 09, 2016 10:16
[2016-11-09] MEDS: CYCLOBENZAPRINE 10 MG TABLET. PO PRN ×2 (12:22→19:46)
--- NOTE | 2016-11-09 15:28 | RAD ---
Indication anticipated renal artery stenting. Grayscale imaging was performed targeted to the kidneys. The right kidney measures 10 x 4.2 x 4.7 cm. There are several low-density masses associated with the right kidney compatible with cysts the largest measuring approximately 3 cm. There is increased echogenicity associated with the kidney compatible with medical renal disease. No hydronephrosis or definite solid mass is seen. The left kidney measures 9.6 x 5 x 5.9 cm. The left kidney too is echogenic again suggesting medical renal disease. There is a hypoechoic 3.3 cm mass associated with the left kidney compatible with a simple cyst. No hydronephrosis or solid mass is seen. Schaffer catheter is noted in the urinary bladder. The urinary bladder is largely collapsed and therefore poorly evaluated with ultrasound. IMPRESSION: Bilateral renal cysts. Morphologic findings seen associated with both kidneys suggesting medical renal disease
--- NOTE | 2016-11-09 16:03 | PDOC ---
PROGRESS NOTES Subjective Subjective Problems overnight: Follow-up from vascular bypass yesterday, underwent dialysis and currently undergoing transfusion Objective Vital Signs Vital Signs Date Time Temp Pulse Resp B/P (MAP) Pulse Ox O2 Delivery O2 Flow Rate FiO2 11/09/16 14:00 96 16 141/74 (96) 100 Room Air 11/09/16 13:30 98.4 98.4 11/08/16 13:21 10.0 Physical Exam Left foot wound necrosis unchanged Labs Laboratory Tests Test 11/07/16 16:14 11/07/16 21:04 11/08/16 03:57 11/08/16 12:45 Glucose (Fingerstick) 158 mg/dL (70-99) 175 mg/dL (70-99) 192 mg/dL (70-99) White Blood Count 9.1 x10^3/uL (4.0-11.0) Red Blood Count 3.13 x10^6/uL (4.30-5.70) Hemoglobin 9.2 g/dL (13.0-17.5) Hematocrit 27.3 % (39.0-53.0) Mean Corpuscular Volume 87 fL (79-100) Mean Corpuscular Hemoglobin 29 pg (25-35) Mean Corpuscular Hemoglobin Concent 34 g/dL (31-37) Red Cell Distribution Width 16.6 % (11.5-14.5) Platelet Count 252 x10^3/uL (140-400) Neutrophils (%) (Auto) 71 % (31-73) Lymphocytes (%) (Auto) 17 % (24-48) Monocytes (%) (Auto) 6 % (0-9) Eosinophils (%) (Auto) 6 % (0-3) Basophils (%) (Auto) 1 % (0-3) Neutrophils # (Auto) 6.4 x10^3uL (1.8-7.7) Lymphocytes # (Auto) 1.5 x10^3/uL (1.0-4.8) Monocytes # (Auto) 0.5 x10^3/uL (0.0-1.1) Eosinophils # (Auto) 0.5 x10^3/uL (0.0-0.7) Basophils # (Auto) 0.1 x10^3/uL (0.0-0.2) Sodium Level 145 mmol/L (136-145) Potassium Level 5.4 mmol/L (3.5-5.1) Chloride Level 110 mmol/L (98-107) Carbon Dioxide Level 22 mmol/L (21-32) Anion Gap 13 (6-14) Blood Urea Nitrogen 70 mg/dL (8-26) Creatinine 4.7 mg/dL (0.7-1.3) Estimated GFR (Cockcroft-Gault) 12.8 Glucose Level 128 mg/dL (70-99) Calcium Level 8.5 mg/dL (8.5-10.1) Test 11/08/16 12:55 11/08/16 16:30 11/08/16 17:37 11/08/16 21:03 White Blood Count 8.0 x10^3/uL (4.0-11.0) Red Blood Count 2.88 x10^6/uL (4.30-5.70) Hemoglobin 8.3 g/dL (13.0-17.5) Hematocrit 26.0 % (39.0-53.0) Mean Corpuscular Volume 90 fL (79-100) Mean Corpuscular Hemoglobin 29 pg (25-35) Mean Corpuscular Hemoglobin Concent 32 g/dL (31-37) Red Cell Distribution Width 16.6 % (11.5-14.5) Platelet Count 231 x10^3/uL (140-400) Sodium Level 143 mmol/L (136-145) 145 mmol/L (136-145) Potassium Level 6.3 mmol/L (3.5-5.1) 6.0 mmol/L (3.5-5.1) Chloride Level 111 mmol/L (98-107) 110 mmol/L (98-107) Carbon Dioxide Level 19 mmol/L (21-32) 22 mmol/L (21-32) Anion Gap 13 (6-14) 13 (6-14) Blood Urea Nitrogen 69 mg/dL (8-26) Creatinine 4.7 mg/dL (0.7-1.3) Estimated GFR (Cockcroft-Gault) 12.8 Glucose Level 199 mg/dL (70-99) Calcium Level 8.4 mg/dL (8.5-10.1) Creatine Kinase 49 U/L (39-308) Glucose (Fingerstick) 168 mg/dL (70-99) 133 mg/dL (70-99) Test 11/09/16 05:00 11/09/16 12:16 White Blood Count 9.5 x10^3/uL (4.0-11.0) Red Blood Count 2.13 x10^6/uL (4.30-5.70) Hemoglobin 6.3 g/dL (13.0-17.5) Hematocrit 18.5 % (39.0-53.0) Mean Corpuscular Volume 87 fL (79-100) Mean Corpuscular Hemoglobin 30 pg (25-35) Mean Corpuscular Hemoglobin Concent 34 g/dL (31-37) Red Cell Distribution Width 16.3 % (11.5-14.5) Platelet Count 214 x10^3/uL (140-400) Neutrophils (%) (Auto) 73 % (31-73) Lymphocytes (%) (Auto) 16 % (24-48) Monocytes (%) (Auto) 9 % (0-9) Eosinophils (%) (Auto) 2 % (0-3) Basophils (%) (Auto) 0 % (0-3) Neutrophils # (Auto) 6.9 x10^3uL (1.8-7.7) Lymphocytes # (Auto) 1.5 x10^3/uL (1.0-4.8) Monocytes # (Auto) 0.8 x10^3/uL (0.0-1.1) Eosinophils # (Auto) 0.2 x10^3/uL (0.0-0.7) Basophils # (Auto) 0.0 x10^3/uL (0.0-0.2) Sodium Level 140 mmol/L (136-145) Potassium Level 4.3 mmol/L (3.5-5.1) Chloride Level 105 mmol/L (98-107) Carbon Dioxide Level 25 mmol/L (21-32) Anion Gap 10 (6-14) Blood Urea Nitrogen 32 mg/dL (8-26) Creatinine 2.8 mg/dL (0.7-1.3) Estimated GFR (Cockcroft-Gault) 23.2 Glucose Level 131 mg/dL (70-99) Calcium Level 7.4 mg/dL (8.5-10.1) Glucose (Fingerstick) 151 mg/dL (70-99) Laboratory Tests Test 11/08/16 16:30 11/08/16 17:37 11/08/16 21:03 11/09/16 05:00 Sodium Level 145 mmol/L (136-145) 140 mmol/L (136-145) Potassium Level 6.0 mmol/L (3.5-5.1) 4.3 mmol/L (3.5-5.1) Chloride Level 110 mmol/L (98-107) 105 mmol/L (98-107) Carbon Dioxide Level 22 mmol/L (21-32) 25 mmol/L (21-32) Anion Gap 13 (6-14) 10 (6-14) Creatine Kinase 49 U/L (39-308) Glucose (Fingerstick) 168 mg/dL (70-99) 133 mg/dL (70-99) White Blood Count 9.5 x10^3/uL (4.0-11.0) Red Blood Count 2.13 x10^6/uL (4.30-5.70) Hemoglobin 6.3 g/dL (13.0-17.5) Hematocrit 18.5 % (39.0-53.0) Mean Corpuscular Volume 87 fL (79-100) Mean Corpuscular Hemoglobin 30 pg (25-35) Mean Corpuscular Hemoglobin Concent 34 g/dL (31-37) Red Cell Distribution Width 16.3 % (11.5-14.5) Platelet Count 214 x10^3/uL (140-400) Neutrophils (%) (Auto) 73 % (31-73) Lymphocytes (%) (Auto) 16 % (24-48) Monocytes (%) (Auto) 9 % (0-9) Eosinophils (%) (Auto) 2 % (0-3) Basophils (%) (Auto) 0 % (0-3) Neutrophils # (Auto) 6.9 x10^3uL (1.8-7.7) Lymphocytes # (Auto) 1.5 x10^3/uL (1.0-4.8) Monocytes # (Auto) 0.8 x10^3/uL (0.0-1.1) Eosinophils # (Auto) 0.2 x10^3/uL (0.0-0.7) Basophils # (Auto) 0.0 x10^3/uL (0.0-0.2) Blood Urea Nitrogen 32 mg/dL (8-26) Creatinine 2.8 mg/dL (0.7-1.3) Estimated GFR (Cockcroft-Gault) 23.2 Glucose Level 131 mg/dL (70-99) Calcium Level 7.4 mg/dL (8.5-10.1) Test 11/09/16 12:16 Glucose (Fingerstick) 151 mg/dL (70-99) Assessment Assessment POD# [], S/P [] Problems: Plan Plan of Care Plan debridement of left foot when medically stable currently scheduled for Monday morning Spoke with Dr. Araujo of vascular surgery yesterday about results of his bypass operation and recommendations for further treatment PREETI PRADHAN MD Nov 09, 2016 16:03
[2016-11-09 17:20] LABS: HEMATOCRIT 25.8 % (39.0-53.0); HEMOGLOBIN 8.8 g/dL (13.0-17.5); RED BLOOD COUNT 3.02 x10^6/uL (4.30-5.70); RED CELL DISTRIBUTION WIDTH 16.5 % (11.5-14.5); WHITE BLOOD COUNT 11.9 x10^3/uL (4.0-11.0)
[2016-11-09 17:28] LABS: INR 1.2 (0.8-1.1); PROTHROMBIN TIME PATIENT 14.5 SEC (11.7-14.0)
[2016-11-09 18:16] LABS: HEP B SURFACE ABDY Non Reactive (.)
[2016-11-09] MEDS: GABAPENTIN 300 MG CAPSULE. PO SCH (20:34)
[2016-11-09] MEDS: ALPRAZolam 0.25 MG TABLET PO PRN (21:41)
[2016-11-10] VITALS (24 sets, daily range): BP systolic 122–163; BP diastolic 55–90
[2016-11-10] MEDS: CARISOPRODOL 350 MG TABLET PO PRN (02:18)
[2016-11-10 06:25] LABS: BASO # 0.1 x10^3/uL (0.0-0.2); BASO % 1 % (0-3); EOS % 3 % (0-3); HEMATOCRIT 26.9 % (39.0-53.0); HEMOGLOBIN 9.1 g/dL (13.0-17.5); LYMPH # 1.8 x10^3/uL (1.0-4.8); LYMPH % 14 % (24-48); MEAN CORPUSCULAR HEMOGLOBIN 29 pg (25-35); MEAN CORPUSCULAR HGB CONC 34 g/dL (31-37); MEAN CORPUSCULAR VOLUME 86 fL (79-100); MONO % 10 % (0-9); NEUT % 73 % (31-73); PLATELET COUNT 196 x10^3/uL (140-400); RED BLOOD COUNT 3.13 x10^6/uL (4.30-5.70); RED CELL DISTRIBUTION WIDTH 16.6 % (11.5-14.5); WHITE BLOOD COUNT 13.1 x10^3/uL (4.0-11.0)
[2016-11-10 06:28] LABS: CALCIUM 8.1 mg/dL (8.5-10.1); CREATININE 3.8 mg/dL (0.7-1.3); GFR 16.3; POTASSIUM 4.8 mmol/L (3.5-5.1)
--- NOTE | 2016-11-10 06:40 | PDOC ---
Provider Note Provider Note AF VSS awake and alert left groin with bloody drainage from the incision, no hematoma in the groin, left thigh incisions dry, left calf incision with bleeding on the gauze which was removed, the calf is soft with no hematoma under incision, ankle incision intact and dry, palpable graft and PT pulse in the foot arm dressings removed and incisions intact, TMA with open necrotic incision Hgb 9.1 A/P POD#2 left femoral to posterior tibial artery bypass with bilateral basilic veins and saphenous vein for nonhealing left TMA - aspirin and plavix daily - acute blood loss anemia - transfuse 2 units PRBC yesterday, Hgb improved - keep on bedrest today until no further incisional bleeding - chronic renal failure- nephrology following, K 4.8 - ortho will proceed with the TMA revision on monday - post-op pain - currently on a dilaudid [employer]IN[employer] 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
[2016-11-10] MEDS: INSULIN ASPART 300 UNITS/3 ML INSULN.PEN SQ SCH ×3 (08:00→17:29)
--- NOTE | 2016-11-10 08:07 | PDOC ---
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 x 3, no focal neurologic deficit SKIN: No rash IV: ok Labs Lab Laboratory Tests Test 11/09/16 12:16 11/09/16 16:59 11/09/16 17:00 11/10/16 06:09 Glucose (Fingerstick) 151 mg/dL (70-99) 119 mg/dL (70-99) White Blood Count 11.9 x10^3/uL (4.0-11.0) 13.1 x10^3/uL (4.0-11.0) Red Blood Count 3.02 x10^6/uL (4.30-5.70) 3.13 x10^6/uL (4.30-5.70) Hemoglobin 8.8 g/dL (13.0-17.5) 9.1 g/dL (13.0-17.5) Hematocrit 25.8 % (39.0-53.0) 26.9 % (39.0-53.0) Mean Corpuscular Volume 86 fL (79-100) 86 fL (79-100) Mean Corpuscular Hemoglobin 29 pg (25-35) 29 pg (25-35) Mean Corpuscular Hemoglobin Concent 34 g/dL (31-37) 34 g/dL (31-37) Red Cell Distribution Width 16.5 % (11.5-14.5) 16.6 % (11.5-14.5) Platelet Count 185 x10^3/uL (140-400) 196 x10^3/uL (140-400) Prothrombin Time 14.5 SEC (11.7-14.0) Prothromb Time International Ratio 1.2 (0.8-1.1) Activated Partial Thromboplast Time 35 SEC (24-38) Neutrophils (%) (Auto) 73 % (31-73) Lymphocytes (%) (Auto) 14 % (24-48) Monocytes (%) (Auto) 10 % (0-9) Eosinophils (%) (Auto) 3 % (0-3) Basophils (%) (Auto) 1 % (0-3) Neutrophils # (Auto) 9.5 x10^3uL (1.8-7.7) Lymphocytes # (Auto) 1.8 x10^3/uL (1.0-4.8) Monocytes # (Auto) 1.3 x10^3/uL (0.0-1.1) Eosinophils # (Auto) 0.4 x10^3/uL (0.0-0.7) Basophils # (Auto) 0.1 x10^3/uL (0.0-0.2) Sodium Level 143 mmol/L (136-145) Potassium Level 4.8 mmol/L (3.5-5.1) Chloride Level 107 mmol/L (98-107) Carbon Dioxide Level 25 mmol/L (21-32) Anion Gap 11 (6-14) Blood Urea Nitrogen 51 mg/dL (8-26) Creatinine 3.8 mg/dL (0.7-1.3) Estimated GFR (Cockcroft-Gault) 16.3 Glucose Level 122 mg/dL (70-99) Calcium Level 8.1 mg/dL (8.5-10.1) Objective Assessment 1. Left TMA wound dehiscence. 2. Acute kidney injury on chronic kidney disease. 3. Peripheral arterial disease. s/p leg bypass 4. Diabetes. Plan Plan of Care Meropenem and Fluconazole,, Probiotics pt refused foot surgery BREANNA DOW MD Nov 10, 2016 08:07
[2016-11-10] MEDS: ALPRAZolam 0.25 MG TABLET PO PRN ×2 (08:54→15:08)
[2016-11-10] MEDS: SEVELAMER CARBONATE 800 MG TABLET. PO SCH ×3 (08:55→17:26)
[2016-11-10] MEDS: LACTOBACILLUS ACIDOPH & BULGAR 1 TABLET. PO SCH ×3 (08:55→17:26)
[2016-11-10] MEDS: CARVEDILOL 3.125 MG TABLET. PO SCH ×2 (08:55→17:26)
[2016-11-10] MEDS: ASPIRIN ENTERIC COATED 81 MG TABLET.DR. PO SCH (08:55)
[2016-11-10] MEDS: CLOPIDOGREL BISULFATE 75 MG TABLET PO SCH (08:55)
[2016-11-10] MEDS: CYCLOBENZAPRINE 10 MG TABLET. PO PRN ×2 (08:55→15:08)
[2016-11-10] MEDS: PANTOPRAZOLE 40 MG TABLET.DR. PO SCH ×2 (08:55→17:26)
[2016-11-10] MEDS ORDERED: IV NORMAL SALINE 1000ML BAG 1,000 ML IV PRN ×2 (09:06)
[2016-11-10] MEDS: ASCORBIC ACID 500 MG TABLET PO SCH ×2 (09:13→21:44)
[2016-11-10] MEDS: amLODIPine BESYLATE 10 MG TABLET PO SCH ×2 (09:13→21:43)
[2016-11-10] MEDS: FLUCONAZOLE 100 MG TABLET. PO SCH (09:13)
[2016-11-10] MEDS: MULTIVITAMIN with MINERAL TABLET. PO SCH (09:13)
[2016-11-10] MEDS: HYDROmorphone 4 MG TABLET PO PRN ×4 (09:13→17:48)
[2016-11-10] MEDS: MEROPENEM 1 GM in IV NORMAL SALINE 100ML 100 ML IV SCH (09:14)
[2016-11-10] MEDS: DICLOFENAC SODIUM 1% TOPICAL GEL 100GM TUBE. TP SCH ×2 (09:14→21:44)
[2016-11-10] MEDS ORDERED: DIALYSIS PATIENT. MC PRN (09:15)
--- NOTE | 2016-11-10 10:08 | PDOC ---
Dialysis Progress Note Dialysis Note Dialysis Note Seen on Hemodialysis, tolerating treatment Well for now Vitals on Hemodialysis: 161/71 105 afeb General Appearance: Awake: Alert Oriented x 3 Neck: No JVD or JVP Chest: CTA [place] Heart: S1 S2 Abdomen - Soft NTND Extremities - No Edema ESRD: Dialysis as below F 180 NR 3.0 Hrs 3 K 2.5 Ca 140 Na 35 HC03 Qb 350 + Qd 500+ Heparin 0 Units Uf 0 Kgs or to dry weight as tolerated May give 25-50 gms of 25% Albumin if needed to maintain Hemodynamic stability Treatment plan reviewed and discussed with custodial worker Vitals Vital Signs Vital Signs Date Time Temp Pulse Resp B/P (MAP) Pulse Ox O2 Delivery O2 Flow Rate FiO2 11/10/16 09:13 105 157/76 11/10/16 06:00 21 99 Room Air 11/10/16 04:00 96.9 96.9 11/08/16 13:21 10.0 Labs Last Labs Laboratory Tests Test 11/08/16 12:45 11/08/16 12:55 11/08/16 16:30 11/08/16 17:37 Glucose (Fingerstick) 192 mg/dL (70-99) 168 mg/dL (70-99) White Blood Count 8.0 x10^3/uL (4.0-11.0) Red Blood Count 2.88 x10^6/uL (4.30-5.70) Hemoglobin 8.3 g/dL (13.0-17.5) Hematocrit 26.0 % (39.0-53.0) Mean Corpuscular Volume 90 fL (79-100) Mean Corpuscular Hemoglobin 29 pg (25-35) Mean Corpuscular Hemoglobin Concent 32 g/dL (31-37) Red Cell Distribution Width 16.6 % (11.5-14.5) Platelet Count 231 x10^3/uL (140-400) Sodium Level 143 mmol/L (136-145) 145 mmol/L (136-145) Potassium Level 6.3 mmol/L (3.5-5.1) 6.0 mmol/L (3.5-5.1) Chloride Level 111 mmol/L (98-107) 110 mmol/L (98-107) Carbon Dioxide Level 19 mmol/L (21-32) 22 mmol/L (21-32) Anion Gap 13 (6-14) 13 (6-14) Blood Urea Nitrogen 69 mg/dL (8-26) Creatinine 4.7 mg/dL (0.7-1.3) Estimated GFR (Cockcroft-Gault) 12.8 Glucose Level 199 mg/dL (70-99) Calcium Level 8.4 mg/dL (8.5-10.1) Creatine Kinase 49 U/L (39-308) Test 11/08/16 21:03 11/09/16 05:00 11/09/16 12:16 11/09/16 16:59 Glucose (Fingerstick) 133 mg/dL (70-99) 151 mg/dL (70-99) 119 mg/dL (70-99) White Blood Count 9.5 x10^3/uL (4.0-11.0) Red Blood Count 2.13 x10^6/uL (4.30-5.70) Hemoglobin 6.3 g/dL (13.0-17.5) Hematocrit 18.5 % (39.0-53.0) Mean Corpuscular Volume 87 fL (79-100) Mean Corpuscular Hemoglobin 30 pg (25-35) Mean Corpuscular Hemoglobin Concent 34 g/dL (31-37) Red Cell Distribution Width 16.3 % (11.5-14.5) Platelet Count 214 x10^3/uL (140-400) Neutrophils (%) (Auto) 73 % (31-73) Lymphocytes (%) (Auto) 16 % (24-48) Monocytes (%) (Auto) 9 % (0-9) Eosinophils (%) (Auto) 2 % (0-3) Basophils (%) (Auto) 0 % (0-3) Neutrophils # (Auto) 6.9 x10^3uL (1.8-7.7) Lymphocytes # (Auto) 1.5 x10^3/uL (1.0-4.8) Monocytes # (Auto) 0.8 x10^3/uL (0.0-1.1) Eosinophils # (Auto) 0.2 x10^3/uL (0.0-0.7) Basophils # (Auto) 0.0 x10^3/uL (0.0-0.2) Sodium Level 140 mmol/L (136-145) Potassium Level 4.3 mmol/L (3.5-5.1) Chloride Level 105 mmol/L (98-107) Carbon Dioxide Level 25 mmol/L (21-32) Anion Gap 10 (6-14) Blood Urea Nitrogen 32 mg/dL (8-26) Creatinine 2.8 mg/dL (0.7-1.3) Estimated GFR (Cockcroft-Gault) 23.2 Glucose Level 131 mg/dL (70-99) Calcium Level 7.4 mg/dL (8.5-10.1) Test 11/09/16 17:00 11/10/16 06:09 White Blood Count 11.9 x10^3/uL (4.0-11.0) 13.1 x10^3/uL (4.0-11.0) Red Blood Count 3.02 x10^6/uL (4.30-5.70) 3.13 x10^6/uL (4.30-5.70) Hemoglobin 8.8 g/dL (13.0-17.5) 9.1 g/dL (13.0-17.5) Hematocrit 25.8 % (39.0-53.0) 26.9 % (39.0-53.0) Mean Corpuscular Volume 86 fL (79-100) 86 fL (79-100) Mean Corpuscular Hemoglobin 29 pg (25-35) 29 pg (25-35) Mean Corpuscular Hemoglobin Concent 34 g/dL (31-37) 34 g/dL (31-37) Red Cell Distribution Width 16.5 % (11.5-14.5) 16.6 % (11.5-14.5) Platelet Count 185 x10^3/uL (140-400) 196 x10^3/uL (140-400) Prothrombin Time 14.5 SEC (11.7-14.0) Prothromb Time International Ratio 1.2 (0.8-1.1) Activated Partial Thromboplast Time 35 SEC (24-38) Neutrophils (%) (Auto) 73 % (31-73) Lymphocytes (%) (Auto) 14 % (24-48) Monocytes (%) (Auto) 10 % (0-9) Eosinophils (%) (Auto) 3 % (0-3) Basophils (%) (Auto) 1 % (0-3) Neutrophils # (Auto) 9.5 x10^3uL (1.8-7.7) Lymphocytes # (Auto) 1.8 x10^3/uL (1.0-4.8) Monocytes # (Auto) 1.3 x10^3/uL (0.0-1.1) Eosinophils # (Auto) 0.4 x10^3/uL (0.0-0.7) Basophils # (Auto) 0.1 x10^3/uL (0.0-0.2) Sodium Level 143 mmol/L (136-145) Potassium Level 4.8 mmol/L (3.5-5.1) Chloride Level 107 mmol/L (98-107) Carbon Dioxide Level 25 mmol/L (21-32) Anion Gap 11 (6-14) Blood Urea Nitrogen 51 mg/dL (8-26) Creatinine 3.8 mg/dL (0.7-1.3) Estimated GFR (Cockcroft-Gault) 16.3 Glucose Level 122 mg/dL (70-99) Calcium Level 8.1 mg/dL (8.5-10.1) Laboratory Tests Test 11/09/16 12:16 11/09/16 16:59 11/09/16 17:00 11/10/16 06:09 Glucose (Fingerstick) 151 mg/dL (70-99) 119 mg/dL (70-99) White Blood Count 11.9 x10^3/uL (4.0-11.0) 13.1 x10^3/uL (4.0-11.0) Red Blood Count 3.02 x10^6/uL (4.30-5.70) 3.13 x10^6/uL (4.30-5.70) Hemoglobin 8.8 g/dL (13.0-17.5) 9.1 g/dL (13.0-17.5) Hematocrit 25.8 % (39.0-53.0) 26.9 % (39.0-53.0) Mean Corpuscular Volume 86 fL (79-100) 86 fL (79-100) Mean Corpuscular Hemoglobin 29 pg (25-35) 29 pg (25-35) Mean Corpuscular Hemoglobin Concent 34 g/dL (31-37) 34 g/dL (31-37) Red Cell Distribution Width 16.5 % (11.5-14.5) 16.6 % (11.5-14.5) Platelet Count 185 x10^3/uL (140-400) 196 x10^3/uL (140-400) Prothrombin Time 14.5 SEC (11.7-14.0) Prothromb Time International Ratio 1.2 (0.8-1.1) Activated Partial Thromboplast Time 35 SEC (24-38) Neutrophils (%) (Auto) 73 % (31-73) Lymphocytes (%) (Auto) 14 % (24-48) Monocytes (%) (Auto) 10 % (0-9) Eosinophils (%) (Auto) 3 % (0-3) Basophils (%) (Auto) 1 % (0-3) Neutrophils # (Auto) 9.5 x10^3uL (1.8-7.7) Lymphocytes # (Auto) 1.8 x10^3/uL (1.0-4.8) Monocytes # (Auto) 1.3 x10^3/uL (0.0-1.1) Eosinophils # (Auto) 0.4 x10^3/uL (0.0-0.7) Basophils # (Auto) 0.1 x10^3/uL (0.0-0.2) Sodium Level 143 mmol/L (136-145) Potassium Level 4.8 mmol/L (3.5-5.1) Chloride Level 107 mmol/L (98-107) Carbon Dioxide Level 25 mmol/L (21-32) Anion Gap 11 (6-14) Blood Urea Nitrogen 51 mg/dL (8-26) Creatinine 3.8 mg/dL (0.7-1.3) Estimated GFR (Cockcroft-Gault) 16.3 Glucose Level 122 mg/dL (70-99) Calcium Level 8.1 mg/dL (8.5-10.1) Assessment Assessment Problems Medical Problems: (1) Wound dehiscence Status: Acute Problems: Plan Plan of Care Problems Medical Problems: (1) Wound dehiscence Status: Acute JANNET DOW MD Nov 10, 2016 10:08
--- NOTE | 2016-11-10 10:55 | PDOC ---
PROGRESS NOTES Chief Complaint Chief Complaint Wound dehiscence - left foot s/p left TMA 6+ weeks ago ASSESSMENT AND PLAN: A/P POD#1 left femoral to posterior tibial artery bypass with bilateral basilic veins and saphenous vein for nonhealing left TMA (11/08/16) 1. PVD: L common femoral artery and profunda artery endarterectomy, L common femoral artery to posterior tibial artery bypass graft today 2. wound dehiscence/ infection: continue meropenem/zyvox/fluconazole, probiotic. wound care 3. Pain control: on home PO dilaudid and IV/IM meds; prob high tolerance for narcotics given chronic high use. 4. CKD5: nephrology following. pt trying to hold off HD, but unavoidable 5. Hyperkalemia: periop. eval for urgent HD ongoing. as per Dr Person 5. Anemia: of ESRD. on EPO 6. 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 s/p R hand finger amputations 7. DM2: fairly well controlled; cont ISS 8. HTN, HLD: well controlled. cont home meds 9. Prophylaxis: ASA/plavix/SCDs 10. 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 Finger amput R) Skin: Other (left foot with amputation site dehiscence with necrosis and malodorous ) Labs LABS Laboratory Tests Test 11/09/16 12:16 11/09/16 16:59 11/09/16 17:00 11/10/16 06:09 Glucose (Fingerstick) 151 mg/dL (70-99) 119 mg/dL (70-99) White Blood Count 11.9 x10^3/uL (4.0-11.0) 13.1 x10^3/uL (4.0-11.0) Red Blood Count 3.02 x10^6/uL (4.30-5.70) 3.13 x10^6/uL (4.30-5.70) Hemoglobin 8.8 g/dL (13.0-17.5) 9.1 g/dL (13.0-17.5) Hematocrit 25.8 % (39.0-53.0) 26.9 % (39.0-53.0) Mean Corpuscular Volume 86 fL (79-100) 86 fL (79-100) Mean Corpuscular Hemoglobin 29 pg (25-35) 29 pg (25-35) Mean Corpuscular Hemoglobin Concent 34 g/dL (31-37) 34 g/dL (31-37) Red Cell Distribution Width 16.5 % (11.5-14.5) 16.6 % (11.5-14.5) Platelet Count 185 x10^3/uL (140-400) 196 x10^3/uL (140-400) Prothrombin Time 14.5 SEC (11.7-14.0) Prothromb Time International Ratio 1.2 (0.8-1.1) Activated Partial Thromboplast Time 35 SEC (24-38) Neutrophils (%) (Auto) 73 % (31-73) Lymphocytes (%) (Auto) 14 % (24-48) Monocytes (%) (Auto) 10 % (0-9) Eosinophils (%) (Auto) 3 % (0-3) Basophils (%) (Auto) 1 % (0-3) Neutrophils # (Auto) 9.5 x10^3uL (1.8-7.7) Lymphocytes # (Auto) 1.8 x10^3/uL (1.0-4.8) Monocytes # (Auto) 1.3 x10^3/uL (0.0-1.1) Eosinophils # (Auto) 0.4 x10^3/uL (0.0-0.7) Basophils # (Auto) 0.1 x10^3/uL (0.0-0.2) Sodium Level 143 mmol/L (136-145) Potassium Level 4.8 mmol/L (3.5-5.1) Chloride Level 107 mmol/L (98-107) Carbon Dioxide Level 25 mmol/L (21-32) Anion Gap 11 (6-14) Blood Urea Nitrogen 51 mg/dL (8-26) Creatinine 3.8 mg/dL (0.7-1.3) Estimated GFR (Cockcroft-Gault) 16.3 Glucose Level 122 mg/dL (70-99) Calcium Level 8.1 mg/dL (8.5-10.1) Review of Systems Review of Systems pain all over Assessment and Plan Assessmemt and Plan Problems Medical Problems: (1) Wound dehiscence Status: Acute Problems: Comment Review of Relevant I have reviewed the following items rula (where applicable) has been applied. Labs Laboratory Tests Test 11/08/16 12:45 11/08/16 12:55 11/08/16 16:30 11/08/16 17:37 Glucose (Fingerstick) 192 mg/dL (70-99) 168 mg/dL (70-99) White Blood Count 8.0 x10^3/uL (4.0-11.0) Red Blood Count 2.88 x10^6/uL (4.30-5.70) Hemoglobin 8.3 g/dL (13.0-17.5) Hematocrit 26.0 % (39.0-53.0) Mean Corpuscular Volume 90 fL (79-100) Mean Corpuscular Hemoglobin 29 pg (25-35) Mean Corpuscular Hemoglobin Concent 32 g/dL (31-37) Red Cell Distribution Width 16.6 % (11.5-14.5) Platelet Count 231 x10^3/uL (140-400) Sodium Level 143 mmol/L (136-145) 145 mmol/L (136-145) Potassium Level 6.3 mmol/L (3.5-5.1) 6.0 mmol/L (3.5-5.1) Chloride Level 111 mmol/L (98-107) 110 mmol/L (98-107) Carbon Dioxide Level 19 mmol/L (21-32) 22 mmol/L (21-32) Anion Gap 13 (6-14) 13 (6-14) Blood Urea Nitrogen 69 mg/dL (8-26) Creatinine 4.7 mg/dL (0.7-1.3) Estimated GFR (Cockcroft-Gault) 12.8 Glucose Level 199 mg/dL (70-99) Calcium Level 8.4 mg/dL (8.5-10.1) Creatine Kinase 49 U/L (39-308) Test 11/08/16 21:03 11/09/16 05:00 11/09/16 12:16 11/09/16 16:59 Glucose (Fingerstick) 133 mg/dL (70-99) 151 mg/dL (70-99) 119 mg/dL (70-99) White Blood Count 9.5 x10^3/uL (4.0-11.0) Red Blood Count 2.13 x10^6/uL (4.30-5.70) Hemoglobin 6.3 g/dL (13.0-17.5) Hematocrit 18.5 % (39.0-53.0) Mean Corpuscular Volume 87 fL (79-100) Mean Corpuscular Hemoglobin 30 pg (25-35) Mean Corpuscular Hemoglobin Concent 34 g/dL (31-37) Red Cell Distribution Width 16.3 % (11.5-14.5) Platelet Count 214 x10^3/uL (140-400) Neutrophils (%) (Auto) 73 % (31-73) Lymphocytes (%) (Auto) 16 % (24-48) Monocytes (%) (Auto) 9 % (0-9) Eosinophils (%) (Auto) 2 % (0-3) Basophils (%) (Auto) 0 % (0-3) Neutrophils # (Auto) 6.9 x10^3uL (1.8-7.7) Lymphocytes # (Auto) 1.5 x10^3/uL (1.0-4.8) Monocytes # (Auto) 0.8 x10^3/uL (0.0-1.1) Eosinophils # (Auto) 0.2 x10^3/uL (0.0-0.7) Basophils # (Auto) 0.0 x10^3/uL (0.0-0.2) Sodium Level 140 mmol/L (136-145) Potassium Level 4.3 mmol/L (3.5-5.1) Chloride Level 105 mmol/L (98-107) Carbon Dioxide Level 25 mmol/L (21-32) Anion Gap 10 (6-14) Blood Urea Nitrogen 32 mg/dL (8-26) Creatinine 2.8 mg/dL (0.7-1.3) Estimated GFR (Cockcroft-Gault) 23.2 Glucose Level 131 mg/dL (70-99) Calcium Level 7.4 mg/dL (8.5-10.1) Test 11/09/16 17:00 11/10/16 06:09 White Blood Count 11.9 x10^3/uL (4.0-11.0) 13.1 x10^3/uL (4.0-11.0) Red Blood Count 3.02 x10^6/uL (4.30-5.70) 3.13 x10^6/uL (4.30-5.70) Hemoglobin 8.8 g/dL (13.0-17.5) 9.1 g/dL (13.0-17.5) Hematocrit 25.8 % (39.0-53.0) 26.9 % (39.0-53.0) Mean Corpuscular Volume 86 fL (79-100) 86 fL (79-100) Mean Corpuscular Hemoglobin 29 pg (25-35) 29 pg (25-35) Mean Corpuscular Hemoglobin Concent 34 g/dL (31-37) 34 g/dL (31-37) Red Cell Distribution Width 16.5 % (11.5-14.5) 16.6 % (11.5-14.5) Platelet Count 185 x10^3/uL (140-400) 196 x10^3/uL (140-400) Prothrombin Time 14.5 SEC (11.7-14.0) Prothromb Time International Ratio 1.2 (0.8-1.1) Activated Partial Thromboplast Time 35 SEC (24-38) Neutrophils (%) (Auto) 73 % (31-73) Lymphocytes (%) (Auto) 14 % (24-48) Monocytes (%) (Auto) 10 % (0-9) Eosinophils (%) (Auto) 3 % (0-3) Basophils (%) (Auto) 1 % (0-3) Neutrophils # (Auto) 9.5 x10^3uL (1.8-7.7) Lymphocytes # (Auto) 1.8 x10^3/uL (1.0-4.8) Monocytes # (Auto) 1.3 x10^3/uL (0.0-1.1) Eosinophils # (Auto) 0.4 x10^3/uL (0.0-0.7) Basophils # (Auto) 0.1 x10^3/uL (0.0-0.2) Sodium Level 143 mmol/L (136-145) Potassium Level 4.8 mmol/L (3.5-5.1) Chloride Level 107 mmol/L (98-107) Carbon Dioxide Level 25 mmol/L (21-32) Anion Gap 11 (6-14) Blood Urea Nitrogen 51 mg/dL (8-26) Creatinine 3.8 mg/dL (0.7-1.3) Estimated GFR (Cockcroft-Gault) 16.3 Glucose Level 122 mg/dL (70-99) Calcium Level 8.1 mg/dL (8.5-10.1) Laboratory Tests Test 11/09/16 12:16 11/09/16 16:59 11/09/16 17:00 11/10/16 06:09 Glucose (Fingerstick) 151 mg/dL (70-99) 119 mg/dL (70-99) White Blood Count 11.9 x10^3/uL (4.0-11.0) 13.1 x10^3/uL (4.0-11.0) Red Blood Count 3.02 x10^6/uL (4.30-5.70) 3.13 x10^6/uL (4.30-5.70) Hemoglobin 8.8 g/dL (13.0-17.5) 9.1 g/dL (13.0-17.5) Hematocrit 25.8 % (39.0-53.0) 26.9 % (39.0-53.0) Mean Corpuscular Volume 86 fL (79-100) 86 fL (79-100) Mean Corpuscular Hemoglobin 29 pg (25-35) 29 pg (25-35) Mean Corpuscular Hemoglobin Concent 34 g/dL (31-37) 34 g/dL (31-37) Red Cell Distribution Width 16.5 % (11.5-14.5) 16.6 % (11.5-14.5) Platelet Count 185 x10^3/uL (140-400) 196 x10^3/uL (140-400) Prothrombin Time 14.5 SEC (11.7-14.0) Prothromb Time International Ratio 1.2 (0.8-1.1) Activated Partial Thromboplast Time 35 SEC (24-38) Neutrophils (%) (Auto) 73 % (31-73) Lymphocytes (%) (Auto) 14 % (24-48) Monocytes (%) (Auto) 10 % (0-9) Eosinophils (%) (Auto) 3 % (0-3) Basophils (%) (Auto) 1 % (0-3) Neutrophils # (Auto) 9.5 x10^3uL (1.8-7.7) Lymphocytes # (Auto) 1.8 x10^3/uL (1.0-4.8) Monocytes # (Auto) 1.3 x10^3/uL (0.0-1.1) Eosinophils # (Auto) 0.4 x10^3/uL (0.0-0.7) Basophils # (Auto) 0.1 x10^3/uL (0.0-0.2) Sodium Level 143 mmol/L (136-145) Potassium Level 4.8 mmol/L (3.5-5.1) Chloride Level 107 mmol/L (98-107) Carbon Dioxide Level 25 mmol/L (21-32) Anion Gap 11 (6-14) Blood Urea Nitrogen 51 mg/dL (8-26) Creatinine 3.8 mg/dL (0.7-1.3) Estimated GFR (Cockcroft-Gault) 16.3 Glucose Level 122 mg/dL (70-99) Calcium Level 8.1 mg/dL (8.5-10.1) Microbiology 11/01/16 Blood Culture - Final, Complete NO GROWTH AFTER 5 DAYS 11/03/16 Gram Stain - Final, Complete Medications Current Medications Sodium Chloride 1,000 ml @ 1,000 mls/hr 1X ONCE IV Last administered on 11:06; Start 11/01/16 at 10:30; Stop 11/01/16 at 11:38; Status DC Fentanyl Citrate (Fentanyl 2ml Vial) 50 mcg 1X ONCE IV Last administered on 11:08; Start 11/01/16 at 11:15; Stop 11/01/16 at 11:16; Status DC Vancomycin HCl (Vanco Per Pharmacy) 1 each PRN DAILY PRN MC SEE COMMENTS Last administered on 11/03/16 06:59; Start 11/01/16 at 13:15; Stop 11/03/16 at 10:10 ; Status DC Vancomycin HCl 1.5 gm/Sodium Chloride 500 ml @ 250 mls/hr 1X ONCE IV Last administered on 11/01/16 13:37; Start 11/01/16 at 13:30; Stop 11/01/16 at 15:29 ; Status DC Fentanyl Citrate (Fentanyl 2ml Vial) 50 mcg 1X ONCE IV Last administered on 13:40; Start 11/01/16 at 13:30; Stop 11/01/16 at 13:31; Status DC Ondansetron HCl (Zofran) 4 mg PRN Q8HRS PRN IV NAUSEA/VOMITING; Start 11/01/16 at 13:45; Stop 11/02/16 at 13:44; Status DC Acetaminophen (Tylenol) 650 mg PRN Q4HRS PRN PO FEVER Last administered on 11/01 23:03; Start 11/01/16 at 13:45; Stop 11/02/16 at 13:44; Status DC Fentanyl Citrate (Fentanyl 2ml Vial) 50 mcg PRN Q4HRS PRN IM PAIN Last administered on 11/07/16 06:37; Start 11/01/16 at 13:45; Stop 11/07/16 at 14:40; Status DC Vancomycin HCl 1 each 1X ONCE MC Last administered on 11/03/16 06:03; Start 11/03/16 at 05:00; Stop 11/03/16 at 10:10; Status DC Insulin Aspart (NovoLOG) 0-7 UNITS TIDWMEALS SQ Last administered on 11/09/16 12:23; Start 11/01/16 at 20:30 Dextrose (Dextrose 50%-Water Syringe) 12.5 gm PRN Q15MIN PRN IV SEE COMMENTS; Start 11/01/16 at 19:45 Hydromorphone HCl (Dilaudid) 4 mg PRN Q4HRS PRN PO PAIN Last administered on 10:11; Start 11/01/16 at 20:15; Stop 11/03/16 at 11:17; Status DC Pantoprazole Sodium (Protonix) 40 mg BIDWMEALS PO Last administered on 08:55; Start 11/01/16 at 21:00 Sennosides (Senna) 8.6 mg PRN QHS PRN PO CONSTIPATION Last administered on 19:55; Start 11/01/16 at 20:15 Sevelamer Carbonate (Renvela) 800 mg TIDWMEALS PO Last administered on 08:55; Start 11/02/16 at 08:00 Albuterol Sulfate (Ventolin Neb Soln) 2.5 mg PRN Q6HRS PRN NEB SHORTNESS OF BREATH; Start 11/01/16 at 21:30 Amlodipine Besylate (Norvasc) 10 mg BID PO Last administered on 11/10/16 09:13 ; Start 11/01/16 at 22:00 Aspirin (Ecotrin) 81 mg [id number] PO Last administered on 11/10/16 08:55; Start 11/02/16 at 08:00 Atorvastatin Calcium (Lipitor) 10 mg Q48H PO ; Start 11/01/16 at 21:00; Stop at 02:25; Status DC Carisoprodol (Soma) 350 mg TID PRN PRN PO MUSCLE SPASMS Last administered on 02:18; Start 11/01/16 at 21:30 Carvedilol (Coreg) 3.125 mg BIDWMEALS PO Last administered on 11/03/16 08:43; Start 11/02/16 at 08:00; Stop 11/03/16 at 10:22; Status DC Clopidogrel Bisulfate (Plavix) 75 mg [id number] PO Last administered on 08:55; Start 11/02/16 at 08:00 Diclofenac Sodium (Voltaren) 1 richard BID TP Last administered on 11/10/16 09:14; Start 11/01/16 at 22:00 Atorvastatin Calcium (Lipitor) 10 mg Q48H PO Last administered on 11/08/16 20: 37; Start 11/02/16 at 21:00 Multivitamins (Thera M Plus) 1 tab DAILY PO Last administered on 11/10/16 09:13 ; Start 11/02/16 at 14:00 Ascorbic Acid (Vitamin C) 500 mg BID PO Last administered on 11/10/16 09:13; Start 11/02/16 at 14:00 Vancomycin HCl 1 gm/Sodium Chloride 250 ml @ 250 mls/hr Q48H IV ; Start at 09:00; Stop 11/03/16 at 10:10; Status DC Vancomycin HCl 1 each 1X ONCE MC ; Start 11/05/16 at 08:30; Stop 11/05/16 at 08: 30; Status DC Linezolid (Zyvox) 600 mg BID PO Last administered on 11/09/16 08:20; Start at 10:00; Stop 11/09/16 at 16:32; Status DC Meropenem 1 gm/ Sodium Chloride 100 ml @ 200 mls/hr DAILY IV Last administered on 11/10/16 09:14; Start 11/03/16 at 10:00 Fluconazole (Diflucan) 100 mg DAILY PO Last administered on 11/10/16 09:13; Start 11/03/16 at 10:00 Lactobacillus Acidophilus (Bacid, Brittney-Bid) 1 tab TIDWMEALS PO Last administered on 11/10/16 08:55; Start 11/03/16 at 12:00 Carvedilol (Coreg) 6.25 mg BIDWMEALS PO Last administered on 11/10/16 08:55; Start 11/03/16 at 17:00 Sodium Chloride 1,000 ml @ 100 mls/hr Q10H IV Last administered on 11/04/16 16 :04; Start 11/03/16 at 10:30; Stop 11/05/16 at 13:19; Status DC Acetylcysteine (Mucomyst 20% Oral Solution) 1,200 mg BID PO Last administered on 11/05/16 09:25; Start 11/03/16 at 21:00; Stop 11/05/16 at 20:59; Status DC Darbepoetin Rich (Aranesp) 60 mcg WEEKLYHS SQ Last administered on 11/03/16 21 :36; Start 11/03/16 at 21:00; Stop 11/09/16 at 10:17; Status DC Hydromorphone HCl (Dilaudid) 8 mg PRN Q4HRS PRN PO PAIN Last administered on 12:39; Start 11/03/16 at 11:15; Stop 11/07/16 at 14:40; Status DC Gabapentin (Neurontin) 300 mg QHS PO Last administered on 11/09/16 20:34; Start 11/03/16 at 14:00 Lidocaine/Sodium Bicarbonate (Buffered Lidocaine 1%) 20 ml STK-MED ONCE IJ ; Start 11/04/16 at 08:16; Stop 11/04/16 at 08:17; Status DC Heparin Sodium/ Sodium Chloride 0 ml @ As Directed STK-MED ONCE .ROUTE ; Start 11/04/16 at 08:17; Stop 11/04/16 at 08:18; Status DC Iodixanol (Visipaque 320) 100 ml STK-MED ONCE .ROUTE ; Start 11/04/16 at 08:17; Stop 11/04/16 at 08:18; Status DC Iodixanol (Visipaque 320) 50 ml STK-MED ONCE .ROUTE ; Start 11/04/16 at 09:57; Stop 11/04/16 at 09:58; Status DC Lidocaine/Sodium Bicarbonate (Buffered Lidocaine 1%) 20 ml STK-MED ONCE IJ ; Start 11/04/16 at 09:58; Stop 11/04/16 at 09:59; Status DC Heparin Sodium/ Sodium Chloride 1,500 ml @ As Directed STK-MED ONCE .ROUTE ; Start 11/04/16 at 09:58; Stop 11/04/16 at 09:59; Status DC Heparin Sodium (Porcine) (Heparin Sodium) 10,000 unit STK-MED ONCE .ROUTE ; Start 11/04/16 at 10:29; Stop 11/04/16 at 10:30; Status DC Midazolam HCl (Versed) 2 mg STK-MED ONCE .ROUTE ; Start 11/04/16 at 10:29; Stop 11/04/16 at 10:30; Status DC Heparin Sodium/ Sodium Chloride 1,000 unit 1X ONCE IART Last administered on 12:25; Start 11/04/16 at 11:00; Stop 11/04/16 at 11:01; Status DC Lidocaine/Sodium Bicarbonate (Buffered Lidocaine 1%) 20 ml 1X ONCE IJ Last administered on 11/04/16 12:25; Start 11/04/16 at 11:00; Stop 11/04/16 at 11:01; Status DC Midazolam HCl (Versed) 2 mg 1X ONCE IV Last administered on 11/04/16 12:26; Start 11/04/16 at 11:00; Stop 11/04/16 at 11:01; Status DC Fentanyl Citrate (Fentanyl 2ml Vial) 100 mcg 1X ONCE IV Last administered on 12:27; Start 11/04/16 at 11:00; Stop 11/04/16 at 11:01; Status DC Iodixanol (Visipaque 320) 50 ml 1X ONCE IART Last administered on 11/04/16 12: 24; Start 11/04/16 at 11:00; Stop 11/04/16 at 11:01; Status DC Info (Do NOT chart on this entry -- for MONITORING) 1 each PRN DAILY PRN MC SEE COMMENTS; Start 11/04/16 at 11:00; Stop 11/06/16 at 10:59; Status DC Heparin Sodium (Porcine) (Heparin Sodium) 5,000 unit 1X ONCE IV Last administered on 11/04/16 12:27; Start 11/04/16 at 12:15; Stop 11/04/16 at 12:21; Status DC Sodium Chloride 1,000 ml @ 75 mls/hr [id number] IV Last administered on 11/07/16 21:23; Start 11/05/16 at 15:45; Stop 11/08/16 at 14:14; Status DC Sodium Polystyrene Sulfonate (Kayexalate) 15 gm 1X ONCE PO Last administered on 11/06/16 16:30; Start 11/06/16 at 14:45; Stop 11/06/16 at 14:46; Status DC Ondansetron HCl (Zofran) 4 mg PRN Q6HRS PRN IV NAUSEA/VOMITING; Start 11/08/16 at 07:00; Stop 11/09/16 at 06:59; Status DC Fentanyl Citrate (Fentanyl 2ml Vial) 25 mcg PRN Q5MIN PRN IV MILD PAIN Last administered on 11/08/16 13:25; Start 11/08/16 at 07:00; Stop 11/09/16 at 06:59; Status DC Fentanyl Citrate (Fentanyl 2ml Vial) 50 mcg PRN Q5MIN PRN IV MODERATE PAIN Last administered on 11/08/16 14:55; Start 11/08/16 at 07:00; Stop 11/09/16 at 06: 59; Status DC Morphine Sulfate 1 mg PRN Q10MIN PRN IV SEVERE PAIN; Start 11/08/16 at 07:00; Stop 11/09/16 at 06:59; Status UNV Ringer's Solution 1,000 ml @ 0 mls/hr Q0M IV Last administered on 11/08/16 07: 03; Start 11/08/16 at 07:00; Stop 11/08/16 at 18:59; Status DC Lidocaine HCl 2 ml PRN 1X PRN ID PRIOR TO IV START; Start 11/08/16 at 07:00; Stop 11/09/16 at 06:59; Status DC Hydromorphone HCl (Dilaudid) 0.5 mg PRN Q10MIN PRN IV SEV PAIN, Second choice; Start 11/08/16 at 07:00; Stop 11/09/16 at 06:59; Status DC Prochlorperazine Edisylate (Compazine) 5 mg PACU PRN PRN IV NAUSEA, MRX1; Start 11/08/16 at 07:00; Stop 11/09/16 at 06:59; Status DC Hydromorphone HCl (Dilaudid) 8 mg PRN Q3HRS PRN PO PAIN Last administered on 09:13; Start 11/07/16 at 14:45 Cellulose 1 each STK-MED ONCE .ROUTE Last administered on 11/08/16 11:30; Start 11/08/16 at 07:01; Stop 11/08/16 at 07:02; Status DC Iohexol (Omnipaque 300 Mg/ml) 50 ml STK-MED ONCE .ROUTE ; Start 11/08/16 at 07:02 ; Stop 11/08/16 at 07:03; Status DC Gelatin (Gelfoam Powder) 1 gm STK-MED ONCE .ROUTE ; Start 11/08/16 at 07:02; Stop 11/08/16 at 07:03; Status DC Papaverine HCl 60 mg STK-MED ONCE .ROUTE ; Start 11/08/16 at 07:02; Stop 11/08/16 at 07:03; Status DC Thrombin 20,000 unit STK-MED ONCE TP ; Start 11/08/16 at 07:02; Stop 11/08/16 at 07:03; Status DC Gelatin (Gelfoam Size 100) 1 each STK-MED ONCE .ROUTE ; Start 11/08/16 at 07:03 ; Stop 11/08/16 at 07:04; Status DC Cefazolin Sodium/ Dextrose 50 ml @ As Directed STK-MED ONCE IV ; Start 11/08/16 at 07:07; Stop 11/08/16 at 07:08; Status DC Cefazolin Sodium 1 gm/Sodium Chloride 500 ml @ 500 mls/hr 1X PERIOP ONCE IRR Last administered on 11/08/16t 09:00; Start 11/08/16 at 06:00; Stop 11/08/16 at 07: 10; Status DC Heparin Sodium (Porcine) 5000 unit/Sodium Chloride 505 ml @ 505 mls/hr 1X PERIOP ONCE IRR Last administered on 11/08/16t 09:01; Start 11/08/16 at 06:00; Stop 11/08/16 at 07:10; Status DC Famotidine (Pepcid) 20 mg STK-MED ONCE .ROUTE ; Start 11/08/16 at 07:09; Stop 11/08/16 at 07:10; Status DC Propofol 20 ml @ As Directed STK-MED ONCE IV ; Start 11/08/16 at 07:09; Stop 11/08 at 07:10; Status DC Ondansetron HCl (Zofran) 4 mg STK-MED ONCE .ROUTE ; Start 11/08/16 at 07:10; Stop 11/08/16 at 07:11; Status DC Dexamethasone Sodium Phosphate (Decadron) 20 mg STK-MED ONCE .ROUTE ; Start 11/08 at 07:10; Stop 11/08/16 at 07:11; Status DC Lidocaine HCl (Lidocaine Pf 2% Vial) 5 ml STK-MED ONCE .ROUTE ; Start 11/08/16 at 07:10; Stop 11/08/16 at 07:11; Status DC Fentanyl Citrate (Fentanyl 2ml Vial) 100 mcg STK-MED ONCE .ROUTE ; Start at 07:11; Stop 11/08/16 at 07:12; Status DC Midazolam HCl (Versed) 2 mg STK-MED ONCE .ROUTE ; Start 11/08/16 at 07:11; Stop 11/08/16 at 07:12; Status DC Rocuronium [place] (Zemuron) 100 mg STK-MED ONCE .ROUTE ; Start 11/08/16 at 07:11 ; Stop 11/08/16 at 07:12; Status DC Cefazolin Sodium/ Dextrose 50 ml @ 100 mls/hr 1X PREOP PRN IV Pre Op Dose Last administered on 11/08/16t 07:44; Start 11/08/16 at 06:00; Stop 11/09/16 at 05: 59; Status DC Ephedrine Sulfate 50 mg STK-MED ONCE IV ; Start 11/08/16 at 07:44; Stop 11/08/16 at 07:45; Status DC Fentanyl Citrate (Fentanyl 2ml Vial) 100 mcg STK-MED ONCE .ROUTE ; Start at 08:55; Stop 11/08/16 at 08:56; Status DC Heparin Sodium (Porcine) (Heparin Sodium) 10,000 unit STK-MED ONCE .ROUTE ; Start 11/08/16 at 10:26; Stop 11/08/16 at 10:27; Status DC Fentanyl Citrate (Fentanyl 2ml Vial) 100 mcg STK-MED ONCE .ROUTE ; Start at 10:47; Stop 11/08/16 at 10:48; Status DC Heparin Sodium (Porcine) 5000 unit/Sodium Chloride 505 ml @ 505 mls/hr 1X PERIOP ONCE IRR ; Start 11/08/16 at 11:07; Stop 11/08/16 at 12:06; Status DC Sevoflurane (Ultane) 90 ml STK-MED ONCE IH ; Start 11/08/16 at 11:47; Stop at 11:48; Status DC Glycopyrrolate (Robinul) 1 mg STK-MED ONCE .ROUTE ; Start 11/08/16 at 11:52; Stop 11/08/16 at 11:53; Status DC Neostigmine Methylsulfate 5 mg STK-MED ONCE .ROUTE ; Start 11/08/16 at 11:52; Stop 11/08/16 at 11:53; Status DC Hydromorphone HCl (Dilaudid) 1 mg Q1HR PRN IV SEVERE PAIN Last administered on 11/09/16 04:22; Start 11/08/16 at 12:30; Stop 11/10/16 at 08:46; Status DC Oxycodone/ Acetaminophen (Percocet 5/325) 1 tab PRN Q4HRS PRN PO PAIN; Start at 12:30 Oxycodone/ Acetaminophen (Percocet 5/325) 2 tab PRN Q4HRS PRN PO PAIN Last administered on 11/08/16 17:18; Start 11/08/16 at 12:30 Sodium Chloride 1,000 ml @ 100 mls/hr Q10H IV Last administered on 11/09/16 01 :00; Start 11/08/16 at 12:30; Stop 11/09/16 at 10:17; Status DC Furosemide (Lasix) 40 mg STK-MED ONCE .ROUTE ; Start 11/08/16 at 14:32; Stop 11/08 at 14:33; Status DC Sodium Bicarbonate 50 meq STK-MED ONCE .ROUTE ; Start 11/08/16 at 14:32; Stop 11/08/16 at 14:33; Status DC Sodium Bicarbonate 100 meq 1X PACU PRN IV SEE COMMENTS Last administered on 11/08 14:50; Start 11/08/16 at 14:30 Furosemide (Lasix) 40 mg 1X PACU PRN IVP SEE COMMENTS Last administered on 14:40; Start 11/08/16 at 14:30; Stop 11/09/16 at 10:17; Status DC Naloxone HCl (Narcan) 0.4 mg PRN Q2MIN PRN IV SEE INSTRUCTIONS; Start 11/08/16 at 18:45 Sodium Chloride 1,000 ml @ 25 mls/hr Q24H IV Last administered on 11/09/16 19: 48; Start 11/08/16 at 19:00 Hydromorphone HCl 30 ml @ 0 mls/hr CONT PRN PRN IV PROTOCOL Last administered on 11/09/16 10:36; Start 11/08/16 at 18:45; Stop 11/09/16 at 21:12; Status DC Heparin Sodium (Porcine) (Heparin Sodium) 10,000 unit STK-MED ONCE .ROUTE ; Start 11/08/16 at 19:02; Stop 11/08/16 at 19:03; Status DC Lidocaine/Sodium Bicarbonate (Buffered Lidocaine 1%) 20 ml STK-MED ONCE IJ ; Start 11/08/16 at 19:02; Stop 11/08/16 at 19:03; Status DC Heparin Sodium/ Sodium Chloride 500 ml @ As Directed STK-MED ONCE .ROUTE ; Start 11/08/16 at 19:02; Stop 11/08/16 at 19:03; Status DC Lidocaine/Sodium Bicarbonate (Buffered Lidocaine 1%) 3 ml 1X ONCE IJ Last administered on 11/08/16 19:50; Start 11/08/16 at 19:15; Stop 11/08/16 at 19:16; Status DC Heparin Sodium (Porcine) (Heparin Sodium) 2,500 unit 1X ONCE INT CAT Last administered on 11/08/16 19:49; Start 11/08/16 at 19:15; Stop 11/08/16 at 19:16; Status DC Heparin Sodium/ Sodium Chloride 60 unit 1X ONCE IV Last administered on 19:15; Start 11/08/16 at 19:15; Stop 11/08/16 at 19:16; Status DC Cyclobenzaprine HCl (Flexeril) 10 mg PRN Q6HRS PRN PO MUSCLE SPASMS Last administered on 11/09/16 19:46; Start 11/09/16 at 09:00; Stop 11/10/16 at 08:46; Status DC Carisoprodol (Soma) 350 mg TID PRN PRN PO MUSCLE SPASMS; Start 11/09/16 at 09:00 ; Stop 11/09/16 at 16:31; Status DC Hydromorphone HCl 30 ml @ 0 mls/hr CONT PRN PRN IV PROTOCOL Last administered on 11/10/16 02:20; Start 11/09/16 at 21:15; Stop 11/10/16 at 08:46; Status DC Alprazolam (Xanax) 0.25 mg PRN QID PRN PO ANXIETY / AGITATION Last administered on 11/10/16 08:54; Start 11/09/16 at 21:15 Cyclobenzaprine HCl (Flexeril) 5 mg PRN Q6HRS PRN PO MUSCLE SPASMS Last administered on 11/10/16 08:55; Start 11/10/16 at 08:45 Hydromorphone HCl (Dilaudid) 0.4 mg Q1HR PRN IV SEVERE PAIN; Start 11/10/16 at 08:45 Sodium Chloride 1,000 ml @ 1,000 mls/hr Q1H PRN IV hypotension; Start 11/10/16 at 09:06; Stop 11/10/16 at 15:05 Sodium Chloride 1,000 ml @ 400 mls/hr Q2H30M PRN IV PATENCY; Start 11/10/16 at 09:06; Stop 11/10/16 at 21:05 Info (PHARMACY MONITORING -- do not chart) 1 each PRN DAILY PRN MC SEE COMMENTS ; Start 11/10/16 at 09:15 Vitals/I & O Vital Sign - Last 24 Hours 11/09/16 11/09/16 11/09/16 11/09/16 11:00 11:40 12:00 12:00 Temp 98.3 98.3 98.3 98.3 Pulse 92 94 94 Resp 16 22 22 B/P (MAP) 116/58 (77) 123/63 117/63 (81) Pulse Ox 99 100 O2 Delivery Room Air Room Air Room Air 11/09/16 11/09/16 11/09/16 11/09/16 12:18 12:24 12:30 13:00 Temp 98.3 98.3 98.3 98.3 Pulse 99 100 98 Resp 18 18 18 B/P (MAP) 117/63 144/78 141/63 (89) Pulse Ox 100 O2 Delivery Room Air Room Air 11/09/16 11/09/16 11/09/16 11/09/16 13:30 14:00 14:30 15:00 Temp 98.4 98.3 98.4 98.3 Pulse 96 96 96 96 Resp 14 16 18 23 B/P (MAP) 141/72 141/74 (96) 152/96 140/69 (92) Pulse Ox 100 100 O2 Delivery Room Air Room Air 11/09/16 11/09/16 11/09/16 11/09/16 16:00 16:00 17:00 17:03 Temp 98.3 98.3 Pulse 102 102 102 Resp 22 18 B/P (MAP) 155/78 (103) 158/76 (103) 158/76 Pulse Ox 99 100 O2 Delivery Room Air Room Air Room Air 11/09/16 11/09/16 11/09/16 11/09/16 18:00 19:00 20:00 20:00 Temp 98.3 98.3 Pulse 102 98 98 Resp 23 23 20 B/P (MAP) 136/77 (96) 149/76 (100) 140/85 (103) Pulse Ox 100 100 100 O2 Delivery Room Air Room Air Room Air Room Air 11/09/16 11/09/16 11/09/16 11/09/16 20:34 21:00 22:00 23:00 Pulse 98 102 96 98 Resp 17 20 14 B/P (MAP) 109/70 135/67 (89) 155/75 (101) 148/68 (94) Pulse Ox 100 100 100 O2 Delivery Room Air Room Air Room Air 11/10/16 11/10/16 11/10/16 11/10/16 00:00 00:00 01:00 02:00 Pulse 94 94 94 Resp 19 18 18 B/P (MAP) 152/80 (104) 134/62 (86) 141/55 (83) Pulse Ox 99 99 99 O2 Delivery Room Air Room Air Room Air Room Air 11/10/16 11/10/16 11/10/16 11/10/16 02:20 03:00 04:00 04:00 Temp 96.9 96.9 Pulse 107 104 Resp 21 25 B/P (MAP) 146/90 (108) 148/68 (94) Pulse Ox 98 98 98 O2 Delivery Room Air Room Air Room Air Room Air 11/10/16 11/10/16 11/10/16 11/10/16 05:00 06:00 08:55 09:13 Pulse 102 105 105 105 Resp 17 21 B/P (MAP) 147/67 (93) 138/66 (90) 157/76 157/76 Pulse Ox 98 99 O2 Delivery Room Air Room Air JOSE LEZAMA MD Nov 10, 2016 10:55
[2016-11-10] MEDS ORDERED: MAGNESIUM HYDROXIDE 2,400 MG/30 ML ORAL.SUSP. PO PRN (11:00)
[2016-11-10] MEDS: DOCUSATE SODIUM 100 MG CAPSULE. PO SCH ×2 (11:30→21:43)
[2016-11-10] MEDS: POLYETHYLENE GLYCOL 3350 17 GM PACKET. PO SCH (11:30)
[2016-11-10] MEDS: HYDROmorphone 2 MG/ML VIAL IV PRN ×3 (12:01→17:48)
--- NOTE | 2016-11-10 12:43 | PDOC ---
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 He canceled a procedure of his kidneys today because of not feeling well enough. Vitals Vital Signs Date Time Temp Pulse Resp B/P (MAP) Pulse Ox O2 Delivery O2 Flow Rate FiO2 11/10/16 09:13 105 157/76 11/10/16 06:00 21 99 Room Air 11/10/16 04:00 96.9 96.9 Labs Laboratory Tests Test 11/08/16 12:45 11/08/16 12:55 11/08/16 16:30 11/08/16 17:37 Glucose (Fingerstick) 192 mg/dL (70-99) 168 mg/dL (70-99) White Blood Count 8.0 x10^3/uL (4.0-11.0) Red Blood Count 2.88 x10^6/uL (4.30-5.70) Hemoglobin 8.3 g/dL (13.0-17.5) Hematocrit 26.0 % (39.0-53.0) Mean Corpuscular Volume 90 fL (79-100) Mean Corpuscular Hemoglobin 29 pg (25-35) Mean Corpuscular Hemoglobin Concent 32 g/dL (31-37) Red Cell Distribution Width 16.6 % (11.5-14.5) Platelet Count 231 x10^3/uL (140-400) Sodium Level 143 mmol/L (136-145) 145 mmol/L (136-145) Potassium Level 6.3 mmol/L (3.5-5.1) 6.0 mmol/L (3.5-5.1) Chloride Level 111 mmol/L (98-107) 110 mmol/L (98-107) Carbon Dioxide Level 19 mmol/L (21-32) 22 mmol/L (21-32) Anion Gap 13 (6-14) 13 (6-14) Blood Urea Nitrogen 69 mg/dL (8-26) Creatinine 4.7 mg/dL (0.7-1.3) Estimated GFR (Cockcroft-Gault) 12.8 Glucose Level 199 mg/dL (70-99) Calcium Level 8.4 mg/dL (8.5-10.1) Creatine Kinase 49 U/L (39-308) Test 11/08/16 21:03 11/09/16 05:00 11/09/16 12:16 11/09/16 16:59 Glucose (Fingerstick) 133 mg/dL (70-99) 151 mg/dL (70-99) 119 mg/dL (70-99) White Blood Count 9.5 x10^3/uL (4.0-11.0) Red Blood Count 2.13 x10^6/uL (4.30-5.70) Hemoglobin 6.3 g/dL (13.0-17.5) Hematocrit 18.5 % (39.0-53.0) Mean Corpuscular Volume 87 fL (79-100) Mean Corpuscular Hemoglobin 30 pg (25-35) Mean Corpuscular Hemoglobin Concent 34 g/dL (31-37) Red Cell Distribution Width 16.3 % (11.5-14.5) Platelet Count 214 x10^3/uL (140-400) Neutrophils (%) (Auto) 73 % (31-73) Lymphocytes (%) (Auto) 16 % (24-48) Monocytes (%) (Auto) 9 % (0-9) Eosinophils (%) (Auto) 2 % (0-3) Basophils (%) (Auto) 0 % (0-3) Neutrophils # (Auto) 6.9 x10^3uL (1.8-7.7) Lymphocytes # (Auto) 1.5 x10^3/uL (1.0-4.8) Monocytes # (Auto) 0.8 x10^3/uL (0.0-1.1) Eosinophils # (Auto) 0.2 x10^3/uL (0.0-0.7) Basophils # (Auto) 0.0 x10^3/uL (0.0-0.2) Sodium Level 140 mmol/L (136-145) Potassium Level 4.3 mmol/L (3.5-5.1) Chloride Level 105 mmol/L (98-107) Carbon Dioxide Level 25 mmol/L (21-32) Anion Gap 10 (6-14) Blood Urea Nitrogen 32 mg/dL (8-26) Creatinine 2.8 mg/dL (0.7-1.3) Estimated GFR (Cockcroft-Gault) 23.2 Glucose Level 131 mg/dL (70-99) Calcium Level 7.4 mg/dL (8.5-10.1) Test 11/09/16 17:00 11/10/16 06:09 White Blood Count 11.9 x10^3/uL (4.0-11.0) 13.1 x10^3/uL (4.0-11.0) Red Blood Count 3.02 x10^6/uL (4.30-5.70) 3.13 x10^6/uL (4.30-5.70) Hemoglobin 8.8 g/dL (13.0-17.5) 9.1 g/dL (13.0-17.5) Hematocrit 25.8 % (39.0-53.0) 26.9 % (39.0-53.0) Mean Corpuscular Volume 86 fL (79-100) 86 fL (79-100) Mean Corpuscular Hemoglobin 29 pg (25-35) 29 pg (25-35) Mean Corpuscular Hemoglobin Concent 34 g/dL (31-37) 34 g/dL (31-37) Red Cell Distribution Width 16.5 % (11.5-14.5) 16.6 % (11.5-14.5) Platelet Count 185 x10^3/uL (140-400) 196 x10^3/uL (140-400) Prothrombin Time 14.5 SEC (11.7-14.0) Prothromb Time International Ratio 1.2 (0.8-1.1) Activated Partial Thromboplast Time 35 SEC (24-38) Neutrophils (%) (Auto) 73 % (31-73) Lymphocytes (%) (Auto) 14 % (24-48) Monocytes (%) (Auto) 10 % (0-9) Eosinophils (%) (Auto) 3 % (0-3) Basophils (%) (Auto) 1 % (0-3) Neutrophils # (Auto) 9.5 x10^3uL (1.8-7.7) Lymphocytes # (Auto) 1.8 x10^3/uL (1.0-4.8) Monocytes # (Auto) 1.3 x10^3/uL (0.0-1.1) Eosinophils # (Auto) 0.4 x10^3/uL (0.0-0.7) Basophils # (Auto) 0.1 x10^3/uL (0.0-0.2) Sodium Level 143 mmol/L (136-145) Potassium Level 4.8 mmol/L (3.5-5.1) Chloride Level 107 mmol/L (98-107) Carbon Dioxide Level 25 mmol/L (21-32) Anion Gap 11 (6-14) Blood Urea Nitrogen 51 mg/dL (8-26) Creatinine 3.8 mg/dL (0.7-1.3) Estimated GFR (Cockcroft-Gault) 16.3 Glucose Level 122 mg/dL (70-99) Calcium Level 8.1 mg/dL (8.5-10.1) Laboratory Tests Test 11/09/16 16:59 11/09/16 17:00 11/10/16 06:09 Glucose (Fingerstick) 119 mg/dL (70-99) White Blood Count 11.9 x10^3/uL (4.0-11.0) 13.1 x10^3/uL (4.0-11.0) Red Blood Count 3.02 x10^6/uL (4.30-5.70) 3.13 x10^6/uL (4.30-5.70) Hemoglobin 8.8 g/dL (13.0-17.5) 9.1 g/dL (13.0-17.5) Hematocrit 25.8 % (39.0-53.0) 26.9 % (39.0-53.0) Mean Corpuscular Volume 86 fL (79-100) 86 fL (79-100) Mean Corpuscular Hemoglobin 29 pg (25-35) 29 pg (25-35) Mean Corpuscular Hemoglobin Concent 34 g/dL (31-37) 34 g/dL (31-37) Red Cell Distribution Width 16.5 % (11.5-14.5) 16.6 % (11.5-14.5) Platelet Count 185 x10^3/uL (140-400) 196 x10^3/uL (140-400) Prothrombin Time 14.5 SEC (11.7-14.0) Prothromb Time International Ratio 1.2 (0.8-1.1) Activated Partial Thromboplast Time 35 SEC (24-38) Neutrophils (%) (Auto) 73 % (31-73) Lymphocytes (%) (Auto) 14 % (24-48) Monocytes (%) (Auto) 10 % (0-9) Eosinophils (%) (Auto) 3 % (0-3) Basophils (%) (Auto) 1 % (0-3) Neutrophils # (Auto) 9.5 x10^3uL (1.8-7.7) Lymphocytes # (Auto) 1.8 x10^3/uL (1.0-4.8) Monocytes # (Auto) 1.3 x10^3/uL (0.0-1.1) Eosinophils # (Auto) 0.4 x10^3/uL (0.0-0.7) Basophils # (Auto) 0.1 x10^3/uL (0.0-0.2) Sodium Level 143 mmol/L (136-145) Potassium Level 4.8 mmol/L (3.5-5.1) Chloride Level 107 mmol/L (98-107) Carbon Dioxide Level 25 mmol/L (21-32) Anion Gap 11 (6-14) Blood Urea Nitrogen 51 mg/dL (8-26) Creatinine 3.8 mg/dL (0.7-1.3) Estimated GFR (Cockcroft-Gault) 16.3 Glucose Level 122 mg/dL (70-99) Calcium Level 8.1 mg/dL (8.5-10.1) Notes Patient is awake and alert. Breathing unlabored, no acute distress. Leg incisions covered with dressing. No drainage or signs or symptoms of infection. Diminished sensation distally. good Cap refill Problems: (1) Wound dehiscence Assessment and Plan Plan for debridement tomorrow, hopefully he will feel well enough. YVONNE CROCKETT APRN Nov 10, 2016 12:43
[2016-11-10] MEDS: IV NORMAL SALINE 1000ML BAG 1,000 ML IV SCH (17:19)
[2016-11-10] MEDS: ATORVASTATIN CALCIUM 10 MG TABLET. PO SCH (21:44)
[2016-11-10] MEDS: GABAPENTIN 300 MG CAPSULE. PO SCH (21:44)
[2016-11-11] VITALS (12 sets, daily range): BP systolic 99–176; BP diastolic 60–83
[2016-11-11] MEDS: oxyCODONE/APAP 5/325 1 TAB TABLET PO PRN ×3 (00:54→23:27)
[2016-11-11] MEDS: HYDROmorphone 2 MG/ML VIAL IV PRN ×5 (01:57→23:27)
[2016-11-11] MEDS: CYCLOBENZAPRINE 10 MG TABLET. PO PRN ×2 (01:58→20:38)
[2016-11-11 04:58] LABS: BASO # 0.1 x10^3/uL (0.0-0.2); BASO % 1 % (0-3); EOS % 4 % (0-3); HEMATOCRIT 27.2 % (39.0-53.0); LYMPH # 1.6 x10^3/uL (1.0-4.8); LYMPH % 11 % (24-48); MEAN CORPUSCULAR HEMOGLOBIN 29 pg (25-35); MEAN CORPUSCULAR HGB CONC 33 g/dL (31-37); MEAN CORPUSCULAR VOLUME 87 fL (79-100); MONO % 9 % (0-9); NEUT % 75 % (31-73); PLATELET COUNT 187 x10^3/uL (140-400); RED BLOOD COUNT 3.12 x10^6/uL (4.30-5.70); RED CELL DISTRIBUTION WIDTH 16.9 % (11.5-14.5); WHITE BLOOD COUNT 14.3 x10^3/uL (4.0-11.0)
[2016-11-11] MEDS ORDERED: IV NORMAL SALINE 1000ML BAG 1,000 ML IV SCH (06:00)
[2016-11-11 06:11] LABS: CALCIUM 8.4 mg/dL (8.5-10.1); CREATININE 3.3 mg/dL (0.7-1.3); GFR 19.2; POTASSIUM 4.4 mmol/L (3.5-5.1)
--- NOTE | 2016-11-11 06:58 | PDOC ---
Provider Note Provider Note AF VSS awake and alert left leg incisions dry with no further bleeding, no hematomas, palpable graft and PT pulse in the foot arm dressings removed and incisions intact with no bleeding and mild swelling, TMA with open necrotic incision Hgb 9, K 4.4, Cr 3.3, WBC 14 A/P POD#3 left femoral to posterior tibial artery bypass with bilateral basilic veins and saphenous vein for nonhealing left TMA - aspirin and plavix daily - Hgb stable, no further incisional bleeding - surgery today with ortho for TMA revision - chronic renal failure- nephrology following - post-op pain - 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
[2016-11-11] MEDS ORDERED: PROCHLORPERAZINE 10 MG/2 ML VIAL. IV PRN (07:00)
[2016-11-11] MEDS ORDERED: fentaNYL PF VIAL 100 MCG/2 ML VIAL IV PRN ×2 (07:00)
[2016-11-11] MEDS ORDERED: SEVOFLURANE 61 TO 120 MINUTES. IH ONE (07:12)
[2016-11-11] MEDS ORDERED: MIDAZOLAM HCL/PF 2 MG/2 ML VIAL. ONE (07:13)
[2016-11-11] MEDS ORDERED: fentaNYL PF VIAL 100 MCG/2 ML VIAL ONE (07:13)
[2016-11-11] MEDS ORDERED: DEXAMETHASONE SOD PHOS 20 MG/5 ML VIAL. ONE (07:14)
[2016-11-11] MEDS ORDERED: ONDANSETRON PF 4 MG/2 ML VIAL. ONE (07:14)
[2016-11-11] MEDS ORDERED: PROPOFOL 20 ML IV ONE (07:14)
[2016-11-11] MEDS ORDERED: LIDOCAINE 2% PF Vial for OR 5 ML VIAL. ONE (07:14)
--- NOTE | 2016-11-11 07:33 | PDOC ---
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: Alert, oriented x 3, no focal neurologic deficit SKIN: No rash IV: ok Labs Lab Laboratory Tests Test 11/10/16 12:51 11/10/16 17:28 11/11/16 04:55 Glucose (Fingerstick) 181 mg/dL (70-99) 191 mg/dL (70-99) White Blood Count 14.3 x10^3/uL (4.0-11.0) Red Blood Count 3.12 x10^6/uL (4.30-5.70) Hemoglobin 9.0 g/dL (13.0-17.5) Hematocrit 27.2 % (39.0-53.0) Mean Corpuscular Volume 87 fL (79-100) Mean Corpuscular Hemoglobin 29 pg (25-35) Mean Corpuscular Hemoglobin Concent 33 g/dL (31-37) Red Cell Distribution Width 16.9 % (11.5-14.5) Platelet Count 187 x10^3/uL (140-400) Neutrophils (%) (Auto) 75 % (31-73) Lymphocytes (%) (Auto) 11 % (24-48) Monocytes (%) (Auto) 9 % (0-9) Eosinophils (%) (Auto) 4 % (0-3) Basophils (%) (Auto) 1 % (0-3) Neutrophils # (Auto) 10.6 x10^3uL (1.8-7.7) Lymphocytes # (Auto) 1.6 x10^3/uL (1.0-4.8) Monocytes # (Auto) 1.3 x10^3/uL (0.0-1.1) Eosinophils # (Auto) 0.6 x10^3/uL (0.0-0.7) Basophils # (Auto) 0.1 x10^3/uL (0.0-0.2) Sodium Level 141 mmol/L (136-145) Potassium Level 4.4 mmol/L (3.5-5.1) Chloride Level 104 mmol/L (98-107) Carbon Dioxide Level 28 mmol/L (21-32) Anion Gap 9 (6-14) Blood Urea Nitrogen 39 mg/dL (8-26) Creatinine 3.3 mg/dL (0.7-1.3) Estimated GFR (Cockcroft-Gault) 19.2 Glucose Level 139 mg/dL (70-99) Calcium Level 8.4 mg/dL (8.5-10.1) Objective Assessment 1. Left TMA wound dehiscence. 2. Acute kidney injury on chronic kidney disease. 3. Peripheral arterial disease. s/p leg bypass 4. Diabetes. Plan Plan of Care Meropenem and Fluconazole,, Probiotics surgery today BREANNA DOW MD Nov 11, 2016 07:33
[2016-11-11] MEDS ORDERED: PHENYLEPHRINE in 0.9% NACL PF 1 MG/10 ML DISP.SYRIN. IV ONE ×2 (07:47→08:43)
[2016-11-11] MEDS: INSULIN ASPART 300 UNITS/3 ML INSULN.PEN SQ SCH ×3 (08:00→18:24)
[2016-11-11] MEDS: POLYETHYLENE GLYCOL 3350 17 GM PACKET. PO SCH (09:00)
[2016-11-11] MEDS: amLODIPine BESYLATE 10 MG TABLET PO SCH ×2 (09:34→20:43)
[2016-11-11] MEDS: SEVELAMER CARBONATE 800 MG TABLET. PO SCH ×3 (09:34→18:18)
[2016-11-11] MEDS: PANTOPRAZOLE 40 MG TABLET.DR. PO SCH ×2 (09:34→18:18)
[2016-11-11] MEDS: CARVEDILOL 3.125 MG TABLET. PO SCH ×2 (09:34→18:19)
[2016-11-11] MEDS: CLOPIDOGREL BISULFATE 75 MG TABLET PO SCH (09:34)
[2016-11-11] MEDS: MULTIVITAMIN with MINERAL TABLET. PO SCH (09:34)
[2016-11-11] MEDS: ASCORBIC ACID 500 MG TABLET PO SCH ×2 (09:34→20:38)
[2016-11-11] MEDS: ASPIRIN ENTERIC COATED 81 MG TABLET.DR. PO SCH (09:34)
[2016-11-11] MEDS: DICLOFENAC SODIUM 1% TOPICAL GEL 100GM TUBE. TP SCH ×2 (09:35→20:39)
[2016-11-11] MEDS: MEROPENEM 1 GM in IV NORMAL SALINE 100ML 100 ML IV SCH (09:35)
[2016-11-11] MEDS: FLUCONAZOLE 100 MG TABLET. PO SCH (09:35)
[2016-11-11] MEDS: DOCUSATE SODIUM 100 MG CAPSULE. PO SCH ×2 (09:35→20:39)
[2016-11-11] MEDS: LACTOBACILLUS ACIDOPH & BULGAR 1 TABLET. PO SCH ×3 (09:42→18:18)
--- NOTE | 2016-11-11 09:53 | PDOC ---
PROGRESS NOTES Chief Complaint Chief Complaint Wound dehiscence - left foot s/p left TMA 6+ weeks ago ASSESSMENT AND PLAN: A/P POD# left femoral to posterior tibial artery bypass with bilateral basilic veins and saphenous vein for nonhealing left TMA (11/08/16) ; s/p IA nd D and wound vac () 1. PVD: L common femoral artery and profunda artery endarterectomy, L common femoral artery to posterior tibial artery bypass graft today 2. wound dehiscence/ infection: continue meropenem/zyvox/fluconazole, probiotic. wound care 3. Pain control: on home PO dilaudid and IV/IM meds; prob high tolerance for narcotics given chronic high use. 4. CKD5: nephrology following. pt trying to hold off HD, but unavoidable 5. Hyperkalemia: periop. eval for urgent HD ongoing. as per Dr Person 5. Anemia: of ESRD. on EPO 6. 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 s/p R hand finger amputations 7. DM2: fairly well controlled; cont ISS 8. HTN, HLD: well controlled. cont home meds 9. Prophylaxis: ASA/plavix/SCDs 10. Acute post op pain now on FAMILY MEDIATOR 11. OPIATE tOLERANT History of Present Illness History of Present Illness Seen in ICU Just had re I and D today by vasc sx and now with wound vac bec of seeping wound in ICU past 2 days (needed 2 pRBC for hgb 6) HG now 9 Now writhing in pain post op with indwelling wound vac HX of needing Dilaudid FAMILY MEDIATOR post op x 24 hrs Very opiod tolerant PLAN: LTAC screen Cont pain meds Wound care consult for wound vac MOnitor for further anemia or wound re bleed, transfuse prn EARLIER ENTRY (was too drowsy on ) dec felexeril dose to 5 from 10 Dc FAMILY MEDIATOR Dec iv dilaudid t0 0.4 from 1 mg Bowel regimen Start IS PT/OT - at least dangle feet in bed or else will catch PNA Dw DOCTOR NATUROPATHIC Vitals Vitals Vital Signs Date Time Temp Pulse Resp B/P (MAP) Pulse Ox O2 Delivery O2 Flow Rate FiO2 11/11/16 09:36 100 Room Air 10.0 11/11/16 09:34 102 161/55 11/11/16 06:00 16 11/11/16 04:00 98.7 98.7 Physical Exam General: Alert, Oriented X3, No acute distress Heart: Regular rate, Other (murmur, bilateral carotid bruit) Lungs: Clear, Wheezing Abdomen: Normal bowel sounds, Soft, No tenderness, Other (thin) Extremities: Other (bilat distal foot amputations, wrapped in gauze. Finger amput R) Skin: Other (left foot with amputation site dehiscence with necrosis and malodorous ) Labs LABS Laboratory Tests Test 11/10/16 12:51 11/10/16 17:28 11/11/16 04:55 Glucose (Fingerstick) 181 mg/dL (70-99) 191 mg/dL (70-99) White Blood Count 14.3 x10^3/uL (4.0-11.0) Red Blood Count 3.12 x10^6/uL (4.30-5.70) Hemoglobin 9.0 g/dL (13.0-17.5) Hematocrit 27.2 % (39.0-53.0) Mean Corpuscular Volume 87 fL (79-100) Mean Corpuscular Hemoglobin 29 pg (25-35) Mean Corpuscular Hemoglobin Concent 33 g/dL (31-37) Red Cell Distribution Width 16.9 % (11.5-14.5) Platelet Count 187 x10^3/uL (140-400) Neutrophils (%) (Auto) 75 % (31-73) Lymphocytes (%) (Auto) 11 % (24-48) Monocytes (%) (Auto) 9 % (0-9) Eosinophils (%) (Auto) 4 % (0-3) Basophils (%) (Auto) 1 % (0-3) Neutrophils # (Auto) 10.6 x10^3uL (1.8-7.7) Lymphocytes # (Auto) 1.6 x10^3/uL (1.0-4.8) Monocytes # (Auto) 1.3 x10^3/uL (0.0-1.1) Eosinophils # (Auto) 0.6 x10^3/uL (0.0-0.7) Basophils # (Auto) 0.1 x10^3/uL (0.0-0.2) Sodium Level 141 mmol/L (136-145) Potassium Level 4.4 mmol/L (3.5-5.1) Chloride Level 104 mmol/L (98-107) Carbon Dioxide Level 28 mmol/L (21-32) Anion Gap 9 (6-14) Blood Urea Nitrogen 39 mg/dL (8-26) Creatinine 3.3 mg/dL (0.7-1.3) Estimated GFR (Cockcroft-Gault) 19.2 Glucose Level 139 mg/dL (70-99) Calcium Level 8.4 mg/dL (8.5-10.1) Review of Systems Review of Systems pain all over - Assessment and Plan Assessmemt and Plan Problems Medical Problems: (1) Wound dehiscence Status: Acute Problems: Comment Review of Relevant I have reviewed the following items rula (where applicable) has been applied. Labs Laboratory Tests Test 11/09/16 12:16 11/09/16 16:59 11/09/16 17:00 11/10/16 06:09 Glucose (Fingerstick) 151 mg/dL (70-99) 119 mg/dL (70-99) White Blood Count 11.9 x10^3/uL (4.0-11.0) 13.1 x10^3/uL (4.0-11.0) Red Blood Count 3.02 x10^6/uL (4.30-5.70) 3.13 x10^6/uL (4.30-5.70) Hemoglobin 8.8 g/dL (13.0-17.5) 9.1 g/dL (13.0-17.5) Hematocrit 25.8 % (39.0-53.0) 26.9 % (39.0-53.0) Mean Corpuscular Volume 86 fL (79-100) 86 fL (79-100) Mean Corpuscular Hemoglobin 29 pg (25-35) 29 pg (25-35) Mean Corpuscular Hemoglobin Concent 34 g/dL (31-37) 34 g/dL (31-37) Red Cell Distribution Width 16.5 % (11.5-14.5) 16.6 % (11.5-14.5) Platelet Count 185 x10^3/uL (140-400) 196 x10^3/uL (140-400) Prothrombin Time 14.5 SEC (11.7-14.0) Prothromb Time International Ratio 1.2 (0.8-1.1) Activated Partial Thromboplast Time 35 SEC (24-38) Neutrophils (%) (Auto) 73 % (31-73) Lymphocytes (%) (Auto) 14 % (24-48) Monocytes (%) (Auto) 10 % (0-9) Eosinophils (%) (Auto) 3 % (0-3) Basophils (%) (Auto) 1 % (0-3) Neutrophils # (Auto) 9.5 x10^3uL (1.8-7.7) Lymphocytes # (Auto) 1.8 x10^3/uL (1.0-4.8) Monocytes # (Auto) 1.3 x10^3/uL (0.0-1.1) Eosinophils # (Auto) 0.4 x10^3/uL (0.0-0.7) Basophils # (Auto) 0.1 x10^3/uL (0.0-0.2) Sodium Level 143 mmol/L (136-145) Potassium Level 4.8 mmol/L (3.5-5.1) Chloride Level 107 mmol/L (98-107) Carbon Dioxide Level 25 mmol/L (21-32) Anion Gap 11 (6-14) Blood Urea Nitrogen 51 mg/dL (8-26) Creatinine 3.8 mg/dL (0.7-1.3) Estimated GFR (Cockcroft-Gault) 16.3 Glucose Level 122 mg/dL (70-99) Calcium Level 8.1 mg/dL (8.5-10.1) Test 11/10/16 12:51 11/10/16 17:28 11/11/16 04:55 Glucose (Fingerstick) 181 mg/dL (70-99) 191 mg/dL (70-99) White Blood Count 14.3 x10^3/uL (4.0-11.0) Red Blood Count 3.12 x10^6/uL (4.30-5.70) Hemoglobin 9.0 g/dL (13.0-17.5) Hematocrit 27.2 % (39.0-53.0) Mean Corpuscular Volume 87 fL (79-100) Mean Corpuscular Hemoglobin 29 pg (25-35) Mean Corpuscular Hemoglobin Concent 33 g/dL (31-37) Red Cell Distribution Width 16.9 % (11.5-14.5) Platelet Count 187 x10^3/uL (140-400) Neutrophils (%) (Auto) 75 % (31-73) Lymphocytes (%) (Auto) 11 % (24-48) Monocytes (%) (Auto) 9 % (0-9) Eosinophils (%) (Auto) 4 % (0-3) Basophils (%) (Auto) 1 % (0-3) Neutrophils # (Auto) 10.6 x10^3uL (1.8-7.7) Lymphocytes # (Auto) 1.6 x10^3/uL (1.0-4.8) Monocytes # (Auto) 1.3 x10^3/uL (0.0-1.1) Eosinophils # (Auto) 0.6 x10^3/uL (0.0-0.7) Basophils # (Auto) 0.1 x10^3/uL (0.0-0.2) Sodium Level 141 mmol/L (136-145) Potassium Level 4.4 mmol/L (3.5-5.1) Chloride Level 104 mmol/L (98-107) Carbon Dioxide Level 28 mmol/L (21-32) Anion Gap 9 (6-14) Blood Urea Nitrogen 39 mg/dL (8-26) Creatinine 3.3 mg/dL (0.7-1.3) Estimated GFR (Cockcroft-Gault) 19.2 Glucose Level 139 mg/dL (70-99) Calcium Level 8.4 mg/dL (8.5-10.1) Laboratory Tests Test 11/10/16 12:51 11/10/16 17:28 11/11/16 04:55 Glucose (Fingerstick) 181 mg/dL (70-99) 191 mg/dL (70-99) White Blood Count 14.3 x10^3/uL (4.0-11.0) Red Blood Count 3.12 x10^6/uL (4.30-5.70) Hemoglobin 9.0 g/dL (13.0-17.5) Hematocrit 27.2 % (39.0-53.0) Mean Corpuscular Volume 87 fL (79-100) Mean Corpuscular Hemoglobin 29 pg (25-35) Mean Corpuscular Hemoglobin Concent 33 g/dL (31-37) Red Cell Distribution Width 16.9 % (11.5-14.5) Platelet Count 187 x10^3/uL (140-400) Neutrophils (%) (Auto) 75 % (31-73) Lymphocytes (%) (Auto) 11 % (24-48) Monocytes (%) (Auto) 9 % (0-9) Eosinophils (%) (Auto) 4 % (0-3) Basophils (%) (Auto) 1 % (0-3) Neutrophils # (Auto) 10.6 x10^3uL (1.8-7.7) Lymphocytes # (Auto) 1.6 x10^3/uL (1.0-4.8) Monocytes # (Auto) 1.3 x10^3/uL (0.0-1.1) Eosinophils # (Auto) 0.6 x10^3/uL (0.0-0.7) Basophils # (Auto) 0.1 x10^3/uL (0.0-0.2) Sodium Level 141 mmol/L (136-145) Potassium Level 4.4 mmol/L (3.5-5.1) Chloride Level 104 mmol/L (98-107) Carbon Dioxide Level 28 mmol/L (21-32) Anion Gap 9 (6-14) Blood Urea Nitrogen 39 mg/dL (8-26) Creatinine 3.3 mg/dL (0.7-1.3) Estimated GFR (Cockcroft-Gault) 19.2 Glucose Level 139 mg/dL (70-99) Calcium Level 8.4 mg/dL (8.5-10.1) Microbiology 11/01/16 Blood Culture - Final, Complete NO GROWTH AFTER 5 DAYS 11/03/16 Gram Stain - Final, Complete Medications Current Medications Sodium Chloride 1,000 ml @ 1,000 mls/hr 1X ONCE IV Last administered on 11:06; Start 11/01/16 at 10:30; Stop 11/01/16 at 11:38; Status DC Fentanyl Citrate (Fentanyl 2ml Vial) 50 mcg 1X ONCE IV Last administered on 11:08; Start 11/01/16 at 11:15; Stop 11/01/16 at 11:16; Status DC Vancomycin HCl (Vanco Per Pharmacy) 1 each PRN DAILY PRN MC SEE COMMENTS Last administered on 11/03/16 06:59; Start 11/01/16 at 13:15; Stop 11/03/16 at 10:10 ; Status DC Vancomycin HCl 1.5 gm/Sodium Chloride 500 ml @ 250 mls/hr 1X ONCE IV Last administered on 11/01/16 13:37; Start 11/01/16 at 13:30; Stop 11/01/16 at 15:29 ; Status DC Fentanyl Citrate (Fentanyl 2ml Vial) 50 mcg 1X ONCE IV Last administered on 13:40; Start 11/01/16 at 13:30; Stop 11/01/16 at 13:31; Status DC Ondansetron HCl (Zofran) 4 mg PRN Q8HRS PRN IV NAUSEA/VOMITING; Start 11/01/16 at 13:45; Stop 11/02/16 at 13:44; Status DC Acetaminophen (Tylenol) 650 mg PRN Q4HRS PRN PO FEVER Last administered on 11/01 23:03; Start 11/01/16 at 13:45; Stop 11/02/16 at 13:44; Status DC Fentanyl Citrate (Fentanyl 2ml Vial) 50 mcg PRN Q4HRS PRN IM PAIN Last administered on 11/07/16 06:37; Start 11/01/16 at 13:45; Stop 11/07/16 at 14:40; Status DC Vancomycin HCl 1 each 1X ONCE MC Last administered on 11/03/16 06:03; Start 11/03/16 at 05:00; Stop 11/03/16 at 10:10; Status DC Insulin Aspart (NovoLOG) 0-7 UNITS TIDWMEALS SQ Last administered on 11/10/16 17:29; Start 11/01/16 at 20:30 Dextrose (Dextrose 50%-Water Syringe) 12.5 gm PRN Q15MIN PRN IV SEE COMMENTS; Start 11/01/16 at 19:45 Hydromorphone HCl (Dilaudid) 4 mg PRN Q4HRS PRN PO PAIN Last administered on 10:11; Start 11/01/16 at 20:15; Stop 11/03/16 at 11:17; Status DC Pantoprazole Sodium (Protonix) 40 mg BIDWMEALS PO Last administered on 09:34; Start 11/01/16 at 21:00 Sennosides (Senna) 8.6 mg PRN QHS PRN PO CONSTIPATION Last administered on 19:55; Start 11/01/16 at 20:15 Sevelamer Carbonate (Renvela) 800 mg TIDWMEALS PO Last administered on 09:34; Start 11/02/16 at 08:00 Albuterol Sulfate (Ventolin Neb Soln) 2.5 mg PRN Q6HRS PRN NEB SHORTNESS OF BREATH; Start 11/01/16 at 21:30 Amlodipine Besylate (Norvasc) 10 mg BID PO Last administered on 11/11/16 09:34 ; Start 11/01/16 at 22:00 Aspirin (Ecotrin) 81 mg [id number] PO Last administered on 11/11/16 09:34; Start 11/02/16 at 08:00 Atorvastatin Calcium (Lipitor) 10 mg Q48H PO ; Start 11/01/16 at 21:00; Stop at 02:25; Status DC Carisoprodol (Soma) 350 mg TID PRN PRN PO MUSCLE SPASMS Last administered on 02:18; Start 11/01/16 at 21:30 Carvedilol (Coreg) 3.125 mg BIDWMEALS PO Last administered on 11/03/16 08:43; Start 11/02/16 at 08:00; Stop 11/03/16 at 10:22; Status DC Clopidogrel Bisulfate (Plavix) 75 mg [id number] PO Last administered on 09:34; Start 11/02/16 at 08:00 Diclofenac Sodium (Voltaren) 1 richard BID TP Last administered on 11/11/16 09:35; Start 11/01/16 at 22:00 Atorvastatin Calcium (Lipitor) 10 mg Q48H PO Last administered on 11/10/16 21: 44; Start 11/02/16 at 21:00 Multivitamins (Thera M Plus) 1 tab DAILY PO Last administered on 11/11/16 09:34 ; Start 11/02/16 at 14:00 Ascorbic Acid (Vitamin C) 500 mg BID PO Last administered on 11/11/16 09:34; Start 11/02/16 at 14:00 Vancomycin HCl 1 gm/Sodium Chloride 250 ml @ 250 mls/hr Q48H IV ; Start at 09:00; Stop 11/03/16 at 10:10; Status DC Vancomycin HCl 1 each 1X ONCE MC ; Start 11/05/16 at 08:30; Stop 11/05/16 at 08: 30; Status DC Linezolid (Zyvox) 600 mg BID PO Last administered on 11/09/16 08:20; Start at 10:00; Stop 11/09/16 at 16:32; Status DC Meropenem 1 gm/ Sodium Chloride 100 ml @ 200 mls/hr DAILY IV Last administered on 11/11/16 09:35; Start 11/03/16 at 10:00 Fluconazole (Diflucan) 100 mg DAILY PO Last administered on 11/11/16 09:35; Start 11/03/16 at 10:00 Lactobacillus Acidophilus (Bacid, Brittney-Bid) 1 tab TIDWMEALS PO Last administered on 11/11/16 09:42; Start 11/03/16 at 12:00 Carvedilol (Coreg) 6.25 mg BIDWMEALS PO Last administered on 11/11/16 09:34; Start 11/03/16 at 17:00 Sodium Chloride 1,000 ml @ 100 mls/hr Q10H IV Last administered on 11/04/16 16 :04; Start 11/03/16 at 10:30; Stop 11/05/16 at 13:19; Status DC Acetylcysteine (Mucomyst 20% Oral Solution) 1,200 mg BID PO Last administered on 11/05/16 09:25; Start 11/03/16 at 21:00; Stop 11/05/16 at 20:59; Status DC Darbepoetin Rich (Aranesp) 60 mcg [id number] SQ Last administered on 11/03/16 21 :36; Start 11/03/16 at 21:00; Stop 11/09/16 at 10:17; Status DC Hydromorphone HCl (Dilaudid) 8 mg PRN Q4HRS PRN PO PAIN Last administered on 12:39; Start 11/03/16 at 11:15; Stop 11/07/16 at 14:40; Status DC Gabapentin (Neurontin) 300 mg QHS PO Last administered on 11/10/16 21:44; Start 11/03/16 at 14:00 Lidocaine/Sodium Bicarbonate (Buffered Lidocaine 1%) 20 ml STK-MED ONCE IJ ; Start 11/04/16 at 08:16; Stop 11/04/16 at 08:17; Status DC Heparin Sodium/ Sodium Chloride 0 ml @ As Directed STK-MED ONCE .ROUTE ; Start 11/04/16 at 08:17; Stop 11/04/16 at 08:18; Status DC Iodixanol (Visipaque 320) 100 ml STK-MED ONCE .ROUTE ; Start 11/04/16 at 08:17; Stop 11/04/16 at 08:18; Status DC Iodixanol (Visipaque 320) 50 ml STK-MED ONCE .ROUTE ; Start 11/04/16 at 09:57; Stop 11/04/16 at 09:58; Status DC Lidocaine/Sodium Bicarbonate (Buffered Lidocaine 1%) 20 ml STK-MED ONCE IJ ; Start 11/04/16 at 09:58; Stop 11/04/16 at 09:59; Status DC Heparin Sodium/ Sodium Chloride 1,500 ml @ As Directed STK-MED ONCE .ROUTE ; Start 11/04/16 at 09:58; Stop 11/04/16 at 09:59; Status DC Heparin Sodium (Porcine) (Heparin Sodium) 10,000 unit STK-MED ONCE .ROUTE ; Start 11/04/16 at 10:29; Stop 11/04/16 at 10:30; Status DC Midazolam HCl (Versed) 2 mg STK-MED ONCE .ROUTE ; Start 11/04/16 at 10:29; Stop 11/04/16 at 10:30; Status DC Heparin Sodium/ Sodium Chloride 1,000 unit 1X ONCE IART Last administered on 12:25; Start 11/04/16 at 11:00; Stop 11/04/16 at 11:01; Status DC Lidocaine/Sodium Bicarbonate (Buffered Lidocaine 1%) 20 ml 1X ONCE IJ Last administered on 11/04/16 12:25; Start 11/04/16 at 11:00; Stop 11/04/16 at 11:01; Status DC Midazolam HCl (Versed) 2 mg 1X ONCE IV Last administered on 11/04/16 12:26; Start 11/04/16 at 11:00; Stop 11/04/16 at 11:01; Status DC Fentanyl Citrate (Fentanyl 2ml Vial) 100 mcg 1X ONCE IV Last administered on 12:27; Start 11/04/16 at 11:00; Stop 11/04/16 at 11:01; Status DC Iodixanol (Visipaque 320) 50 ml 1X ONCE IART Last administered on 11/04/16 12: 24; Start 11/04/16 at 11:00; Stop 11/04/16 at 11:01; Status DC Info (Do NOT chart on this entry -- for MONITORING) 1 each PRN DAILY PRN MC SEE COMMENTS; Start 11/04/16 at 11:00; Stop 11/06/16 at 10:59; Status DC Heparin Sodium (Porcine) (Heparin Sodium) 5,000 unit 1X ONCE IV Last administered on 11/04/16 12:27; Start 11/04/16 at 12:15; Stop 11/04/16 at 12:21; Status DC Sodium Chloride 1,000 ml @ 75 mls/hr [id number] IV Last administered on 11/07/16 21:23; Start 11/05/16 at 15:45; Stop 11/08/16 at 14:14; Status DC Sodium Polystyrene Sulfonate (Kayexalate) 15 gm 1X ONCE PO Last administered on 11/06/16 16:30; Start 11/06/16 at 14:45; Stop 11/06/16 at 14:46; Status DC Ondansetron HCl (Zofran) 4 mg PRN Q6HRS PRN IV NAUSEA/VOMITING; Start 11/08/16 at 07:00; Stop 11/09/16 at 06:59; Status DC Fentanyl Citrate (Fentanyl 2ml Vial) 25 mcg PRN Q5MIN PRN IV MILD PAIN Last administered on 11/08/16 13:25; Start 11/08/16 at 07:00; Stop 11/09/16 at 06:59; Status DC Fentanyl Citrate (Fentanyl 2ml Vial) 50 mcg PRN Q5MIN PRN IV MODERATE PAIN Last administered on 11/08/16 14:55; Start 11/08/16 at 07:00; Stop 11/09/16 at 06: 59; Status DC Morphine Sulfate 1 mg PRN Q10MIN PRN IV SEVERE PAIN; Start 11/08/16 at 07:00; Stop 11/09/16 at 06:59; Status UNV Ringer's Solution 1,000 ml @ 0 mls/hr Q0M IV Last administered on 11/08/16 07: 03; Start 11/08/16 at 07:00; Stop 11/08/16 at 18:59; Status DC Lidocaine HCl 2 ml PRN 1X PRN ID PRIOR TO IV START; Start 11/08/16 at 07:00; Stop 11/09/16 at 06:59; Status DC Hydromorphone HCl (Dilaudid) 0.5 mg PRN Q10MIN PRN IV SEV PAIN, Second choice; Start 11/08/16 at 07:00; Stop 11/09/16 at 06:59; Status DC Prochlorperazine Edisylate (Compazine) 5 mg PACU PRN PRN IV NAUSEA, MRX1; Start 11/08/16 at 07:00; Stop 11/09/16 at 06:59; Status DC Hydromorphone HCl (Dilaudid) 8 mg PRN Q3HRS PRN PO PAIN Last administered on 17:48; Start 11/07/16 at 14:45 Cellulose 1 each STK-MED ONCE .ROUTE Last administered on 11/08/16 11:30; Start 11/08/16 at 07:01; Stop 11/08/16 at 07:02; Status DC Iohexol (Omnipaque 300 Mg/ml) 50 ml STK-MED ONCE .ROUTE ; Start 11/08/16 at 07:02 ; Stop 11/08/16 at 07:03; Status DC Gelatin (Gelfoam Powder) 1 gm STK-MED ONCE .ROUTE ; Start 11/08/16 at 07:02; Stop 11/08/16 at 07:03; Status DC Papaverine HCl 60 mg STK-MED ONCE .ROUTE ; Start 11/08/16 at 07:02; Stop 11/08/16 at 07:03; Status DC Thrombin 20,000 unit STK-MED ONCE TP ; Start 11/08/16 at 07:02; Stop 11/08/16 at 07:03; Status DC Gelatin (Gelfoam Size 100) 1 each STK-MED ONCE .ROUTE ; Start 11/08/16 at 07:03 ; Stop 11/08/16 at 07:04; Status DC Cefazolin Sodium/ Dextrose 50 ml @ As Directed STK-MED ONCE IV ; Start 11/08/16 at 07:07; Stop 11/08/16 at 07:08; Status DC Cefazolin Sodium 1 gm/Sodium Chloride 500 ml @ 500 mls/hr 1X PERIOP ONCE IRR Last administered on 11/08/16t 09:00; Start 11/08/16 at 06:00; Stop 11/08/16 at 07: 10; Status DC Heparin Sodium (Porcine) 5000 unit/Sodium Chloride 505 ml @ 505 mls/hr 1X PERIOP ONCE IRR Last administered on 11/08/16t 09:01; Start 11/08/16 at 06:00; Stop 11/08/16 at 07:10; Status DC Famotidine (Pepcid) 20 mg STK-MED ONCE .ROUTE ; Start 11/08/16 at 07:09; Stop 11/08/16 at 07:10; Status DC Propofol 20 ml @ As Directed STK-MED ONCE IV ; Start 11/08/16 at 07:09; Stop 11/08 at 07:10; Status DC Ondansetron HCl (Zofran) 4 mg STK-MED ONCE .ROUTE ; Start 11/08/16 at 07:10; Stop 11/08/16 at 07:11; Status DC Dexamethasone Sodium Phosphate (Decadron) 20 mg STK-MED ONCE .ROUTE ; Start 11/08 at 07:10; Stop 11/08/16 at 07:11; Status DC Lidocaine HCl (Lidocaine Pf 2% Vial) 5 ml STK-MED ONCE .ROUTE ; Start 11/08/16 at 07:10; Stop 11/08/16 at 07:11; Status DC Fentanyl Citrate (Fentanyl 2ml Vial) 100 mcg STK-MED ONCE .ROUTE ; Start at 07:11; Stop 11/08/16 at 07:12; Status DC Midazolam HCl (Versed) 2 mg STK-MED ONCE .ROUTE ; Start 11/08/16 at 07:11; Stop 11/08/16 at 07:12; Status DC Rocuronium Wingina (Zemuron) 100 mg STK-MED ONCE .ROUTE ; Start 11/08/16 at 07:11 ; Stop 11/08/16 at 07:12; Status DC Cefazolin Sodium/ Dextrose 50 ml @ 100 mls/hr 1X PREOP PRN IV Pre Op Dose Last administered on 11/08/16 07:44; Start 11/08/16 at 06:00; Stop 11/09/16 at 05: 59; Status DC Ephedrine Sulfate 50 mg STK-MED ONCE IV ; Start 11/08/16 at 07:44; Stop 11/08/16 at 07:45; Status DC Fentanyl Citrate (Fentanyl 2ml Vial) 100 mcg STK-MED ONCE .ROUTE ; Start at 08:55; Stop 11/08/16 at 08:56; Status DC Heparin Sodium (Porcine) (Heparin Sodium) 10,000 unit STK-MED ONCE .ROUTE ; Start 11/08/16 at 10:26; Stop 11/08/16 at 10:27; Status DC Fentanyl Citrate (Fentanyl 2ml Vial) 100 mcg STK-MED ONCE .ROUTE ; Start at 10:47; Stop 11/08/16 at 10:48; Status DC Heparin Sodium (Porcine) 5000 unit/Sodium Chloride 505 ml @ 505 mls/hr 1X PERIOP ONCE IRR ; Start 11/08/16 at 11:07; Stop 11/08/16 at 12:06; Status DC Sevoflurane (Ultane) 90 ml STK-MED ONCE IH ; Start 11/08/16 at 11:47; Stop at 11:48; Status DC Glycopyrrolate (Robinul) 1 mg STK-MED ONCE .ROUTE ; Start 11/08/16 at 11:52; Stop 11/08/16 at 11:53; Status DC Neostigmine Methylsulfate 5 mg STK-MED ONCE .ROUTE ; Start 11/08/16 at 11:52; Stop 11/08/16 at 11:53; Status DC Hydromorphone HCl (Dilaudid) 1 mg Q1HR PRN IV SEVERE PAIN Last administered on 11/09/16 04:22; Start 11/08/16 at 12:30; Stop 11/10/16 at 08:46; Status DC Oxycodone/ Acetaminophen (Percocet 5/325) 1 tab PRN Q4HRS PRN PO PAIN; Start at 12:30 Oxycodone/ Acetaminophen (Percocet 5/325) 2 tab PRN Q4HRS PRN PO PAIN Last administered on 11/11/16 00:54; Start 11/08/16 at 12:30 Sodium Chloride 1,000 ml @ 100 mls/hr Q10H IV Last administered on 11/09/16 01 :00; Start 11/08/16 at 12:30; Stop 11/09/16 at 10:17; Status DC Furosemide (Lasix) 40 mg STK-MED ONCE .ROUTE ; Start 11/08/16 at 14:32; Stop 11/08 at 14:33; Status DC Sodium Bicarbonate 50 meq STK-MED ONCE .ROUTE ; Start 11/08/16 at 14:32; Stop 11/08/16 at 14:33; Status DC Sodium Bicarbonate 100 meq 1X PACU PRN IV SEE COMMENTS Last administered on 11/08 14:50; Start 11/08/16 at 14:30 Furosemide (Lasix) 40 mg 1X PACU PRN IVP SEE COMMENTS Last administered on 14:40; Start 11/08/16 at 14:30; Stop 11/09/16 at 10:17; Status DC Naloxone HCl (Narcan) 0.4 mg PRN Q2MIN PRN IV SEE INSTRUCTIONS; Start 11/08/16 at 18:45 Sodium Chloride 1,000 ml @ 25 mls/hr Q24H IV Last administered on 11/09/16 19: 48; Start 11/08/16 at 19:00 Hydromorphone HCl 30 ml @ 0 mls/hr CONT PRN PRN IV PROTOCOL Last administered on 11/09/16 10:36; Start 11/08/16 at 18:45; Stop 11/09/16 at 21:12; Status DC Heparin Sodium (Porcine) (Heparin Sodium) 10,000 unit STK-MED ONCE .ROUTE ; Start 11/08/16 at 19:02; Stop 11/08/16 at 19:03; Status DC Lidocaine/Sodium Bicarbonate (Buffered Lidocaine 1%) 20 ml STK-MED ONCE IJ ; Start 11/08/16 at 19:02; Stop 11/08/16 at 19:03; Status DC Heparin Sodium/ Sodium Chloride 500 ml @ As Directed STK-MED ONCE .ROUTE ; Start 11/08/16 at 19:02; Stop 11/08/16 at 19:03; Status DC Lidocaine/Sodium Bicarbonate (Buffered Lidocaine 1%) 3 ml 1X ONCE IJ Last administered on 11/08/16 19:50; Start 11/08/16 at 19:15; Stop 11/08/16 at 19:16; Status DC Heparin Sodium (Porcine) (Heparin Sodium) 2,500 unit 1X ONCE INT CAT Last administered on 11/08/16 19:49; Start 11/08/16 at 19:15; Stop 11/08/16 at 19:16; Status DC Heparin Sodium/ Sodium Chloride 60 unit 1X ONCE IV Last administered on 19:15; Start 11/08/16 at 19:15; Stop 11/08/16 at 19:16; Status DC Cyclobenzaprine HCl (Flexeril) 10 mg PRN Q6HRS PRN PO MUSCLE SPASMS Last administered on 11/09/16 19:46; Start 11/09/16 at 09:00; Stop 11/10/16 at 08:46; Status DC Carisoprodol (Soma) 350 mg TID PRN PRN PO MUSCLE SPASMS; Start 11/09/16 at 09:00 ; Stop 11/09/16 at 16:31; Status DC Hydromorphone HCl 30 ml @ 0 mls/hr CONT PRN PRN IV PROTOCOL Last administered on 11/10/16 02:20; Start 11/09/16 at 21:15; Stop 11/10/16 at 08:46; Status DC Alprazolam (Xanax) 0.25 mg PRN QID PRN PO ANXIETY / AGITATION Last administered on 11/10/16 15:08; Start 11/09/16 at 21:15 Cyclobenzaprine HCl (Flexeril) 5 mg PRN Q6HRS PRN PO MUSCLE SPASMS Last administered on 11/11/16 01:58; Start 11/10/16 at 08:45 Hydromorphone HCl (Dilaudid) 0.4 mg Q1HR PRN IV SEVERE PAIN Last administered on 11/11/16 09:36; Start 11/10/16 at 08:45 Sodium Chloride 1,000 ml @ 1,000 mls/hr Q1H PRN IV hypotension; Start 11/10/16 at 09:06; Stop 11/10/16 at 15:05; Status DC Sodium Chloride 1,000 ml @ 400 mls/hr Q2H30M PRN IV PATENCY; Start 11/10/16 at 09:06; Stop 11/10/16 at 21:05; Status DC Info (PHARMACY MONITORING -- do not chart) 1 each PRN DAILY PRN MC SEE COMMENTS ; Start 11/10/16 at 09:15 Polyethylene Glycol (miraLAX PACKET) 17 gm DAILY PO ; Start 11/10/16 at 11:30 Magnesium Hydroxide (Milk Of Magnesia) 2,400 mg PRN DAILY PRN PO CONSTIPATION; Start 11/10/16 at 11:00 Docusate Sodium (Colace) 100 mg BID PO Last administered on 11/11/16 09:35; Start 11/10/16 at 11:30 Fentanyl Citrate (Fentanyl 2ml Vial) 25 mcg PRN Q5MIN PRN IV MILD PAIN; Start 11/11/16 at 07:00; Stop 11/12/16 at 06:59 Fentanyl Citrate (Fentanyl 2ml Vial) 50 mcg PRN Q5MIN PRN IV MODERATE PAIN; Start 11/11/16 at 07:00; Stop 11/12/16 at 06:59 Prochlorperazine Edisylate (Compazine) 5 mg PACU PRN PRN IV NAUSEA, MRX1; Start 11/11/16 at 07:00; Stop 11/12/16 at 06:59 Sodium Chloride 1,000 ml @ 0 mls/hr Q0M IV ; Start 11/11/16 at 06:00 Sevoflurane (Ultane) 60 ml STK-MED ONCE IH ; Start 11/11/16 at 07:12; Stop at 07:13; Status DC Midazolam HCl (Versed) 2 mg STK-MED ONCE .ROUTE ; Start 11/11/16 at 07:13; Stop 11/11/16 at 07:14; Status DC Fentanyl Citrate (Fentanyl 2ml Vial) 100 mcg STK-MED ONCE .ROUTE ; Start at 07:13; Stop 11/11/16 at 07:14; Status DC Propofol 20 ml @ As Directed STK-MED ONCE IV ; Start 11/11/16 at 07:14; Stop 11/11 at 07:15; Status DC Ondansetron HCl (Zofran) 4 mg STK-MED ONCE .ROUTE ; Start 11/11/16 at 07:14; Stop 11/11/16 at 07:15; Status DC Dexamethasone Sodium Phosphate (Decadron) 20 mg STK-MED ONCE .ROUTE ; Start 11/11 at 07:14; Stop 11/11/16 at 07:15; Status DC Lidocaine HCl (Lidocaine Pf 2% Vial) 5 ml STK-MED ONCE .ROUTE ; Start 11/11/16 at 07:14; Stop 11/11/16 at 07:15; Status DC Phenylephrine HCl 1 mg STK-MED ONCE IV ; Start 11/11/16 at 07:47; Stop 11/11/16 at 07:48; Status DC Phenylephrine HCl 1 mg STK-MED ONCE IV ; Start 11/11/16 at 08:43; Stop 11/11/16 at 08:44; Status DC Vitals/I & O Vital Sign - Last 24 Hours 11/10/16 11/10/16 11/10/16 11/10/16 10:00 11:00 12:00 12:00 Temp 99.1 99.1 Pulse 105 105 104 Resp 25 B/P (MAP) 161/71 (101) 145/68 (93) 163/76 (105) Pulse Ox 99 99 98 O2 Delivery Room Air Room Air Room Air Room Air 11/10/16 11/10/16 11/10/16 11/10/16 13:00 14:00 15:00 16:00 Pulse 105 105 105 Resp 21 21 21 B/P (MAP) 158/81 (106) 123/82 (96) 133/76 (95) Pulse Ox 99 99 99 O2 Delivery Room Air Room Air Room Air Room Air 11/10/16 11/10/16 11/10/16 11/10/16 16:00 17:00 17:26 18:00 Temp 100.1 100.1 Pulse 114 108 105 110 Resp 20 24 16 B/P (MAP) 143/59 (87) 131/73 (92) 133/76 144/67 (92) Pulse Ox 98 97 100 O2 Delivery Room Air Room Air Room Air 11/10/16 11/10/16 11/10/16 11/10/16 19:00 20:00 20:00 21:00 Temp 99.7 99.7 Pulse 98 92 90 Resp 20 16 16 B/P (MAP) 122/67 (85) 137/67 (90) 137/67 (90) Pulse Ox 99 98 98 O2 Delivery Room Air Room Air Room Air Room Air 11/10/16 11/10/16 11/10/16 11/11/16 21:43 22:00 23:00 00:00 Pulse 92 87 92 Resp 16 18 B/P (MAP) 137/67 122/62 (82) 127/60 (82) Pulse Ox 98 96 O2 Delivery Room Air Room Air Room Air 11/11/16 11/11/16 11/11/16 11/11/16 00:01 00:54 01:00 01:54 Temp 99.0 99.0 Pulse 87 91 Resp 18 18 20 18 B/P (MAP) 133/61 (85) 147/60 (89) Pulse Ox 96 100 99 100 O2 Delivery Room Air Room Air Room Air Room Air 11/11/16 11/11/16 11/11/16 11/11/16 01:57 02:00 02:27 03:00 Pulse 91 92 Resp 18 20 20 20 B/P (MAP) 150/60 (90) 111/60 (77) Pulse Ox 100 100 O2 Delivery Room Air Room Air Room Air 11/11/16 11/11/16 11/11/16 11/11/16 04:00 04:00 05:00 06:00 Temp 98.7 98.7 Pulse 90 94 105 Resp 14 14 16 B/P (MAP) 100/60 (73) 99/60 (73) 147/78 (101) Pulse Ox 100 100 100 O2 Delivery Room Air Room Air Room Air Room Air 11/11/16 11/11/16 11/11/16 11/11/16 08:00 09:34 09:34 09:36 Pulse 104 102 B/P (MAP) 161/55 161/55 Pulse Ox 100 O2 Delivery Room Air Room Air O2 Flow Rate 10.0 10.0 JOSE LEZAMA MD Nov 11, 2016 09:53
[2016-11-11] MEDS ORDERED: IV NORMAL SALINE 1000ML BAG 1,000 ML IV PRN ×2 (10:26)
[2016-11-11] MEDS ORDERED: diphenhydrAMINE 50 MG/ML VIAL IV PRN ×2 (10:30)
[2016-11-11] MEDS ORDERED: DIALYSIS PATIENT. MC PRN ×3 (10:30)
[2016-11-11] MEDS ORDERED: 0.9 % SODIUM CHLORIDE 10 ML DISP.SYRIN. IV PRN ×2 (10:30)
--- NOTE | 2016-11-11 10:48 | PDOC ---
Dialysis Progress Note Dialysis Note Dialysis Note Seen on Hemodialysis, tolerating treatment OK - remains in significant pain and hence tachy Vitals on Hemodialysis: 146/71 (BP cuff on Rt leg) 105 afeb General Appearance: Awake: Alert Oriented x 3 Neck: No JVD or JVP Chest: CTA Eliseo Heart: S1 S2 Abdomen - Soft NTND Extremities - No Edema (bandages on all 4 ext) CKD V ? 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 Vitals Vital Signs Vital Signs Date Time Temp Pulse Resp B/P (MAP) Pulse Ox O2 Delivery O2 Flow Rate FiO2 11/11/16 10:07 Room Air 11/11/16 09:36 100 10.0 11/11/16 09:34 102 161/55 11/11/16 06:00 16 11/11/16 04:00 98.7 98.7 Labs Last Labs Laboratory Tests Test 11/09/16 12:16 11/09/16 16:59 11/09/16 17:00 11/10/16 06:09 Glucose (Fingerstick) 151 mg/dL (70-99) 119 mg/dL (70-99) White Blood Count 11.9 x10^3/uL (4.0-11.0) 13.1 x10^3/uL (4.0-11.0) Red Blood Count 3.02 x10^6/uL (4.30-5.70) 3.13 x10^6/uL (4.30-5.70) Hemoglobin 8.8 g/dL (13.0-17.5) 9.1 g/dL (13.0-17.5) Hematocrit 25.8 % (39.0-53.0) 26.9 % (39.0-53.0) Mean Corpuscular Volume 86 fL (79-100) 86 fL (79-100) Mean Corpuscular Hemoglobin 29 pg (25-35) 29 pg (25-35) Mean Corpuscular Hemoglobin Concent 34 g/dL (31-37) 34 g/dL (31-37) Red Cell Distribution Width 16.5 % (11.5-14.5) 16.6 % (11.5-14.5) Platelet Count 185 x10^3/uL (140-400) 196 x10^3/uL (140-400) Prothrombin Time 14.5 SEC (11.7-14.0) Prothromb Time International Ratio 1.2 (0.8-1.1) Activated Partial Thromboplast Time 35 SEC (24-38) Neutrophils (%) (Auto) 73 % (31-73) Lymphocytes (%) (Auto) 14 % (24-48) Monocytes (%) (Auto) 10 % (0-9) Eosinophils (%) (Auto) 3 % (0-3) Basophils (%) (Auto) 1 % (0-3) Neutrophils # (Auto) 9.5 x10^3uL (1.8-7.7) Lymphocytes # (Auto) 1.8 x10^3/uL (1.0-4.8) Monocytes # (Auto) 1.3 x10^3/uL (0.0-1.1) Eosinophils # (Auto) 0.4 x10^3/uL (0.0-0.7) Basophils # (Auto) 0.1 x10^3/uL (0.0-0.2) Sodium Level 143 mmol/L (136-145) Potassium Level 4.8 mmol/L (3.5-5.1) Chloride Level 107 mmol/L (98-107) Carbon Dioxide Level 25 mmol/L (21-32) Anion Gap 11 (6-14) Blood Urea Nitrogen 51 mg/dL (8-26) Creatinine 3.8 mg/dL (0.7-1.3) Estimated GFR (Cockcroft-Gault) 16.3 Glucose Level 122 mg/dL (70-99) Calcium Level 8.1 mg/dL (8.5-10.1) Test 11/10/16 12:51 11/10/16 17:28 11/11/16 04:55 Glucose (Fingerstick) 181 mg/dL (70-99) 191 mg/dL (70-99) White Blood Count 14.3 x10^3/uL (4.0-11.0) Red Blood Count 3.12 x10^6/uL (4.30-5.70) Hemoglobin 9.0 g/dL (13.0-17.5) Hematocrit 27.2 % (39.0-53.0) Mean Corpuscular Volume 87 fL (79-100) Mean Corpuscular Hemoglobin 29 pg (25-35) Mean Corpuscular Hemoglobin Concent 33 g/dL (31-37) Red Cell Distribution Width 16.9 % (11.5-14.5) Platelet Count 187 x10^3/uL (140-400) Neutrophils (%) (Auto) 75 % (31-73) Lymphocytes (%) (Auto) 11 % (24-48) Monocytes (%) (Auto) 9 % (0-9) Eosinophils (%) (Auto) 4 % (0-3) Basophils (%) (Auto) 1 % (0-3) Neutrophils # (Auto) 10.6 x10^3uL (1.8-7.7) Lymphocytes # (Auto) 1.6 x10^3/uL (1.0-4.8) Monocytes # (Auto) 1.3 x10^3/uL (0.0-1.1) Eosinophils # (Auto) 0.6 x10^3/uL (0.0-0.7) Basophils # (Auto) 0.1 x10^3/uL (0.0-0.2) Sodium Level 141 mmol/L (136-145) Potassium Level 4.4 mmol/L (3.5-5.1) Chloride Level 104 mmol/L (98-107) Carbon Dioxide Level 28 mmol/L (21-32) Anion Gap 9 (6-14) Blood Urea Nitrogen 39 mg/dL (8-26) Creatinine 3.3 mg/dL (0.7-1.3) Estimated GFR (Cockcroft-Gault) 19.2 Glucose Level 139 mg/dL (70-99) Calcium Level 8.4 mg/dL (8.5-10.1) Laboratory Tests Test 11/10/16 12:51 11/10/16 17:28 11/11/16 04:55 Glucose (Fingerstick) 181 mg/dL (70-99) 191 mg/dL (70-99) White Blood Count 14.3 x10^3/uL (4.0-11.0) Red Blood Count 3.12 x10^6/uL (4.30-5.70) Hemoglobin 9.0 g/dL (13.0-17.5) Hematocrit 27.2 % (39.0-53.0) Mean Corpuscular Volume 87 fL (79-100) Mean Corpuscular Hemoglobin 29 pg (25-35) Mean Corpuscular Hemoglobin Concent 33 g/dL (31-37) Red Cell Distribution Width 16.9 % (11.5-14.5) Platelet Count 187 x10^3/uL (140-400) Neutrophils (%) (Auto) 75 % (31-73) Lymphocytes (%) (Auto) 11 % (24-48) Monocytes (%) (Auto) 9 % (0-9) Eosinophils (%) (Auto) 4 % (0-3) Basophils (%) (Auto) 1 % (0-3) Neutrophils # (Auto) 10.6 x10^3uL (1.8-7.7) Lymphocytes # (Auto) 1.6 x10^3/uL (1.0-4.8) Monocytes # (Auto) 1.3 x10^3/uL (0.0-1.1) Eosinophils # (Auto) 0.6 x10^3/uL (0.0-0.7) Basophils # (Auto) 0.1 x10^3/uL (0.0-0.2) Sodium Level 141 mmol/L (136-145) Potassium Level 4.4 mmol/L (3.5-5.1) Chloride Level 104 mmol/L (98-107) Carbon Dioxide Level 28 mmol/L (21-32) Anion Gap 9 (6-14) Blood Urea Nitrogen 39 mg/dL (8-26) Creatinine 3.3 mg/dL (0.7-1.3) Estimated GFR (Cockcroft-Gault) 19.2 Glucose Level 139 mg/dL (70-99) Calcium Level 8.4 mg/dL (8.5-10.1) Assessment Assessment Problems Medical Problems: (1) Wound dehiscence Status: Acute Problems: Plan Plan of Care Problems Medical Problems: (1) Wound dehiscence Status: Acute JANNET DOW MD Nov 11, 2016 10:48
[2016-11-11] MEDS: HYDROmorphone 4 MG TABLET PO PRN (11:04)
[2016-11-11] MEDS: CARISOPRODOL 350 MG TABLET PO PRN (11:40)
[2016-11-11] MEDS: ALPRAZolam 0.25 MG TABLET PO PRN ×3 (11:40→23:26)
--- NOTE | 2016-11-11 13:55 | PDOC4 ---
Operative Note Operative Note Date of surgery: 11/11/2016 Preoperative diagnosis: Left foot transmetatarsal amputation wound necrosis Postoperative diagnosis: Same Procedure: Revision left foot transmetatarsal amputation with irrigation debridement partial closure with wound VAC placement Surgeon Estela Anesthesia: Gen. endotracheal Estimated blood loss 100 mL Complications: None Operative indications: Patient underwent a transmetatarsal amputation of his left foot several weeks ago at [facility] and unfortunately did not appear to have adequate vascular supply to heal the wound and presented to [place] with necrosis of his foot wound. He subsequently underwent workup and vascular bypass procedure. We had discussed treatment options in terms of likelihood of healing of a revision procedure especially if we can get better blood flow. Also discussed the possibility of nonhealing and even osteomyelitis or amputation if soft tissue coverage is not obtained. All his questions were answered consent was obtained and he agrees to proceed with the debridement procedure and we covered probably longer term use of a wound VAC as well and the possibility of trimming the bones back if necessary. Operative text: Patient was identified procedure verified patient placed in the supine position on the operating table after adequate amounts of general endotracheal anesthesia were administered timeout was performed patient procedure were again verified and the area of the wound was thoroughly debrided back to stable bleeding tissue. Unfortunately there was exposure of bone on the first and fifth metatarsal areas which required shortening the metatarsals globally. Therefore the entire incision was opened and the first through fifth metatarsals were each shortened a proportional amount to gain soft tissue coverage further debridement was carried out bleeding points were controlled by electrocautery excess tissue was removed again through irrigation carried out normal saline solution with pulse lavage and closure was accomplished loosely with #2 nylon suture and a trauma fashion and simple fashion to approximate the tissue under little tension. A wound VAC was then placed obtain an excellent seal and the patient was returned to recovery room in stable condition having tolerated procedure well PREETI PRADHAN MD Nov 11, 2016 13:55
[2016-11-11] MEDS: IV NORMAL SALINE 1000ML BAG 1,000 ML IV SCH (19:00)
[2016-11-11] MEDS: GABAPENTIN 300 MG CAPSULE. PO SCH (20:38)
[2016-11-12 03:05] VITALS: BP 144/63
[2016-11-12 05:08] LABS: BASO % 0 % (0-3); EOS % 5 % (0-3); HEMOGLOBIN 7.9 g/dL (13.0-17.5); LYMPH # 1.7 x10^3/uL (1.0-4.8); LYMPH % 15 % (24-48); MEAN CORPUSCULAR HEMOGLOBIN 29 pg (25-35); MEAN CORPUSCULAR HGB CONC 33 g/dL (31-37); MEAN CORPUSCULAR VOLUME 88 fL (79-100); MONO % 12 % (0-9); NEUT % 68 % (31-73); PLATELET COUNT 183 x10^3/uL (140-400); RED BLOOD COUNT 2.74 x10^6/uL (4.30-5.70); WHITE BLOOD COUNT 11.4 x10^3/uL (4.0-11.0)
[2016-11-12 05:30] LABS: POTASSIUM 4.2 mmol/L (3.5-5.1)
[2016-11-12] MEDS: ALPRAZolam 0.25 MG TABLET PO PRN (06:13)
[2016-11-12] MEDS: HYDROmorphone 2 MG/ML VIAL IV PRN ×5 (06:14→21:05)
[2016-11-12 07:00] VITALS: BP 140/68
[2016-11-12] MEDS: INSULIN ASPART 300 UNITS/3 ML INSULN.PEN SQ SCH ×3 (08:00→17:23)
[2016-11-12] MEDS: SEVELAMER CARBONATE 800 MG TABLET. PO SCH ×3 (08:49→17:14)
[2016-11-12] MEDS: LACTOBACILLUS ACIDOPH & BULGAR 1 TABLET. PO SCH ×3 (08:49→17:14)
[2016-11-12] MEDS: POLYETHYLENE GLYCOL 3350 17 GM PACKET. PO SCH (08:49)
[2016-11-12] MEDS: ASPIRIN ENTERIC COATED 81 MG TABLET.DR. PO SCH (08:50)
[2016-11-12] MEDS: ASCORBIC ACID 500 MG TABLET PO SCH ×2 (08:50→21:03)
[2016-11-12] MEDS: CLOPIDOGREL BISULFATE 75 MG TABLET PO SCH (08:50)
[2016-11-12] MEDS: DOCUSATE SODIUM 100 MG CAPSULE. PO SCH ×2 (08:50→21:04)
[2016-11-12] MEDS: MULTIVITAMIN with MINERAL TABLET. PO SCH (08:50)
[2016-11-12] MEDS: PANTOPRAZOLE 40 MG TABLET.DR. PO SCH ×2 (08:50→17:16)
[2016-11-12] MEDS: CARVEDILOL 3.125 MG TABLET. PO SCH ×2 (08:50→17:18)
[2016-11-12] MEDS: FLUCONAZOLE 100 MG TABLET. PO SCH (08:50)
[2016-11-12] MEDS: amLODIPine BESYLATE 10 MG TABLET PO SCH ×2 (08:51→21:04)
[2016-11-12] MEDS: MEROPENEM 1 GM in IV NORMAL SALINE 100ML 100 ML IV SCH (08:52)
[2016-11-12] MEDS: DICLOFENAC SODIUM 1% TOPICAL GEL 100GM TUBE. TP SCH ×2 (09:00→21:00)
--- NOTE | 2016-11-12 09:56 | PDOC ---
Infectious Disease Note Subjective Subjective c/o left foot leg & foot pain No fever last 24 hours ROS ROS GEN: Denies chills, sweats CV: Denies chest pain RESP: Denies shortness of air, cough GI: Denies n/v/d Vital Sign Vital Signs Vital Signs Date Time Temp Pulse Resp B/P (MAP) Pulse Ox O2 Delivery O2 Flow Rate FiO2 11/12/16 09:23 18 95 Room Air 10.0 11/12/16 08:51 84 140/68 11/12/16 07:00 97.8 97.8 Physical Exam PHYSICAL EXAM GENERAL: Propped up in bed, eating, NAD HEENT: OC/OP pink NECK: Supple LUNGS: Clear HEART: S1S2, no gallop, no murmur ABD: Soft, NT : Schaffer EXT: No edema, no cyanosis; Wound vac in place, left foot. BUE harvest sites, bandaged; Left thigh bandaged MRI TECH: Alert, oriented x 3, no focal neurologic deficit SKIN: No rash RIJ. clean LIJ/temp HDC. (11/08). Labs Lab Laboratory Tests Test 11/11/16 15:09 11/11/16 16:43 11/11/16 21:21 11/12/16 04:00 Glucose (Fingerstick) 205 mg/dL (70-99) 247 mg/dL (70-99) 186 mg/dL (70-99) White Blood Count 11.4 x10^3/uL (4.0-11.0) Red Blood Count 2.74 x10^6/uL (4.30-5.70) Hemoglobin 7.9 g/dL (13.0-17.5) Hematocrit 24.0 % (39.0-53.0) Mean Corpuscular Volume 88 fL (79-100) Mean Corpuscular Hemoglobin 29 pg (25-35) Mean Corpuscular Hemoglobin Concent 33 g/dL (31-37) Red Cell Distribution Width 16.0 % (11.5-14.5) Platelet Count 183 x10^3/uL (140-400) Neutrophils (%) (Auto) 68 % (31-73) Lymphocytes (%) (Auto) 15 % (24-48) Monocytes (%) (Auto) 12 % (0-9) Eosinophils (%) (Auto) 5 % (0-3) Basophils (%) (Auto) 0 % (0-3) Neutrophils # (Auto) 7.7 x10^3uL (1.8-7.7) Lymphocytes # (Auto) 1.7 x10^3/uL (1.0-4.8) Monocytes # (Auto) 1.4 x10^3/uL (0.0-1.1) Eosinophils # (Auto) 0.5 x10^3/uL (0.0-0.7) Basophils # (Auto) 0.0 x10^3/uL (0.0-0.2) Sodium Level 140 mmol/L (136-145) Potassium Level 4.2 mmol/L (3.5-5.1) Chloride Level 101 mmol/L (98-107) Carbon Dioxide Level 31 mmol/L (21-32) Anion Gap 8 (6-14) Test 11/12/16 07:44 Glucose (Fingerstick) 141 mg/dL (70-99) Objective Assessment Left TMA wound dehiscence with E. coli & MDR Klebsiella. s/p revision w/ partial closure and wound VAC placement, 11/11 Acute kidney injury on chronic kidney disease. Now on HD Peripheral arterial disease. s/p left fem-tib bypass, 11/08 Diabetes. Plan Plan of Care Meropenem and Fluconazole Probiotics LTAC in the works Attending Co-Sign Attending Co-Sign The patient was seen and interviewed as well as examined at the bedside. The chart was reviewed. The case was discussed. Agree with the plan of care. ELLA MA APRN Nov 12, 2016 09:56 ROMANA GARLAND MD Nov 12, 2016 11:42
--- NOTE | 2016-11-12 10:22 | PDOC ---
PROGRESS NOTES Chief Complaint Chief Complaint Wound dehiscence - left foot s/p left TMA 6+ weeks ago ASSESSMENT AND PLAN: A/P POD# left femoral to posterior tibial artery bypass with bilateral basilic veins and saphenous vein for nonhealing left TMA (11/08/16) ; s/p IA nd D and wound vac () 1. PVD: L common femoral artery and profunda artery endarterectomy, L common femoral artery to posterior tibial artery bypass graft today 2. wound dehiscence/ infection: continue meropenem/zyvox/fluconazole, probiotic. wound care 3. Pain control: on home PO dilaudid and IV/IM meds; prob high tolerance for narcotics given chronic high use. 4. CKD5: nephrology following. pt trying to hold off HD, but unavoidable 5. Hyperkalemia: periop. eval for urgent HD ongoing. as per Dr Person 5. Anemia: of ESRD. on EPO 6. 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 s/p R hand finger amputations 7. DM2: fairly well controlled; cont ISS 8. HTN, HLD: well controlled. cont home meds 9. Prophylaxis: ASA/plavix/SCDs 10. 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 OPIATE tOLERANT 12. Renal artery stenosis History of Present Illness History of Present Illness PAin from wound vac, otherwise doing ok Awake not drowsy T.o ICU monday Opiod tolerant On iv abx per ID Accepted at [facility] Minimal ambulation, can roll and transfer to wheelchair only NO plans of stenting the renal artery stenosis this admission - dw Cards PLAN: [facility] on monday CPM Did move BM yesterday - loose side actually Vitals Vitals Vital Signs Date Time Temp Pulse Resp B/P (MAP) Pulse Ox O2 Delivery O2 Flow Rate FiO2 11/12/16 09:23 18 95 Room Air 10.0 11/12/16 08:51 84 140/68 11/12/16 07:00 97.8 97.8 Physical Exam General: Alert, Oriented X3, No acute distress Heart: Regular rate, Other (murmur, bilateral carotid bruit) Lungs: Clear, Wheezing Abdomen: Normal bowel sounds, Soft, No tenderness, Other (thin) Extremities: Other (bilat distal foot amputations, wrapped in gauze. Finger amput R) Skin: Other (left foot with amputation site dehiscence with necrosis and malodorous ) Labs LABS Laboratory Tests Test 11/11/16 15:09 11/11/16 16:43 11/11/16 21:21 11/12/16 04:00 Glucose (Fingerstick) 205 mg/dL (70-99) 247 mg/dL (70-99) 186 mg/dL (70-99) White Blood Count 11.4 x10^3/uL (4.0-11.0) Red Blood Count 2.74 x10^6/uL (4.30-5.70) Hemoglobin 7.9 g/dL (13.0-17.5) Hematocrit 24.0 % (39.0-53.0) Mean Corpuscular Volume 88 fL (79-100) Mean Corpuscular Hemoglobin 29 pg (25-35) Mean Corpuscular Hemoglobin Concent 33 g/dL (31-37) Red Cell Distribution Width 16.0 % (11.5-14.5) Platelet Count 183 x10^3/uL (140-400) Neutrophils (%) (Auto) 68 % (31-73) Lymphocytes (%) (Auto) 15 % (24-48) Monocytes (%) (Auto) 12 % (0-9) Eosinophils (%) (Auto) 5 % (0-3) Basophils (%) (Auto) 0 % (0-3) Neutrophils # (Auto) 7.7 x10^3uL (1.8-7.7) Lymphocytes # (Auto) 1.7 x10^3/uL (1.0-4.8) Monocytes # (Auto) 1.4 x10^3/uL (0.0-1.1) Eosinophils # (Auto) 0.5 x10^3/uL (0.0-0.7) Basophils # (Auto) 0.0 x10^3/uL (0.0-0.2) Sodium Level 140 mmol/L (136-145) Potassium Level 4.2 mmol/L (3.5-5.1) Chloride Level 101 mmol/L (98-107) Carbon Dioxide Level 31 mmol/L (21-32) Anion Gap 8 (6-14) Test 11/12/16 07:44 Glucose (Fingerstick) 141 mg/dL (70-99) Review of Systems Review of Systems wound vac pain Assessment and Plan Assessmemt and Plan Problems Medical Problems: (1) Wound dehiscence Status: Acute Problems: Comment Review of Relevant I have reviewed the following items rula (where applicable) has been applied. Labs Laboratory Tests Test 11/10/16 12:51 11/10/16 17:28 11/11/16 04:55 11/11/16 15:09 Glucose (Fingerstick) 181 mg/dL (70-99) 191 mg/dL (70-99) 205 mg/dL (70-99) White Blood Count 14.3 x10^3/uL (4.0-11.0) Red Blood Count 3.12 x10^6/uL (4.30-5.70) Hemoglobin 9.0 g/dL (13.0-17.5) Hematocrit 27.2 % (39.0-53.0) Mean Corpuscular Volume 87 fL (79-100) Mean Corpuscular Hemoglobin 29 pg (25-35) Mean Corpuscular Hemoglobin Concent 33 g/dL (31-37) Red Cell Distribution Width 16.9 % (11.5-14.5) Platelet Count 187 x10^3/uL (140-400) Neutrophils (%) (Auto) 75 % (31-73) Lymphocytes (%) (Auto) 11 % (24-48) Monocytes (%) (Auto) 9 % (0-9) Eosinophils (%) (Auto) 4 % (0-3) Basophils (%) (Auto) 1 % (0-3) Neutrophils # (Auto) 10.6 x10^3uL (1.8-7.7) Lymphocytes # (Auto) 1.6 x10^3/uL (1.0-4.8) Monocytes # (Auto) 1.3 x10^3/uL (0.0-1.1) Eosinophils # (Auto) 0.6 x10^3/uL (0.0-0.7) Basophils # (Auto) 0.1 x10^3/uL (0.0-0.2) Sodium Level 141 mmol/L (136-145) Potassium Level 4.4 mmol/L (3.5-5.1) Chloride Level 104 mmol/L (98-107) Carbon Dioxide Level 28 mmol/L (21-32) Anion Gap 9 (6-14) Blood Urea Nitrogen 39 mg/dL (8-26) Creatinine 3.3 mg/dL (0.7-1.3) Estimated GFR (Cockcroft-Gault) 19.2 Glucose Level 139 mg/dL (70-99) Calcium Level 8.4 mg/dL (8.5-10.1) Test 11/11/16 16:43 11/11/16 21:21 11/12/16 04:00 11/12/16 07:44 Glucose (Fingerstick) 247 mg/dL (70-99) 186 mg/dL (70-99) 141 mg/dL (70-99) White Blood Count 11.4 x10^3/uL (4.0-11.0) Red Blood Count 2.74 x10^6/uL (4.30-5.70) Hemoglobin 7.9 g/dL (13.0-17.5) Hematocrit 24.0 % (39.0-53.0) Mean Corpuscular Volume 88 fL (79-100) Mean Corpuscular Hemoglobin 29 pg (25-35) Mean Corpuscular Hemoglobin Concent 33 g/dL (31-37) Red Cell Distribution Width 16.0 % (11.5-14.5) Platelet Count 183 x10^3/uL (140-400) Neutrophils (%) (Auto) 68 % (31-73) Lymphocytes (%) (Auto) 15 % (24-48) Monocytes (%) (Auto) 12 % (0-9) Eosinophils (%) (Auto) 5 % (0-3) Basophils (%) (Auto) 0 % (0-3) Neutrophils # (Auto) 7.7 x10^3uL (1.8-7.7) Lymphocytes # (Auto) 1.7 x10^3/uL (1.0-4.8) Monocytes # (Auto) 1.4 x10^3/uL (0.0-1.1) Eosinophils # (Auto) 0.5 x10^3/uL (0.0-0.7) Basophils # (Auto) 0.0 x10^3/uL (0.0-0.2) Sodium Level 140 mmol/L (136-145) Potassium Level 4.2 mmol/L (3.5-5.1) Chloride Level 101 mmol/L (98-107) Carbon Dioxide Level 31 mmol/L (21-32) Anion Gap 8 (6-14) Laboratory Tests Test 11/11/16 15:09 11/11/16 16:43 11/11/16 21:21 11/12/16 04:00 Glucose (Fingerstick) 205 mg/dL (70-99) 247 mg/dL (70-99) 186 mg/dL (70-99) White Blood Count 11.4 x10^3/uL (4.0-11.0) Red Blood Count 2.74 x10^6/uL (4.30-5.70) Hemoglobin 7.9 g/dL (13.0-17.5) Hematocrit 24.0 % (39.0-53.0) Mean Corpuscular Volume 88 fL (79-100) Mean Corpuscular Hemoglobin 29 pg (25-35) Mean Corpuscular Hemoglobin Concent 33 g/dL (31-37) Red Cell Distribution Width 16.0 % (11.5-14.5) Platelet Count 183 x10^3/uL (140-400) Neutrophils (%) (Auto) 68 % (31-73) Lymphocytes (%) (Auto) 15 % (24-48) Monocytes (%) (Auto) 12 % (0-9) Eosinophils (%) (Auto) 5 % (0-3) Basophils (%) (Auto) 0 % (0-3) Neutrophils # (Auto) 7.7 x10^3uL (1.8-7.7) Lymphocytes # (Auto) 1.7 x10^3/uL (1.0-4.8) Monocytes # (Auto) 1.4 x10^3/uL (0.0-1.1) Eosinophils # (Auto) 0.5 x10^3/uL (0.0-0.7) Basophils # (Auto) 0.0 x10^3/uL (0.0-0.2) Sodium Level 140 mmol/L (136-145) Potassium Level 4.2 mmol/L (3.5-5.1) Chloride Level 101 mmol/L (98-107) Carbon Dioxide Level 31 mmol/L (21-32) Anion Gap 8 (6-14) Test 11/12/16 07:44 Glucose (Fingerstick) 141 mg/dL (70-99) Microbiology 11/01/16 Blood Culture - Final, Complete NO GROWTH AFTER 5 DAYS 11/03/16 Gram Stain - Final, Complete Medications Current Medications Sodium Chloride 1,000 ml @ 1,000 mls/hr 1X ONCE IV Last administered on 11:06; Start 11/01/16 at 10:30; Stop 11/01/16 at 11:38; Status DC Fentanyl Citrate (Fentanyl 2ml Vial) 50 mcg 1X ONCE IV Last administered on 11:08; Start 11/01/16 at 11:15; Stop 11/01/16 at 11:16; Status DC Vancomycin HCl (Vanco Per Pharmacy) 1 each PRN DAILY PRN MC SEE COMMENTS Last administered on 11/03/16 06:59; Start 11/01/16 at 13:15; Stop 11/03/16 at 10:10 ; Status DC Vancomycin HCl 1.5 gm/Sodium Chloride 500 ml @ 250 mls/hr 1X ONCE IV Last administered on 11/01/16 13:37; Start 11/01/16 at 13:30; Stop 11/01/16 at 15:29 ; Status DC Fentanyl Citrate (Fentanyl 2ml Vial) 50 mcg 1X ONCE IV Last administered on 13:40; Start 11/01/16 at 13:30; Stop 11/01/16 at 13:31; Status DC Ondansetron HCl (Zofran) 4 mg PRN Q8HRS PRN IV NAUSEA/VOMITING; Start 11/01/16 at 13:45; Stop 11/02/16 at 13:44; Status DC Acetaminophen (Tylenol) 650 mg PRN Q4HRS PRN PO FEVER Last administered on 11/01 23:03; Start 11/01/16 at 13:45; Stop 11/02/16 at 13:44; Status DC Fentanyl Citrate (Fentanyl 2ml Vial) 50 mcg PRN Q4HRS PRN IM PAIN Last administered on 11/07/16 06:37; Start 11/01/16 at 13:45; Stop 11/07/16 at 14:40; Status DC Vancomycin HCl 1 each 1X ONCE MC Last administered on 11/03/16 06:03; Start 11/03/16 at 05:00; Stop 11/03/16 at 10:10; Status DC Insulin Aspart (NovoLOG) 0-7 UNITS TIDWMEALS SQ Last administered on 11/11/16 18:24; Start 11/01/16 at 20:30 Dextrose (Dextrose 50%-Water Syringe) 12.5 gm PRN Q15MIN PRN IV SEE COMMENTS; Start 11/01/16 at 19:45 Hydromorphone HCl (Dilaudid) 4 mg PRN Q4HRS PRN PO PAIN Last administered on 10:11; Start 11/01/16 at 20:15; Stop 11/03/16 at 11:17; Status DC Pantoprazole Sodium (Protonix) 40 mg BIDWMEALS PO Last administered on 08:50; Start 11/01/16 at 21:00 Sennosides (Senna) 8.6 mg PRN QHS PRN PO CONSTIPATION Last administered on 19:55; Start 11/01/16 at 20:15 Sevelamer Carbonate (Renvela) 800 mg TIDWMEALS PO Last administered on 08:49; Start 11/02/16 at 08:00 Albuterol Sulfate (Ventolin Neb Soln) 2.5 mg PRN Q6HRS PRN NEB SHORTNESS OF BREATH; Start 11/01/16 at 21:30 Amlodipine Besylate (Norvasc) 10 mg BID PO Last administered on 11/12/16 08:51 ; Start 11/01/16 at 22:00 Aspirin (Ecotrin) 81 mg [id number] PO Last administered on 11/12/16 08:50; Start 11/02/16 at 08:00 Atorvastatin Calcium (Lipitor) 10 mg Q48H PO ; Start 11/01/16 at 21:00; Stop at 02:25; Status DC Carisoprodol (Soma) 350 mg TID PRN PRN PO MUSCLE SPASMS Last administered on 11:40; Start 11/01/16 at 21:30 Carvedilol (Coreg) 3.125 mg BIDWMEALS PO Last administered on 11/03/16 08:43; Start 11/02/16 at 08:00; Stop 11/03/16 at 10:22; Status DC Clopidogrel Bisulfate (Plavix) 75 mg [id number] PO Last administered on 08:50; Start 11/02/16 at 08:00 Diclofenac Sodium (Voltaren) 1 richard BID TP Last administered on 11/11/16 09:35; Start 11/01/16 at 22:00 Atorvastatin Calcium (Lipitor) 10 mg Q48H PO Last administered on 11/10/16 21: 44; Start 11/02/16 at 21:00 Multivitamins (Thera M Plus) 1 tab DAILY PO Last administered on 11/12/16 08:50 ; Start 11/02/16 at 14:00 Ascorbic Acid (Vitamin C) 500 mg BID PO Last administered on 11/12/16 08:50; Start 11/02/16 at 14:00 Vancomycin HCl 1 gm/Sodium Chloride 250 ml @ 250 mls/hr Q48H IV ; Start at 09:00; Stop 11/03/16 at 10:10; Status DC Vancomycin HCl 1 each 1X ONCE MC ; Start 11/05/16 at 08:30; Stop 11/05/16 at 08: 30; Status DC Linezolid (Zyvox) 600 mg BID PO Last administered on 11/09/16 08:20; Start at 10:00; Stop 11/09/16 at 16:32; Status DC Meropenem 1 gm/ Sodium Chloride 100 ml @ 200 mls/hr DAILY IV Last administered on 11/12/16 08:52; Start 11/03/16 at 10:00 Fluconazole (Diflucan) 100 mg DAILY PO Last administered on 11/12/16 08:50; Start 11/03/16 at 10:00 Lactobacillus Acidophilus (Bacid, Brittney-Bid) 1 tab TIDWMEALS PO Last administered on 11/12/16 08:49; Start 11/03/16 at 12:00 Carvedilol (Coreg) 6.25 mg BIDWMEALS PO Last administered on 11/12/16 08:50; Start 11/03/16 at 17:00 Sodium Chloride 1,000 ml @ 100 mls/hr Q10H IV Last administered on 9/1/17at 16 :04; Start 11/03/16 at 10:30; Stop 11/05/16 at 13:19; Status DC Acetylcysteine (Mucomyst 20% Oral Solution) 1,200 mg BID PO Last administered on 11/05/16 09:25; Start 11/03/16 at 21:00; Stop 11/05/16 at 20:59; Status DC Darbepoetin Rich (Aranesp) 60 mcg [id number] SQ Last administered on 11/03/16 21 :36; Start 11/03/16 at 21:00; Stop 11/09/16 at 10:17; Status DC Hydromorphone HCl (Dilaudid) 8 mg PRN Q4HRS PRN PO PAIN Last administered on 12:39; Start 11/03/16 at 11:15; Stop 11/07/16 at 14:40; Status DC Gabapentin (Neurontin) 300 mg QHS PO Last administered on 11/11/16 20:38; Start 11/03/16 at 14:00 Lidocaine/Sodium Bicarbonate (Buffered Lidocaine 1%) 20 ml STK-MED ONCE IJ ; Start 11/04/16 at 08:16; Stop 11/04/16 at 08:17; Status DC Heparin Sodium/ Sodium Chloride 0 ml @ As Directed STK-MED ONCE .ROUTE ; Start 11/04/16 at 08:17; Stop 11/04/16 at 08:18; Status DC Iodixanol (Visipaque 320) 100 ml STK-MED ONCE .ROUTE ; Start 11/04/16 at 08:17; Stop 11/04/16 at 08:18; Status DC Iodixanol (Visipaque 320) 50 ml STK-MED ONCE .ROUTE ; Start 11/04/16 at 09:57; Stop 11/04/16 at 09:58; Status DC Lidocaine/Sodium Bicarbonate (Buffered Lidocaine 1%) 20 ml STK-MED ONCE IJ ; Start 11/04/16 at 09:58; Stop 11/04/16 at 09:59; Status DC Heparin Sodium/ Sodium Chloride 1,500 ml @ As Directed STK-MED ONCE .ROUTE ; Start 11/04/16 at 09:58; Stop 11/04/16 at 09:59; Status DC Heparin Sodium (Porcine) (Heparin Sodium) 10,000 unit STK-MED ONCE .ROUTE ; Start 11/04/16 at 10:29; Stop 11/04/16 at 10:30; Status DC Midazolam HCl (Versed) 2 mg STK-MED ONCE .ROUTE ; Start 11/04/16 at 10:29; Stop 11/04/16 at 10:30; Status DC Heparin Sodium/ Sodium Chloride 1,000 unit 1X ONCE IART Last administered on 12:25; Start 11/04/16 at 11:00; Stop 11/04/16 at 11:01; Status DC Lidocaine/Sodium Bicarbonate (Buffered Lidocaine 1%) 20 ml 1X ONCE IJ Last administered on 11/04/16 12:25; Start 11/04/16 at 11:00; Stop 11/04/16 at 11:01; Status DC Midazolam HCl (Versed) 2 mg 1X ONCE IV Last administered on 11/04/16 12:26; Start 11/04/16 at 11:00; Stop 11/04/16 at 11:01; Status DC Fentanyl Citrate (Fentanyl 2ml Vial) 100 mcg 1X ONCE IV Last administered on 12:27; Start 11/04/16 at 11:00; Stop 11/04/16 at 11:01; Status DC Iodixanol (Visipaque 320) 50 ml 1X ONCE IART Last administered on 11/04/16 12: 24; Start 11/04/16 at 11:00; Stop 11/04/16 at 11:01; Status DC Info (Do NOT chart on this entry -- for MONITORING) 1 each PRN DAILY PRN MC SEE COMMENTS; Start 11/04/16 at 11:00; Stop 11/06/16 at 10:59; Status DC Heparin Sodium (Porcine) (Heparin Sodium) 5,000 unit 1X ONCE IV Last administered on 11/04/16 12:27; Start 11/04/16 at 12:15; Stop 11/04/16 at 12:21; Status DC Sodium Chloride 1,000 ml @ 75 mls/hr [id number] IV Last administered on 11/07/16 21:23; Start 11/05/16 at 15:45; Stop 11/08/16 at 14:14; Status DC Sodium Polystyrene Sulfonate (Kayexalate) 15 gm 1X ONCE PO Last administered on 11/06/16 16:30; Start 11/06/16 at 14:45; Stop 11/06/16 at 14:46; Status DC Ondansetron HCl (Zofran) 4 mg PRN Q6HRS PRN IV NAUSEA/VOMITING; Start 11/08/16 at 07:00; Stop 11/09/16 at 06:59; Status DC Fentanyl Citrate (Fentanyl 2ml Vial) 25 mcg PRN Q5MIN PRN IV MILD PAIN Last administered on 11/08/16 13:25; Start 11/08/16 at 07:00; Stop 11/09/16 at 06:59; Status DC Fentanyl Citrate (Fentanyl 2ml Vial) 50 mcg PRN Q5MIN PRN IV MODERATE PAIN Last administered on 11/08/16 14:55; Start 11/08/16 at 07:00; Stop 11/09/16 at 06: 59; Status DC Morphine Sulfate 1 mg PRN Q10MIN PRN IV SEVERE PAIN; Start 11/08/16 at 07:00; Stop 11/09/16 at 06:59; Status UNV Ringer's Solution 1,000 ml @ 0 mls/hr Q0M IV Last administered on 11/08/16 07: 03; Start 11/08/16 at 07:00; Stop 11/08/16 at 18:59; Status DC Lidocaine HCl 2 ml PRN 1X PRN ID PRIOR TO IV START; Start 11/08/16 at 07:00; Stop 11/09/16 at 06:59; Status DC Hydromorphone HCl (Dilaudid) 0.5 mg PRN Q10MIN PRN IV SEV PAIN, Second choice; Start 11/08/16 at 07:00; Stop 11/09/16 at 06:59; Status DC Prochlorperazine Edisylate (Compazine) 5 mg PACU PRN PRN IV NAUSEA, MRX1; Start 11/08/16 at 07:00; Stop 11/09/16 at 06:59; Status DC Hydromorphone HCl (Dilaudid) 8 mg PRN Q3HRS PRN PO PAIN Last administered on 11:04; Start 11/07/16 at 14:45 Cellulose 1 each STK-MED ONCE .ROUTE Last administered on 11/08/16 11:30; Start 11/08/16 at 07:01; Stop 11/08/16 at 07:02; Status DC Iohexol (Omnipaque 300 Mg/ml) 50 ml STK-MED ONCE .ROUTE ; Start 11/08/16 at 07:02 ; Stop 11/08/16 at 07:03; Status DC Gelatin (Gelfoam Powder) 1 gm STK-MED ONCE .ROUTE ; Start 11/08/16 at 07:02; Stop 11/08/16 at 07:03; Status DC Papaverine HCl 60 mg STK-MED ONCE .ROUTE ; Start 11/08/16 at 07:02; Stop 11/08/16 at 07:03; Status DC Thrombin 20,000 unit STK-MED ONCE TP ; Start 11/08/16 at 07:02; Stop 11/08/16 at 07:03; Status DC Gelatin (Gelfoam Size 100) 1 each STK-MED ONCE .ROUTE ; Start 11/08/16 at 07:03 ; Stop 11/08/16 at 07:04; Status DC Cefazolin Sodium/ Dextrose 50 ml @ As Directed STK-MED ONCE IV ; Start 11/08/16 at 07:07; Stop 11/08/16 at 07:08; Status DC Cefazolin Sodium 1 gm/Sodium Chloride 500 ml @ 500 mls/hr 1X PERIOP ONCE IRR Last administered on 11/08/16 09:00; Start 11/08/16 at 06:00; Stop 11/08/16 at 07: 10; Status DC Heparin Sodium (Porcine) 5000 unit/Sodium Chloride 505 ml @ 505 mls/hr 1X PERIOP ONCE IRR Last administered on 11/08/16 09:01; Start 11/08/16 at 06:00; Stop 11/08/16 at 07:10; Status DC Famotidine (Pepcid) 20 mg STK-MED ONCE .ROUTE ; Start 11/08/16 at 07:09; Stop 11/08/16 at 07:10; Status DC Propofol 20 ml @ As Directed STK-MED ONCE IV ; Start 11/08/16 at 07:09; Stop 11/08 at 07:10; Status DC Ondansetron HCl (Zofran) 4 mg STK-MED ONCE .ROUTE ; Start 11/08/16 at 07:10; Stop 11/08/16 at 07:11; Status DC Dexamethasone Sodium Phosphate (Decadron) 20 mg STK-MED ONCE .ROUTE ; Start 11/08 at 07:10; Stop 11/08/16 at 07:11; Status DC Lidocaine HCl (Lidocaine Pf 2% Vial) 5 ml STK-MED ONCE .ROUTE ; Start 11/08/16 at 07:10; Stop 11/08/16 at 07:11; Status DC Fentanyl Citrate (Fentanyl 2ml Vial) 100 mcg STK-MED ONCE .ROUTE ; Start at 07:11; Stop 11/08/16 at 07:12; Status DC Midazolam HCl (Versed) 2 mg STK-MED ONCE .ROUTE ; Start 11/08/16 at 07:11; Stop 11/08/16 at 07:12; Status DC Rocuronium [place] (Zemuron) 100 mg STK-MED ONCE .ROUTE ; Start 11/08/16 at 07:11 ; Stop 11/08/16 at 07:12; Status DC Cefazolin Sodium/ Dextrose 50 ml @ 100 mls/hr 1X PREOP PRN IV Pre Op Dose Last administered on 11/08/16t 07:44; Start 11/08/16 at 06:00; Stop 11/09/16 at 05: 59; Status DC Ephedrine Sulfate 50 mg STK-MED ONCE IV ; Start 11/08/16 at 07:44; Stop 11/08/16 at 07:45; Status DC Fentanyl Citrate (Fentanyl 2ml Vial) 100 mcg STK-MED ONCE .ROUTE ; Start at 08:55; Stop 11/08/16 at 08:56; Status DC Heparin Sodium (Porcine) (Heparin Sodium) 10,000 unit STK-MED ONCE .ROUTE ; Start 11/08/16 at 10:26; Stop 11/08/16 at 10:27; Status DC Fentanyl Citrate (Fentanyl 2ml Vial) 100 mcg STK-MED ONCE .ROUTE ; Start at 10:47; Stop 11/08/16 at 10:48; Status DC Heparin Sodium (Porcine) 5000 unit/Sodium Chloride 505 ml @ 505 mls/hr 1X PERIOP ONCE IRR ; Start 11/08/16 at 11:07; Stop 11/08/16 at 12:06; Status DC Sevoflurane (Ultane) 90 ml STK-MED ONCE IH ; Start 11/08/16 at 11:47; Stop at 11:48; Status DC Glycopyrrolate (Robinul) 1 mg STK-MED ONCE .ROUTE ; Start 11/08/16 at 11:52; Stop 11/08/16 at 11:53; Status DC Neostigmine Methylsulfate 5 mg STK-MED ONCE .ROUTE ; Start 11/08/16 at 11:52; Stop 11/08/16 at 11:53; Status DC Hydromorphone HCl (Dilaudid) 1 mg Q1HR PRN IV SEVERE PAIN Last administered on 11/09/16 04:22; Start 11/08/16 at 12:30; Stop 11/10/16 at 08:46; Status DC Oxycodone/ Acetaminophen (Percocet 5/325) 1 tab PRN Q4HRS PRN PO PAIN; Start at 12:30 Oxycodone/ Acetaminophen (Percocet 5/325) 2 tab PRN Q4HRS PRN PO PAIN Last administered on 11/11/16 23:27; Start 11/08/16 at 12:30 Sodium Chloride 1,000 ml @ 100 mls/hr Q10H IV Last administered on 11/09/16 01 :00; Start 11/08/16 at 12:30; Stop 11/09/16 at 10:17; Status DC Furosemide (Lasix) 40 mg STK-MED ONCE .ROUTE ; Start 11/08/16 at 14:32; Stop 11/08 at 14:33; Status DC Sodium Bicarbonate 50 meq STK-MED ONCE .ROUTE ; Start 11/08/16 at 14:32; Stop 11/08/16 at 14:33; Status DC Sodium Bicarbonate 100 meq 1X PACU PRN IV SEE COMMENTS Last administered on 11/08 14:50; Start 11/08/16 at 14:30 Furosemide (Lasix) 40 mg 1X PACU PRN IVP SEE COMMENTS Last administered on 14:40; Start 11/08/16 at 14:30; Stop 11/09/16 at 10:17; Status DC Naloxone HCl (Narcan) 0.4 mg PRN Q2MIN PRN IV SEE INSTRUCTIONS; Start 11/08/16 at 18:45 Sodium Chloride 1,000 ml @ 25 mls/hr Q24H IV Last administered on 11/09/16 19: 48; Start 11/08/16 at 19:00 Hydromorphone HCl 30 ml @ 0 mls/hr CONT PRN PRN IV PROTOCOL Last administered on 11/09/16 10:36; Start 11/08/16 at 18:45; Stop 11/09/16 at 21:12; Status DC Heparin Sodium (Porcine) (Heparin Sodium) 10,000 unit STK-MED ONCE .ROUTE ; Start 11/08/16 at 19:02; Stop 11/08/16 at 19:03; Status DC Lidocaine/Sodium Bicarbonate (Buffered Lidocaine 1%) 20 ml STK-MED ONCE IJ ; Start 11/08/16 at 19:02; Stop 11/08/16 at 19:03; Status DC Heparin Sodium/ Sodium Chloride 500 ml @ As Directed STK-MED ONCE .ROUTE ; Start 11/08/16 at 19:02; Stop 11/08/16 at 19:03; Status DC Lidocaine/Sodium Bicarbonate (Buffered Lidocaine 1%) 3 ml 1X ONCE IJ Last administered on 11/08/16 19:50; Start 11/08/16 at 19:15; Stop 11/08/16 at 19:16; Status DC Heparin Sodium (Porcine) (Heparin Sodium) 2,500 unit 1X ONCE INT CAT Last administered on 11/08/16 19:49; Start 11/08/16 at 19:15; Stop 11/08/16 at 19:16; Status DC Heparin Sodium/ Sodium Chloride 60 unit 1X ONCE IV Last administered on 19:15; Start 11/08/16 at 19:15; Stop 11/08/16 at 19:16; Status DC Cyclobenzaprine HCl (Flexeril) 10 mg PRN Q6HRS PRN PO MUSCLE SPASMS Last administered on 11/09/16 19:46; Start 11/09/16 at 09:00; Stop 11/10/16 at 08:46; Status DC Carisoprodol (Soma) 350 mg TID PRN PRN PO MUSCLE SPASMS; Start 11/09/16 at 09:00 ; Stop 11/09/16 at 16:31; Status DC Hydromorphone HCl 30 ml @ 0 mls/hr CONT PRN PRN IV PROTOCOL Last administered on 11/10/16 02:20; Start 11/09/16 at 21:15; Stop 11/10/16 at 08:46; Status DC Alprazolam (Xanax) 0.25 mg PRN QID PRN PO ANXIETY / AGITATION Last administered on 11/12/16 06:13; Start 11/09/16 at 21:15 Cyclobenzaprine HCl (Flexeril) 5 mg PRN Q6HRS PRN PO MUSCLE SPASMS Last administered on 11/11/16 20:38; Start 11/10/16 at 08:45 Hydromorphone HCl (Dilaudid) 0.4 mg Q1HR PRN IV SEVERE PAIN Last administered on 11/12/16 09:23; Start 11/10/16 at 08:45 Sodium Chloride 1,000 ml @ 1,000 mls/hr Q1H PRN IV hypotension; Start 11/10/16 at 09:06; Stop 11/10/16 at 15:05; Status DC Sodium Chloride 1,000 ml @ 400 mls/hr Q2H30M PRN IV PATENCY; Start 11/10/16 at 09:06; Stop 11/10/16 at 21:05; Status DC Info (PHARMACY MONITORING -- do not chart) 1 each PRN DAILY PRN MC SEE COMMENTS ; Start 11/10/16 at 09:15 Polyethylene Glycol (miraLAX PACKET) 17 gm DAILY PO Last administered on 08:49; Start 11/10/16 at 11:30 Magnesium Hydroxide (Milk Of Magnesia) 2,400 mg PRN DAILY PRN PO CONSTIPATION; Start 11/10/16 at 11:00 Docusate Sodium (Colace) 100 mg BID PO Last administered on 11/12/16 08:50; Start 11/10/16 at 11:30 Fentanyl Citrate (Fentanyl 2ml Vial) 25 mcg PRN Q5MIN PRN IV MILD PAIN; Start 11/11/16 at 07:00; Stop 11/12/16 at 06:59; Status DC Fentanyl Citrate (Fentanyl 2ml Vial) 50 mcg PRN Q5MIN PRN IV MODERATE PAIN; Start 11/11/16 at 07:00; Stop 11/12/16 at 06:59; Status DC Prochlorperazine Edisylate (Compazine) 5 mg PACU PRN PRN IV NAUSEA, MRX1; Start 11/11/16 at 07:00; Stop 11/12/16 at 06:59; Status DC Sodium Chloride 1,000 ml @ 0 mls/hr Q0M IV ; Start 11/11/16 at 06:00 Sevoflurane (Ultane) 60 ml STK-MED ONCE IH ; Start 11/11/16 at 07:12; Stop at 07:13; Status DC Midazolam HCl (Versed) 2 mg STK-MED ONCE .ROUTE ; Start 11/11/16 at 07:13; Stop 11/11/16 at 07:14; Status DC Fentanyl Citrate (Fentanyl 2ml Vial) 100 mcg STK-MED ONCE .ROUTE ; Start at 07:13; Stop 11/11/16 at 07:14; Status DC Propofol 20 ml @ As Directed STK-MED ONCE IV ; Start 11/11/16 at 07:14; Stop 11/11 at 07:15; Status DC Ondansetron HCl (Zofran) 4 mg STK-MED ONCE .ROUTE ; Start 11/11/16 at 07:14; Stop 11/11/16 at 07:15; Status DC Dexamethasone Sodium Phosphate (Decadron) 20 mg STK-MED ONCE .ROUTE ; Start 11/11 at 07:14; Stop 11/11/16 at 07:15; Status DC Lidocaine HCl (Lidocaine Pf 2% Vial) 5 ml STK-MED ONCE .ROUTE ; Start 11/11/16 at 07:14; Stop 11/11/16 at 07:15; Status DC Phenylephrine HCl 1 mg STK-MED ONCE IV ; Start 11/11/16 at 07:47; Stop 11/11/16 at 07:48; Status DC Phenylephrine HCl 1 mg STK-MED ONCE IV ; Start 11/11/16 at 08:43; Stop 11/11/16 at 08:44; Status DC Sodium Chloride 1,000 ml @ 1,000 mls/hr Q1H PRN IV hypotension; Start 11/11/16 at 10:26; Stop 11/11/16 at 16:25; Status DC Diphenhydramine HCl (Benadryl) 25 mg 1X PRN PRN IV ITCHING; Start 11/11/16 at 10 :30; Stop 11/12/16 at 10:29 Diphenhydramine HCl (Benadryl) 25 mg 1X PRN PRN IV ITCHING; Start 11/11/16 at 10 :30; Stop 11/12/16 at 10:29 Sodium Chloride (Normal Saline Flush) 10 ml 1X PRN PRN IV AP catheter pack; Start 11/11/16 at 10:30; Stop 11/12/16 at 10:29 Sodium Chloride (Normal Saline Flush) 10 ml 1X PRN PRN IV DOBBY LOOM FIXER catheter pack; Start 11/11/16 at 10:30; Stop 11/12/16 at 10:29 Sodium Chloride 1,000 ml @ 400 mls/hr Q2H30M PRN IV PATENCY; Start 11/11/16 at 10:26; Stop 11/11/16 at 22:25; Status DC Info (PHARMACY MONITORING -- do not chart) 1 each PRN DAILY PRN MC SEE COMMENTS ; Start 11/11/16 at 10:30; Status UNV Info (PHARMACY MONITORING -- do not chart) 1 each PRN DAILY PRN MC SEE COMMENTS ; Start 11/11/16 at 10:30; Status Cancel Info (PHARMACY MONITORING -- do not chart) 1 each PRN DAILY PRN MC SEE COMMENTS ; Start 11/11/16 at 10:30; Status Cancel Vitals/I & O Vital Sign - Last 24 Hours 11/11/16 11/11/16 11/11/16 11/11/16 11:23 13:37 14:07 15:15 Pulse 109 106 Resp 20 21 B/P (MAP) 110/65 (80) 176/83 (114) Pulse Ox 97 97 97 98 O2 Delivery Room Air Room Air Room Air O2 Flow Rate 10.0 10.0 11/11/16 11/11/16 11/11/16 11/11/16 16:10 17:10 18:18 18:19 Temp 98.4 98.4 Pulse 94 94 Resp 20 B/P (MAP) 171/62 (98) 171/62 Pulse Ox 98 99 O2 Delivery Room Air Room Air Room Air 11/11/16 11/11/16 11/11/16 11/11/16 19:00 19:19 20:01 20:43 Temp 98.4 98.4 Pulse 98 98 Resp 20 20 B/P (MAP) 135/65 (88) 135/65 Pulse Ox 100 O2 Delivery Room Air Room Air Room Air 11/11/16 11/11/16 11/11/16 11/12/16 23:00 23:27 23:27 00:27 Temp 97.9 97.9 Pulse 97 Resp 18 20 18 20 B/P (MAP) 159/64 (95) Pulse Ox 98 O2 Delivery Room Air Room Air Room Air Room Air 11/12/16 11/12/16 11/12/16 11/12/16 03:05 06:14 06:44 07:00 Temp 98.4 97.8 98.4 97.8 Pulse 96 84 Resp 15 18 18 18 B/P (MAP) 144/63 (90) 140/68 (92) Pulse Ox 97 95 O2 Delivery Room Air Room Air Room Air Room Air 11/12/16 11/12/16 11/12/16 11/12/16 08:00 08:50 08:51 09:23 Pulse 84 84 Resp 18 B/P (MAP) 140/68 140/68 Pulse Ox 95 O2 Delivery Room Air Room Air O2 Flow Rate 10.0 10.0 Intake and Output 11/12/16 11/12/16 11/13/16 15:00 23:00 07:00 Intake Total 180 ml Balance 180 ml JOSE LEZAMA MD Nov 12, 2016 10:22
--- NOTE | 2016-11-12 10:44 | PDOC ---
Provider Note Provider Note POD # 4 Post op lt fem -post. tib. bypass with michael. basilic vein and GSV C/O lt foot pain, S/P TMA yesterday Dressing intact, 2+ graft pulse VAC in place over lt foot Imp: Patent bypass Plan: Activity/ weight bearing per ortho Rehab soon ? RAMOS GRANADO MD Nov 12, 2016 10:44
[2016-11-12 11:40] VITALS: BP 135/55
[2016-11-12] MEDS: CYCLOBENZAPRINE 10 MG TABLET. PO PRN ×2 (12:34→21:47)
[2016-11-12] MEDS: oxyCODONE/APAP 5/325 1 TAB TABLET PO PRN ×2 (12:59→23:06)
--- NOTE | 2016-11-12 14:31 | EKG ---
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
[2016-11-12 14:40] VITALS: BP 96/46
[2016-11-12] MEDS: HYDROmorphone 4 MG TABLET PO PRN ×2 (15:25→19:50)
[2016-11-12] MEDS: CARISOPRODOL 350 MG TABLET PO PRN ×2 (15:26→21:47)
[2016-11-12] MEDS: IV NORMAL SALINE 1000ML BAG 1,000 ML IV SCH (18:08)
[2016-11-12 19:17] VITALS: BP 162/80
[2016-11-12] MEDS: GABAPENTIN 300 MG CAPSULE. PO SCH (21:03)
[2016-11-12] MEDS: ATORVASTATIN CALCIUM 10 MG TABLET. PO SCH (21:04)
[2016-11-13] MEDS: HYDROmorphone 2 MG/ML VIAL IV PRN ×5 (00:45→23:59)
[2016-11-13 03:11] VITALS: BP 119/60
[2016-11-13 05:50] LABS: POTASSIUM 4.5 mmol/L (3.5-5.1)
[2016-11-13 07:18] VITALS: BP 168/58
[2016-11-13] MEDS: INSULIN ASPART 300 UNITS/3 ML INSULN.PEN SQ SCH ×3 (08:00→17:25)
[2016-11-13] MEDS: POLYETHYLENE GLYCOL 3350 17 GM PACKET. PO SCH (08:09)
[2016-11-13] MEDS: DOCUSATE SODIUM 100 MG CAPSULE. PO SCH ×2 (08:09→19:50)
[2016-11-13] MEDS: MEROPENEM 1 GM in IV NORMAL SALINE 100ML 100 ML IV SCH (08:11)
[2016-11-13] MEDS: ASPIRIN ENTERIC COATED 81 MG TABLET.DR. PO SCH (08:12)
[2016-11-13] MEDS: amLODIPine BESYLATE 10 MG TABLET PO SCH ×2 (08:12→19:51)
[2016-11-13] MEDS: CLOPIDOGREL BISULFATE 75 MG TABLET PO SCH (08:12)
[2016-11-13] MEDS: PANTOPRAZOLE 40 MG TABLET.DR. PO SCH ×2 (08:13→17:18)
[2016-11-13] MEDS: SEVELAMER CARBONATE 800 MG TABLET. PO SCH ×3 (08:13→17:18)
[2016-11-13] MEDS: CARVEDILOL 3.125 MG TABLET. PO SCH ×2 (08:13→17:19)
[2016-11-13] MEDS: FLUCONAZOLE 100 MG TABLET. PO SCH (08:13)
[2016-11-13] MEDS: MULTIVITAMIN with MINERAL TABLET. PO SCH (08:14)
[2016-11-13] MEDS: LACTOBACILLUS ACIDOPH & BULGAR 1 TABLET. PO SCH ×3 (08:14→17:18)
[2016-11-13] MEDS: ASCORBIC ACID 500 MG TABLET PO SCH ×2 (08:14→19:50)
[2016-11-13] MEDS: DICLOFENAC SODIUM 1% TOPICAL GEL 100GM TUBE. TP SCH ×2 (08:14→21:00)
--- NOTE | 2016-11-13 08:54 | PDOC ---
Infectious Disease Note Subjective Subjective Not feeling well, c/o pain, mostly left foot No fever + BM ROS ROS GEN: Denies chills, sweats CV: Denies chest pain RESP: Denies shortness of air, cough GI: Denies n/v/d Vital Sign Vital Signs Vital Signs Date Time Temp Pulse Resp B/P (MAP) Pulse Ox O2 Delivery O2 Flow Rate FiO2 11/13/16 08:28 16 96 Room Air 11/13/16 08:13 97 168/58 11/13/16 07:18 98.3 98.3 11/12/16 09:23 10.0 Physical Exam PHYSICAL EXAM GENERAL: Propped up in bed, NAD, sleeping hard HEENT: OC/OP pink NECK: Supple LUNGS: Clear HEART: S1S2, no gallop, no murmur ABD: Soft, NT : Schaffer EXT: No edema, no cyanosis; Wound vac in place, left foot. BUE harvest sites, bandaged; Left leg dressings dry [employer] BOARDS: Alert, oriented x 3, no focal neurologic deficit SKIN: No rash RIJ. clean LIJ/temp HDC. (11/08). 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 s/p revision w/ partial closure and wound VAC placement, 11/11 Acute kidney injury on chronic kidney disease. Now on HD Peripheral arterial disease. s/p left fem-tib bypass, 11/08 Diabetes. Plan Plan of Care Meropenem and Fluconazole Probiotics [facility] in the works Attending Co-Sign Attending Co-Sign The patient was seen and interviewed as well as examined at the bedside. The chart was reviewed. The case was discussed. Agree with the plan of care. ELLA MA APRN Nov 13, 2016 08:54 ROMANA GARLAND MD Nov 13, 2016 11:55
--- NOTE | 2016-11-13 09:57 | PDOC ---
Provider Note Provider Note POD # 5 Post op lt fem -post tib bypass with arm and GS veins Dressing just changed, dry and intact 2+ graft pulse lt knee Imp: Patent bypass Plan: OK for transfer to rehab RAMOS GRANADO MD Nov 13, 2016 09:57
[2016-11-13 10:38] VITALS: BP 181/89
--- NOTE | 2016-11-13 10:42 | PDOC ---
PROGRESS NOTES Chief Complaint Chief Complaint Wound dehiscence - left foot s/p left TMA 6+ weeks ago ASSESSMENT AND PLAN: A/P POD# left femoral to posterior tibial artery bypass with bilateral basilic veins and saphenous vein for nonhealing left TMA (11/08/16) ; s/p IA nd D and wound vac () 1. PVD: L common femoral artery and profunda artery endarterectomy, L common femoral artery to posterior tibial artery bypass graft today 2. wound dehiscence/ infection: continue meropenem/zyvox/fluconazole, probiotic. wound care 3. Pain control: on home PO dilaudid and IV/IM meds; prob high tolerance for narcotics given chronic high use. 4. CKD5: nephrology following. pt trying to hold off HD, but unavoidable 5. Hyperkalemia: periop. eval for urgent HD ongoing. as per Dr Person 5. Anemia: of ESRD. on EPO 6. 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 s/p R hand finger amputations 7. DM2: fairly well controlled; cont ISS 8. HTN, HLD: well controlled. cont home meds 9. Prophylaxis: ASA/plavix/SCDs 10. 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 OPIATE tOLERANT 12. Renal artery stenosis History of Present Illness History of Present Illness asleep did not awaken Dw cards - no plans of LINDSAY stenting this admission LTAC has accepted PAin seems to be under control today PLAN: dc to [facility] with ID on board, wound vac and wound care Tariq santos Vitals Vitals Vital Signs Date Time Temp Pulse Resp B/P (MAP) Pulse Ox O2 Delivery O2 Flow Rate FiO2 11/13/16 10:38 92 19 181/89 (119) 95 Room Air 11/13/16 08:00 10.0 11/13/16 07:18 98.3 98.3 Physical Exam General: Alert, Oriented X3, No acute distress Heart: Regular rate, Other (murmur, bilateral carotid bruit) Lungs: Clear, Wheezing Abdomen: Normal bowel sounds, Soft, No tenderness, Other (thin) Extremities: Other (bilat distal foot amputations, wrapped in gauze. Finger amput R) Skin: Other (left foot with amputation site dehiscence with necrosis and malodorous ) Labs LABS Laboratory Tests Test 11/12/16 11:16 11/12/16 17:05 11/12/16 20:51 11/13/16 04:00 Glucose (Fingerstick) 202 mg/dL (70-99) 169 mg/dL (70-99) 157 mg/dL (70-99) Sodium Level 137 mmol/L (136-145) Potassium Level 4.5 mmol/L (3.5-5.1) Chloride Level 99 mmol/L (98-107) Carbon Dioxide Level 29 mmol/L (21-32) Anion Gap 9 (6-14) Test 11/13/16 07:21 Glucose (Fingerstick) 131 mg/dL (70-99) Review of Systems Review of Systems asleep Assessment and Plan Assessmemt and Plan Problems Medical Problems: (1) Wound dehiscence Status: Acute Problems: Comment Review of Relevant I have reviewed the following items rula (where applicable) has been applied. Labs Laboratory Tests Test 11/11/16 15:09 11/11/16 16:43 11/11/16 21:21 11/12/16 04:00 Glucose (Fingerstick) 205 mg/dL (70-99) 247 mg/dL (70-99) 186 mg/dL (70-99) White Blood Count 11.4 x10^3/uL (4.0-11.0) Red Blood Count 2.74 x10^6/uL (4.30-5.70) Hemoglobin 7.9 g/dL (13.0-17.5) Hematocrit 24.0 % (39.0-53.0) Mean Corpuscular Volume 88 fL (79-100) Mean Corpuscular Hemoglobin 29 pg (25-35) Mean Corpuscular Hemoglobin Concent 33 g/dL (31-37) Red Cell Distribution Width 16.0 % (11.5-14.5) Platelet Count 183 x10^3/uL (140-400) Neutrophils (%) (Auto) 68 % (31-73) Lymphocytes (%) (Auto) 15 % (24-48) Monocytes (%) (Auto) 12 % (0-9) Eosinophils (%) (Auto) 5 % (0-3) Basophils (%) (Auto) 0 % (0-3) Neutrophils # (Auto) 7.7 x10^3uL (1.8-7.7) Lymphocytes # (Auto) 1.7 x10^3/uL (1.0-4.8) Monocytes # (Auto) 1.4 x10^3/uL (0.0-1.1) Eosinophils # (Auto) 0.5 x10^3/uL (0.0-0.7) Basophils # (Auto) 0.0 x10^3/uL (0.0-0.2) Sodium Level 140 mmol/L (136-145) Potassium Level 4.2 mmol/L (3.5-5.1) Chloride Level 101 mmol/L (98-107) Carbon Dioxide Level 31 mmol/L (21-32) Anion Gap 8 (6-14) Test 11/12/16 07:44 11/12/16 11:16 11/12/16 17:05 11/12/16 20:51 Glucose (Fingerstick) 141 mg/dL (70-99) 202 mg/dL (70-99) 169 mg/dL (70-99) 157 mg/dL (70-99) Test 11/13/16 04:00 11/13/16 07:21 Sodium Level 137 mmol/L (136-145) Potassium Level 4.5 mmol/L (3.5-5.1) Chloride Level 99 mmol/L (98-107) Carbon Dioxide Level 29 mmol/L (21-32) Anion Gap 9 (6-14) Glucose (Fingerstick) 131 mg/dL (70-99) Laboratory Tests Test 11/12/16 11:16 11/12/16 17:05 11/12/16 20:51 11/13/16 04:00 Glucose (Fingerstick) 202 mg/dL (70-99) 169 mg/dL (70-99) 157 mg/dL (70-99) Sodium Level 137 mmol/L (136-145) Potassium Level 4.5 mmol/L (3.5-5.1) Chloride Level 99 mmol/L (98-107) Carbon Dioxide Level 29 mmol/L (21-32) Anion Gap 9 (6-14) Test 11/13/16 07:21 Glucose (Fingerstick) 131 mg/dL (70-99) Microbiology 11/01/16 Blood Culture - Final, Complete NO GROWTH AFTER 5 DAYS 11/03/16 Gram Stain - Final, Complete Medications Current Medications Sodium Chloride 1,000 ml @ 1,000 mls/hr 1X ONCE IV Last administered on 11:06; Start 11/01/16 at 10:30; Stop 11/01/16 at 11:38; Status DC Fentanyl Citrate (Fentanyl 2ml Vial) 50 mcg 1X ONCE IV Last administered on 11:08; Start 11/01/16 at 11:15; Stop 11/01/16 at 11:16; Status DC Vancomycin HCl (Vanco Per Pharmacy) 1 each PRN DAILY PRN MC SEE COMMENTS Last administered on 11/03/16 06:59; Start 11/01/16 at 13:15; Stop 11/03/16 at 10:10 ; Status DC Vancomycin HCl 1.5 gm/Sodium Chloride 500 ml @ 250 mls/hr 1X ONCE IV Last administered on 11/01/16 13:37; Start 11/01/16 at 13:30; Stop 11/01/16 at 15:29 ; Status DC Fentanyl Citrate (Fentanyl 2ml Vial) 50 mcg 1X ONCE IV Last administered on 13:40; Start 11/01/16 at 13:30; Stop 11/01/16 at 13:31; Status DC Ondansetron HCl (Zofran) 4 mg PRN Q8HRS PRN IV NAUSEA/VOMITING; Start 11/01/16 at 13:45; Stop 11/02/16 at 13:44; Status DC Acetaminophen (Tylenol) 650 mg PRN Q4HRS PRN PO FEVER Last administered on 11/01 23:03; Start 11/01/16 at 13:45; Stop 11/02/16 at 13:44; Status DC Fentanyl Citrate (Fentanyl 2ml Vial) 50 mcg PRN Q4HRS PRN IM PAIN Last administered on 11/07/16 06:37; Start 11/01/16 at 13:45; Stop 11/07/16 at 14:40; Status DC Vancomycin HCl 1 each 1X ONCE MC Last administered on 11/03/16 06:03; Start 11/03/16 at 05:00; Stop 11/03/16 at 10:10; Status DC Insulin Aspart (NovoLOG) 0-7 UNITS TIDWMEALS SQ Last administered on 11/12/16 17:23; Start 11/01/16 at 20:30 Dextrose (Dextrose 50%-Water Syringe) 12.5 gm PRN Q15MIN PRN IV SEE COMMENTS; Start 11/01/16 at 19:45 Hydromorphone HCl (Dilaudid) 4 mg PRN Q4HRS PRN PO PAIN Last administered on 10:11; Start 11/01/16 at 20:15; Stop 11/03/16 at 11:17; Status DC Pantoprazole Sodium (Protonix) 40 mg BIDWMEALS PO Last administered on 08:13; Start 11/01/16 at 21:00 Sennosides (Senna) 8.6 mg PRN QHS PRN PO CONSTIPATION Last administered on 19:55; Start 11/01/16 at 20:15 Sevelamer Carbonate (Renvela) 800 mg TIDWMEALS PO Last administered on 08:13; Start 11/02/16 at 08:00 Albuterol Sulfate (Ventolin Neb Soln) 2.5 mg PRN Q6HRS PRN NEB SHORTNESS OF BREATH; Start 11/01/16 at 21:30 Amlodipine Besylate (Norvasc) 10 mg BID PO Last administered on 11/13/16 08:12 ; Start 11/01/16 at 22:00 Aspirin (Ecotrin) 81 mg [id number] PO Last administered on 11/13/16 08:12; Start 11/02/16 at 08:00 Atorvastatin Calcium (Lipitor) 10 mg Q48H PO ; Start 11/01/16 at 21:00; Stop at 02:25; Status DC Carisoprodol (Soma) 350 mg TID PRN PRN PO MUSCLE SPASMS Last administered on 21:47; Start 11/01/16 at 21:30 Carvedilol (Coreg) 3.125 mg BIDWMEALS PO Last administered on 11/03/16 08:43; Start 11/02/16 at 08:00; Stop 11/03/16 at 10:22; Status DC Clopidogrel Bisulfate (Plavix) 75 mg DAILYWBKFT PO Last administered on 08:12; Start 11/02/16 at 08:00 Diclofenac Sodium (Voltaren) 1 richard BID TP Last administered on 11/11/16 09:35; Start 11/01/16 at 22:00 Atorvastatin Calcium (Lipitor) 10 mg Q48H PO Last administered on 11/12/16 21: 04; Start 11/02/16 at 21:00 Multivitamins (Thera M Plus) 1 tab DAILY PO Last administered on 11/13/16 08: 14; Start 11/02/16 at 14:00 Ascorbic Acid (Vitamin C) 500 mg BID PO Last administered on 11/13/16 08:14; Start 11/02/16 at 14:00 Vancomycin HCl 1 gm/Sodium Chloride 250 ml @ 250 mls/hr Q48H IV ; Start at 09:00; Stop 11/03/16 at 10:10; Status DC Vancomycin HCl 1 each 1X ONCE MC ; Start 11/05/16 at 08:30; Stop 11/05/16 at 08: 30; Status DC Linezolid (Zyvox) 600 mg BID PO Last administered on 11/09/16 08:20; Start at 10:00; Stop 11/09/16 at 16:32; Status DC Meropenem 1 gm/ Sodium Chloride 100 ml @ 200 mls/hr DAILY IV Last administered on 11/13/16 08:11; Start 11/03/16 at 10:00 Fluconazole (Diflucan) 100 mg DAILY PO Last administered on 11/13/16 08:13; Start 11/03/16 at 10:00 Lactobacillus Acidophilus (Bacid, Brittney-Bid) 1 tab TIDWMEALS PO Last administered on 11/13/16 08:14; Start 11/03/16 at 12:00 Carvedilol (Coreg) 6.25 mg BIDWMEALS PO Last administered on 11/13/16 08:13; Start 11/03/16 at 17:00 Sodium Chloride 1,000 ml @ 100 mls/hr Q10H IV Last administered on 11/04/16 16 :04; Start 11/03/16 at 10:30; Stop 11/05/16 at 13:19; Status DC Acetylcysteine (Mucomyst 20% Oral Solution) 1,200 mg BID PO Last administered on 11/05/16 09:25; Start 11/03/16 at 21:00; Stop 11/05/16 at 20:59; Status DC Darbepoetin Rich (Aranesp) 60 mcg WEEKLYHS SQ Last administered on 11/03/16 21 :36; Start 11/03/16 at 21:00; Stop 11/09/16 at 10:17; Status DC Hydromorphone HCl (Dilaudid) 8 mg PRN Q4HRS PRN PO PAIN Last administered on 12:39; Start 11/03/16 at 11:15; Stop 11/07/16 at 14:40; Status DC Gabapentin (Neurontin) 300 mg QHS PO Last administered on 11/12/16 21:03; Start 11/03/16 at 14:00 Lidocaine/Sodium Bicarbonate (Buffered Lidocaine 1%) 20 ml STK-MED ONCE IJ ; Start 11/04/16 at 08:16; Stop 11/04/16 at 08:17; Status DC Heparin Sodium/ Sodium Chloride 0 ml @ As Directed STK-MED ONCE .ROUTE ; Start 11/04/16 at 08:17; Stop 11/04/16 at 08:18; Status DC Iodixanol (Visipaque 320) 100 ml STK-MED ONCE .ROUTE ; Start 11/04/16 at 08:17; Stop 11/04/16 at 08:18; Status DC Iodixanol (Visipaque 320) 50 ml STK-MED ONCE .ROUTE ; Start 11/04/16 at 09:57; Stop 11/04/16 at 09:58; Status DC Lidocaine/Sodium Bicarbonate (Buffered Lidocaine 1%) 20 ml STK-MED ONCE IJ ; Start 11/04/16 at 09:58; Stop 11/04/16 at 09:59; Status DC Heparin Sodium/ Sodium Chloride 1,500 ml @ As Directed STK-MED ONCE .ROUTE ; Start 11/04/16 at 09:58; Stop 11/04/16 at 09:59; Status DC Heparin Sodium (Porcine) (Heparin Sodium) 10,000 unit STK-MED ONCE .ROUTE ; Start 11/04/16 at 10:29; Stop 11/04/16 at 10:30; Status DC Midazolam HCl (Versed) 2 mg STK-MED ONCE .ROUTE ; Start 11/04/16 at 10:29; Stop 11/04/16 at 10:30; Status DC Heparin Sodium/ Sodium Chloride 1,000 unit 1X ONCE IART Last administered on 12:25; Start 11/04/16 at 11:00; Stop 11/04/16 at 11:01; Status DC Lidocaine/Sodium Bicarbonate (Buffered Lidocaine 1%) 20 ml 1X ONCE IJ Last administered on 11/04/16 12:25; Start 11/04/16 at 11:00; Stop 11/04/16 at 11:01; Status DC Midazolam HCl (Versed) 2 mg 1X ONCE IV Last administered on 11/04/16 12:26; Start 11/04/16 at 11:00; Stop 11/04/16 at 11:01; Status DC Fentanyl Citrate (Fentanyl 2ml Vial) 100 mcg 1X ONCE IV Last administered on 12:27; Start 11/04/16 at 11:00; Stop 11/04/16 at 11:01; Status DC Iodixanol (Visipaque 320) 50 ml 1X ONCE IART Last administered on 11/04/16 12: 24; Start 11/04/16 at 11:00; Stop 11/04/16 at 11:01; Status DC Info (Do NOT chart on this entry -- for MONITORING) 1 each PRN DAILY PRN MC SEE COMMENTS; Start 11/04/16 at 11:00; Stop 11/06/16 at 10:59; Status DC Heparin Sodium (Porcine) (Heparin Sodium) 5,000 unit 1X ONCE IV Last administered on 11/04/16 12:27; Start 11/04/16 at 12:15; Stop 11/04/16 at 12:21; Status DC Sodium Chloride 1,000 ml @ 75 mls/hr [id number] IV Last administered on 11/07/16 21:23; Start 11/05/16 at 15:45; Stop 11/08/16 at 14:14; Status DC Sodium Polystyrene Sulfonate (Kayexalate) 15 gm 1X ONCE PO Last administered on 11/06/16 16:30; Start 11/06/16 at 14:45; Stop 11/06/16 at 14:46; Status DC Ondansetron HCl (Zofran) 4 mg PRN Q6HRS PRN IV NAUSEA/VOMITING; Start 11/08/16 at 07:00; Stop 11/09/16 at 06:59; Status DC Fentanyl Citrate (Fentanyl 2ml Vial) 25 mcg PRN Q5MIN PRN IV MILD PAIN Last administered on 11/08/16 13:25; Start 11/08/16 at 07:00; Stop 11/09/16 at 06:59; Status DC Fentanyl Citrate (Fentanyl 2ml Vial) 50 mcg PRN Q5MIN PRN IV MODERATE PAIN Last administered on 11/08/16 14:55; Start 11/08/16 at 07:00; Stop 11/09/16 at 06: 59; Status DC Morphine Sulfate 1 mg PRN Q10MIN PRN IV SEVERE PAIN; Start 11/08/16 at 07:00; Stop 11/09/16 at 06:59; Status UNV Ringer's Solution 1,000 ml @ 0 mls/hr Q0M IV Last administered on 11/08/16 07: 03; Start 11/08/16 at 07:00; Stop 11/08/16 at 18:59; Status DC Lidocaine HCl 2 ml PRN 1X PRN ID PRIOR TO IV START; Start 11/08/16 at 07:00; Stop 11/09/16 at 06:59; Status DC Hydromorphone HCl (Dilaudid) 0.5 mg PRN Q10MIN PRN IV SEV PAIN, Second choice; Start 11/08/16 at 07:00; Stop 11/09/16 at 06:59; Status DC Prochlorperazine Edisylate (Compazine) 5 mg PACU PRN PRN IV NAUSEA, MRX1; Start 11/08/16 at 07:00; Stop 11/09/16 at 06:59; Status DC Hydromorphone HCl (Dilaudid) 8 mg PRN Q3HRS PRN PO PAIN Last administered on 19:50; Start 11/07/16 at 14:45 Cellulose 1 each STK-MED ONCE .ROUTE Last administered on 11/08/16 11:30; Start 11/08/16 at 07:01; Stop 11/08/16 at 07:02; Status DC Iohexol (Omnipaque 300 Mg/ml) 50 ml STK-MED ONCE .ROUTE ; Start 11/08/16 at 07:02 ; Stop 11/08/16 at 07:03; Status DC Gelatin (Gelfoam Powder) 1 gm STK-MED ONCE .ROUTE ; Start 11/08/16 at 07:02; Stop 11/08/16 at 07:03; Status DC Papaverine HCl 60 mg STK-MED ONCE .ROUTE ; Start 11/08/16 at 07:02; Stop 11/08/16 at 07:03; Status DC Thrombin 20,000 unit STK-MED ONCE TP ; Start 11/08/16 at 07:02; Stop 11/08/16 at 07:03; Status DC Gelatin (Gelfoam Size 100) 1 each STK-MED ONCE .ROUTE ; Start 11/08/16 at 07:03 ; Stop 11/08/16 at 07:04; Status DC Cefazolin Sodium/ Dextrose 50 ml @ As Directed STK-MED ONCE IV ; Start 11/08/16 at 07:07; Stop 11/08/16 at 07:08; Status DC Cefazolin Sodium 1 gm/Sodium Chloride 500 ml @ 500 mls/hr 1X PERIOP ONCE IRR Last administered on 11/08/16t 09:00; Start 11/08/16 at 06:00; Stop 11/08/16 at 07: 10; Status DC Heparin Sodium (Porcine) 5000 unit/Sodium Chloride 505 ml @ 505 mls/hr 1X PERIOP ONCE IRR Last administered on 11/08/16t 09:01; Start 11/08/16 at 06:00; Stop 11/08/16 at 07:10; Status DC Famotidine (Pepcid) 20 mg STK-MED ONCE .ROUTE ; Start 11/08/16 at 07:09; Stop 11/08/16 at 07:10; Status DC Propofol 20 ml @ As Directed STK-MED ONCE IV ; Start 11/08/16 at 07:09; Stop 11/08 at 07:10; Status DC Ondansetron HCl (Zofran) 4 mg STK-MED ONCE .ROUTE ; Start 11/08/16 at 07:10; Stop 11/08/16 at 07:11; Status DC Dexamethasone Sodium Phosphate (Decadron) 20 mg STK-MED ONCE .ROUTE ; Start 11/08 at 07:10; Stop 11/08/16 at 07:11; Status DC Lidocaine HCl (Lidocaine Pf 2% Vial) 5 ml STK-MED ONCE .ROUTE ; Start 11/08/16 at 07:10; Stop 11/08/16 at 07:11; Status DC Fentanyl Citrate (Fentanyl 2ml Vial) 100 mcg STK-MED ONCE .ROUTE ; Start at 07:11; Stop 11/08/16 at 07:12; Status DC Midazolam HCl (Versed) 2 mg STK-MED ONCE .ROUTE ; Start 11/08/16 at 07:11; Stop 11/08/16 at 07:12; Status DC Rocuronium Temple (Zemuron) 100 mg STK-MED ONCE .ROUTE ; Start 11/08/16 at 07:11 ; Stop 11/08/16 at 07:12; Status DC Cefazolin Sodium/ Dextrose 50 ml @ 100 mls/hr 1X PREOP PRN IV Pre Op Dose Last administered on 11/08/16t 07:44; Start 11/08/16 at 06:00; Stop 11/09/16 at 05: 59; Status DC Ephedrine Sulfate 50 mg STK-MED ONCE IV ; Start 11/08/16 at 07:44; Stop 11/08/16 at 07:45; Status DC Fentanyl Citrate (Fentanyl 2ml Vial) 100 mcg STK-MED ONCE .ROUTE ; Start at 08:55; Stop 11/08/16 at 08:56; Status DC Heparin Sodium (Porcine) (Heparin Sodium) 10,000 unit STK-MED ONCE .ROUTE ; Start 11/08/16 at 10:26; Stop 11/08/16 at 10:27; Status DC Fentanyl Citrate (Fentanyl 2ml Vial) 100 mcg STK-MED ONCE .ROUTE ; Start at 10:47; Stop 11/08/16 at 10:48; Status DC Heparin Sodium (Porcine) 5000 unit/Sodium Chloride 505 ml @ 505 mls/hr 1X PERIOP ONCE IRR ; Start 11/08/16 at 11:07; Stop 11/08/16 at 12:06; Status DC Sevoflurane (Ultane) 90 ml STK-MED ONCE IH ; Start 11/08/16 at 11:47; Stop at 11:48; Status DC Glycopyrrolate (Robinul) 1 mg STK-MED ONCE .ROUTE ; Start 11/08/16 at 11:52; Stop 11/08/16 at 11:53; Status DC Neostigmine Methylsulfate 5 mg STK-MED ONCE .ROUTE ; Start 11/08/16 at 11:52; Stop 11/08/16 at 11:53; Status DC Hydromorphone HCl (Dilaudid) 1 mg Q1HR PRN IV SEVERE PAIN Last administered on 11/09/16 04:22; Start 11/08/16 at 12:30; Stop 11/10/16 at 08:46; Status DC Oxycodone/ Acetaminophen (Percocet 5/325) 1 tab PRN Q4HRS PRN PO PAIN; Start at 12:30 Oxycodone/ Acetaminophen (Percocet 5/325) 2 tab PRN Q4HRS PRN PO PAIN Last administered on 11/12/16 23:06; Start 11/08/16 at 12:30 Sodium Chloride 1,000 ml @ 100 mls/hr Q10H IV Last administered on 11/09/16 01 :00; Start 11/08/16 at 12:30; Stop 11/09/16 at 10:17; Status DC Furosemide (Lasix) 40 mg STK-MED ONCE .ROUTE ; Start 11/08/16 at 14:32; Stop 11/08 at 14:33; Status DC Sodium Bicarbonate 50 meq STK-MED ONCE .ROUTE ; Start 11/08/16 at 14:32; Stop 11/08/16 at 14:33; Status DC Sodium Bicarbonate 100 meq 1X PACU PRN IV SEE COMMENTS Last administered on 11/08 14:50; Start 11/08/16 at 14:30; Stop 11/13/16 at 09:02; Status DC Furosemide (Lasix) 40 mg 1X PACU PRN IVP SEE COMMENTS Last administered on 14:40; Start 11/08/16 at 14:30; Stop 11/09/16 at 10:17; Status DC Naloxone HCl (Narcan) 0.4 mg PRN Q2MIN PRN IV SEE INSTRUCTIONS; Start 11/08/16 at 18:45 Sodium Chloride 1,000 ml @ 25 mls/hr Q24H IV Last administered on 11/09/16 19: 48; Start 11/08/16 at 19:00 Hydromorphone HCl 30 ml @ 0 mls/hr CONT PRN PRN IV PROTOCOL Last administered on 11/09/16 10:36; Start 11/08/16 at 18:45; Stop 11/09/16 at 21:12; Status DC Heparin Sodium (Porcine) (Heparin Sodium) 10,000 unit STK-MED ONCE .ROUTE ; Start 11/08/16 at 19:02; Stop 11/08/16 at 19:03; Status DC Lidocaine/Sodium Bicarbonate (Buffered Lidocaine 1%) 20 ml STK-MED ONCE IJ ; Start 11/08/16 at 19:02; Stop 11/08/16 at 19:03; Status DC Heparin Sodium/ Sodium Chloride 500 ml @ As Directed STK-MED ONCE .ROUTE ; Start 11/08/16 at 19:02; Stop 11/08/16 at 19:03; Status DC Lidocaine/Sodium Bicarbonate (Buffered Lidocaine 1%) 3 ml 1X ONCE IJ Last administered on 11/08/16 19:50; Start 11/08/16 at 19:15; Stop 11/08/16 at 19:16; Status DC Heparin Sodium (Porcine) (Heparin Sodium) 2,500 unit 1X ONCE INT CAT Last administered on 11/08/16 19:49; Start 11/08/16 at 19:15; Stop 11/08/16 at 19:16; Status DC Heparin Sodium/ Sodium Chloride 60 unit 1X ONCE IV Last administered on 19:15; Start 11/08/16 at 19:15; Stop 11/08/16 at 19:16; Status DC Cyclobenzaprine HCl (Flexeril) 10 mg PRN Q6HRS PRN PO MUSCLE SPASMS Last administered on 11/09/16 19:46; Start 11/09/16 at 09:00; Stop 11/10/16 at 08:46; Status DC Carisoprodol (Soma) 350 mg TID PRN PRN PO MUSCLE SPASMS; Start 11/09/16 at 09:00 ; Stop 11/09/16 at 16:31; Status DC Hydromorphone HCl 30 ml @ 0 mls/hr CONT PRN PRN IV PROTOCOL Last administered on 11/10/16 02:20; Start 11/09/16 at 21:15; Stop 11/10/16 at 08:46; Status DC Alprazolam (Xanax) 0.25 mg PRN QID PRN PO ANXIETY / AGITATION Last administered on 11/12/16 06:13; Start 11/09/16 at 21:15 Cyclobenzaprine HCl (Flexeril) 5 mg PRN Q6HRS PRN PO MUSCLE SPASMS Last administered on 11/12/16 21:47; Start 11/10/16 at 08:45 Hydromorphone HCl (Dilaudid) 0.4 mg Q1HR PRN IV SEVERE PAIN Last administered on 11/13/16 08:28; Start 11/10/16 at 08:45 Sodium Chloride 1,000 ml @ 1,000 mls/hr Q1H PRN IV hypotension; Start 11/10/16 at 09:06; Stop 11/10/16 at 15:05; Status DC Sodium Chloride 1,000 ml @ 400 mls/hr Q2H30M PRN IV PATENCY; Start 11/10/16 at 09:06; Stop 11/10/16 at 21:05; Status DC Info (PHARMACY MONITORING -- do not chart) 1 each PRN DAILY PRN MC SEE COMMENTS ; Start 11/10/16 at 09:15 Polyethylene Glycol (miraLAX PACKET) 17 gm DAILY PO Last administered on 08:49; Start 11/10/16 at 11:30 Magnesium Hydroxide (Milk Of Magnesia) 2,400 mg PRN DAILY PRN PO CONSTIPATION; Start 11/10/16 at 11:00 Docusate Sodium (Colace) 100 mg BID PO Last administered on 11/12/16 21:04; Start 11/10/16 at 11:30 Fentanyl Citrate (Fentanyl 2ml Vial) 25 mcg PRN Q5MIN PRN IV MILD PAIN; Start 11/11/16 at 07:00; Stop 11/12/16 at 06:59; Status DC Fentanyl Citrate (Fentanyl 2ml Vial) 50 mcg PRN Q5MIN PRN IV MODERATE PAIN; Start 11/11/16 at 07:00; Stop 11/12/16 at 06:59; Status DC Prochlorperazine Edisylate (Compazine) 5 mg PACU PRN PRN IV NAUSEA, MRX1; Start 11/11/16 at 07:00; Stop 11/12/16 at 06:59; Status DC Sodium Chloride 1,000 ml @ 0 mls/hr Q0M IV ; Start 11/11/16 at 06:00 Sevoflurane (Ultane) 60 ml STK-MED ONCE IH ; Start 11/11/16 at 07:12; Stop at 07:13; Status DC Midazolam HCl (Versed) 2 mg STK-MED ONCE .ROUTE ; Start 11/11/16 at 07:13; Stop 11/11/16 at 07:14; Status DC Fentanyl Citrate (Fentanyl 2ml Vial) 100 mcg STK-MED ONCE .ROUTE ; Start at 07:13; Stop 11/11/16 at 07:14; Status DC Propofol 20 ml @ As Directed STK-MED ONCE IV ; Start 11/11/16 at 07:14; Stop 11/11 at 07:15; Status DC Ondansetron HCl (Zofran) 4 mg STK-MED ONCE .ROUTE ; Start 11/11/16 at 07:14; Stop 11/11/16 at 07:15; Status DC Dexamethasone Sodium Phosphate (Decadron) 20 mg STK-MED ONCE .ROUTE ; Start 11/11 at 07:14; Stop 11/11/16 at 07:15; Status DC Lidocaine HCl (Lidocaine Pf 2% Vial) 5 ml STK-MED ONCE .ROUTE ; Start 11/11/16 at 07:14; Stop 11/11/16 at 07:15; Status DC Phenylephrine HCl 1 mg STK-MED ONCE IV ; Start 11/11/16 at 07:47; Stop 11/11/16 at 07:48; Status DC Phenylephrine HCl 1 mg STK-MED ONCE IV ; Start 11/11/16 at 08:43; Stop 11/11/16 at 08:44; Status DC Sodium Chloride 1,000 ml @ 1,000 mls/hr Q1H PRN IV hypotension; Start 11/11/16 at 10:26; Stop 11/11/16 at 16:25; Status DC Diphenhydramine HCl (Benadryl) 25 mg 1X PRN PRN IV ITCHING; Start 11/11/16 at 10 :30; Stop 11/12/16 at 10:29; Status DC Diphenhydramine HCl (Benadryl) 25 mg 1X PRN PRN IV ITCHING; Start 11/11/16 at 10 :30; Stop 11/12/16 at 10:29; Status DC Sodium Chloride (Normal Saline Flush) 10 ml 1X PRN PRN IV AP catheter pack; Start 11/11/16 at 10:30; Stop 11/12/16 at 10:29; Status DC Sodium Chloride (Normal Saline Flush) 10 ml 1X PRN PRN IV SIGNAL HELPER catheter pack; Start 11/11/16 at 10:30; Stop 11/12/16 at 10:29; Status DC Sodium Chloride 1,000 ml @ 400 mls/hr Q2H30M PRN IV PATENCY; Start 11/11/16 at 10:26; Stop 11/11/16 at 22:25; Status DC Info (PHARMACY MONITORING -- do not chart) 1 each PRN DAILY PRN MC SEE COMMENTS ; Start 11/11/16 at 10:30; Status UNV Info (PHARMACY MONITORING -- do not chart) 1 each PRN DAILY PRN MC SEE COMMENTS ; Start 11/11/16 at 10:30; Status Cancel Info (PHARMACY MONITORING -- do not chart) 1 each PRN DAILY PRN MC SEE COMMENTS ; Start 11/11/16 at 10:30; Status Cancel Vitals/I & O Vital Sign - Last 24 Hours 11/12/16 11/12/16 11/12/16 11/12/16 10:50 11:40 12:59 14:40 Temp 98.0 98.3 98.0 98.3 Pulse 96 98 Resp 18 20 18 21 B/P (MAP) 135/55 (81) 96/46 (63) Pulse Ox 96 94 O2 Delivery Room Air Room Air Room Air Room Air 11/12/16 11/12/16 11/12/16 11/12/16 16:58 17:18 19:17 20:00 Temp 99.1 99.1 Pulse 105 88 Resp 16 20 B/P (MAP) 198/81 162/80 (107) Pulse Ox 95 O2 Delivery Room Air Room Air Room Air 11/12/16 11/12/16 11/12/16 11/13/16 21:04 21:05 23:06 00:06 Pulse 88 Resp 16 14 16 B/P (MAP) 162/80 O2 Delivery Room Air Room Air Room Air 11/13/16 11/13/16 11/13/16 11/13/16 00:45 01:15 03:11 04:26 Temp 98.9 98.9 Pulse 96 Resp 16 16 20 20 B/P (MAP) 119/60 (79) Pulse Ox 94 O2 Delivery Room Air Room Air Room Air 11/13/16 11/13/16 11/13/16 11/13/16 04:56 07:18 08:00 08:12 Temp 98.3 98.3 Pulse 97 97 Resp 20 B/P (MAP) 168/58 (94) 168/58 Pulse Ox 96 O2 Delivery Room Air Room Air Room Air O2 Flow Rate 10.0 11/13/16 11/13/16 11/13/16 08:13 08:28 10:38 Pulse 97 92 Resp 16 19 B/P (MAP) 168/58 181/89 (119) Pulse Ox 96 95 O2 Delivery Room Air Room Air JOSE LEZAMA MD Nov 13, 2016 10:42
[2016-11-13 12:25] LABS: HEMATOCRIT 25.2 % (39.0-53.0); HEMOGLOBIN 8.2 g/dL (13.0-17.5)
[2016-11-13] MEDS: HYDROmorphone 4 MG TABLET PO PRN ×3 (12:33→23:58)
[2016-11-13 14:47] VITALS: BP 168/66
[2016-11-13] MEDS: CARISOPRODOL 350 MG TABLET PO PRN (16:41)
[2016-11-13] MEDS: ALPRAZolam 0.25 MG TABLET PO PRN ×2 (16:42→19:50)
[2016-11-13] MEDS: oxyCODONE/APAP 5/325 1 TAB TABLET PO PRN ×2 (16:48→16:49)
[2016-11-13 19:00] VITALS: BP 147/72
[2016-11-13] MEDS: IV NORMAL SALINE 1000ML BAG 1,000 ML IV SCH (19:00)
[2016-11-13] MEDS: GABAPENTIN 300 MG CAPSULE. PO SCH (19:50)
[2016-11-13 22:54] VITALS: BP 137/73
[2016-11-14 03:00] VITALS: BP 135/60
[2016-11-14] MEDS: HYDROmorphone 4 MG TABLET PO PRN ×4 (04:26→21:42)
[2016-11-14] MEDS: HYDROmorphone 2 MG/ML VIAL IV PRN ×2 (04:26→11:42)
[2016-11-14 05:40] LABS: CALCIUM 8.8 mg/dL (8.5-10.1); CREATININE 4.7 mg/dL (0.7-1.3); GFR 12.8; POTASSIUM 5.2 mmol/L (3.5-5.1)
[2016-11-14 07:00] VITALS: BP 142/73
--- NOTE | 2016-11-14 07:09 | PDOC ---
Provider Note Provider Note AF VSS awake and alert left leg bypass with palpable graft and PT pulse, dressings dry, VAC to foot open TMA wound bilateral arms with dry dressings and no swelling A/P POD#6 left femoral to posterior tibial artery bypass with GSV/basilic veins - aspirin and plavix daily - dry dressings to incisions daily - ok for discharge to rehab when medically stable - Hgb stable 8.2 - chronic renal insufficiency - nephrology following K5.2, Cr 4.7 BÁRBARA MCCAULEY MD Nov 14, 2016 07:09
[2016-11-14] MEDS: INSULIN ASPART 300 UNITS/3 ML INSULN.PEN SQ SCH ×3 (08:00→17:00)
--- NOTE | 2016-11-14 08:04 | PDOC ---
Infectious Disease Note Subjective Subjective C/o pain, mostly left foot Not doing HD because he can't handle it now No fever + BM ROS ROS GEN: Denies fevers, chills, sweats HEENT: Denies blurred vision, sore throat CV: Denies chest pain RESP: Denies shortness of air, cough GI: Denies n/v/d NEURO: Denies confusion, dizziness Vital Sign Vital Signs Vital Signs Date Time Temp Pulse Resp B/P (MAP) Pulse Ox O2 Delivery O2 Flow Rate FiO2 11/14/16 04:56 18 Room Air 11/14/16 03:00 98.2 135/60 (85) 96 98.2 11/13/16 19:51 69 11/13/16 08:00 10.0 Physical Exam PHYSICAL EXAM GENERAL: Propped up in bed, NAD, waiting for coffee HEENT: OC/OP pink NECK: Supple LUNGS: Clear HEART: S1S2, no gallop, no murmur ABD: Soft, NT : Schaffer EXT: No edema, no cyanosis; Wound vac in place, left foot. 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 clean LIJ/temp HDC. (11/08). Labs Lab Laboratory Tests Test 11/13/16 11:11 11/13/16 17:05 11/13/16 21:03 11/14/16 04:30 Glucose (Fingerstick) 219 mg/dL (70-99) 169 mg/dL (70-99) 196 mg/dL (70-99) Sodium Level 135 mmol/L (136-145) Potassium Level 5.2 mmol/L (3.5-5.1) Chloride Level 98 mmol/L (98-107) Carbon Dioxide Level 26 mmol/L (21-32) Anion Gap 11 (6-14) Blood Urea Nitrogen 81 mg/dL (8-26) Creatinine 4.7 mg/dL (0.7-1.3) Estimated GFR (Cockcroft-Gault) 12.8 Glucose Level 179 mg/dL (70-99) Calcium Level 8.8 mg/dL (8.5-10.1) Objective Assessment LEFT TMA wound dehiscence MENDEZ on CKD PAD DM Plan Plan of Care Meropenem and Fluconazole Probiotics LTAC in the works ROMANA GARLAND MD Nov 14, 2016 08:04
[2016-11-14] MEDS: DICLOFENAC SODIUM 1% TOPICAL GEL 100GM TUBE. TP SCH ×2 (09:00→20:58)
[2016-11-14] MEDS: POLYETHYLENE GLYCOL 3350 17 GM PACKET. PO SCH (09:00)
--- NOTE | 2016-11-14 09:43 | PDOC3 ---
Discharge Summary Visit Information Date of Admission: Nov 01, 2016 Date of Discharge: Nov 14, 2016 Admitting Diagnosis Comment: ASSESSMENT AND PLAN: A/P POD# left femoral to posterior tibial artery bypass with bilateral basilic veins and saphenous vein for nonhealing left TMA (11/08/16) ; s/p IA nd D and wound vac () 1. PVD: L common femoral artery and profunda artery endarterectomy, L common femoral artery to posterior tibial artery bypass graft today 2. wound dehiscence/ infection: continue meropenem/zyvox/fluconazole, probiotic. wound care 3. Pain control: on home PO dilaudid and IV/IM meds; prob high tolerance for narcotics given chronic high use. 4. CKD5: nephrology following. pt trying to hold off HD, but unavoidable 5. Hyperkalemia: periop. eval for urgent HD ongoing. as per Dr Persno 5. Anemia: of ESRD. on EPO 6. 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 s/p R hand finger amputations 7. DM2: fairly well controlled; cont ISS 8. HTN, HLD: well controlled. cont home meds 9. Prophylaxis: ASA/plavix/SCDs 10. Acute post op pain now on HELMINTHOLOGIST 11. OPIATE tOLERANT 12. Renal artery stenosis Final Diagnosis Problems Medical Problems: (1) Wound dehiscence Status: Acute Brief Hospital Course Allergies Allergies Coded Allergies Type Severity Reaction Last Updated Verified morphine Allergy Intermediate itch 11/08/16 Yes Vital Signs Vital Signs Date Time Temp Pulse Resp B/P (MAP) Pulse Ox O2 Delivery O2 Flow Rate FiO2 11/14/16 04:56 18 Room Air 11/14/16 03:00 98.2 135/60 (85) 96 98.2 11/13/16 19:51 69 11/13/16 08:00 10.0 Lab Results Laboratory Tests Test 11/12/16 11:16 11/12/16 17:05 11/12/16 20:51 11/13/16 04:00 Glucose (Fingerstick) 202 mg/dL (70-99) 169 mg/dL (70-99) 157 mg/dL (70-99) Hemoglobin 8.2 g/dL (13.0-17.5) Hematocrit 25.2 % (39.0-53.0) Mean Corpuscular Hemoglobin Concent 33 g/dL (31-37) Sodium Level 137 mmol/L (136-145) Potassium Level 4.5 mmol/L (3.5-5.1) Chloride Level 99 mmol/L (98-107) Carbon Dioxide Level 29 mmol/L (21-32) Anion Gap 9 (6-14) Test 11/13/16 07:21 11/13/16 11:11 11/13/16 17:05 11/13/16 21:03 Glucose (Fingerstick) 131 mg/dL (70-99) 219 mg/dL (70-99) 169 mg/dL (70-99) 196 mg/dL (70-99) Test 11/14/16 04:30 Sodium Level 135 mmol/L (136-145) Potassium Level 5.2 mmol/L (3.5-5.1) Chloride Level 98 mmol/L (98-107) Carbon Dioxide Level 26 mmol/L (21-32) Anion Gap 11 (6-14) Blood Urea Nitrogen 81 mg/dL (8-26) Creatinine 4.7 mg/dL (0.7-1.3) Estimated GFR (Cockcroft-Gault) 12.8 Glucose Level 179 mg/dL (70-99) Calcium Level 8.8 mg/dL (8.5-10.1) Laboratory Tests Test 11/13/16 11:11 11/13/16 17:05 11/13/16 21:03 11/14/16 04:30 Glucose (Fingerstick) 219 mg/dL (70-99) 169 mg/dL (70-99) 196 mg/dL (70-99) Sodium Level 135 mmol/L (136-145) Potassium Level 5.2 mmol/L (3.5-5.1) Chloride Level 98 mmol/L (98-107) Carbon Dioxide Level 26 mmol/L (21-32) Anion Gap 11 (6-14) Blood Urea Nitrogen 81 mg/dL (8-26) Creatinine 4.7 mg/dL (0.7-1.3) Estimated GFR (Cockcroft-Gault) 12.8 Glucose Level 179 mg/dL (70-99) Calcium Level 8.8 mg/dL (8.5-10.1) Brief Hospital Course Mr. Baker is a 61 old male, narc tolerant admitted initially under vasc sx servcie for non healing left TMA woundm, needed sx and debridement x 2 while in house, on IV meropenem by ID. Stayed almost 2 weeks with us, POst op needed dilaudid HELMINTHOLOGIST ICU overnight, NOw pain better controlled, NO fevers, non septic, HAs wound vac, Accepted at [facility] with ID, wound acre/ wound vac, PT, OT > Able to take reg diet, On HD per renal Pt seen and examined, Asks how long LTAC/IV abx Discharge Information Condition at Discharge: Improved, Stable Disposition/Orders: Other (LTAC) JOSE LEZAMA MD Nov 14, 2016 09:43
--- NOTE | 2016-11-14 10:16 | PDOC ---
Renal-Progress Notes Subjective Notes Notes NO NEW COMPLAINTS History of Present Illness Hx of present illness STABLE Vitals Vitals Vital Signs Date Time Temp Pulse Resp B/P (MAP) Pulse Ox O2 Delivery O2 Flow Rate FiO2 11/14/16 04:56 18 Room Air 11/14/16 03:00 98.2 135/60 (85) 96 98.2 11/13/16 19:51 69 11/13/16 08:00 10.0 Weight Weight [ ] Labs Labs Laboratory Tests Test 11/13/16 11:11 11/13/16 17:05 11/13/16 21:03 11/14/16 04:30 Glucose (Fingerstick) 219 mg/dL (70-99) 169 mg/dL (70-99) 196 mg/dL (70-99) Sodium Level 135 mmol/L (136-145) Potassium Level 5.2 mmol/L (3.5-5.1) Chloride Level 98 mmol/L (98-107) Carbon Dioxide Level 26 mmol/L (21-32) Anion Gap 11 (6-14) Blood Urea Nitrogen 81 mg/dL (8-26) Creatinine 4.7 mg/dL (0.7-1.3) Estimated GFR (Cockcroft-Gault) 12.8 Glucose Level 179 mg/dL (70-99) Calcium Level 8.8 mg/dL (8.5-10.1) Micro Micro Microbiology 11/01/16 Blood Culture - Final, Complete NO GROWTH AFTER 5 DAYS 11/03/16 Gram Stain - Final, Complete Review of Systems Constitutional: yes: malaise, weakness, alert, oriented Ears/Nose/Throat: Yes: no symptom reported Eyes: Yes: no symptom reported Pulmonary: Yes no symptom reported Cardiovascular: Yes no symptom reported Gastrointestional: Yes: constipation Genitourinary: Yes: no symptom reported Musculoskeletal: Yes: foot pain, joint pain, muscle pain, muscle stiffness Skin: Yes lesions Psychiatric/Neurological: Yes: no symptom reported Endocrine: Yes: no symptom reported Hematologic/Lymphatic: Yes: no symptom reported Physical Exam General Appearance: no apparent distress Skin: warm, dry, no edema Respiratory: bilateral CTA Heart: S1S2, RRR Abdomen: soft, bowel sounds present, no rebound, no hernias Genitourinary: bladder flat, no mass Extremities: pulses present, atrophy Neurology: alert, oriented, follow commands Assessment Assessment IMP PAD LEFT TMA WOUND BILATERAL LINDSAY WITH LEFT INTRA STENT STENOSIS HTN ANEMIA ESRD DM II MALNUTRITION S/P LEFT FEM TO POST TIBIAL BYPASS PLAN HD TODAY UF TO DW WILL HAVE IR CHANGE TEMP TO TUNNELED HD CATHETER [facility] CAITLIN RESTREPO MD Nov 14, 2016 10:16
[2016-11-14] MEDS: SEVELAMER CARBONATE 800 MG TABLET. PO SCH ×3 (10:22→17:00)
[2016-11-14] MEDS: CLOPIDOGREL BISULFATE 75 MG TABLET PO SCH (10:22)
[2016-11-14] MEDS: FLUCONAZOLE 100 MG TABLET. PO SCH (10:24)
[2016-11-14] MEDS: MULTIVITAMIN with MINERAL TABLET. PO SCH (10:24)
[2016-11-14] MEDS: LACTOBACILLUS ACIDOPH & BULGAR 1 TABLET. PO SCH ×3 (10:24→17:00)
[2016-11-14] MEDS: DOCUSATE SODIUM 100 MG CAPSULE. PO SCH ×2 (10:24→21:00)
[2016-11-14] MEDS: ASCORBIC ACID 500 MG TABLET PO SCH ×2 (10:24→20:57)
[2016-11-14] MEDS: CYCLOBENZAPRINE 10 MG TABLET. PO PRN ×2 (10:24→21:42)
[2016-11-14] MEDS: amLODIPine BESYLATE 10 MG TABLET PO SCH ×2 (10:25→20:58)
[2016-11-14] MEDS: CARVEDILOL 3.125 MG TABLET. PO SCH ×2 (10:26→17:00)
[2016-11-14] MEDS: ASPIRIN ENTERIC COATED 81 MG TABLET.DR. PO SCH (10:26)
[2016-11-14] MEDS: PANTOPRAZOLE 40 MG TABLET.DR. PO SCH ×2 (10:27→17:00)
[2016-11-14] MEDS: MEROPENEM 1 GM in IV NORMAL SALINE 100ML 100 ML IV SCH (10:28)
[2016-11-14 11:00] VITALS: BP 136/68
[2016-11-14 12:50] LABS: INR 1.2 (0.8-1.1); PROTHROMBIN TIME PATIENT 14.1 SEC (11.7-14.0)
[2016-11-14] MEDS ORDERED: MIDAZOLAM HCL/PF 2 MG/2 ML VIAL. IV ONE (14:00)
[2016-11-14] MEDS ORDERED: LIDOCAINE 1%/EPI 1:100,000 20 ML VIAL. INJ ONE (14:00)
[2016-11-14] MEDS ORDERED: fentaNYL PF VIAL 100 MCG/2 ML VIAL IV ONE (14:00)
[2016-11-14 14:11] VITALS: BP 119/50
--- NOTE | 2016-11-14 14:56 | RAD ---
Procedure: Right internal jugular tunneled hemodialysis catheter placement 11/14/2016 Clinical Indication: Chronic renal failure Sedation: Conscious sedation was administered for 30 minutes. The patient was monitored by a qualified independent observer throughout the time of sedation. Please refer to the medical record for exact doses of medications utilized to achieve moderate sedation. fluoro time: 0.4 min Dose area product: 1 Gycm2 Sterility: All elements of maximal sterile barrier technique including the use of a cap, mask, sterile gown, sterile gloves, large sterile sheet, appropriate hand hygiene, and 2% chlorhexidine for cutaneous antisepsis (or acceptable alternative antiseptic per current guidelines) were followed for this procedure. Consent: The procedure was explained in its entirety to the patient or the patients designated safety representative by a member of the treatment team, including a discussion of the risks, benefits and commonly accepted alternatives to the procedure, as well as the expected consequences of no therapy whatsoever. Discussion of the risks included, but was not limited to, those that are most frequent and those that are rare but possibly severe or life-threatening, as well as the possibility of unforeseen complications. Technique and Findings: Following informed consent, the patient was prepped and draped in the usual sterile fashion. Ultrasound interrogation of the right neck revealed patency and compressibility of the right internal jugular vein. A 21-gauge micropuncture was then used to gain access to this vein under ultrasound guidance. A hard copy ultrasound image was recorded. The needle was exchanged over a wire for a 4 Malian sheath which was used to guide an Amplatz wire into the IVC. The skin over the right anterior chest wall was copiously anesthetized with 1% Lidocaine plus Epinephrine and a small dermatotomy was made. A 28 cm Duraflow tunneled hemodialysis catheter was then tunneled subcutaneously towards the neck dermatotomy and deployed through a large caliber peel-away sheath under fluoroscopic guidance such that the distal tip resided in the mid right atrium. Manual flow rates were assessed and found to be excellent. The catheter was then flushed, packed with Heparin, capped, and sutured to the skin. The neck dermatotomy was closed with Dermabond. No immediate complications were identified Impression: Successful placement of right internal jugular tunnel dialysis catheter
[2016-11-14] MEDS ORDERED: IV NORMAL SALINE 1000ML BAG 1,000 ML IV PRN (15:30)
[2016-11-14] MEDS ORDERED: DIALYSIS PATIENT. MC PRN ×2 (15:30)
[2016-11-14] MEDS: CARISOPRODOL 350 MG TABLET PO PRN (16:42)
[2016-11-14] MEDS: ALPRAZolam 0.25 MG TABLET PO PRN (16:42)
[2016-11-14] MEDS: IV NORMAL SALINE 1000ML BAG 1,000 ML IV SCH (19:00)
[2016-11-14 19:40] VITALS: BP 117/75
[2016-11-14] MEDS: GABAPENTIN 300 MG CAPSULE. PO SCH (20:57)
[2016-11-14] MEDS: ATORVASTATIN CALCIUM 10 MG TABLET. PO SCH (20:57)
[2016-11-14] MEDS ORDERED: DARBEPOETIN ALFA 60 MCG/0.3 ML DISP.SYRIN. SQ SCH (21:00)
[2016-11-14 23:35] VITALS: BP 111/53
[2016-11-15] MEDS: HYDROmorphone 4 MG TABLET PO PRN ×4 (02:10→15:22)
[2016-11-15] MEDS: HYDROmorphone 2 MG/ML VIAL IV PRN ×4 (02:26→18:07)
[2016-11-15 03:30] VITALS: BP 103/48
[2016-11-15] MEDS: CARISOPRODOL 350 MG TABLET PO PRN (03:39)
[2016-11-15] MEDS: ALPRAZolam 0.25 MG TABLET PO PRN ×2 (03:39→11:52)
[2016-11-15] MEDS: oxyCODONE/APAP 5/325 1 TAB TABLET PO PRN (06:43)
[2016-11-15 07:50] VITALS: BP 102/37
[2016-11-15] MEDS: INSULIN ASPART 300 UNITS/3 ML INSULN.PEN SQ SCH ×2 (08:00→12:00)
[2016-11-15] MEDS: LACTOBACILLUS ACIDOPH & BULGAR 1 TABLET. PO SCH ×2 (08:00→12:28)
[2016-11-15] MEDS: SEVELAMER CARBONATE 800 MG TABLET. PO SCH ×2 (08:00→12:30)
--- NOTE | 2016-11-15 08:42 | PDOC ---
Infectious Disease Note Subjective Subjective C/o pain, mostly left foot No fever + BM ROS ROS GEN: Denies fevers, chills, sweats HEENT: Denies blurred vision, sore throat CV: Denies chest pain RESP: Denies shortness of air, cough GI: Denies n/v/d NEURO: Denies confusion, dizziness MSK: Denies weakness, joint pain/swelling Vital Sign Vital Signs Vital Signs Date Time Temp Pulse Resp B/P (MAP) Pulse Ox O2 Delivery O2 Flow Rate FiO2 11/15/16 07:50 98.3 93 14 102/37 (58) 94 Room Air 98.3 11/14/16 14:11 2.0 Physical Exam PHYSICAL EXAM GENERAL: Propped up in bed, NAD HEENT: OC/OP pink NECK: Supple LUNGS: Clear HEART: S1S2, no gallop, no murmur ABD: Soft, NT : Schaffer EXT: No edema, no cyanosis; Wound vac in place, left foot. 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 clean right perm HDC. (11/14). Old left site - clean Labs Lab Laboratory Tests Test 11/14/16 12:25 11/14/16 20:49 11/15/16 08:17 Prothrombin Time 14.1 SEC (11.7-14.0) Prothromb Time International Ratio 1.2 (0.8-1.1) Glucose (Fingerstick) 187 mg/dL (70-99) 121 mg/dL (70-99) Objective Assessment LEFT TMA wound dehiscence s/p redo 11/11 - vac in place MENDEZ on CKD PAD s/p bypass 11/08 DM Plan Plan of Care Meropenem and Fluconazole Probiotics LTAC in the works Needs longer lasting power PICC to chest if ok with Renal ROMANA GARLAND MD Nov 15, 2016 08:42
[2016-11-15] MEDS: DICLOFENAC SODIUM 1% TOPICAL GEL 100GM TUBE. TP SCH (09:00)
[2016-11-15] MEDS: POLYETHYLENE GLYCOL 3350 17 GM PACKET. PO SCH (09:00)
[2016-11-15] MEDS: DOCUSATE SODIUM 100 MG CAPSULE. PO SCH (09:00)
[2016-11-15 09:29] VITALS: BP 115/70
--- NOTE | 2016-11-15 09:37 | PDOC ---
BRIEF OPERATIVE NOTE Pre-Op Diagnosis Probable right renal artery stenosis, and left renal artery instent stenosis Post-Op Diagnosis Normal right renal artery Mild 15-20 % left renal artery in stent stenosis Procedure Performed Bilateral renal angiography Surgeon Moy ISIDRO 5 Anesthesiologist None Anesthesia Type: Conscious Sedation Specimens Obtained None Findings Normal right renal artery Mild 15-20 % left renal artery in stent stenosis Complications None ISIS MCKEON MD Nov 15, 2016 09:37
[2016-11-15] MEDS ORDERED: IODIXANOL 320 MG/ML 100 ML VIAL. IART ONE (09:45)
[2016-11-15] MEDS ORDERED: fentaNYL PF VIAL 100 MCG/2 ML VIAL IV ONE (09:45)
[2016-11-15] MEDS ORDERED: MIDAZOLAM HCL/PF 2 MG/2 ML VIAL. IV ONE (09:45)
[2016-11-15] MEDS ORDERED: CONTRAST GIVEN MC PRN (09:45)
[2016-11-15] MEDS ORDERED: LIDOCAINE 1% / SOD BICARB 8.4% 20 ML VIAL. IJ ONE (09:45)
[2016-11-15] MEDS ORDERED: HEPARIN PF 500 UNIT/5 ML DISP.SYRIN. IV ONE ×2 (10:15→10:30)
[2016-11-15] MEDS ORDERED: LIDOCAINE 1%/EPI 1:100,000 20 ML VIAL. INJ ONE ×2 (10:15→10:30)
--- NOTE | 2016-11-15 11:09 | PDOC ---
Provider Note Provider Note Pt did not dc yesterday bec needed POWER PICC and HD cath placement Pt is a NEW HD this ADMIT Cleared from IR and Renal and ID to LTAC today - 6 hrs post IR procedure today Renogram shows patent stents - no need for stenting BP good SOme explosive BM today In HD now OK for [facility] todayDc summ and mAR done yesterday Tariq Specialsists and RN. Anahy time 32 mins JOSE LEZAMA MD Nov 15, 2016 11:09
--- NOTE | 2016-11-15 11:15 | PDOC ---
Renal-Progress Notes Subjective Notes Notes NONE History of Present Illness Hx of present illness NO CHANGE Vitals Vitals Vital Signs Date Time Temp Pulse Resp B/P (MAP) Pulse Ox O2 Delivery O2 Flow Rate FiO2 11/15/16 09:38 16 98 Room Air 11/15/16 09:29 86 2.0 11/15/16 07:50 98.3 102/37 (58) 98.3 Weight Weight [ ] Labs Labs Laboratory Tests Test 11/14/16 12:25 11/14/16 20:49 11/15/16 08:17 Prothrombin Time 14.1 SEC (11.7-14.0) Prothromb Time International Ratio 1.2 (0.8-1.1) Glucose (Fingerstick) 187 mg/dL (70-99) 121 mg/dL (70-99) Micro Micro Microbiology 11/01/16 Blood Culture - Final, Complete NO GROWTH AFTER 5 DAYS 11/03/16 Gram Stain - Final, Complete Review of Systems Constitutional: yes: malaise, weakness, alert, oriented Ears/Nose/Throat: Yes: no symptom reported Eyes: Yes: no symptom reported Pulmonary: Yes no symptom reported Cardiovascular: Yes no symptom reported Gastrointestional: Yes: constipation Genitourinary: Yes: no symptom reported Musculoskeletal: Yes: foot pain, joint pain, muscle pain, muscle stiffness Skin: Yes lesions Psychiatric/Neurological: Yes: no symptom reported Endocrine: Yes: no symptom reported Hematologic/Lymphatic: Yes: no symptom reported Physical Exam General Appearance: no apparent distress Skin: warm, dry, no edema Respiratory: bilateral CTA Heart: S1S2, RRR Abdomen: soft, bowel sounds present, no rebound, no hernias Genitourinary: bladder flat, no mass Extremities: pulses present, atrophy Neurology: alert, oriented, follow commands Assessment Assessment IMP PAD LEFT TMA WOUND NO LINDSAY ON DEDICATED RENAL ARTERIOGRAM HTN ANEMIA ESRD DM II MALNUTRITION S/P LEFT FEM TO POST TIBIAL BYPASS S/P TDC PLAN HD [facility]ORROW [facility] IR WILL PLACE ACCESS FOR ANTIBIOTICS TODAY REHAB D/W ID AND ATTENDING CAITLIN RESTREPO MD Nov 15, 2016 11:15
--- NOTE | 2016-11-15 11:22 | PDOC ---
PROGRESS NOTES Subjective Subjective "I've been through a lot this morning and during this entire ordeal." Objective Objective Vascular Surgery - POD#7 O: Drowsy. Just got back from having radiology having renal angiogram performed and power PICC placed. Has to lye flat for some time. CV: RRR. Palpable bilat radial pulses and bypass graft into LLE. Doppled triphasic PT pulse in left foot. Resp: Unlabored. Abd: Flat. Incisions: Bilat upper arm incisions intact. Minimal serous drainage from upper-most portion of each arm incision. Non-erythemic. Left groin, thigh, calf and ankle incisions all intact and no drainage present. Appear healthy. Stephy on all incisions except left ankle is with sutures. Wound vac dressing intact to open TMA wound to left foot. Assessment/Plan: 1. Severe PAD with left nonhealing recent transmetatarsal amputation with gangrene - POD#7 Left common femoral and profunda artery endarterectomy, left common femoral to posterior tibial artery bypass with spliced vein (great saphenous vein + right arm basilic vein + left arm basilic vein) - Patent bypass graft. - Continue antiplatelet therapy on both ASA and Plavix upon discharge. - Scheduled to follow up with Dr. Araujo on Nov. . Anticipate removal of stephy and sutures if healing continues to progress as expected. - Continue wound vac therapy upon discharge to [facility] (per Ortho) - Keep arms wrapped with 4x4's and gauze as long as drainage continues. Left leg incisions now open to air. Instructions given to RN to provide to [facility]. - Continue antibiotic therapy per ID's plan upon discharge. 2. Acute on chronic anemia related to surgical blood loss and chronic disease states. - Medically manage. 3. Chronic renal failure. - Nephrology following and determining hemodialysis needs upon discharge. Vital Signs Date Time Temp Pulse Resp B/P (MAP) Pulse Ox O2 Delivery O2 Flow Rate FiO2 11/15/16 09:38 16 98 Room Air 11/15/16 09:29 86 2.0 11/15/16 07:50 98.3 102/37 (58) 98.3 Assessment Assessment Problems Medical Problems: (1) Wound dehiscence Status: Acute Comment Review of Relevant I have reviewed the following items rula (where applicable) has been applied. Labs Laboratory Tests Test 11/13/16 17:05 11/13/16 21:03 11/14/16 04:30 11/14/16 12:25 Glucose (Fingerstick) 169 mg/dL (70-99) 196 mg/dL (70-99) Sodium Level 135 mmol/L (136-145) Potassium Level 5.2 mmol/L (3.5-5.1) Chloride Level 98 mmol/L (98-107) Carbon Dioxide Level 26 mmol/L (21-32) Anion Gap 11 (6-14) Blood Urea Nitrogen 81 mg/dL (8-26) Creatinine 4.7 mg/dL (0.7-1.3) Estimated GFR (Cockcroft-Gault) 12.8 Glucose Level 179 mg/dL (70-99) Calcium Level 8.8 mg/dL (8.5-10.1) Prothrombin Time 14.1 SEC (11.7-14.0) Prothromb Time International Ratio 1.2 (0.8-1.1) Test 11/14/16 20:49 11/15/16 08:17 Glucose (Fingerstick) 187 mg/dL (70-99) 121 mg/dL (70-99) Laboratory Tests Test 11/14/16 12:25 11/14/16 20:49 11/15/16 08:17 Prothrombin Time 14.1 SEC (11.7-14.0) Prothromb Time International Ratio 1.2 (0.8-1.1) Glucose (Fingerstick) 187 mg/dL (70-99) 121 mg/dL (70-99) Microbiology 11/01/16 Blood Culture - Final, Complete NO GROWTH AFTER 5 DAYS 11/03/16 Gram Stain - Final, Complete Medications Current Medications Sodium Chloride 1,000 ml @ 1,000 mls/hr 1X ONCE IV Last administered on 11:06; Start 11/01/16 at 10:30; Stop 11/01/16 at 11:38; Status DC Fentanyl Citrate (Fentanyl 2ml Vial) 50 mcg 1X ONCE IV Last administered on 11:08; Start 11/01/16 at 11:15; Stop 11/01/16 at 11:16; Status DC Vancomycin HCl (Vanco Per Pharmacy) 1 each PRN DAILY PRN MC SEE COMMENTS Last administered on 11/03/16 06:59; Start 11/01/16 at 13:15; Stop 11/03/16 at 10:10 ; Status DC Vancomycin HCl 1.5 gm/Sodium Chloride 500 ml @ 250 mls/hr 1X ONCE IV Last administered on 11/01/16 13:37; Start 11/01/16 at 13:30; Stop 11/01/16 at 15:29 ; Status DC Fentanyl Citrate (Fentanyl 2ml Vial) 50 mcg 1X ONCE IV Last administered on 13:40; Start 11/01/16 at 13:30; Stop 11/01/16 at 13:31; Status DC Ondansetron HCl (Zofran) 4 mg PRN Q8HRS PRN IV NAUSEA/VOMITING; Start 11/01/16 at 13:45; Stop 11/02/16 at 13:44; Status DC Acetaminophen (Tylenol) 650 mg PRN Q4HRS PRN PO FEVER Last administered on 11/01 23:03; Start 11/01/16 at 13:45; Stop 11/02/16 at 13:44; Status DC Fentanyl Citrate (Fentanyl 2ml Vial) 50 mcg PRN Q4HRS PRN IM PAIN Last administered on 11/07/16 06:37; Start 11/01/16 at 13:45; Stop 11/07/16 at 14:40; Status DC Vancomycin HCl 1 each 1X ONCE MC Last administered on 11/03/16 06:03; Start 11/03/16 at 05:00; Stop 11/03/16 at 10:10; Status DC Insulin Aspart (NovoLOG) 0-7 UNITS TIDWMEALS SQ Last administered on 11/13/16 17:25; Start 11/01/16 at 20:30 Dextrose (Dextrose 50%-Water Syringe) 12.5 gm PRN Q15MIN PRN IV SEE COMMENTS; Start 11/01/16 at 19:45 Hydromorphone HCl (Dilaudid) 4 mg PRN Q4HRS PRN PO PAIN Last administered on 10:11; Start 11/01/16 at 20:15; Stop 11/03/16 at 11:17; Status DC Pantoprazole Sodium (Protonix) 40 mg BIDWMEALS PO Last administered on 10:27; Start 11/01/16 at 21:00 Sennosides (Senna) 8.6 mg PRN QHS PRN PO CONSTIPATION Last administered on 19:55; Start 11/01/16 at 20:15 Sevelamer Carbonate (Renvela) 800 mg TIDWMEALS PO Last administered on 10:22; Start 11/02/16 at 08:00 Albuterol Sulfate (Ventolin Neb Soln) 2.5 mg PRN Q6HRS PRN NEB SHORTNESS OF BREATH; Start 11/01/16 at 21:30 Amlodipine Besylate (Norvasc) 10 mg BID PO Last administered on 11/14/16 20:58 ; Start 11/01/16 at 22:00 Aspirin (Ecotrin) 81 mg [id number] PO Last administered on 11/14/16 10:26; Start 11/02/16 at 08:00 Atorvastatin Calcium (Lipitor) 10 mg Q48H PO ; Start 11/01/16 at 21:00; Stop at 02:25; Status DC Carisoprodol (Soma) 350 mg TID PRN PRN PO MUSCLE SPASMS Last administered on 03:39; Start 11/01/16 at 21:30 Carvedilol (Coreg) 3.125 mg BIDWMEALS PO Last administered on 11/03/16 08:43; Start 11/02/16 at 08:00; Stop 11/03/16 at 10:22; Status DC Clopidogrel Bisulfate (Plavix) 75 mg DAILYWBKFT PO Last administered on 10:22; Start 11/02/16 at 08:00 Diclofenac Sodium (Voltaren) 1 richard BID TP Last administered on 11/11/16 09:35; Start 11/01/16 at 22:00 Atorvastatin Calcium (Lipitor) 10 mg Q48H PO Last administered on 11/14/16 20: 57; Start 11/02/16 at 21:00 Multivitamins (Thera M Plus) 1 tab DAILY PO Last administered on 11/14/16 10: 24; Start 11/02/16 at 14:00 Ascorbic Acid (Vitamin C) 500 mg BID PO Last administered on 11/14/16 20:57; Start 11/02/16 at 14:00 Vancomycin HCl 1 gm/Sodium Chloride 250 ml @ 250 mls/hr Q48H IV ; Start at 09:00; Stop 11/03/16 at 10:10; Status DC Vancomycin HCl 1 each 1X ONCE MC ; Start 11/05/16 at 08:30; Stop 11/05/16 at 08: 30; Status DC Linezolid (Zyvox) 600 mg BID PO Last administered on 11/09/16 08:20; Start at 10:00; Stop 11/09/16 at 16:32; Status DC Meropenem 1 gm/ Sodium Chloride 100 ml @ 200 mls/hr DAILY IV Last administered on 11/14/16 10:28; Start 11/03/16 at 10:00 Fluconazole (Diflucan) 100 mg DAILY PO Last administered on 11/14/16 10:24; Start 11/03/16 at 10:00 Lactobacillus Acidophilus (Bacid, Brittney-Bid) 1 tab TIDWMEALS PO Last administered on 11/14/16 10:24; Start 11/03/16 at 12:00 Carvedilol (Coreg) 6.25 mg BIDWMEALS PO Last administered on 11/14/16 10:26; Start 11/03/16 at 17:00 Sodium Chloride 1,000 ml @ 100 mls/hr Q10H IV Last administered on 11/04/16 16 :04; Start 11/03/16 at 10:30; Stop 11/05/16 at 13:19; Status DC Acetylcysteine (Mucomyst 20% Oral Solution) 1,200 mg BID PO Last administered on 11/05/16 09:25; Start 11/03/16 at 21:00; Stop 11/05/16 at 20:59; Status DC Darbepoetin Rich (Aranesp) 60 mcg WEEKLYHS SQ Last administered on 11/03/16 21 :36; Start 11/03/16 at 21:00; Stop 11/09/16 at 10:17; Status DC Hydromorphone HCl (Dilaudid) 8 mg PRN Q4HRS PRN PO PAIN Last administered on 12:39; Start 11/03/16 at 11:15; Stop 11/07/16 at 14:40; Status DC Gabapentin (Neurontin) 300 mg QHS PO Last administered on 11/14/16 20:57; Start 11/03/16 at 14:00 Lidocaine/Sodium Bicarbonate (Buffered Lidocaine 1%) 20 ml STK-MED ONCE IJ ; Start 11/04/16 at 08:16; Stop 11/04/16 at 08:17; Status DC Heparin Sodium/ Sodium Chloride 0 ml @ As Directed STK-MED ONCE .ROUTE ; Start 11/04/16 at 08:17; Stop 11/04/16 at 08:18; Status DC Iodixanol (Visipaque 320) 100 ml STK-MED ONCE .ROUTE ; Start 11/04/16 at 08:17; Stop 11/04/16 at 08:18; Status DC Iodixanol (Visipaque 320) 50 ml STK-MED ONCE .ROUTE ; Start 11/04/16 at 09:57; Stop 11/04/16 at 09:58; Status DC Lidocaine/Sodium Bicarbonate (Buffered Lidocaine 1%) 20 ml STK-MED ONCE IJ ; Start 11/04/16 at 09:58; Stop 11/04/16 at 09:59; Status DC Heparin Sodium/ Sodium Chloride 1,500 ml @ As Directed STK-MED ONCE .ROUTE ; Start 11/04/16 at 09:58; Stop 11/04/16 at 09:59; Status DC Heparin Sodium (Porcine) (Heparin Sodium) 10,000 unit STK-MED ONCE .ROUTE ; Start 11/04/16 at 10:29; Stop 11/04/16 at 10:30; Status DC Midazolam HCl (Versed) 2 mg STK-MED ONCE .ROUTE ; Start 11/04/16 at 10:29; Stop 11/04/16 at 10:30; Status DC Heparin Sodium/ Sodium Chloride 1,000 unit 1X ONCE IART Last administered on 12:25; Start 11/04/16 at 11:00; Stop 11/04/16 at 11:01; Status DC Lidocaine/Sodium Bicarbonate (Buffered Lidocaine 1%) 20 ml 1X ONCE IJ Last administered on 11/04/16 12:25; Start 11/04/16 at 11:00; Stop 11/04/16 at 11:01; Status DC Midazolam HCl (Versed) 2 mg 1X ONCE IV Last administered on 11/04/16 12:26; Start 11/04/16 at 11:00; Stop 11/04/16 at 11:01; Status DC Fentanyl Citrate (Fentanyl 2ml Vial) 100 mcg 1X ONCE IV Last administered on 12:27; Start 11/04/16 at 11:00; Stop 11/04/16 at 11:01; Status DC Iodixanol (Visipaque 320) 50 ml 1X ONCE IART Last administered on 11/04/16 12: 24; Start 11/04/16 at 11:00; Stop 11/04/16 at 11:01; Status DC Info (Do NOT chart on this entry -- for MONITORING) 1 each PRN DAILY PRN MC SEE COMMENTS; Start 11/04/16 at 11:00; Stop 11/06/16 at 10:59; Status DC Heparin Sodium (Porcine) (Heparin Sodium) 5,000 unit 1X ONCE IV Last administered on 11/04/16 12:27; Start 11/04/16 at 12:15; Stop 11/04/16 at 12:21; Status DC Sodium Chloride 1,000 ml @ 75 mls/hr [id number] IV Last administered on 11/07/16 21:23; Start 11/05/16 at 15:45; Stop 11/08/16 at 14:14; Status DC Sodium Polystyrene Sulfonate (Kayexalate) 15 gm 1X ONCE PO Last administered on 11/06/16 16:30; Start 11/06/16 at 14:45; Stop 11/06/16 at 14:46; Status DC Ondansetron HCl (Zofran) 4 mg PRN Q6HRS PRN IV NAUSEA/VOMITING; Start 11/08/16 at 07:00; Stop 11/09/16 at 06:59; Status DC Fentanyl Citrate (Fentanyl 2ml Vial) 25 mcg PRN Q5MIN PRN IV MILD PAIN Last administered on 11/08/16 13:25; Start 11/08/16 at 07:00; Stop 11/09/16 at 06:59; Status DC Fentanyl Citrate (Fentanyl 2ml Vial) 50 mcg PRN Q5MIN PRN IV MODERATE PAIN Last administered on 11/08/16 14:55; Start 11/08/16 at 07:00; Stop 11/09/16 at 06: 59; Status DC Morphine Sulfate 1 mg PRN Q10MIN PRN IV SEVERE PAIN; Start 11/08/16 at 07:00; Stop 11/09/16 at 06:59; Status UNV Ringer's Solution 1,000 ml @ 0 mls/hr Q0M IV Last administered on 11/08/16 07: 03; Start 11/08/16 at 07:00; Stop 11/08/16 at 18:59; Status DC Lidocaine HCl 2 ml PRN 1X PRN ID PRIOR TO IV START; Start 11/08/16 at 07:00; Stop 11/09/16 at 06:59; Status DC Hydromorphone HCl (Dilaudid) 0.5 mg PRN Q10MIN PRN IV SEV PAIN, Second choice; Start 11/08/16 at 07:00; Stop 11/09/16 at 06:59; Status DC Prochlorperazine Edisylate (Compazine) 5 mg PACU PRN PRN IV NAUSEA, MRX1; Start 11/08/16 at 07:00; Stop 11/09/16 at 06:59; Status DC Hydromorphone HCl (Dilaudid) 8 mg PRN Q3HRS PRN PO PAIN Last administered on 04:44; Start 11/07/16 at 14:45 Cellulose 1 each STK-MED ONCE .ROUTE Last administered on 11/08/16 11:30; Start 11/08/16 at 07:01; Stop 11/08/16 at 07:02; Status DC Iohexol (Omnipaque 300 Mg/ml) 50 ml STK-MED ONCE .ROUTE ; Start 11/08/16 at 07:02 ; Stop 11/08/16 at 07:03; Status DC Gelatin (Gelfoam Powder) 1 gm STK-MED ONCE .ROUTE ; Start 11/08/16 at 07:02; Stop 11/08/16 at 07:03; Status DC Papaverine HCl 60 mg STK-MED ONCE .ROUTE ; Start 11/08/16 at 07:02; Stop 11/08/16 at 07:03; Status DC Thrombin 20,000 unit STK-MED ONCE TP ; Start 11/08/16 at 07:02; Stop 11/08/16 at 07:03; Status DC Gelatin (Gelfoam Size 100) 1 each STK-MED ONCE .ROUTE ; Start 11/08/16 at 07:03 ; Stop 11/08/16 at 07:04; Status DC Cefazolin Sodium/ Dextrose 50 ml @ As Directed STK-MED ONCE IV ; Start 11/08/16 at 07:07; Stop 11/08/16 at 07:08; Status DC Cefazolin Sodium 1 gm/Sodium Chloride 500 ml @ 500 mls/hr 1X PERIOP ONCE IRR Last administered on 11/08/16t 09:00; Start 11/08/16 at 06:00; Stop 11/08/16 at 07: 10; Status DC Heparin Sodium (Porcine) 5000 unit/Sodium Chloride 505 ml @ 505 mls/hr 1X PERIOP ONCE IRR Last administered on 11/08/16t 09:01; Start 11/08/16 at 06:00; Stop 11/08/16 at 07:10; Status DC Famotidine (Pepcid) 20 mg STK-MED ONCE .ROUTE ; Start 11/08/16 at 07:09; Stop 11/08/16 at 07:10; Status DC Propofol 20 ml @ As Directed STK-MED ONCE IV ; Start 11/08/16 at 07:09; Stop 11/08 at 07:10; Status DC Ondansetron HCl (Zofran) 4 mg STK-MED ONCE .ROUTE ; Start 11/08/16 at 07:10; Stop 11/08/16 at 07:11; Status DC Dexamethasone Sodium Phosphate (Decadron) 20 mg STK-MED ONCE .ROUTE ; Start 11/08 at 07:10; Stop 11/08/16 at 07:11; Status DC Lidocaine HCl (Lidocaine Pf 2% Vial) 5 ml STK-MED ONCE .ROUTE ; Start 11/08/16 at 07:10; Stop 11/08/16 at 07:11; Status DC Fentanyl Citrate (Fentanyl 2ml Vial) 100 mcg STK-MED ONCE .ROUTE ; Start at 07:11; Stop 11/08/16 at 07:12; Status DC Midazolam HCl (Versed) 2 mg STK-MED ONCE .ROUTE ; Start 11/08/16 at 07:11; Stop 11/08/16 at 07:12; Status DC Rocuronium [place] (Zemuron) 100 mg STK-MED ONCE .ROUTE ; Start 11/08/16 at 07:11 ; Stop 11/08/16 at 07:12; Status DC Cefazolin Sodium/ Dextrose 50 ml @ 100 mls/hr 1X PREOP PRN IV Pre Op Dose Last administered on 11/08/16 07:44; Start 11/08/16 at 06:00; Stop 11/09/16 at 05: 59; Status DC Ephedrine Sulfate 50 mg STK-MED ONCE IV ; Start 11/08/16 at 07:44; Stop 11/08/16 at 07:45; Status DC Fentanyl Citrate (Fentanyl 2ml Vial) 100 mcg STK-MED ONCE .ROUTE ; Start at 08:55; Stop 11/08/16 at 08:56; Status DC Heparin Sodium (Porcine) (Heparin Sodium) 10,000 unit STK-MED ONCE .ROUTE ; Start 11/08/16 at 10:26; Stop 11/08/16 at 10:27; Status DC Fentanyl Citrate (Fentanyl 2ml Vial) 100 mcg STK-MED ONCE .ROUTE ; Start at 10:47; Stop 11/08/16 at 10:48; Status DC Heparin Sodium (Porcine) 5000 unit/Sodium Chloride 505 ml @ 505 mls/hr 1X PERIOP ONCE IRR ; Start 11/08/16 at 11:07; Stop 11/08/16 at 12:06; Status DC Sevoflurane (Ultane) 90 ml STK-MED ONCE IH ; Start 11/08/16 at 11:47; Stop at 11:48; Status DC Glycopyrrolate (Robinul) 1 mg STK-MED ONCE .ROUTE ; Start 11/08/16 at 11:52; Stop 11/08/16 at 11:53; Status DC Neostigmine Methylsulfate 5 mg STK-MED ONCE .ROUTE ; Start 11/08/16 at 11:52; Stop 11/08/16 at 11:53; Status DC Hydromorphone HCl (Dilaudid) 1 mg Q1HR PRN IV SEVERE PAIN Last administered on 11/09/16 04:22; Start 11/08/16 at 12:30; Stop 11/10/16 at 08:46; Status DC Oxycodone/ Acetaminophen (Percocet 5/325) 1 tab PRN Q4HRS PRN PO PAIN Last administered on 11/15/16 06:43; Start 11/08/16 at 12:30 Oxycodone/ Acetaminophen (Percocet 5/325) 2 tab PRN Q4HRS PRN PO PAIN Last administered on 11/13/16 16:49; Start 11/08/16 at 12:30 Sodium Chloride 1,000 ml @ 100 mls/hr Q10H IV Last administered on 11/09/16 01 :00; Start 11/08/16 at 12:30; Stop 11/09/16 at 10:17; Status DC Furosemide (Lasix) 40 mg STK-MED ONCE .ROUTE ; Start 11/08/16 at 14:32; Stop 11/08 at 14:33; Status DC Sodium Bicarbonate 50 meq STK-MED ONCE .ROUTE ; Start 11/08/16 at 14:32; Stop 11/08/16 at 14:33; Status DC Sodium Bicarbonate 100 meq 1X PACU PRN IV SEE COMMENTS Last administered on 11/08 14:50; Start 11/08/16 at 14:30; Stop 11/13/16 at 09:02; Status DC Furosemide (Lasix) 40 mg 1X PACU PRN IVP SEE COMMENTS Last administered on 14:40; Start 11/08/16 at 14:30; Stop 11/09/16 at 10:17; Status DC Naloxone HCl (Narcan) 0.4 mg PRN Q2MIN PRN IV SEE INSTRUCTIONS; Start 11/08/16 at 18:45 Sodium Chloride 1,000 ml @ 25 mls/hr Q24H IV Last administered on 11/09/16 19: 48; Start 11/08/16 at 19:00 Hydromorphone HCl 30 ml @ 0 mls/hr CONT PRN PRN IV PROTOCOL Last administered on 11/09/16 10:36; Start 11/08/16 at 18:45; Stop 11/09/16 at 21:12; Status DC Heparin Sodium (Porcine) (Heparin Sodium) 10,000 unit STK-MED ONCE .ROUTE ; Start 11/08/16 at 19:02; Stop 11/08/16 at 19:03; Status DC Lidocaine/Sodium Bicarbonate (Buffered Lidocaine 1%) 20 ml STK-MED ONCE IJ ; Start 11/08/16 at 19:02; Stop 11/08/16 at 19:03; Status DC Heparin Sodium/ Sodium Chloride 500 ml @ As Directed STK-MED ONCE .ROUTE ; Start 11/08/16 at 19:02; Stop 11/08/16 at 19:03; Status DC Lidocaine/Sodium Bicarbonate (Buffered Lidocaine 1%) 3 ml 1X ONCE IJ Last administered on 11/08/16 19:50; Start 11/08/16 at 19:15; Stop 11/08/16 at 19:16; Status DC Heparin Sodium (Porcine) (Heparin Sodium) 2,500 unit 1X ONCE INT CAT Last administered on 11/08/16 19:49; Start 11/08/16 at 19:15; Stop 11/08/16 at 19:16; Status DC Heparin Sodium/ Sodium Chloride 60 unit 1X ONCE IV Last administered on 19:15; Start 11/08/16 at 19:15; Stop 11/08/16 at 19:16; Status DC Cyclobenzaprine HCl (Flexeril) 10 mg PRN Q6HRS PRN PO MUSCLE SPASMS Last administered on 11/09/16 19:46; Start 11/09/16 at 09:00; Stop 11/10/16 at 08:46; Status DC Carisoprodol (Soma) 350 mg TID PRN PRN PO MUSCLE SPASMS; Start 11/09/16 at 09:00 ; Stop 11/09/16 at 16:31; Status DC Hydromorphone HCl 30 ml @ 0 mls/hr CONT PRN PRN IV PROTOCOL Last administered on 11/10/16 02:20; Start 11/09/16 at 21:15; Stop 11/10/16 at 08:46; Status DC Alprazolam (Xanax) 0.25 mg PRN QID PRN PO ANXIETY / AGITATION Last administered on 11/15/16 03:39; Start 11/09/16 at 21:15 Cyclobenzaprine HCl (Flexeril) 5 mg PRN Q6HRS PRN PO MUSCLE SPASMS Last administered on 11/14/16 21:42; Start 11/10/16 at 08:45 Hydromorphone HCl (Dilaudid) 0.4 mg Q1HR PRN IV SEVERE PAIN Last administered on 11/15/16 02:26; Start 11/10/16 at 08:45 Sodium Chloride 1,000 ml @ 1,000 mls/hr Q1H PRN IV hypotension; Start 11/10/16 at 09:06; Stop 11/10/16 at 15:05; Status DC Sodium Chloride 1,000 ml @ 400 mls/hr Q2H30M PRN IV PATENCY; Start 11/10/16 at 09:06; Stop 11/10/16 at 21:05; Status DC Info (PHARMACY MONITORING -- do not chart) 1 each PRN DAILY PRN MC SEE COMMENTS ; Start 11/10/16 at 09:15 Polyethylene Glycol (miraLAX PACKET) 17 gm DAILY PO Last administered on 08:49; Start 11/10/16 at 11:30 Magnesium Hydroxide (Milk Of Magnesia) 2,400 mg PRN DAILY PRN PO CONSTIPATION; Start 11/10/16 at 11:00 Docusate Sodium (Colace) 100 mg BID PO Last administered on 11/14/16 10:24; Start 11/10/16 at 11:30 Fentanyl Citrate (Fentanyl 2ml Vial) 25 mcg PRN Q5MIN PRN IV MILD PAIN; Start 11/11/16 at 07:00; Stop 11/12/16 at 06:59; Status DC Fentanyl Citrate (Fentanyl 2ml Vial) 50 mcg PRN Q5MIN PRN IV MODERATE PAIN; Start 11/11/16 at 07:00; Stop 11/12/16 at 06:59; Status DC Prochlorperazine Edisylate (Compazine) 5 mg PACU PRN PRN IV NAUSEA, MRX1; Start 11/11/16 at 07:00; Stop 11/12/16 at 06:59; Status DC Sodium Chloride 1,000 ml @ 0 mls/hr Q0M IV ; Start 11/11/16 at 06:00 Sevoflurane (Ultane) 60 ml STK-MED ONCE IH ; Start 11/11/16 at 07:12; Stop at 07:13; Status DC Midazolam HCl (Versed) 2 mg STK-MED ONCE .ROUTE ; Start 11/11/16 at 07:13; Stop 11/11/16 at 07:14; Status DC Fentanyl Citrate (Fentanyl 2ml Vial) 100 mcg STK-MED ONCE .ROUTE ; Start at 07:13; Stop 11/11/16 at 07:14; Status DC Propofol 20 ml @ As Directed STK-MED ONCE IV ; Start 11/11/16 at 07:14; Stop 11/11 at 07:15; Status DC Ondansetron HCl (Zofran) 4 mg STK-MED ONCE .ROUTE ; Start 11/11/16 at 07:14; Stop 11/11/16 at 07:15; Status DC Dexamethasone Sodium Phosphate (Decadron) 20 mg STK-MED ONCE .ROUTE ; Start 11/11 at 07:14; Stop 11/11/16 at 07:15; Status DC Lidocaine HCl (Lidocaine Pf 2% Vial) 5 ml STK-MED ONCE .ROUTE ; Start 11/11/16 at 07:14; Stop 11/11/16 at 07:15; Status DC Phenylephrine HCl 1 mg STK-MED ONCE IV ; Start 11/11/16 at 07:47; Stop 11/11/16 at 07:48; Status DC Phenylephrine HCl 1 mg STK-MED ONCE IV ; Start 11/11/16 at 08:43; Stop 11/11/16 at 08:44; Status DC Sodium Chloride 1,000 ml @ 1,000 mls/hr Q1H PRN IV hypotension; Start 11/11/16 at 10:26; Stop 11/11/16 at 16:25; Status DC Diphenhydramine HCl (Benadryl) 25 mg 1X PRN PRN IV ITCHING; Start 11/11/16 at 10 :30; Stop 11/12/16 at 10:29; Status DC Diphenhydramine HCl (Benadryl) 25 mg 1X PRN PRN IV ITCHING; Start 11/11/16 at 10 :30; Stop 11/12/16 at 10:29; Status DC Sodium Chloride (Normal Saline Flush) 10 ml 1X PRN PRN IV AP catheter pack; Start 11/11/16 at 10:30; Stop 11/12/16 at 10:29; Status DC Sodium Chloride (Normal Saline Flush) 10 ml 1X PRN PRN IV PITCH FILLER catheter pack; Start 11/11/16 at 10:30; Stop 11/12/16 at 10:29; Status DC Sodium Chloride 1,000 ml @ 400 mls/hr Q2H30M PRN IV PATENCY; Start 11/11/16 at 10:26; Stop 11/11/16 at 22:25; Status DC Info (PHARMACY MONITORING -- do not chart) 1 each PRN DAILY PRN MC SEE COMMENTS ; Start 11/11/16 at 10:30; Status UNV Info (PHARMACY MONITORING -- do not chart) 1 each PRN DAILY PRN MC SEE COMMENTS ; Start 11/11/16 at 10:30; Status Cancel Info (PHARMACY MONITORING -- do not chart) 1 each PRN DAILY PRN MC SEE COMMENTS ; Start 11/11/16 at 10:30; Status Cancel Darbepoetin Rich (Aranesp) 60 mcg WEEKLYHS SQ Last administered on 11/14/16 20 :58; Start 11/14/16 at 21:00 Heparin Sodium/ Sodium Chloride 1,000 unit 1X ONCE IART Last administered on 14:05; Start 11/14/16 at 14:00; Stop 11/14/16 at 14:01; Status DC Midazolam HCl (Versed) 2 mg 1X ONCE IV Last administered on 11/14/16 14:04; Start 11/14/16 at 14:00; Stop 11/14/16 at 14:01; Status DC Fentanyl Citrate (Fentanyl 2ml Vial) 100 mcg 1X ONCE IV Last administered on 14:04; Start 11/14/16 at 14:00; Stop 11/14/16 at 14:01; Status DC Lidocaine/ Epinephrine (Xylocaine 1%-Epi 1:100,000) 20 ml 1X ONCE INJ Last administered on 11/14/16 14:04; Start 11/14/16 at 14:00; Stop 11/14/16 at 14:01 ; Status DC Heparin Sodium (Porcine) (Heparin Sodium) 4,300 unit 1X ONCE INT CAT ; Start at 14:00; Stop 11/14/16 at 14:08; Status DC Sodium Chloride 1,000 ml @ 1,000 mls/hr Q1H PRN IV hypotension; Start 11/14/16 at 15:30; Stop 11/14/16 at 23:00; Status DC Info (PHARMACY MONITORING -- do not chart) 1 each PRN DAILY PRN MC SEE COMMENTS ; Start 11/14/16 at 15:30; Status UNV Info (PHARMACY MONITORING -- do not chart) 1 each PRN DAILY PRN MC SEE COMMENTS ; Start 11/14/16 at 15:30; Status UNV Heparin Sodium/ Sodium Chloride 1,000 unit 1X ONCE IART Last administered on 09:37; Start 11/15/16 at 09:45; Stop 11/15/16 at 09:46; Status DC Lidocaine/Sodium Bicarbonate (Buffered Lidocaine 1%) 5 ml 1X ONCE IJ Last administered on 11/15/16 09:37; Start 11/15/16 at 09:45; Stop 11/15/16 at 09:46 ; Status DC Midazolam HCl (Versed) 2 mg 1X ONCE IV Last administered on 11/15/16 09:37; Start 11/15/16 at 09:45; Stop 11/15/16 at 09:46; Status DC Fentanyl Citrate (Fentanyl 2ml Vial) 100 mcg 1X ONCE IV Last administered on 09:38; Start 11/15/16 at 09:45; Stop 11/15/16 at 09:46; Status DC Iodixanol (Visipaque 320) 14 ml 1X ONCE IART Last administered on 11/15/16 09 :38; Start 11/15/16 at 09:45; Stop 11/15/16 at 09:46; Status DC Info (Do NOT chart on this entry -- for MONITORING) 1 each PRN DAILY PRN MC SEE COMMENTS; Start 11/15/16 at 09:45; Stop 11/17/16 at 09:44 Lidocaine/ Epinephrine (Xylocaine 1%-Epi 1:100,000) 10 ml 1X ONCE INJ Last administered on 11/15/16 10:30; Start 11/15/16 at 10:15; Stop 11/15/16 at 10:16 ; Status DC Heparin Sodium (Porcine) (Hep Lock Adult) 500 unit 1X ONCE IV ; Start 11/15/16 at 10:15; Stop 11/15/16 at 10:16; Status DC Lidocaine/ Epinephrine (Xylocaine 1%-Epi 1:100,000) 10 ml 1X ONCE INJ ; Start 11/15/16 at 10:30; Stop 11/15/16 at 10:31; Status DC Heparin Sodium (Porcine) (Hep Lock Adult) 300 unit 1X ONCE IV Last administered on 11/15/16t 10:32; Start 11/15/16 at 10:30; Stop 11/15/16 at 10:31 ; Status DC Vitals/I & O Vital Sign - Last 24 Hours 11/14/16 11/14/16 11/14/16 11/14/16 11:42 12:12 14:04 14:11 Pulse 90 Resp 20 16 21 21 Pulse Ox 98 94 99 99 O2 Delivery Room Air Room Air Room Air Nasal Cannula O2 Flow Rate 2.0 11/14/16 11/14/16 11/14/16 11/14/16 19:40 20:00 20:58 23:35 Temp 97.6 97.8 97.6 97.8 Pulse 103 103 92 Resp 20 20 B/P (MAP) 117/75 (89) 117/105 111/53 (72) Pulse Ox 96 97 O2 Delivery Room Air Room Air Room Air 11/15/16 11/15/16 11/15/16 11/15/16 02:26 03:30 07:50 09:29 Temp 98.1 98.3 98.1 98.3 Pulse 95 93 86 Resp 20 14 16 B/P (MAP) 103/48 (66) 102/37 (58) Pulse Ox 97 94 99 O2 Delivery Room Air Room Air Room Air Nasal Cannula O2 Flow Rate 2.0 11/15/16 09:38 Resp 16 Pulse Ox 98 O2 Delivery Room Air ANA GRANADO APRN Nov 15, 2016 11:22
[2016-11-15] MEDS: FLUCONAZOLE 100 MG TABLET. PO SCH (12:28)
[2016-11-15] MEDS: PANTOPRAZOLE 40 MG TABLET.DR. PO SCH (12:28)
[2016-11-15] MEDS: ASPIRIN ENTERIC COATED 81 MG TABLET.DR. PO SCH (12:29)
[2016-11-15] MEDS: amLODIPine BESYLATE 10 MG TABLET PO SCH (12:29)
[2016-11-15] MEDS: CLOPIDOGREL BISULFATE 75 MG TABLET PO SCH (12:29)
[2016-11-15] MEDS: ASCORBIC ACID 500 MG TABLET PO SCH (12:29)
[2016-11-15] MEDS: MULTIVITAMIN with MINERAL TABLET. PO SCH (12:30)
[2016-11-15] MEDS: CARVEDILOL 3.125 MG TABLET. PO SCH (12:30)
[2016-11-15] MEDS: MEROPENEM 1 GM in IV NORMAL SALINE 100ML 100 ML IV SCH (12:31)
--- NOTE | 2016-11-15 13:55 | RAD ---
1. Renal angiography 11/15/2016 2. Placement of a left internal jugular tunneled central venous catheter Indication: Possible bilateral renal arterial stenosis Comparison study: CO2 aortogram November 04, 2016 Discussion: The risks and benefits of the procedure were discussed the patient. Informed consent was obtained. The patient was brought to the fluoroscopy suite and placed in the supine position. A timeout procedure was performed. The right groin was prepped and draped using sterile technique. All elements of maximal sterile barrier technique including the use of a cap, mask, sterile gown, sterile gloves, large sterile sheet, appropriate hand hygiene, and 2% chlorhexidine for cutaneous antisepsis (or acceptable alternative antiseptic per current guidelines) were followed for this procedure. The right common femoral artery was accessed under direct ultrasound guidance. Reference ultrasound images were saved to the medical record. Micropuncture technique was used. A 5 Israeli chest sheath was placed. A C2 catheter was advanced into the origin of the left, previously stented renal artery. Angiography was performed demonstrating mild 20% t stenosis. Subsequently the CT catheter was initiated into the origin of the right medial artery which is widely patent. Catheters and sheaths were removed. Manual pressure was held to achieve hemostasis. No immediate complications were identified. Second portion of the procedure was placement of a left-sided tunneled IJ central venous catheter. All elements of maximal sterile barrier technique including the use of a cap, mask, sterile gown, sterile gloves, large sterile sheet, appropriate hand hygiene, and 2% chlorhexidine for cutaneous antisepsis (or acceptable alternative antiseptic per current guidelines) were followed for this procedure. Following informed consent, the patient was prepped and draped in the usual sterile fashion. Ultrasound interrogation of the left neck revealed patency and compressibility of the left internal jugular vein. A 21-gauge micropuncture was then used to gain access to this vein under ultrasound guidance. A hard copy ultrasound image was recorded. The needle was exchanged over a wire for a sheath. A small incision was made several centimeters inferior to the right clavicle. A power line was trimmed to length, advanced from the small skin incision to the venotomy site, and then advanced through a peel-away sheath to the level of the cavoatrial junction. Catheter was found to flush and aspirate normally. Catheter was secured in place with 2-0 Prolene suture and a sterile dressing was applied. Catheter was packed with heparin per protocol. The neck dermatotomy was closed with Dermabond. No immediate complications were identified. Procedures performed under conscious sedation including continuous cardiopulmonary monitoring via dedicated sedation nurse. Sedation time: 90 minutes Fluoroscopy time: 6.7 minutes Dose area product 32 Gycm2 Impression: 1. Patent right renal artery 2. Mild approximately 20% in-stent stenosis involving the left renal artery. 3. Successful ultrasound and fluoroscopically guided placement of a left internal jugular tunneled central venous catheter
[2016-11-15 15:00] VITALS: BP 123/42
[2016-11-15] MEDS: CYCLOBENZAPRINE 10 MG TABLET. PO PRN (15:23)
== END 2016-11-15 18:30 | DRG 901 ==
LOC: ER 09:07 → 4 NORTH 13:24 → 2 SOUTH 11-08 10:29 → 1 WEST ICU 11-08 15:12 → 2 NORTH 11-11 15:55
PROVIDERS: ADMIT Internal Medicine Hematology & Oncology; ATTEND Internal Medicine Hematology & Oncology
PROC: 041L09N Bypass Left Femoral Artery to Posterior Tibial Artery with Autologous Venous Tissue, Open Approach (ICD-10-PCS; 2016-11-08)
PROC: 05BC0ZZ Excision of Left Basilic Vein, Open Approach (ICD-10-PCS; 2016-11-08)
PROC: 05BB0ZZ Excision of Right Basilic Vein, Open Approach (ICD-10-PCS; 2016-11-08)
PROC: 02H633Z Insertion of Infusion Device into Right Atrium, Percutaneous Approach (ICD-10-PCS; 2016-11-08)
PROC: B244ZZZ Ultrasonography of Right Heart (ICD-10-PCS; 2016-11-08)
PROC: 04CL0ZZ Extirpation of Matter from Left Femoral Artery, Open Approach (ICD-10-PCS; principal; 2016-11-08 07:30)
PROC: 30233N1 Transfusion of Nonautologous Red Blood Cells into Peripheral Vein, Percutaneous Approach (ICD-10-PCS; 2016-11-09)
PROC: 0JBR0ZZ Excision of Left Foot Subcutaneous Tissue and Fascia, Open Approach (ICD-10-PCS; 2016-11-11)
PROC: 0QBP0ZZ Excision of Left Metatarsal, Open Approach (ICD-10-PCS; 2016-11-11)
PROC: 0QBP0ZZ Excision of Left Metatarsal, Open Approach (ICD-10-PCS; 2016-11-11)
PROC: 02H633Z Insertion of Infusion Device into Right Atrium, Percutaneous Approach (ICD-10-PCS; 2016-11-14)
PROC: B2141ZZ Fluoroscopy of Right Heart using Low Osmolar Contrast (ICD-10-PCS; 2016-11-14)
PROC: 5A1D60Z (ICD-10-PCS; 2016-11-14)
PROC: 0JH63XZ Insertion of Tunneled Vascular Access Device into Chest Subcutaneous Tissue and Fascia, Percutaneous Approach (ICD-10-PCS; 2016-11-14)
PROC: B4181ZZ Fluoroscopy of Bilateral Renal Arteries using Low Osmolar Contrast (ICD-10-PCS; 2016-11-15)
DX: T81.30XA Disruption of wound, unspecified, initial encounter (principal); N18.6 End stage renal disease; E11.52 Type 2 diabetes mellitus with diabetic peripheral angiopathy with gangrene; I12.0 Hypertensive chronic kidney disease with stage 5 chronic kidney disease or end stage renal disease; M34.1 CR(E)ST syndrome; N17.9 Acute kidney failure, unspecified; N18.5 Chronic kidney disease, stage 5; D62 Acute posthemorrhagic anemia; Z68.1 Body mass index [BMI] 19.9 or less, adult; E44.1 Mild protein-calorie malnutrition; E11.22 Type 2 diabetes mellitus with diabetic chronic kidney disease; T87.81 Dehiscence of amputation stump; D63.1 Anemia in chronic kidney disease; E78.5 Hyperlipidemia, unspecified; E87.5 Hyperkalemia; F12.90 Cannabis use, unspecified, uncomplicated; F17.200 Nicotine dependence, unspecified, uncomplicated; G89.18 Other acute postprocedural pain; I70.1 Atherosclerosis of renal artery; I77.1 Stricture of artery; I99.8 Other disorder of circulatory system; K22.4 Dyskinesia of esophagus; B96.1 Klebsiella pneumoniae [K. pneumoniae] as the cause of diseases classified elsewhere; B96.20 Unspecified Escherichia coli [E. coli] as the cause of diseases classified elsewhere; Y83.5 Amputation of limb(s) as the cause of abnormal reaction of the patient, or of later complication, without mention of misadventure at the time of the procedure; Z86.73 Personal history of transient ischemic attack (TIA), and cerebral infarction without residual deficits; Z87.01 Personal history of pneumonia (recurrent); Z89.429 Acquired absence of other toe(s), unspecified side
CPT/HCPCS: 36252; 36415; 36556; 36558; 37221; 71010; 73630; 73718; 75625; 75710; 75774; 76770; 76937; 77001; 80048; 80051; 80053; 80202; 80307; 81001; 82550; 82570; 82962; 83036; 83605; 84145; 84156; 85014; 85018; 85025; 85027; 85610; 85730; 86704; 86706; 86850; 86900; 86901; 86920; 87040; 87071; 87075; 87186; 87205; 87340; 87341; 93005; 93306; 93880; 93926; 93970; 93971; 94250; 94640; 94760; 96361; 96374; 96375; 99152; 99153; A4215; C1713; C1750; C1758; C1769; C1892; C1894; C2623; G0269; J0690; J0881; J1100; J1170; J1644; J1815; J1940; J2185; J2250; J2370; J2405; J2440; J2704; J2710; J3010; J3370; J3490; J7030; J7040; J7120; P9016; Q9967; S0028; 97530; 97535; 99285-25; G0479; J2001